=== PATIENT | male | born 1950 | race Caucasian/White ===

== ENCOUNTER 2016-09-01 06:50 | Day surgery (SDC) | payer MEDICARE ==
[2016-08-28 08:44] VITALS: BMI 39.9
[~2016-09-01 06:50] MED LIST: LACTATED RINGERS 1,000 ML IV SCH; LIDOCAINE 1% 20 ML VIAL (10MG/ML) FOR IV START INTRADERMA PRN
[2016-09-01 07:10] VITALS: TEMP 97
[2016-09-01] MEDS ORDERED: PROPOFOL 10 MG/ML 20 ML VIAL IV ONE (07:29)
[2016-09-01] MEDS ORDERED: LIDOCAINE 1% INJ 10MG/ML (20 ML MDV) ONE (07:29)
--- NOTE | 2016-09-01 08:01 | P.DS ---
Providers Attending physician: Tierney Camejo Primary care physician: Emelina Rodríguez MD Plan - Discharge Summary Discharge Medication List Furosemide [Lasix] 40 mg PO DAILY 01/28/15 [History] Aspirin 81 mg PO DAILY #30 chew 05/16/15 [Rx] Allopurinol [Zyloprim] 100 mg PO DAILY 03/06/16 [History] Atorvastatin [Lipitor] 10 mg PO HS 03/06/16 [History] Ergocalciferol [Vitamin D2 (DRISDOL)] 50,000 unit PO AYALA 03/06/16 [History] Lisinopril [Zestril] 10 mg PO DAILY 08/28/16 [History] Activity/Diet/Wound Care/Special Instructions: Diverticular diet Discharge Disposition: HOME SELF-CARE
--- NOTE | 2016-09-01 08:01 | P.OP ---
Date of Procedure: 09/01/16 Preoperative Diagnosis: Colonoscopy, flank pain Postoperative Diagnosis: Diffuse sigmoid diverticuli, internal hemorrhoids Procedure(s) Performed: Colonoscopy Anesthesia: MAC Surgeon: Tierney Camejo Estimated Blood Loss (ml): 0 IV fluids (ml): 300 Pathology: none sent Condition: stable Disposition: PACU Indications for Procedure: Patient's last colonoscopy 2005 Operative Findings: Sigmoid diverticuli, internal hemorrhoids Description of Procedure: Patient was taken to the endoscopy suite and following sedation rectal exam was performed. Patient was noted to have good sphincter tone no masses. The prostate seems somewhat prominent. The colonoscope was passed through the anus into the rectum through the sigmoid colon up to splenic flexure transverse colon hepatic flexure right colon down to the area of the cecum. Circumferential observation of the mucosa did not reveal any lesions of concern in the cecum or right colon. No lesions of concern were identified in the transverse colon. As the scope was withdrawn some scattered diverticuli were noted in the sigmoid colon. No polypoid lesions of concern were identified. The scope was brought down into the rectum where it was retroflexed. Internal hemorrhoids were identified. Approximately 6 minutes were taken to withdraw the scope from the cecum to the rectum. Impression/plan: 1. Internal hemorrhoids 2. Scattered diverticuli in the sigmoid colon 3. Slightly prominent prostate Plan: 1. Conservative management of diverticuli and hemorrhoids 2. Follow-up prostate with primary care physician 3. Repeat scope 7-10 years
[2016-09-01 08:02] VITALS: RESP 18
[2016-09-01 08:38] VITALS: BP 129/78; PULSE 58
== END 2016-09-01 08:49 | disposition home or self-care (01) ==
LOC: ORWHC2ENDO 06:50
PROVIDERS: ATTEND Surgery
DX: K57.30 Diverticulosis of large intestine without perforation or abscess without bleeding (principal); K64.8 Other hemorrhoids; C61 Malignant neoplasm of prostate; I11.0 Hypertensive heart disease with heart failure; I50.9 Heart failure, unspecified; E78.5 Hyperlipidemia, unspecified; G45.9 Transient cerebral ischemic attack, unspecified; Z88.1 Allergy status to other antibiotic agents; Z79.82 Long term (current) use of aspirin; Z79.899 Other long term (current) drug therapy; Z90.49 Acquired absence of other specified parts of digestive tract
CPT/HCPCS: 45378; J2001; J2704

== ENCOUNTER → 2016-10-03 | Outpatient (CLI) | payer MEDICARE ==
[2016-10-03 07:54] LABS: Basophils # (A) 0.1 k/uL (0-0.2); Basophils % (A) 1 %; CH 29.7; CHCM 33.7; Eosinophils # (A) 0.2 k/uL (0-0.7); Eosinophils % (A) 4 %; HCT 52.2 % (39.0-53.0); HDW 2.83; Luc # (Auto) 0.13; Luc % (Auto) 2; Lymphocytes # (A) 1.4 k/uL (1.0-4.8); Lymphocytes % (A) 21 %; MCH 28.9 pg (25.0-35.0); MCHC 32.6 g/dL (31.0-37.0); MCV 88.7 fL (80.0-100.0); Mean Platelet Volume 6.5; Monocytes # (A) 0.4 k/uL (0-1.0); Monocytes % (A) 6 %; Neutrophils # (A) 4.2 k/uL (1.3-7.7); Neutrophils % (A) 66 %; RBC 5.88 m/uL (4.30-5.90); RDW 14.1 % (11.5-15.5); WBC 6.4 k/uL (3.8-10.6); WBC (Perox) 5.98
[2016-10-03 08:13] LABS: ALT 24 U/L (21-72); AST 16 U/L (17-59); Alkaline Phosphatase 85 U/L (38-126); Anion Gap 9 mmol/L; Blood Urea Nitrogen 11 mg/dL (9-20); Calcium 8.8 mg/dL (8.4-10.2); Carbon Dioxide 29 mmol/L (22-30); Chloride 103 mmol/L (98-107); Cholesterol 81 mg/dL (<200); Glucose 97 mg/dL (74-99); HDL Cholesterol 41 mg/dL (40-60); Non-African American GFR(MDRD) >60 (>60 ml/min/1.73 sqM); Potassium 3.9 mmol/L (3.5-5.1); Sodium 141 mmol/L (137-145); Total Protein 6.6 g/dL (6.3-8.2); Triglycerides 40 mg/dL (<150); Uric Acid 5.7 mg/dL (3.5-8.5)
== END | disposition home or self-care (01) ==
LOC: LABWHC1 07:12
PROVIDERS: ATTEND Family Medicine
DX: C61 Malignant neoplasm of prostate (principal); I10 Essential (primary) hypertension; M10.9 Gout, unspecified; E78.5 Hyperlipidemia, unspecified
CPT/HCPCS: 36415; 80053; 80061; 84153; 84550; 85025

== ENCOUNTER 2016-10-23 23:32 | Emergency (ER) | payer MEDICARE ==
[2016-10-23 23:37] VITALS: TEMP 97.1
[2016-10-23] MEDS ORDERED: ASPIRIN 81 MG CHEW PO STA (23:41)
[2016-10-23] MEDS ORDERED: NITROGLYCERIN OINT 1 INCH/GM PACKET TOPICAL STA (23:41)
[2016-10-23] MEDS ORDERED: NITROGLYCERIN SL TABS 0.4 MG TAB SUBLINGUAL STA (23:41)
[2016-10-24] MEDS ORDERED: LABETALOL 5 MG/ML VIAL MDV IVP STA (00:14)
[2016-10-24 00:56] LABS: Basophils # (A) 0.1 k/uL (0-0.2); Basophils % (A) 1 %; CHCM 35.5; Eosinophils # (A) 0.2 k/uL (0-0.7); Eosinophils % (A) 2 %; HCT 51.7 % (39.0-53.0); HDW 2.96; HGB 17.8 gm/dL (13.0-17.5); Luc # (Auto) 0.15; Luc % (Auto) 2; Lymphocytes # (A) 1.5 k/uL (1.0-4.8); Lymphocytes % (A) 15 %; MCH 29.3 pg (25.0-35.0); MCHC 34.5 g/dL (31.0-37.0); MCV 84.8 fL (80.0-100.0); Mean Platelet Volume 6.6; Monocytes # (A) 0.5 k/uL (0-1.0); Monocytes % (A) 5 %; Neutrophils # (A) 7.4 k/uL (1.3-7.7); Neutrophils % (A) 76 %; RBC 6.09 m/uL (4.30-5.90); RDW 13.6 % (11.5-15.5); WBC 9.8 k/uL (3.8-10.6); WBC (Perox) 9.03
[2016-10-24 00:59] LABS: INR 1.1 (<1.1); Partial Thromboplastin Time 24.2 sec (22.0-30.0); Prothrombin Time 11.1 sec (9.0-12.0)
[2016-10-24 01:01] LABS: ALT 28 U/L (21-72); AST 16 U/L (17-59); Alkaline Phosphatase 87 U/L (38-126); Anion Gap 11 mmol/L; Blood Urea Nitrogen 11 mg/dL (9-20); Carbon Dioxide 23 mmol/L (22-30); Chloride 105 mmol/L (98-107); Glucose 104 mg/dL (74-99); Non-African American GFR(MDRD) >60 (>60 ml/min/1.73 sqM); Potassium 3.9 mmol/L (3.5-5.1); Sodium 139 mmol/L (137-145); Total Bilirubin 0.8 mg/dL (0.2-1.3)
[2016-10-24 01:13] LABS: Creatine Kinase 112 U/L (55-170)
--- NOTE | 2016-10-24 01:20 | XR ---
INDICATION: Chest pain COMPARISON: CXR 03/06/16 FINDINGS: Single frontal view of the chest is provided. There is stable cardiomegaly. Pulmonary vascularity is normal. The lungs are clear, without consolidation, effusion, or pneumothorax. Regional skeleton is intact. IMPRESSION: 1. Stable cardiomegaly. 2. No radiographic evidence of acute cardiopulmonary disease.
[2016-10-24 01:26] LABS: Troponin I <0.012 ng/mL (0.000-0.034)
[2016-10-24 02:03] VITALS: RESP 16
--- NOTE | 2016-10-24 02:35 | ED ---
Chest Pain HPI - General Chief Complaint: Chest Pain Stated Complaint: HTN,Chest Pressure Time Seen by Provider: 10/23/16 23:41 Source: patient Mode of arrival: ambulatory Limitations: no limitations - History of Present Illness Initial Comments: This patient is a 66-year-old man who presents to be evaluated because his blood pressure is been elevated most of the day. Patient reports that he had checked his blood pressure because he was having a bit of a headache and in the past the headache is been associated with elevated blood pressure. His blood pressure was quite high at home, over 200/100. They were following the blood pressure for a few hours and he did take an additional dose of his antihypertensive. When the pressure not gone down he did come here to be evaluated. The patient is denying sheryl pain but does state his chest is been tight they all across. MD Complaint: chest pain -: hour(s) Onset: during rest Pain Location: left chest, right chest Pain Radiation: none Severity: mild Quality: tightness Consistency: constant Improves With: nothing Worsens With: nothing Treatments Prior to Arrival: other (Patient took an extra dose of his antihypertensive) - Related Data Home Medications Medication Instructions Recorded Confirmed Furosemide [Lasix] 40 mg PO DAILY 01/28/15 10/25/16 Allopurinol [Zyloprim] 100 mg PO DAILY 03/06/16 10/25/16 Atorvastatin [Lipitor] 10 mg PO HS 03/06/16 10/25/16 Ergocalciferol [Vitamin D2 50,000 unit PO AYALA 03/06/16 10/25/16 (DRISDOL)] Lisinopril [Zestril] 20 mg PO DAILY 10/23/16 10/25/16 Cyanocobalamin [Vitamin B-12 1,000 mcg SQ Q60D 10/25/16 10/25/16 Injection] Previous Rx's Medication Instructions Recorded Aspirin 81 mg PO DAILY #30 chew 05/16/15 Amoxic-Pot Clav 875-125Mg 1 tab PO Q12HR #20 tablet 10/25/16 [Augmentin 875-125] HYDROcodone/APAP 5-325MG [[place] 1 tab PO Q6HR PRN #12 tab 10/25/16 5-325] Allergies Allergy/AdvReac Type Severity Reaction Status Date / Time erythromycin base AdvReac Nausea & Verified 10/25/16 13:30 Vomiting ibuprofen AdvReac Hx of GI Verified 10/25/16 13:30 Bleed steroids AdvReac Hx of GI Uncoded 10/25/16 13:11 Bleed Review of Systems ROS Statement: Those systems with pertinent positive or pertinent negative responses have been documented in the HPI. ROS Other: All systems not noted in ROS Statement are negative. Constitutional: Denies: fever, chills, weakness Eyes: Denies: vision change Respiratory: Denies: cough, dyspnea, wheezes Cardiovascular: Reports: as per HPI, chest pain. Denies: palpitations, dyspnea on exertion, orthopnea, edema, syncope Gastrointestinal: Denies: abdominal pain, vomiting Genitourinary: Denies: dysuria Musculoskeletal: Denies: back pain Skin: Denies: rash Neurological: Reports: headache. Denies: weakness, numbness, paresthesias EKG Findings - EKG Results: EKG: interpreted by HIRAM JONES, sinus rhythm (Rate 69 bpm), normal axis, normal QRS, normal ST/T, no acute changes - AR, Pacemaker, Normal: Normal tracing: normal tracing Past Medical History Past Medical History: Cancer, Heart Failure, CVA/TIA, GI Bleed, Hypertension, Pneumonia, Prostate Disorder Additional Past Medical History / Comment(s): hx prostate ca 2009/radiation tx , TIA 2014, SLIGHTLY ENLARGED HEART", GOUT, Small bowel blockage in February 2016 , hx anemia History of Any Multi-Drug Resistant Organisms: None Reported Past Surgical History: Bowel Resection, Cholecystectomy, Heart Catheterization, Hernia Repair Additional Past Surgical History / Comment(s): omphalocele repair as infant, 2 BOWEL RESECTIONS for bleeding, Past Anesthesia/Blood Transfusion Reactions: No Reported Reaction Additional Past Anesthesia/Blood Transfusion Reaction / Comment(s): . Past Psychological History: Depression Additional Psychological History / Comment(s): Pt had a suicide attempt in 2004. He states he has no suicidal thoughts. Smoking Status: Never smoker Past Alcohol Use History: Rare Additional Past Alcohol Use History / Comment(s): . Past Drug Use History: None Reported - Past Family History Father Family Medical History: Cancer Additional Family Medical History / Comment(s): .. Mother Family Medical History: Cancer Additional Family Medical History / Comment(s): . General Exam Limitations: no limitations General appearance: alert, in no apparent distress, obese Head exam: Present: atraumatic, normocephalic Eye exam: Present: normal appearance. Absent: scleral icterus, conjunctival injection Neck exam: Present: normal inspection, full ROM. Absent: tenderness, meningismus Respiratory exam: Present: normal lung sounds bilaterally. Absent: respiratory distress, wheezes, rales, rhonchi, stridor Cardiovascular Exam: Present: regular rate, normal rhythm, normal heart sounds. Absent: systolic murmur, diastolic murmur, rubs, gallop GI/Abdominal exam: Present: soft. Absent: distended, tenderness, guarding, rebound, rigid Extremities exam: Present: normal inspection, normal capillary refill. Absent: pedal edema, calf tenderness Back exam: Present: normal inspection. Absent: CVA tenderness (R), CVA tenderness (L) Neurological exam: Present: alert, oriented X3. Absent: motor sensory deficit Skin exam: Present: warm, dry, intact, normal color. Absent: rash Course Vital Signs 10/23/16 10/24/16 10/24/16 23:34 00:27 00:37 Temperature 97.1 F L Pulse Rate 62 75 76 Respiratory 18 16 16 Rate Blood Pressure 200/109 154/110 144/96 O2 Sat by Pulse 97 97 97 Oximetry 10/24/16 10/24/16 02:04 03:00 Temperature Pulse Rate 72 69 Respiratory 16 16 Rate Blood Pressure 132/93 123/80 O2 Sat by Pulse 98 97 Oximetry Chest Pain MDM - MDM Patient is 66-year-old man with elevated blood pressure that did respond to the antihypertensive. He was also having headache which she states is the same as chronic headaches that he is getting for years. It is not worst headache of life. No coming neurologic symptoms. Disposition Clinical Impression: Hypertension Disposition: HOME SELF-CARE Condition: Good Instructions: Hypertension (ED) Referrals: Emelina Rodríguez MD [Primary Care Provider] - 1-2 days
[2016-10-24 03:02] VITALS: BP 123/80; PULSE 69
== END 2016-10-24 03:00 | disposition home or self-care (01) ==
LOC: EC 23:32
DX: I11.0 Hypertensive heart disease with heart failure (principal); I50.9 Heart failure, unspecified; R07.9 Chest pain, unspecified; Z86.73 Personal history of transient ischemic attack (TIA), and cerebral infarction without residual deficits; Z88.1 Allergy status to other antibiotic agents; Z88.6 Allergy status to analgesic agent; Z88.8 Allergy status to other drugs, medicaments and biological substances; Z79.899 Other long term (current) drug therapy
CPT/HCPCS: 36415; 71010; 80053; 82550; 82553; 83735; 83880; 84484; 85025; 85610; 85730; 93005; 99285

== ENCOUNTER 2016-10-25 12:38 | Emergency (ER) | payer MEDICARE ==
[2016-10-25 13:11] VITALS: BP 136/89; PULSE 84; RESP 16; TEMP 98.7
[2016-10-25] MEDS ORDERED: AMOXIC-POT CLAV 875-125MG 1 EACH TAB PO STA (13:31)
--- NOTE | 2016-10-25 13:41 | ED ---
ENT HPI - General Chief complaint: Dental/Oral Stated complaint: Face swelling Source: patient Mode of arrival: ambulatory Limitations: no limitations - History of Present Illness Initial comments: Patient is a 66-year-old male presenting to the emergency department with complaints of left-sided mandibular swelling that started at 2 AM last night. Patient states that he has a history of fracture to tooth #19 and has been having some pain over the last couple of days which he treated with Orajel and Tylenol with minimal relief. Patient denies history of same. No history of fevers, chills, nausea, vomiting, shortness of breath, trismus, difficulty swallowing, chest pain, abdominal pain. Patient denies ear pain. Patient denies difficulty hearing. Patient denies antibiotic use last 30 days. - Related Data Home Medications Medication Instructions Recorded Confirmed Furosemide [Lasix] 40 mg PO DAILY 01/28/15 10/25/16 Allopurinol [Zyloprim] 100 mg PO DAILY 03/06/16 10/25/16 Atorvastatin [Lipitor] 10 mg PO HS 03/06/16 10/25/16 Ergocalciferol [Vitamin D2 50,000 unit PO AYALA 03/06/16 10/25/16 (DRISDOL)] Lisinopril [Zestril] 20 mg PO DAILY 10/23/16 10/25/16 Cyanocobalamin [Vitamin B-12 1,000 mcg SQ Q60D 10/25/16 10/25/16 Injection] Previous Rx's Medication Instructions Recorded Aspirin 81 mg PO DAILY #30 chew 05/16/15 Amoxic-Pot Clav 875-125Mg 1 tab PO Q12HR #20 tablet 10/25/16 [Augmentin 875-125] HYDROcodone/APAP 5-325MG [[place] 1 tab PO Q6HR PRN #12 tab 10/25/16 5-325] Allergies Allergy/AdvReac Type Severity Reaction Status Date / Time erythromycin base AdvReac Nausea & Verified 10/25/16 13:30 Vomiting ibuprofen AdvReac Hx of GI Verified 10/25/16 13:30 Bleed steroids AdvReac Hx of GI Uncoded 10/25/16 13:11 Bleed Review of Systems ROS Statement: Those systems with pertinent positive or pertinent negative responses have been documented in the HPI. ROS Other: All systems not noted in ROS Statement are negative. Past Medical History Past Medical History: Cancer, Heart Failure, CVA/TIA, GI Bleed, Hypertension, Pneumonia, Prostate Disorder Additional Past Medical History / Comment(s): hx prostate ca 2009/radiation tx , TIA 2014, SLIGHTLY ENLARGED HEART", GOUT, Small bowel blockage in February 2016 , hx anemia History of Any Multi-Drug Resistant Organisms: None Reported Past Surgical History: Bowel Resection, Cholecystectomy, Heart Catheterization, Hernia Repair Additional Past Surgical History / Comment(s): omphalocele repair as , 2 BOWEL RESECTIONS for bleeding, Past Anesthesia/Blood Transfusion Reactions: No Reported Reaction Additional Past Anesthesia/Blood Transfusion Reaction / Comment(s): . Past Psychological History: Depression Additional Psychological History / Comment(s): Pt had a suicide attempt in 2004. He states he has no suicidal thoughts. Smoking Status: Never smoker Past Alcohol Use History: Rare Additional Past Alcohol Use History / Comment(s): . Past Drug Use History: None Reported - Past Family History Father Family Medical History: Cancer Additional Family Medical History / Comment(s): .. Mother Family Medical History: Cancer Additional Family Medical History / Comment(s): . General Exam Limitations: no limitations General appearance: alert, in no apparent distress Head exam: Present: atraumatic, normocephalic, normal inspection Eye exam: Present: normal appearance, PERRL. Absent: scleral icterus, conjunctival injection, nystagmus, periorbital swelling, periorbital tenderness ENT exam: Present: mucous membranes moist, TM's normal bilaterally, normal external ear exam Expanded Ear exam: Present: normal external inspection Mouth exam: Present: tongue normal. Absent: drooling, trismus Teeth exam: Present: fractured tooth # (19), dental tenderness # (19) Throat exam: normal inspection. negative: tonsillar erythema, tonsillomegaly, tonsillar exudate, R peritonsillar mass, L peritonsillar mass Neck exam: Present: normal inspection, full ROM. Absent: tenderness, lymphadenopathy Respiratory exam: Present: normal lung sounds bilaterally. Absent: respiratory distress, wheezes, rales, rhonchi, stridor Cardiovascular Exam: Present: regular rate, normal rhythm, normal heart sounds. Absent: systolic murmur, diastolic murmur, rubs, gallop, clicks GI/Abdominal exam: Present: soft, normal bowel sounds. Absent: distended, tenderness, guarding, rebound, rigid Extremities exam: Present: normal inspection Neurological exam: Present: alert, oriented X3, normal gait, other (No focal deficits noted.) Psychiatric exam: Present: normal affect, normal mood Skin exam: Present: warm, dry, intact, normal color, other (Swelling, erythema, and tenderness noted to left lower jaw area.) Course Vital Signs 10/25/16 13:07 Temperature 98.7 F Pulse Rate 84 Respiratory 16 Rate Blood Pressure 136/89 O2 Sat by Pulse 95 Oximetry Medical Decision Making - Medical Decision Making Patient is a 66-year-old white male presenting with history of fractured tooth # 19 presenting with dental abscess and facial cellulitis. Patient started on Augmentin 875 mg twice a day 10 days with first dose given in the emergency department. Patient instructed to follow-up with dentist and primary care physician as directed. Patient given prescription for [place] 5 for moderate to severe pain. Patient instructed to apply warm compresses to the site. Patient instructed to return to the emergency department with new worsening symptoms. Patient agrees to plan of care. Discharge instructions and return parameters reviewed. Disposition Clinical Impression: Dental abscess, Toothache, Fracture of tooth, Facial cellulitis Disposition: HOME SELF-CARE Condition: Good Instructions: Dental Abscess (ED), Toothache (ED) Additional Instructions: Continue Augmentin 875 every 12 hours for 10 days. Continue Tylenol or [place] for pain or discomfort. Apply warm compresses for comfort. Please follow-up with dentist on Wednesday. Follow-up with primary care physician as direcPlease return to the emergency department if symptoms do not improve or get worse. Prescriptions: Amoxic-Pot Clav 875-125Mg [Augmentin 875-125] 1 tab PO Q12HR #20 tablet HYDROcodone/APAP 5-325MG [[place] 5-325] 1 tab PO Q6HR PRN #12 tab PRN Reason: Pain Referrals: Emelina Rodríguez MD [Primary Care Provider] - 1-2 days Time of Disposition: 13:41
== END 2016-10-25 14:09 | disposition home or self-care (01) ==
LOC: EC 12:38
DX: S02.5XXA Fracture of tooth (traumatic), initial encounter for closed fracture (principal); L03.211 Cellulitis of face; K04.7 Periapical abscess without sinus; I11.0 Hypertensive heart disease with heart failure; I50.9 Heart failure, unspecified; Z85.46 Personal history of malignant neoplasm of prostate; Z86.73 Personal history of transient ischemic attack (TIA), and cerebral infarction without residual deficits; Z79.899 Other long term (current) drug therapy; Z88.1 Allergy status to other antibiotic agents; Z88.6 Allergy status to analgesic agent; Z88.8 Allergy status to other drugs, medicaments and biological substances; X58.XXXA Exposure to other specified factors, initial encounter
CPT/HCPCS: 99283

== ENCOUNTER → 2017-11-30 | Outpatient (CLI) | payer MEDICARE ==
[2017-11-30 07:25] LABS: Basophils % (A) 0 %; Eosinophils # (A) 0.2 k/uL (0-0.7); Eosinophils % (A) 3 %; HCT 51.5 % (39.0-53.0); HGB 17.1 gm/dL (13.0-17.5); Lymphocytes # (A) 1.5 k/uL (1.0-4.8); Lymphocytes % (A) 24 %; MCH 29.1 pg (25.0-35.0); MCHC 33.1 g/dL (31.0-37.0); MCV 87.9 fL (80.0-100.0); Mean Platelet Volume 6.7; Monocytes # (A) 0.3 k/uL (0-1.0); Monocytes % (A) 6 %; Neutrophils % (A) 65 %; Platelet Count 187 k/uL (150-450); RBC 5.86 m/uL (4.30-5.90); RDW 14.2 % (11.5-15.5); WBC 6.1 k/uL (3.8-10.6)
[2017-11-30 07:28] LABS: Albumin 3.6 g/dL (3.5-5.0); Calcium 8.6 mg/dL (8.4-10.2); Potassium 3.8 mmol/L (3.5-5.1); Total Bilirubin 1.6 mg/dL (0.2-1.3); Total Protein 6.3 g/dL (6.3-8.2); Uric Acid 5.9 mg/dL (3.5-8.5)
[2017-11-30 11:30] LABS: Vitamin D 25 Hydroxy 69.8 ng/mL (30.0-100.0)
== END | disposition home or self-care (01) ==
LOC: LABWHC1 06:33
PROVIDERS: ATTEND Family Medicine
DX: E55.9 Vitamin D deficiency, unspecified (principal); I10 Essential (primary) hypertension; M10.9 Gout, unspecified; E53.8 Deficiency of other specified B group vitamins
CPT/HCPCS: 36415; 80053; 80061; 82306; 82607; 84550; 85025

== ENCOUNTER 2019-03-17 08:29 | Emergency (ER) | payer MEDICARE ==
[2019-03-17 08:34] VITALS: BP 148/95; PULSE 67; RESP 18; TEMP 97.5
[2019-03-17] MEDS ORDERED: ACET/COD 300 MG/30 MG STARTER PACK 6 TAB BTL PO STA (08:44)
[2019-03-17] MEDS ORDERED: CIPROFLOXACIN-DEXAMETH 0.3-0.1% DROPS 7.5 ML BTL LEFT EAR STA (08:44)
--- NOTE | 2019-03-17 08:48 | ED ---
ENT HPI - General Chief complaint: ENT Stated complaint: Ear Bleeding Time Seen by Provider: 03/17/19 08:34 Source: patient, RN notes reviewed Mode of arrival: ambulatory Limitations: no limitations - History of Present Illness Initial comments: 68-year-old male presents to the emergency Department with chief complaint of left ear pain, bleeding. Patient states her last week and 2:30 weeks he has been dealing with this ear infection which has been on oral antibiotics amoxicillin. Patient states he finished a course that was placed on some eardrops and which she does not know the name. Patient states that he's also started on antihistamines. His primary care physician as discussed referral to Dr. Keane [facility] because his ongoing ear infection. Patient states over nighttime he has increasing pain states that he woke up some blood in his ear canal. Patient states that this didn't change the pain and pressure feeling. Patient denies any pain surrounding the area denies any current headache, neck pain, neck stiffness. - Related Data Home Medications Medication Instructions Recorded Confirmed Furosemide [Lasix] 40 mg PO DAILY 01/28/15 05/31/17 Allopurinol [Zyloprim] 100 mg PO DAILY 03/06/16 05/31/17 Ergocalciferol [Vitamin D2 50,000 unit PO SA 03/06/16 05/31/17 (DRISDOL)] Lisinopril [Zestril] 20 mg PO DAILY 10/23/16 05/31/17 Atorvastatin [Lipitor] 10 mg PO DAILY 05/31/17 05/31/17 Escitalopram [Lexapro] 20 mg PO DAILY 05/31/17 05/31/17 Previous Rx's Medication Instructions Recorded Aspirin 81 mg PO DAILY #30 chew 05/16/15 Amoxicillin/Potassium Clav 1 tab PO Q12HR #20 tab 03/17/19 [Augmentin 875-125 Tablet] Allergies Allergy/AdvReac Type Severity Reaction Status Date / Time erythromycin base AdvReac Nausea & Verified 03/17/19 08:34 Vomiting ibuprofen AdvReac Hx of GI Verified 03/17/19 08:34 Bleed steroids AdvReac Hx of GI Uncoded 03/17/19 08:34 Bleed Review of Systems ROS Statement: Those systems with pertinent positive or pertinent negative responses have been documented in the HPI. ROS Other: All systems not noted in ROS Statement are negative. Past Medical History Past Medical History: Cancer, Heart Failure, CVA/TIA, GI Bleed, Hypertension, Pneumonia, Prostate Disorder Additional Past Medical History / Comment(s): hx prostate ca 2009/radiation tx ,TIA 2014, SLIGHTLY ENLARGED HEART", GOUT, Small bowel blockage in February 2016, hx anemia History of Any Multi-Drug Resistant Organisms: None Reported Past Surgical History: Bowel Resection, Cholecystectomy, Heart Catheterization, Hernia Repair Additional Past Surgical History / Comment(s): omphalocele repair as , 2 BOWEL RESECTIONS for bleeding, Past Anesthesia/Blood Transfusion Reactions: No Reported Reaction Additional Past Anesthesia/Blood Transfusion Reaction / Comment(s): . Past Psychological History: Depression Smoking Status: Never smoker Past Alcohol Use History: None Reported Past Drug Use History: None Reported - Past Family History Father Family Medical History: Cancer Additional Family Medical History / Comment(s): .. Mother Family Medical History: Cancer Additional Family Medical History / Comment(s): . General Exam Limitations: no limitations General appearance: alert, in no apparent distress Head exam: Present: atraumatic, normocephalic, normal inspection ENT exam: Present: normal oropharynx, mucous membranes moist, normal external ear exam, other (No mastoid tenderness no tenderness with movement of the ear). Absent: normal exam, TM's normal bilaterally (Erythema, mild blood noted,appears to be small perforation) Neck exam: Present: normal inspection. Absent: tenderness, meningismus, lymphadenopathy Respiratory exam: Present: normal lung sounds bilaterally. Absent: respiratory distress, wheezes, rales, rhonchi, stridor Cardiovascular Exam: Present: regular rate, normal rhythm, normal heart sounds. Absent: systolic murmur, diastolic murmur, rubs, gallop, clicks Course Vital Signs 03/17/19 08:29 Temperature 97.5 F L Pulse Rate 67 Respiratory 18 Rate Blood Pressure 148/95 O2 Sat by Pulse 96 Oximetry Medical Decision Making - Medical Decision Making 68-year-old male presented for left ear pain. Patient had a persistent otitis media. Most likely has a small perforation secondary to bleeding today. Patient we given eardrops, oral antibiotics she is advised to follow-up with ENT return for any worsening symptoms. Disposition Clinical Impression: Otitis media Disposition: HOME SELF-CARE Condition: Stable Instructions (If sedation given, give patient instructions): Earache (ED) Additional Instructions: Use eardrops 4 drops twice daily for 7 days. Please return to the Emergency Dep artment if symptoms worsen or any other concerns. Prescriptions: Amoxicillin/Potassium Clav [Augmentin 875-125 Tablet] 1 tab PO Q12HR #20 tab Is patient prescribed a controlled substance at d/c from ED?: No Referrals: Emelina Rodríguez MD [Primary Care Provider] - 1-2 days Jordan Harrison MD [STAFF PHYSICIAN] - 1-2 days Time of Disposition: 08:47
== END 2019-03-17 09:32 | disposition home or self-care (01) ==
LOC: EC 08:29
DX: H66.92 Otitis media, unspecified, left ear (principal); H92.22 Otorrhagia, left ear; I11.0 Hypertensive heart disease with heart failure; I50.9 Heart failure, unspecified; M10.9 Gout, unspecified; F32.9 Major depressive disorder, single episode, unspecified; Z88.1 Allergy status to other antibiotic agents; Z88.6 Allergy status to analgesic agent; Z88.8 Allergy status to other drugs, medicaments and biological substances; Z79.899 Other long term (current) drug therapy; Z86.73 Personal history of transient ischemic attack (TIA), and cerebral infarction without residual deficits; Z85.46 Personal history of malignant neoplasm of prostate; Z92.3 Personal history of irradiation
CPT/HCPCS: 99282

== ENCOUNTER 2019-04-05 10:43 | Day surgery (SDC) | payer MEDICARE ==
[2019-04-03 15:15] VITALS: BMI 40.7
[2019-04-05 11:17] VITALS: TEMP 97.2
[2019-04-05] MEDS ORDERED: PROPOFOL 10 MG/ML 20 ML VIAL IV ONE (11:26)
[2019-04-05] MEDS ORDERED: LIDOCAINE 1% INJ 10MG/ML (20 ML MDV) ONE (11:26)
--- NOTE | 2019-04-05 11:48 | P.PCN ---
Date of Procedure: 04/05/19 Procedure(s) Performed: Brief history: Patient is a pleasant 68-year-old white male scheduled for an elective upper endoscopy as well as colonoscopy as a part of evaluation of I deficiency anemia. He denies any GI symptoms. Procedure performed: Esophagogastroduodenoscopy with biopsy Colonoscopy with snare polypectomy Preoperative diagnosis: Iron deficiency anemia [place] [facility] Procedure: After informed consent was obtained from the patient was brought into the endoscopy unit and IV sedation was administered by anesthesia under continuous monitoring. Initially upper endoscopy was done. The Olympus GF 160 video endoscope was inserted inserted into the mouth and esophagus intubated without any difficulty and was gradually advanced into the stomach and duodenum and carefully examined. The bulb and second part of the duodenum appeared normal. The scope was then withdrawn into the stomach adequately insufflated with air and upon careful examination the antrum had severe diffuse gastritis and biopsies were done from this area. The body, cardia and fundus appeared normal. The scope was then withdrawn into the esophagus. The GE junction was located at 40 cm to the incisors. It appeared regular with no erythema erosions or ulcerations. Rest of the esophagus appeared normal. Patient tolerated the procedure well. At this time the patient continued to remain sedation. Initial digital rectal examination was normal. Olympus CF 160 video colonoscope was then inserted into the rectum and gradually advanced to the cecum without any difficulty. Careful examination was performed as the scope was gradually being withdrawn. The prep was excellent. The cecum, ascending colon, transverse colon, appeared normal. The descending colon there was a 5 mm sessile polyp that was removed by snare polypectomy. Rest of the descending colon, sigmoid colon and rectum appeared normal. Retroflexion was performed in the rectum and small internal were noted. Patient tolerated the procedure well. Impression: 1. Upper endoscopy revealed diffuse gastritis but more prominent in the prepyloric area status post biopsy 2. Colonoscopy revealed 5 mm ascending colon polyp status post polypectomy and small internal hemorrhoids Recommendations: Findings of this examination were discussed with the patient as well as his family. He was advised to follow with the biopsy results. If the biopsy shows an adenoma he can have a repeat colonoscopy in 5 years
[2019-04-05 12:12] VITALS: BP 122/85; PULSE 73; RESP 18
== END 2019-04-05 12:50 | disposition home or self-care (01) ==
LOC: ORWHC2ENDO 10:43
PROVIDERS: ATTEND Internal Medicine Gastroenterology
DX: K29.50 Unspecified chronic gastritis without bleeding (principal); D12.4 Benign neoplasm of descending colon; K64.8 Other hemorrhoids; D50.9 Iron deficiency anemia, unspecified; I25.10 Atherosclerotic heart disease of native coronary artery without angina pectoris; I11.0 Hypertensive heart disease with heart failure; I50.9 Heart failure, unspecified; E78.5 Hyperlipidemia, unspecified; Z79.82 Long term (current) use of aspirin; Z79.899 Other long term (current) drug therapy; Z88.6 Allergy status to analgesic agent; Z88.1 Allergy status to other antibiotic agents; Z88.8 Allergy status to other drugs, medicaments and biological substances
CPT/HCPCS: 88305; 45385; J2001; J2704

== ENCOUNTER 2019-04-07 09:53 | Day surgery (SDC) | payer MEDICARE ==
[2019-04-06 12:32] VITALS: BMI 41.5
--- NOTE | 2019-04-07 05:14 | HP ---
HISTORY AND PHYSICAL CHIEF COMPLAINT: Left aural polyp/left otorrhea. HISTORY OF PRESENT ILLNESS: This patient is a very pleasant 68-year-old male who was referred to my office by [facility]. The patient was originally seen in the emergency room with a complaint of left ear pain and bleeding. He had apparently seen a physician and was placed on a course of ear drops and amoxicillin. The patient denies having his ear irrigated and he also denies any history of chronic ear infections. At the time that the patient was seen in my office, clinical examination of the ear initially revealed significant swelling of the canal and significant purulent material. The patient was placed on a course of ofloxacin ophthalmic drops, 10 drops in the left ear t.i.d. He was also placed on a 10-day course of Levaquin 750 mg. The patient was seen back in the office approximately a week later and at that time noted that the ear was still quite painful and it still had a bloody drainage. Examination of the ear at this time revealed that most of the swelling had resolved and now one could see that there appeared to be an aural polyp filling the left external auditory canal. It was difficult to determine whether the polyp was arising from the canal skin or whether it was arising from the middle ear space. Therefore, no attempt was made to remove this polyp in the office. It was recommended the patient be scheduled for exploration of left ear with biopsy and removal of left aural polyp under IV sedation with MAC or general anesthetic. PAST MEDICAL HISTORY: Past medical history reveals patient has allergies to all NSAIDS including IBUPROFEN, ADVIL, MOTRIN, etc., STEROIDS and ERYTHROMYCIN. Current medications Include: 1. Lisinopril. 2. Lasix. 3. Zyloprim. 4. Baby aspirin. 5. Lipitor. REVIEW OF SYSTEMS: Review of systems reveals cardiovascular system is positive for hypertension. The respiratory system is negative. Metabolic/endocrine system is positive for hypercholesterolemia. The musculoskeletal system is positive for gout. The remainder of the review of systems is essentially unremarkable. PHYSICAL EXAMINATION: The patient is a very pleasant 68-year-old male who was alert and cooperative. HEENT EXAMINATION: Patient is normocephalic. Examination of the right knee reveals the right ear is completely unremarkable. The right middle ear space is free of any fluid or infection. Examination of left ear reveals the left external auditory canal is filled distally with a polypoid lesion. There is also some bloody discharge noted in the left ear. The left tympanic membrane is not visible at this time because of the aural polyp. Pupils are equal, round, react to light and accommodation. Extraocular movements within normal limits. Intranasal examination reveals moderate to severe septal deviation with compensatory hypertrophy of the inferior turbinates and a moderate amount of mucus on the mucous membranes draining down the posterior pharynx. Examination of the oropharynx, cranial nerves 2 through 12 and the remainder of the head and neck exam are all within normal limits. CHEST/CARDIOVASCULAR: Both lung willett are clear to percussion and auscultation. The patient is in regular sinus rhythm. S1 and S2 are present without evidence of any murmurs, S3s or S4s. Peripheral pulses are bilaterally symmetrical and within normal limits. ABDOMEN: There is no evidence any masses, megaly, or tenderness. The abdomen is soft. Skin is unremarkable. Musculoskeletal and neurological are within normal limits. RECTAL EXAM: The rectal exam is deferred at this time because the patient has this done on a regular basis at his family physician's office. The remainder of physical exam is unremarkable. Previous surgeries include a cholecystectomy, bowel resection x2 and a colonoscopy. IMPRESSION: Left aural polyp. PLAN: The patient is scheduled to undergo exploration of left ear and removal of left aural polyp under either IV sedation with MAC or general anesthesia, depending upon the anesthesia department's preference. ATTENTION RNS IN THE PRE-SURGICAL AREA: I have not ordered any pre-surgical prophylactic antibiotics for this patient. If the pharmacy department sends any pre- surgical prophylactic antibiotics to the pre-surgical area for this patient, please cancel that order and return the medication to the pharmacy department. Also please make sure that the patient's account is credited appropriately. I have ordered for this patient to receive 1000 mg of Ofirmev IV to be given once an intravenous line has been established in the pre-surgical area. I have discussed the risks, benefits and alternative therapies for the above-mentioned procedure and for both sedation/analgesia as well as necessary blood product administration, if indicated, as they pertain to this patient. The patient has indicated his or her understanding and acceptance of the risks and procedures discussed. MMODL / IJN: [id number] /
[~2019-04-07 09:53] MED LIST changes: +DEXAMETHASONE SOD PHOSPHATE 10 MG/ML 1 ML VIAL IV ONE; +HYDROmorphone 0.5 MG/0.5 ML SYRINGE IVP PRN; +MIDAZOLAM 2 MG/2 ML VIAL IV PRN; +ONDANSETRON 4 MG/2 ML VIAL IVP ONE; +Pre Op ABX Message 1 EACH MISC MISCELLANE ONE; +SCOPOLAMINE 1.5MG/72HR PATCH TRANSDERM ONE
[2019-04-07] MEDS ORDERED: ACETAMINOPHEN IV (For NPO) 1,000 MG in EMPTY BAG 1 BAG IVPB ONE (11:05)
[2019-04-07] MEDS ORDERED: KETAMINE 10 MG/ML 20 ML VIAL ONE (11:18)
[2019-04-07] MEDS ORDERED: MIDAZOLAM 2 MG/2 ML VIAL ONE (11:18)
[2019-04-07] MEDS ORDERED: fentaNYL (PF) 50 MCG/ML 2 ML AMP ONE (11:18)
[2019-04-07] MEDS ORDERED: PROPOFOL 10 MG/ML 20 ML VIAL IV ONE (11:18)
[2019-04-07] MEDS ORDERED: EPINEPHrine 1 MG/ML 1 ML AMP SQ ONE ×2 (11:44)
[2019-04-07] MEDS ORDERED: EPINEPHrine 1 MG/ML 1 ML AMP IRRIGATION ONE (11:44)
[2019-04-07] MEDS ORDERED: CIPROFLOXACIN-DEXAMETH 0.3-0.1% DROPS 7.5 ML BTL LEFT EAR ONE (12:12)
[2019-04-07 12:30] VITALS: TEMP 98
[2019-04-07 12:33] VITALS: RESP 16
[2019-04-07 13:25] VITALS: PULSE 63
[2019-04-07 13:35] VITALS: BP 137/89
--- NOTE | 2019-04-08 07:30 | OP ---
OPERATIVE REPORT DATE OF SURGERY: 04/07/2013. PREOPERATIVE DIAGNOSIS: Left aural polyp of the external auditory canal. POSTOPERATIVE DIAGNOSIS: Left aural polyp of the external auditory canal, final pathology is pending. ANESTHESIA: IV sedation with M.A.C. OPERATIVE PROCEDURE: Exploration of left external auditory canal and biopsy and excision of aural polyp of the left external auditory canal. OPERATING SURGEON: Dr. Harrison. COMPLICATIONS: None. ESTIMATED BLOOD LOSS: Less than 2 mL. OPERATIVE PROCEDURE: The patient was placed on operating table in supine position. After uneventful IV sedation, satisfactory sedation was obtained. Next, the patient's left ear was draped in the usual and customary fashion. Next, using the Zeiss operating microscope and a #3 aural speculum, the left external auditory canal was cleansed of all purulent debris and wax. Initially the aural polyp came into view. It was manipulated so as to get an idea as to how attached it was using an anulus elevator. It was difficult to determine whether the polyp was arising from the skin of the external auditory canal or from a perforation in the left tympanic membrane and therefore the left middle ear space. Therefore, care was taken not to pull on the polyp until that could be determined if possible. Initially, the base of the polyp was located and this was partially amputated using a pair of Bellucci otologic scissors. Next, using both up-biting straight and right biting otologic forceps, portions of the polyp were removed in a piecemeal fashion. Again, care was taken not to pull on the polyp at all. In addition to this, a portion of the polyp was cauterized using the suction tip and by touching the Bovie cautery to the suction tip with care not to touch the sides of the external auditory canal. What appeared to be a portion of the left tympanic membrane came into view. Approximately 85-90% of the aural polyp was removed in a piecemeal fashion and the remaining portion was cauterized using the Bovie. Next, the entire external auditory canal was filled with Ciprodex. At this point the procedure was terminated. Estimated blood loss less than less than 2 mL. The patient tolerated the procedure well. Final pathology is pending. The patient was returned to the recovery room in satisfactory condition. MMODL / IJN: [id number] /
== END 2019-04-07 14:19 | disposition home or self-care (01) ==
LOC: OR 09:53
PROVIDERS: ATTEND Otolaryngology
DX: H61.892 Other specified disorders of left external ear (principal); I10 Essential (primary) hypertension; E78.00 Pure hypercholesterolemia, unspecified; M10.9 Gout, unspecified; E78.5 Hyperlipidemia, unspecified; J34.3 Hypertrophy of nasal turbinates; E66.01 Morbid (severe) obesity due to excess calories; Z68.41 Body mass index [BMI] 40.0-44.9, adult; Z88.8 Allergy status to other drugs, medicaments and biological substances; Z88.1 Allergy status to other antibiotic agents; Z79.899 Other long term (current) drug therapy; Z79.82 Long term (current) use of aspirin; Z90.49 Acquired absence of other specified parts of digestive tract; Z86.73 Personal history of transient ischemic attack (TIA), and cerebral infarction without residual deficits; Z98.890 Other specified postprocedural states
CPT/HCPCS: 69540; 88304; J2250; J0171; J1100; J2405; J3010; J0131; J2704

== ENCOUNTER → 2019-06-10 | Outpatient (CLI) | payer MEDICARE ==
[2019-06-10 08:50] LABS: Basophils % (A) 1 %; Eosinophils # (A) 0.3 k/uL (0-0.7); Eosinophils % (A) 4 %; HCT 51.6 % (39.0-53.0); HGB 17.5 gm/dL (13.0-17.5); Lymphocytes # (A) 1.6 k/uL (1.0-4.8); Lymphocytes % (A) 21 %; MCH 30.3 pg (25.0-35.0); MCHC 33.9 g/dL (31.0-37.0); MCV 89.5 fL (80.0-100.0); Mean Platelet Volume 6.9; Monocytes # (A) 0.4 k/uL (0-1.0); Monocytes % (A) 6 %; Neutrophils % (A) 67 %; Platelet Count 196 k/uL (150-450); RBC 5.76 m/uL (4.30-5.90); RDW 13.7 % (11.5-15.5); WBC 7.4 k/uL (3.8-10.6)
[2019-06-10 17:29] LABS: African American GFR (CKD) 71.1 (60.0-200.0); Anion Gap 8.4 mmol/L (4.00-12.00); BUN/Creat Ratio 9.17 Ratio (12.00-20.00); Calcium 8.7 mg/dL (8.7-10.3); Carbon Dioxide 29.6 mmol/L (21.6-31.8); Chol/HDL Ratio 2.66; LDL Cholesterol,Calculated 50.8 mg/dL (0.0-131.0); Non-African American GFR(CKD) 61.3 (60.0-200.0); Potassium 4.1 mmol/L (3.5-5.5); Total Bilirubin 0.9 mg/dL (0.2-1.2); VLDL Calculation 12.2 mg/dL (5.00-40.00)
== END | disposition home or self-care (01) ==
LOC: LABWHC1 08:14
PROVIDERS: ATTEND Family Medicine
DX: I10 Essential (primary) hypertension (principal)
CPT/HCPCS: 36415; 80053; 80061; 85025

== ENCOUNTER 2019-08-21 10:33 | Inpatient (IN) | payer MEDICARE ==
--- NOTE | 2019-08-21 11:03 | ED ---
General Adult HPI - General Chief complaint: Neuro Symptoms/Deficit Stated complaint: chest pain, lt sided facial numbness Time Seen by Provider: 08/21/19 10:45 Source: patient, RN notes reviewed, old records reviewed Mode of arrival: wheelchair Limitations: no limitations - History of Present Illness Initial comments: 69-year-old male presenting for evaluation of left sided chest pain, some left arm pain and numbness, and numbness into his left face. Symptoms began this morning approximately at 8:30 AM. He's had similar episodes to this in the past with history of TIA history of congestive heart failure, he has no known history of CAD. He follows with cardiology on a regular basis.. He reports multiple episodes with similar presentation in the past. He is not currently anticoagulated. He denies headache. Denies focal weakness. This is left- sided chest ache. No vomiting. No abdominal pain. - Related Data Home Medications Medication Instructions Recorded Confirmed Furosemide [Lasix] 40 mg PO DAILY 01/28/15 04/07/19 Allopurinol [Zyloprim] 100 mg PO BID 03/06/16 04/07/19 Lisinopril [Zestril] 20 mg PO QAM 10/23/16 04/07/19 Atorvastatin [Lipitor] 10 mg PO DAILY 05/31/17 04/07/19 Escitalopram [Lexapro] 20 mg PO QAM 05/31/17 04/07/19 amLODIPine [Norvasc] 5 mg PO QAM 03/17/19 04/07/19 buPROPion XL [Wellbutrin Xl] 150 mg PO BID 03/17/19 04/07/19 Cholecalciferol [Vitamin D3 (25 5,000 unit PO DAILY 04/03/19 04/07/19 Mcg = 1000 Iu)] Previous Rx's Medication Instructions Recorded Aspirin 81 mg PO DAILY #30 chew 05/16/15 Hydrocodone/Acetaminophen [[place] 1 tab PO Q4HR PRN 3 Days #18 tab 04/06/19 5-325] Allergies Allergy/AdvReac Type Severity Reaction Status Date / Time erythromycin base AdvReac Nausea & Verified 08/21/19 10:35 Vomiting ibuprofen AdvReac Hx of GI Verified 08/21/19 10:35 Bleed steroids AdvReac Hx of GI Uncoded 08/21/19 10:35 Bleed Review of Systems ROS Statement: Those systems with pertinent positive or pertinent negative responses have been documented in the HPI. ROS Other: All systems not noted in ROS Statement are negative. Past Medical History Past Medical History: Cancer, Heart Failure, CVA/TIA, GI Bleed, Hypertension, Pneumonia, Prostate Disorder Additional Past Medical History / Comment(s): hx prostate ca 2009/radiation tx ,TIA 2014, SLIGHTLY ENLARGED HEART", GOUT, Small bowel blockage in February 2016, hx anemia, current lt ear infection antibiotics completed History of Any Multi-Drug Resistant Organisms: None Reported Past Surgical History: Bowel Resection, Cholecystectomy, Heart Catheterization, Hernia Repair Additional Past Surgical History / Comment(s): omphalocele repair as infant, 2 BOWEL RESECTIONS for bleeding, Past Anesthesia/Blood Transfusion Reactions: No Reported Reaction Additional Past Anesthesia/Blood Transfusion Reaction / Comment(s): . Past Psychological History: Depression Smoking Status: Never smoker Past Alcohol Use History: Occasional Past Drug Use History: None Reported - Past Family History Father Family Medical History: Cancer Additional Family Medical History / Comment(s): .. Mother Family Medical History: Cancer Additional Family Medical History / Comment(s): . General Exam Limitations: no limitations General appearance: alert, in no apparent distress Head exam: Present: atraumatic, normocephalic Eye exam: Present: normal appearance, PERRL, EOMI ENT exam: Present: normal exam Neck exam: Present: normal inspection. Absent: tenderness, meningismus Respiratory exam: Present: normal lung sounds bilaterally. Absent: respiratory distress, wheezes Cardiovascular Exam: Present: regular rate, normal rhythm GI/Abdominal exam: Present: soft, distended Extremities exam: Present: normal inspection, normal capillary refill. Absent: pedal edema Back exam: Present: normal inspection Neurological exam: Present: alert, oriented X3, motor sensory deficit (NIH of 1, left facial numbness, no droop, no extremity weakness) Psychiatric exam: Present: normal affect, normal mood Skin exam: Present: warm, dry, intact. Absent: cyanosis, diaphoretic Course Vital Signs 08/21/19 08/21/19 10:35 12:11 Temperature 97.7 F Pulse Rate 68 63 Respiratory 18 18 Rate Blood Pressure 149/96 132/89 O2 Sat by Pulse 97 97 Oximetry EKG Findings - EKG Comments: EKG Findings:: EKG: Normal sinus rhythm, sinus arrhythmia, rate of 70, ME interval 160, QRS duration 82, QTC 457, no ST segment elevation Medical Decision Making - Medical Decision Making 69-year-old male with left-sided chest pain, left arm pain and numbness and left facial numbness. He has no focal weakness on exam. He has no known history of coronary artery disease. EKG is sinus rhythm with no ST segment elevation. He does receive workup in the emergency department including chest x-ray which is negative for focal pneumonia, no acute findings, CT of the brain shows old lacunar infarcts no acute cranial hemorrhage or mass effect. He has normal CBC, normal electrolytes, negative initial troponin. He will be kept in observation for serial cardiac enzymes given the time course of his symptoms and cardiology evaluation. Case is discussed with Dr. Pryor who will admit. - Lab Data Result diagrams: 08/21/19 10:56 08/21/19 10:56 Lab Results 08/21/19 08/21/19 08/21/19 Range/Units 10:56 10:56 10:56 WBC 6.3 (3.8-10.6) k/uL RBC 5.58 (4.30-5.90) m/uL Hgb 16.2 (13.0-17.5) gm/dL Hct 49.1 (39.0-53.0) % MCV 87.9 (80.0-100.0) fL MCH 29.1 (25.0-35.0) pg MCHC 33.1 (31.0-37.0) g/dL RDW 13.7 (11.5-15.5) % Plt Count 176 (150-450) k/uL Neutrophils % 70 % Lymphocytes % 20 % Monocytes % 5 % Eosinophils % 3 % Basophils % 0 % Neutrophils # 4.4 (1.3-7.7) k/uL Lymphocytes # 1.2 (1.0-4.8) k/uL Monocytes # 0.3 (0-1.0) k/uL Eosinophils # 0.2 (0-0.7) k/uL Basophils # 0.0 (0-0.2) k/uL PT 10.4 (9.0-12.0) sec INR 1.0 (<1.2) APTT 23.2 (22.0-30.0) sec Sodium 137 (137-145) mmol/L Potassium 4.0 (3.5-5.1) mmol/L Chloride 104 (98-107) mmol/L Carbon Dioxide 27 (22-30) mmol/L Anion Gap 6 mmol/L BUN 15 (9-20) mg/dL Creatinine 1.08 (0.66-1.25) mg/dL Est GFR (CKD-EPI)AfAm 81 (>60 ml/min/1.73 sqM) Est GFR (CKD-EPI)NonAf 70 (>60 ml/min/1.73 sqM) Glucose 103 H (74-99) mg/dL Calcium 8.7 (8.4-10.2) mg/dL Magnesium 2.0 (1.6-2.3) mg/dL Total Bilirubin 1.7 H (0.2-1.3) mg/dL AST 23 (17-59) U/L ALT 15 (4-49) U/L Alkaline Phosphatase 82 (38-126) U/L Troponin I (0.000-0.034) ng/mL Total Protein 6.8 (6.3-8.2) g/dL Albumin 3.9 (3.5-5.0) g/dL 08/21/19 Range/Units 10:56 WBC (3.8-10.6) k/uL RBC (4.30-5.90) m/uL Hgb (13.0-17.5) gm/dL Hct (39.0-53.0) % MCV (80.0-100.0) fL MCH (25.0-35.0) pg MCHC (31.0-37.0) g/dL RDW (11.5-15.5) % Plt Count (150-450) k/uL Neutrophils % % Lymphocytes % % Monocytes % % Eosinophils % % Basophils % % Neutrophils # (1.3-7.7) k/uL Lymphocytes # (1.0-4.8) k/uL Monocytes # (0-1.0) k/uL Eosinophils # (0-0.7) k/uL Basophils # (0-0.2) k/uL PT (9.0-12.0) sec INR (<1.2) APTT (22.0-30.0) sec Sodium (137-145) mmol/L Potassium (3.5-5.1) mmol/L Chloride (98-107) mmol/L Carbon Dioxide (22-30) mmol/L Anion Gap mmol/L BUN (9-20) mg/dL Creatinine (0.66-1.25) mg/dL Est GFR (CKD-EPI)AfAm (>60 ml/min/1.73 sqM) Est GFR (CKD-EPI)NonAf (>60 ml/min/1.73 sqM) Glucose (74-99) mg/dL Calcium (8.4-10.2) mg/dL Magnesium (1.6-2.3) mg/dL Total Bilirubin (0.2-1.3) mg/dL AST (17-59) U/L ALT (4-49) U/L Alkaline Phosphatase (38-126) U/L Troponin I <0.012 (0.000-0.034) ng/mL Total Protein (6.3-8.2) g/dL Albumin (3.5-5.0) g/dL Disposition Clinical Impression: Chest pain Disposition: ADMITTED IP TO THIS [facility] Condition: Stable Is patient prescribed a controlled substance at d/c from ED?: No Referrals: Richie Villalobos [Primary Care Provider] - 1-2 days Decision to Admit Reason: Admit from EC Decision Date: 08/21/19 Decision Time: 12:19
--- NOTE | 2019-08-21 11:15 | XR ---
EXAMINATION TYPE: XR chest 2V DATE OF EXAM: 08/21/2019 COMPARISON: 05/31/2017 HISTORY: Left-sided chest pain TECHNIQUE: Frontal and lateral views of the chest are obtained. FINDINGS: There is no focal air space opacity, pleural effusion, or pneumothorax seen. The cardiac silhouette size is upper limits of normal. Moderate tortuosity of the descending thoracic aorta in c omparison the prior. The osseous structures are intact. Mild multilevel degenerative change of the sp ine. IMPRESSION: No acute cardiopulmonary process.
[2019-08-21 11:20] LABS: Partial Thromboplastin Time 23.2 sec (22.0-30.0); Prothrombin Time 10.4 sec (9.0-12.0)
[2019-08-21 11:23] LABS: Albumin 3.9 g/dL (3.5-5.0); Calcium 8.7 mg/dL (8.4-10.2); Total Bilirubin 1.7 mg/dL (0.2-1.3); Total Protein 6.8 g/dL (6.3-8.2)
[2019-08-21 11:30] LABS: Basophils % (A) 0 %; Eosinophils # (A) 0.2 k/uL (0-0.7); Eosinophils % (A) 3 %; HCT 49.1 % (39.0-53.0); HGB 16.2 gm/dL (13.0-17.5); Lymphocytes # (A) 1.2 k/uL (1.0-4.8); Lymphocytes % (A) 20 %; MCH 29.1 pg (25.0-35.0); MCHC 33.1 g/dL (31.0-37.0); MCV 87.9 fL (80.0-100.0); Mean Platelet Volume 7.2; Monocytes # (A) 0.3 k/uL (0-1.0); Monocytes % (A) 5 %; Neutrophils # (A) 4.4 k/uL (1.3-7.7); Neutrophils % (A) 70 %; Platelet Count 176 k/uL (150-450); RBC 5.58 m/uL (4.30-5.90); RDW 13.7 % (11.5-15.5); WBC 6.3 k/uL (3.8-10.6)
--- NOTE | 2019-08-21 11:43 | CT ---
EXAMINATION TYPE: CT brain wo con DATE OF EXAM: 08/21/2019 COMPARISON: 05/31/2017 HISTORY: Left sided body and facial numbness with history of TIA CT DLP: 1217.4 mGycm Automated exposure control for dose reduction was used. TECHNIQUE: CT scan of the head is performed without contrast. FINDINGS: There is no acute intracranial hemorrhage or midline shift identified. There is diffuse v entricular and sulcal prominence consistent with diffuse age-related cerebral atrophy. Multiple old p unctate lacunar injuries are again noted as seen on the prior. There is low-attenuation in the perive ntricular white matter consistent with chronic small vessel ischemic change. The globes are intact. Mild mucosal thickening of the maxillary sinuses. There is leftward nasal septal deviation. IMPRESSION: No acute intracranial hemorrhage or midline shift. Multiple old lacunar injuries as seen on the prior of 2016 and mild burden nonspecific white matter change1, likely on the basis of chroni c microangiopathy.
[2019-08-21] MEDS ORDERED: ASPIRIN 325 MG TAB PO STA (12:04)
[2019-08-21] MEDS ORDERED: NALOXONE 0.4 MG/ML 1 ML VIAL IV PRN (12:16)
[2019-08-21] MEDS ORDERED: ACETAMINOPHEN TAB 325 MG TAB PO PRN (12:16)
[2019-08-21] MEDS: SODIUM CHLORIDE 0.9% 1,000 ML IV SCH (12:38)
[2019-08-21] MEDS ORDERED: ONDANSETRON 4 MG/2 ML VIAL IVP PRN (16:39)
[2019-08-21] MEDS ORDERED: MELATONIN 5 MG TABLET PO PRN (16:39)
--- NOTE | 2019-08-21 16:39 | P.HPIM ---
History of Present Illness H&P Date: 08/21/19 Chief Complaint: Left face and arm numbness Patient is a 69-year-old male past medical history of prior TIA, congestive heart failure per patient, GI bleeds, small bowel obstructions, gout, hard of hearing with hearing aid in place, and prior prostate cancer who pre sented to the emergency department with complaints of left hand and arm numbness and left-sided chest discomfort. In the ER he underwent an extensive evaluation. His initial vital signs were within normal limits. Laboratory analysis is unremarkable, initial troponin negative. EKG is reviewed by myself revealed normal sinus rhythm at a rate of 70, no significant ST-T wave changes, normal axis, NJ 160, QRS 82, and QTC 424. He underwent a head CT which showed prior microvascular ischemic changes, chest x-ray was negative. He was given a dose of aspirin. His symptoms resolved. He is admitted as observation for possible chest pain versus TIA. Patient seen and examined at bedside. He reports that he went to work today at around 8:30 in the morning he noticed that the left side of his face was numb and tingling this present graft to left arm numbness and tingling and then some left leg aching. He then decided to drive home and developed some left shoulder and chest discomfort. He then developed shortness of breath. This was not associated with diaphoresis, nausea, vomiting, palpitations, or presyncope. All of his symptoms resolved in the emergency department. He reports that he has had multiple TIAs in the past with left-sided numbness and tingling, but they're typically not as severe. He has had these intermittently over the last 40 years. He reports that he was seen by Dr. Rey last week and was scheduled to undergo a stress test and echocardiogram. At that point in time he denied any changes in his medications. He is requesting for his stress test and echo to be completed here. Of note he had some elevated blood pressures over the weekend with systolics into the 200s before taking his medication, during that episode he was feeling lightheaded. Blood pressure improved when taking his medications. He also noted some bloody noses over the weekend when visiting his doctor. He last saw Dr. Stafford his PCP in March. 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 He reports a negative stress test in the past. He denies history of high cholesterol. States he is on a statin due to recurrent TIAs. No family hx of CAD, DC, CVA. Left face numbness recurred during our conversation. Review of Systems Pertinent positives and negatives as discussed in HPI, a complete review of systems was performed and all other systems are negative. Past Medical History Past Medical History: Cancer, Heart Failure, CVA/TIA, GI Bleed, Hypertension, Pneumonia, Prostate Disorder Additional Past Medical History / Comment(s): hx prostate ca 2009/radiation tx ,TIA 2014, SLIGHTLY ENLARGED HEART", GOUT, Small bowel obstruction in February 2016, hx anemia, [place] with use of a hearing aid, skin cancer s/p removal History of Any Multi-Drug Resistant Organisms: None Reported Past Surgical History: Bowel Resection, Cholecystectomy, Heart Catheterization, Hernia Repair Additional Past Surgical History / Comment(s): omphalocele repair as infant, 2 BOWEL RESECTIONS for bleeding, polyp removed from left ear Past Anesthesia/Blood Transfusion Reactions: No Reported Reaction Additional Past Anesthesia/Blood Transfusion Reaction / Comment(s): . Past Psychological History: Depression Additional Psychological History / Comment(s): Pt had a suicide attempt in 2004. He states he has no suicidal thoughts.well maintained on medications Smoking Status: Never smoker Past Alcohol Use History: Heavy Additional Past Alcohol Use History / Comment(s): He reports 12 drinks weekly. Past Drug Use History: None Reported - Past Family History Father Family Medical History: Cancer Additional Family Medical History / Comment(s): oral CA.. Mother Family Medical History: Cancer Additional Family Medical History / Comment(s): breat CA. Medications and Allergies Home Medications Medication Instructions Recorded Confirmed Type Furosemide [Lasix] 40 mg PO DAILY 01/28/15 08/21/19 History Aspirin 81 mg PO DAILY #30 chew 05/16/15 08/21/19 Rx Allopurinol [Zyloprim] 100 mg PO BID 03/06/16 08/21/19 History Lisinopril [Zestril] 20 mg PO QAM 10/23/16 08/21/19 History Atorvastatin [Lipitor] 10 mg PO DAILY 05/31/17 08/21/19 History Escitalopram [Lexapro] 20 mg PO QAM 05/31/17 08/21/19 History amLODIPine [Norvasc] 5 mg PO QAM 03/17/19 08/21/19 History Cholecalciferol [Vitamin D3 (25 5,000 unit PO DAILY 04/03/19 08/21/19 History Mcg = 1000 Iu)] Allergies Allergy/AdvReac Type Severity Reaction Status Date / Time erythromycin base AdvReac Nausea & Verified 08/21/19 12:25 Vomiting ibuprofen AdvReac Hx of GI Verified 08/21/19 12:25 Bleed steroids AdvReac Hx of GI Uncoded 08/21/19 10:35 Bleed Physical Exam Osteopathic Statement: *. No significant issues noted on an osteopathic structural exam other than those noted in the History and Physical/Consult. Vitals: Vital Signs Temp Pulse Pulse Resp BP BP Pulse Ox 08/21/19 13:15 97.6 F 66 18 136/89 95 08/21/19 12:11 63 18 132/89 97 08/21/19 10:35 97.7 F 68 18 149/96 97 Intake and Output 08/21/19 08/21/19 08/21/19 06:59 14:59 22:59 Other: Weight 111.13 kg General: non toxic, no distress, appears at stated age, Obese Derm: no unusual rashes/lesions no unusual ecchymoses, warm, dry Head: atraumatic, normocephalic, symmetric Eyes: EOMI, no lid lag, anicteric sclera, pupils equal round reactive to light ENT: Nose and ears atraumatic, no thrush, no pharyngeal erythema Neck: No thyromegaly, no cervical lymphadenopathy, trachea midline, supple, + carotid bruitis right Mouth: no lip lesion, mucus membranes moist Cardiovascular: S1S2 reg, no murmur, positive posterior tibial pulse bilateral, no edema, capillary refill less than 2 seconds Lungs: CTA bilateral, no rhonchi, no rales , no accessory muscle use Abdominal: soft, nontender to palpation, no guarding, no appreciable organomeg earlene, normal bowel sounds Ext: no gross muscle atrophy, muscle strength 5 out of 5 in all 4 extremities grossly, no contractures, Neuro: CN II-XII intact, light touch intact all 4 extremities, finger to nose within normal limits, [place] normal Psych: Alert, oriented, appropriate affect Results CBC & Chem 7: 08/21/19 10:56 08/21/19 10:56 Labs: Abnormal Lab Results - Last 24 Hours (Table) 08/21/19 Range/Units 10:56 Glucose 103 H (74-99) mg/dL Total Bilirubin 1.7 H (0.2-1.3) mg/dL Chest x-ray: report reviewed Thrombosis Risk Factor Assmnt - DVT/VTE Prophylaxis DVT/VTE Prophylaxis: Low risk, early ambulation encouraged - Choose All That Apply Any of the Below Risk Factors Present?: Yes Each Factor Represents 1 point: Obesity (BMI >25) Other Risk Factors: Yes Each Risk Factor Represents 2 Points: Age 61-74 years Thrombosis Risk Factor Assessment Total Risk Factor Score: 3 Thrombosis Risk Factor Assessment Level: Moderate Risk Assessment and Plan Assessment: Left face, hand numbness, Left leg heaviness with chest pain and SOB - Possible TIA vs ACS - ASA, statin - cardio consult - trend troponins, tele - echo, carotid doppler (Possible bruitis R) - consider MRI if sx don't resolved - lipid profile - Heart score 4 Morbid obesity -Structured outpatient weight loss Chronic Congestive heart failure per patient, likely diastolic with EF 52% - continue with lisinopril - not on BB and will not start at this point in time. Gout - allopurinol Transfer to [address] [place] [address] for possible TIA The patient is placed in observation with an anticipated less than 2 midnight stay for evaluation of chest pain and numbness. Surrogate decision-maker: CODE STATUS: Full DVT prophylaxis: SCDs Discussed with: Patient, nursing, ED physician Anticipated discharge date: In a.m. Anticipated discharge place: Home A total of 55 minutes was spent on the care of this complex patient more than 50% of the time was spent in counseling and care coordination.
[2019-08-21] MEDS: ESCITALOPRAM 20 MG TAB PO SCH (17:52)
[2019-08-21] MEDS: FUROSEMIDE 40 MG TAB PO SCH (17:53)
[2019-08-21] MEDS: LISINOPRIL 20 MG TAB PO SCH (17:53)
--- NOTE | 2019-08-21 20:24 | US ---
EXAMINATION TYPE: US carotid duplex BILAT DATE OF EXAM: 08/21/2019 COMPARISON: CT, US CLINICAL HISTORY: Stenosis. Stenosis. HTN. Hx of TIA. EXAM MEASUREMENTS: RIGHT: Peak Systolic Velocity (PSV) cm/sec ----- Right CCA: 45.9 ----- Right ICA: 41.3 ----- Right ECA: 70.9 ICA/CCA ratio: 0.9 RIGHT: End Diastole cm/sec ----- Right CCA: 13.6 ----- Right ICA: 11.1 ----- Right ECA: 10.7 LEFT: Peak Systolic Velocity (PSV) cm/sec ----- Left CCA: 58.1 ----- Left ICA: 67.7 ----- Left ECA: 68.6 ICA/CCA ratio: 1.2 LEFT: End Diastole cm/sec ----- Left CCA: 15.4 ----- Left ICA: 25.0 ----- Left ECA: 10.1 VERTEBRALS (direction of flow): Right Vertebral: Antegrade Left Vertebral: Antegrade Rhythm: Arrhythmia Intimal thickening seen bilaterally. Hyperechoic plaque with posterior shadowing is seen bilaterally. No elevated velocities obtained. Difficulty visualizing distal ICA and ECA. IMPRESSION: Mild bilateral plaque formation. Images and measurements suggest less than 20% stenosis in both inter nal carotid arteries. There is antegrade flow in the vertebral arteries. Criteria for Assigning % of Stenosis / Diameter reduction (Estimation based on the indirect measurements of the internal carotid artery velocities (ICA PSV). 1. Normal (no stenosis)=ICA PSV < 125 cm/s: ratio < 2.0: ICA EDV<40 cm/s. 2. Less than 50% stenosis=ICA PSV < 125 cm/s: ratio < 2.0: ICA EDV<40 cm/s. 3. 50 to 69% stenosis=ICA PSV of 125 to 230 cm/s: ration 2.0 ? 4.0: ICA EDV 40-100 cm/s. 4. Greater than 70% stenosis to near occlusion= ICA PSV > 230 cm/s: ratio > 4.0: ICA EDV > 100 cm/s. 5. Near occlusion= ICA PSV velocities may be low or undetectable: variable ratio and ICA EDV. 6. Total occlusion=unable to detect flow.
[2019-08-21] MEDS: ALLOPURINOL 100 MG TAB PO SCH (20:41)
[2019-08-21] MEDS ORDERED: ATORVASTATIN 80 MG TAB PO SCH (21:00)
[2019-08-22 06:24] LABS: Cholesterol 88 mg/dL (<200); HDL Cholesterol 37 mg/dL (40-60); LDL Cholesterol,Calculated 38 mg/dL (0-99); Triglycerides 67 mg/dL (<150)
--- NOTE | 2019-08-22 08:21 | P.CRDCN ---
History of Present Illness Consult date: 08/22/19 Requesting physician: Constance Pryor Consult reason: chest pain Chief complaint: Left-sided numbness, chest pain History of present illness: This is a pleasant 69-year-old gentleman who follows regularly with Dr. VC Rey in the office. He has a history of hypertension, hyperlipidemia, GI bleed, small bowel obstruction in the past, history of prostate cancer, frequent TIA symptoms, and peripheral vascular disease he recently saw Dr. Rey in the office one week ago and is scheduled to undergo stress test and echo as an outpatient in the upcoming week. He presents to the hospital on this admission with symptoms of left hand and arm numbness as well as some discomfort in the left side of his chest. Patient states that he felt numbness in his face, and his left hand and arm were numb and tingling as well as his left leg. He states that he was driving home and noticed some discomfort in his left shoulder and arm as well as some chest discomfort. He did have some mild associated shortness of breath with this. Over the weekend the patient states that his blood pressure was running in the 200 systolic range and he was experiencing some light headedness with that. Chest x-ray does not reveal any acute cardiopulmonary process. CAT scan of the brain was performed which did not reveal any acute intracranial hemorrhage or midline shift. Multiple old listener injuries are seen. EKG shows normal sinus rhythm with no acute changes. Carotid Doppler study shows mild bilateral plaque formation. Blood pressure 134/70 with a heart rate in the 70s, 94% on room air. White blood cell count 6.3, hemoglobin 16.2, platelet count 176. Sodium 137, potassium 4.0, BUN 15, creatinine 1.0. Troponins negative 3. At the time of my examination this morning, the patient denies any chest discomfort, he does have a heavy feeling on the top of his head with left facial numbness. This is something he states that he gets off-and-on and has been getting for several years. Past Medical History Past Medical History: Cancer, Heart Failure, CVA/TIA, GI Bleed, Hypertension, Pneumonia, Prostate Disorder Additional Past Medical History / Comment(s): hx prostate ca 2009/radiation tx ,TIA 2014, SLIGHTLY ENLARGED HEART", GOUT, Small bowel obstruction in February 2016, hx anemia, [place] with use of a hearing aid, skin cancer s/p removal History of Any Multi-Drug Resistant Organisms: None Reported Past Surgical History: Bowel Resection, Cholecystectomy, Heart Catheterization, Hernia Repair Additional Past Surgical History / Comment(s): omphalocele repair as infant, 2 BOWEL RESECTIONS for bleeding, polyp removed from left ear Past Anesthesia/Blood Transfusion Reactions: No Reported Reaction Additional Past Anesthesia/Blood Transfusion Reaction / Comment(s): . Past Psychological History: Depression Additional Psychological History / Comment(s): Pt had a suicide attempt in 2004. He states he has no suicidal thoughts.well maintained on medications Smoking Status: Never smoker Past Alcohol Use History: Heavy Additional Past Alcohol Use History / Comment(s): He reports 12 drinks weekly. Past Drug Use History: None Reported - Past Family History Father Family Medical History: Cancer Additional Family Medical History / Comment(s): oral CA.. Mother Family Medical History: Cancer Additional Family Medical History / Comment(s): breat CA. Medications and Allergies Home Medications Medication Instructions Recorded Confirmed Type Furosemide [Lasix] 40 mg PO DAILY 01/28/15 08/21/19 History Aspirin 81 mg PO DAILY #30 chew 05/16/15 08/21/19 Rx Allopurinol [Zyloprim] 100 mg PO BID 03/06/16 08/21/19 History Lisinopril [Zestril] 20 mg PO QAM 10/23/16 08/21/19 History Atorvastatin [Lipitor] 10 mg PO DAILY 05/31/17 08/21/19 History Escitalopram [Lexapro] 20 mg PO QAM 05/31/17 08/21/19 History amLODIPine [Norvasc] 5 mg PO QAM 03/17/19 08/21/19 History Cholecalciferol [Vitamin D3 (25 5,000 unit PO DAILY 04/03/19 08/21/19 History Mcg = 1000 Iu)] Allergies Allergy/AdvReac Type Severity Reaction Status Date / Time erythromycin base AdvReac Nausea & Verified 08/21/19 12:25 Vomiting ibuprofen AdvReac Hx of GI Verified 08/21/19 12:25 Bleed steroids AdvReac Hx of GI Uncoded 08/21/19 10:35 Bleed Physical Exam Vitals: Vital Signs Temp Pulse Pulse Pulse Resp BP BP 08/22/19 04:00 98.3 F 61 60 16 134/78 08/22/19 00:00 98.5 F 74 60 16 144/75 08/21/19 20:00 98.2 F 62 59 L 18 151/93 08/21/19 16:00 97.6 F 74 59 L 20 131/77 08/21/19 13:15 97.6 F 66 18 136/89 08/21/19 12:11 63 18 132/89 08/21/19 10:35 97.7 F 68 18 149/96 Pulse Ox 08/22/19 04:00 94 L 08/22/19 00:00 93 L 08/21/19 20:00 96 08/21/19 16:00 95 08/21/19 13:15 95 08/21/19 12:11 97 08/21/19 10:35 97 Intake and Output 08/21/19 08/22/19 08/22/19 22:59 06:59 14:59 Intake Total 356 270 Balance 356 270 Intake: IV 20 Invasive Line 1 20 Intake, IV Titration 10 Amount Sodium Chloride 0.9% 1, 10 000 ml @ 20 mls/hr IV . Q24H [facility] Rx#:[id number] Oral 356 240 Other: # Voids 1 1 Weight 111.2 kg PHYSICAL EXAMINATION: GENERAL: 69-year-old gentleman in no acute distress at the time of my examination HEENT: Head is atraumatic, normocephalic. Pupils equal, round. Sclera anicteric. Conjunctiva are clear. Mucous membranes of the mouth are moist. Neck is supple. There is no elevated jugular venous pressure. No carotid bruit is heard. HEART EXAMINATION: Heart S1, S2 normal. No murmur or gallop heard. CHEST EXAMINATION: Lungs are clear to auscultation and precussion. No chest wall tenderness is noted on palpation or with deep breathing. ABDOMEN: Soft, nontender. Bowel sounds are heard. No organomegaly noted. EXTREMITIES: 2+ peripheral pulses with no evidence of peripheral edema and no calf tenderness noted. NEUROLOGIC patient is awake, alert and oriented 3. Mild left facial numbness. . Results 08/21/19 10:56 08/21/19 10:56 Cardiac Enzymes 08/21/19 08/21/19 08/21/19 Range/Units 10:56 10:56 17:13 AST 23 (17-59) U/L Troponin I <0.012 <0.012 (0.000-0.034) ng/mL 08/21/19 Range/Units 22:43 AST (17-59) U/L Troponin I <0.012 (0.000-0.034) ng/mL Coagulation 08/21/19 Range/Units 10:56 PT 10.4 (9.0-12.0) sec APTT 23.2 (22.0-30.0) sec Lipids 08/22/19 Range/Units 05:37 Triglycerides 67 (<150) mg/dL Cholesterol 88 (<200) mg/dL HDL Cholesterol 37 L (40-60) mg/dL CBC 08/21/19 Range/Units 10:56 WBC 6.3 (3.8-10.6) k/uL RBC 5.58 (4.30-5.90) m/uL Hgb 16.2 (13.0-17.5) gm/dL Hct 49.1 (39.0-53.0) % Plt Count 176 (150-450) k/uL Comprehensive Metabolic Panel 08/21/19 Range/Units 10:56 Sodium 137 (137-145) mmol/L Potassium 4.0 (3.5-5.1) mmol/L Chloride 104 (98-107) mmol/L Carbon Dioxide 27 (22-30) mmol/L BUN 15 (9-20) mg/dL Creatinine 1.08 (0.66-1.25) mg/dL Glucose 103 H (74-99) mg/dL Calcium 8.7 (8.4-10.2) mg/dL AST 23 (17-59) U/L ALT 15 (4-49) U/L Alkaline Phosphatase 82 (38-126) U/L Total Protein 6.8 (6.3-8.2) g/dL Albumin 3.9 (3.5-5.0) g/dL Current Medications Generic Name Dose Route Start Last Admin Trade Name Freq PRN Reason Stop Dose Admin Acetaminophen 650 mg 08/21/19 12:16 Tylenol Tab PO Q6HR PRN Mild Pain or Fever > 100.5 Allopurinol 100 mg 08/21/19 21:00 08/21/19 20:41 Zyloprim PO Not Given BID [facility] Aspirin 325 mg 08/22/19 15:52 Aspirin PO DAILY [facility] Atorvastatin Calcium 80 mg 08/21/19 21:00 08/21/19 20:41 Lipitor PO Not Given HS [facility] Escitalopram Oxalate 20 mg 08/21/19 16:00 08/21/19 17:52 Lexapro PO Not Given QAM [facility] Furosemide 40 mg 08/21/19 16:00 08/21/19 17:53 Lasix PO Not Given DAILY [facility] Sodium Chloride 1,000 mls @ 20 mls/hr 08/21/19 12:30 08/21/19 12:38 Saline 0.9% IV Not Given .Q24H [facility] Lisinopril 20 mg 08/21/19 16:00 08/21/19 17:53 Zestril PO Not Given QAM [facility] Melatonin 5 mg 08/21/19 16:39 Melatonin PO HS PRN Insomnia Naloxone HCl 0.2 mg 08/21/19 12:16 Narcan IV Q2M PRN Opioid Reversal Ondansetron HCl 4 mg 08/21/19 16:39 Zofran IVP Q6H PRN Nausea Intake and Output 08/21/19 08/22/19 08/22/19 22:59 06:59 14:59 Intake Total 356 270 Balance 356 270 Intake: IV 20 Invasive Line 1 20 Intake, IV Titration 10 Amount Sodium Chloride 0.9% 1, 10 000 ml @ 20 mls/hr IV . Q24H [facility] Rx#:[id number] Oral 356 240 Other: # Voids 1 1 Weight 111.2 kg 08/21/19 10:56 08/21/19 10:56 EKG Interpretations (text) EKG shows a normal sinus rhythm with no acute changes. Assessment and Plan Plan: Assessment and plan #1 left-sided numbness and weakness, possible TIA #2 left-sided chest discomfort with associated shortness of breath. Somewhat atypical for acute coronary syndrome. Troponins are negative 3. EKG shows normal sinus rhythm with no acute changes. #3 hypertension #4 hyperlipidemia #5 frequent prior TIAs #6 peripheral vascular disease Plan Patient had an echo cardiac gram with Doppler study done which we will review. If the patient is cleared from a neurology perspective, we will schedule him for a stress test today. Further recommendations to follow. DNP note has been reviewed, I agree with a documented findings and plan of care. Patient was seen and examined.
--- NOTE | 2019-08-22 09:00 | ECHOF ---
Referral Reason:Thrombus MEASUREMENTS -------- HEIGHT: 160.0 cm WEIGHT: 111.1 kg BP: 136/89 RVIDd: 3.3 cm (< 3.3) IVSd: 1.4 cm (0.6 - 1.1) LVIDd: 4.8 cm (3.9 - 5.3) LVPWd: 1.3 cm (0.6 - 1.1) IVSs: 1.9 cm LVIDs: 3.6 cm LVPWs: 1.8 cm LA Diam: 3.7 cm (2.7 - 3.8) LAESV Index (A-L): 41.46 ml/m Ao Diam: 4.0 cm (2.0 - 3.7) AV Cusp: 1.8 cm (1.5 - 2.6) MV EXCURSION: 12.865 mm (> 18.000) MV EF SLOPE: 32 mm/s (70 - 150) EPSS: 0.9 cm MV E Jaison: 0.43 m/s MV DecT: 260 ms MV A Jaison: 1.04 m/s MV E/A Ratio: 0.42 AR PHT: 992 ms FINDINGS -------- Sinus rhythm. This was a technically adequate study. The left ventricular size is normal. There is moderate concentric left ventricular hypertrophy. O verall left ventricular systolic function is normal with, an EF between 55 - 60 %. The right ventricle is mildly enlarged. LA is severely dilated >40 ml/m2 The right atrium is normal in size. Interatrial and interventricular septum intact. Aortic valve is trileaflet and is mildly thickened. There is [id number] aortic regurgitation. Mild mitral annular calcification present. Mild tricuspid regurgitation present. Right ventricular systolic pressure is normal at < 35 mmHg. Trace/mild (physiologic) pulmonic regurgitation. The aortic root is dilated measuring 4.0cm. Normal inferior vena cava with normal inspiratory collapse consistent with estimated right atrial pre ssure of 5 mmHg. There is no pericardial effusion. CONCLUSIONS -------- 1. Sinus rhythm. 2. This was a technically adequate study. 3. The left ventricular size is normal. 4. There is moderate concentric left ventricular hypertrophy. 5. Overall left ventricular systolic function is normal with, an EF between 55 - 60 %. 6. The right ventricle is mildly enlarged. 7. LA is severely dilated >40 ml/m2 8. The right atrium is normal in size. 9. Interatrial and interventricular septum intact. 10. Aortic valve is trileaflet and is mildly thickened. 11. There is [id number] aortic regurgitation. 12. Mild mitral annular calcification present. 13. Mild tricuspid regurgitation present. 14. Right ventricular systolic pressure is normal at < 35 mmHg. 15. Trace/mild (physiologic) pulmonic regurgitation. 16. The aortic root is dilated measuring 4.0cm. 17. Normal inferior vena cava with normal inspiratory collapse consistent with estimated right atrial pressure of 5 mmHg. 18. There is no pericardial effusion. CNC SERVICE ENGINEER: JOSELITO Gonzalez
[2019-08-22 09:45] VITALS: TEMP 97.9
[2019-08-22] MEDS ORDERED: DOBUTamine DRIP for NUC MED 500 MG in DEXTROSE/WATER 1 250ML.BAG IV ONE (12:08)
[2019-08-22 12:23] VITALS: RESP 20
--- NOTE | 2019-08-22 12:47 | P.PN ---
Subjective Progress Note Date: 08/22/19 Principal diagnosis: Left-sided numbness Patient was seen and examined. No acute events overnight. Patient reports continued numbness on the top of his head. He also reports left-sided facial numbness and intermittent on and off numbness of his left upper and lower extremity. Patient denies any chest pain, shortness of breath or palpitations. No nausea or vomiting. No fever or chills Objective - Vital Signs Vital signs: Vital Signs Temp 97.9 F 08/22/19 08:00 Pulse 66 08/22/19 12:00 Resp 20 08/22/19 12:00 BP 154/97 08/22/19 12:00 Pulse Ox 95 08/22/19 12:00 Intake & Output 08/21/19 08/22/19 08/22/19 18:59 06:59 18:59 Intake Total 626 20 Balance 626 20 Weight 111.13 kg 111.2 kg Intake: IV 20 20 Invasive Line 1 20 20 Intake, IV Titration 10 Amount Sodium Chloride 0.9% 1, 10 000 ml @ 20 mls/hr IV . Q24H [facility] Rx#:[id number] Oral 596 0 Other: # Voids 1 1 1 - Exam General: [non toxic], [no distress], [appears at stated age] Derm: [warm], [dry], [stitches in the posterior aspect of the scalp with no erythema] Head: [atraumatic], [normocephalic], [symmetric] Eyes: [EOMI], [no lid lag], [anicteric sclera] Mouth: [no lip lesion], [mucus membranes moist] Cardiovascular: [S1S2 reg], [no murmur], [positive DP pulse bilateral], Lungs: [CTA bilateral], [no rhonchi, no rales] , [no accessory muscle use] Abdominal: [soft], [ nontender to palpation], [no guarding], [no appreciable organomegaly] Ext: [no gross muscle atrophy], [no edema], [no contractures] Neuro: [no focal neuro deficits] Psych: [Alert], [oriented], [appropriate affect] - Labs CBC & Chem 7: 08/21/19 10:56 08/21/19 10:56 Labs: Abnormal Lab Results - Last 24 Hours (Table) 08/22/19 Range/Units 05:37 HDL Cholesterol 37 L (40-60) mg/dL Assessment and Plan Assessment: Left-sided facial numbness, left upper extremity numbness with concerns for CVA Chest pain and shortness of breath Chronic diastolic CHF with EF 52% Morbid obesity with BMI 43.[address] shows no intracranial hemorrhage or midline shift, multiple old lacunar injury. Echocardiogram shows EF 55-60% with moderate concentric LVH. Carotid Doppler shows less than 20% stenosis bilateral internal carotids. Patient has been continued on aspirin and Lipitor. Plan to obtain MRI brain to complete stroke workup. PTOT and speech therapy on board. Troponins have been trended and ACS has been ruled out. Lipid panel shows low HDL of 37 otherwise within normal limits. Continue aspirin and Lipitor as above. Plans for stress test by cardiology. Patient is euvolemic. He needs adequate blood pressure control. Structured weight loss program would help with his morbid obesity. [Plans to obtain MRI brain. Stress test today. He is pending clinical improvement. Likely DC in 1-2 days.]
--- NOTE | 2019-08-22 14:20 | MR ---
MR brain without contrast HISTORY: Cerebral vascular accident Multiplanar multisequence imaging through the brain and correlated to prior brain MRI 06/01/2017 There is no restricted diffusion to suggest subacute ischemia. Cortical atrophy is again seen. There is no hemorrhage or hydrocephalus. White matter signal changes are similar to prior exam. Corpus call osum, pituitary, cervical medullary junction, cerebellopontine angles are normal. There are normal va scular flow voids. Extensive inflammatory changes present within the temporal bone and mastoid air cells on the left whi ch is developed in the interval from prior MRI. Mucoperiosteal thickening present within the maxillary sinuses, the orbits show symmetric appearance. IMPRESSION: Correlate for possible cholesteatoma, mastoiditis, suggest ENT consult. No subacute ische james. Sinus disease.
[2019-08-22] MEDS: ALLOPURINOL 100 MG TAB PO SCH (15:00)
[2019-08-22] MEDS: ESCITALOPRAM 20 MG TAB PO SCH (15:00)
[2019-08-22] MEDS: LISINOPRIL 20 MG TAB PO SCH (15:00)
[2019-08-22] MEDS: FUROSEMIDE 40 MG TAB PO SCH (15:00)
[2019-08-22] MEDS: SODIUM CHLORIDE 0.9% 1,000 ML IV SCH (15:00)
[2019-08-22] MEDS ORDERED: ASPIRIN 325 MG TAB PO SCH (15:52)
--- NOTE | 2019-08-22 16:23 | ECHOS ---
STRESS ECHOCARDIOGRAM LUMASON: @@ Vial INDICATIONS: Chest discomfort. MEDICATIONS: BASELINE HEART RATE: 56 BASELINE BLOOD PRESSURE: 122/75 MAXIMUM HEART RATE: 135 MAXIMUM BLOOD PRESSURE: 85% MPHR: 128 100% MPHR: 151 METS: MAXIMUM STAGE REACHED: TOTAL EXERCISE TIME: CLINICAL INFORMATION: This is a dobutamine stress echo. Baseline heart rate 56 beats per minute. Baseline blood pressure 122/75 mmHg. Baseline 12-lead ECG shows normal sinus rhythm, normal cardiac intervals. The patient received dobutamine infusion per protocol up to 30 mcg. Normal heart rate and blood pressure response. Occasional PVCs were noted during dobutamine infusion. No non- sustained ventricular tachycardia. One very brief run of slow atrial tachycardia noted. Baseline 2D echo images were suboptimal. Therefore Definity contrast was used delineate the borders. With dobutamine infusion, there was a stepwise increment in overall LV contractility without development of any wall motion abnormalities. At recovery, regional global LV systolic function remained normal. IMPRESSION: No ECG or echocardiographic evidence for ischemia during dobutamine stress echo. Occasional PVCs noted. MMODL / IJN: [id number] /
[2019-08-22 17:11] VITALS: BP 125/84; PULSE 68
--- NOTE | 2019-08-22 18:40 | P.DS ---
Providers Date of admission: 08/22/19 14:44 Expected date of discharge: 08/22/19 Attending physician: Constance Pryor, Consults: 08/21/19 12:16 Consult Physician Routine Consulting Provider: Sia Hadley Consult Reason/Comments: CP Do you want consulting provider notified?: Yes 08/22/19 15:17 Consult Physician Stat Consulting Provider: Jordan Harrison Consult Reason/Comments: Abnormal MRI brain, mastoiditis? Do you want consulting provider notified?: Yes Primary care physician: [facility] Course: Patient is a 69-year-old male past medical history of prior TIA, congestive heart failure per patient, GI bleeds, small bowel obstructions, gout, hard of hearing with hearing aid in place, and prior prostate cancer who presented to the emergency department with complaints of left hand and arm numbness and left-sided chest discomfort. In the ER he underwent an extensive evaluation. His initial vital signs were within normal limits. Laboratory analysis is unremarkable, initial troponin negative. EKG is reviewed by myself revealed normal sinus rhythm at a rate of 70, no significant ST-T wave changes, normal axis, MN 160, QRS 82, and QTC 424. He underwent a head CT which showed prior microvascular ischemic changes, chest x-ray was negative. He was given a dose of aspirin. His symptoms resolved. He is admitted as observation for possible chest pain versus TIA. Patient seen and examined at bedside. He reports that he went to work today at around 8:30 in the morning he noticed that the left side of his face was numb and tingling this present graft to left arm numbness and tingling and then some left leg aching. He then decided to drive home and developed some left shoulder and chest discomfort. He then developed shortness of breath. This was not associated with diaphoresis, nausea, vomiting, palpitations, or presyncope. All of his symptoms resolved in the emergency department. He reports that he has had multiple TIAs in the past with left-sided numbness and tingling, but they're typically not as severe. He has had these intermittently over the last 40 years. He reports that he was seen by Dr. Rey last week and was scheduled to undergo a stress test and echocardiogram. At that point in time he denied any changes in his medications. He is requesting for his stress test and echo to be completed here. There is concerns for CVA given symptoms of facial numbness, left upper extremity numbness and left leg heaviness. He was restarted on aspirin and Lipitor. CT brain showed no acute findings except old lacunar injuries. Stroke workup was initiated. Carotid Doppler showed noncritical bilateral internal carotid stenosis. MRI brain showed inflammatory changes within the temporal bone of the left side, recommending ENT consult. ENT was consulted and recommended outpatient follow-up. Patient also had chest pain for which cardiology was consulted. Troponins were trended and ACS was ruled out. Cardiology recommended stress test which was negative. Patient was seen and examined after stress test. He denies any chest pain, shortness breath or palpitations. No nausea or vomiting. No fever or chills. Left-sided facial numbness has resolved. Patient is in no acute distress. Left-sided facial numbness, left upper extremity numbness with concerns for CVA Abnormal MRI brain Chest pain and shortness of breath Chronic diastolic CHF with EF 52% Morbid obesity with BMI 43.[address] shows no intracranial hemorrhage or midline shift, multiple old lacunar injury. Echocardiogram shows EF 55-60% with moderate concentric LVH. Carotid Doppler shows less than 20% stenosis bilateral internal carotids. Patient has been continued on aspirin and Lipitor. MRI brain shows inflammatory changes in the left temporal bone. PTOT and speech therapy on board. ENT consulted, recommends outpatient follow-up. Troponins have been trended and ACS has been ruled out. Lipid panel shows low H DL of 37 otherwise within normal limits. Continue aspirin and Lipitor as above. Stress test negative. Patient is euvolemic. He needs adequate blood pressure control. Structured weight loss program would help with his morbid obesity. [Plans for discharge home. Advised follow-up with neurology and ENT within 1 week. Follow-up with PCP within 3 days.] Pertinent Studies: Chest x-ray, brain CT, echocardiogram, carotid Doppler, brain MRI, stress test Patient Condition at Discharge: Stable Plan - Discharge Summary Discharge Rx Participant: No New Discharge Prescriptions: Continue Furosemide [Lasix] 40 mg PO DAILY Aspirin 81 mg PO DAILY #30 chew Allopurinol [Zyloprim] 100 mg PO BID Lisinopril [Zestril] 20 mg PO QAM Atorvastatin [Lipitor] 10 mg PO DAILY Escitalopram [Lexapro] 20 mg PO QAM amLODIPine [Norvasc] 5 mg PO QAM Cholecalciferol [Vitamin D3 (25 Mcg = 1000 Iu)] 5,000 unit PO DAILY Discharge Medication List Furosemide [Lasix] 40 mg PO DAILY 01/28/15 [History] Aspirin 81 mg PO DAILY #30 chew 05/16/15 [Rx] Allopurinol [Zyloprim] 100 mg PO BID 03/06/16 [History] Lisinopril [Zestril] 20 mg PO QAM 10/23/16 [History] Atorvastatin [Lipitor] 10 mg PO DAILY 05/31/17 [History] Escitalopram [Lexapro] 20 mg PO QAM 05/31/17 [History] amLODIPine [Norvasc] 5 mg PO QAM 03/17/19 [History] Cholecalciferol [Vitamin D3 (25 Mcg = 1000 Iu)] 5,000 unit PO DAILY 04/03/19 [History] Follow up Appointment(s)/Referral(s): Jordan Harrison MD [STAFF PHYSICIAN] - 1 Week Richie Villalobos [Primary Care Provider] - 1-2 days Rajwinder Judd MD [Medical Doctor] - 1 Week Activity/Diet/Wound Care/Special Instructions: Diet: Cardiac Follow-up PCP within 3 days of discharge. Follow-up ENT within 1 week of discharge. Follow-up neurology within 1 week of discharge. Take all medications as advised. Come back ED or call 911 for chest pain, shortness breath, palpitations, dizziness, worsening of your presenting symptoms. Discharge Disposition: HOME SELF-CARE
--- NOTE | 2019-08-24 11:25 | CDI ---
Documentation Clarification Form Date: 08/24/19 From: Christie Culp CCS Phone: If you have a question about this query, please contact Love Curtis, Medical Collections Representative at [phone] between 8am and 5pm. Admit Date: 08/22/19 Discharge Date: 08/22/19 Patient Name: Ahsan Rosado Visit Number: [id number] ATTENTION: The Clinical Documentation Specialists (CDI) and [facility] Coding Staff appreciate your assistance in clarifying documentation. Please respond to the clarification below the line at the bottom and electronically sign. The CDI & [facility] Coding staff will review the response and follow-up if needed. Please note: Queries are made part of the Legal Health Record. If you have any questions, please contact the author of this message via ITS. Dear Dr. Wilson, TIA is documented as a diagnosis in the ED, H&P, PN, DS. Patient history/risk factors: HHD, Hx TIA, Morbid Obesity, PVD, Bilateral carotid stenosis Clinical indicators: Left sided numbness / pain CT head: Multiple old lacunar injuries as seen on the prior of 2016 and mild burden nonspecific white matter change1, likely on the basis of chronic microangiopathy. Carotid US: Doppler shows less than 20% stenosis bilateral internal carotids Echo: No ECG or echocardiographic evidence for ischemia during dobutamine stress echo Treatment: Aspirin 325 mg PO Consult: Jose In your professional opinion, please specify underlying etiology of the transient ischemic attack: Carotid Sinus Syncope Carotid Stenosis Acute CVA Sequelae of Cerebrovascular Disease (specify Type of Cerebrovascular Disease) Other (please specify): Etiology unknown or Unable to determine etiology unknown MTDD
== END 2019-08-22 19:00 | disposition home or self-care (01) | DRG 69 ==
LOC: EC 10:33 → 1SOBS 12:16 → 3SCARD 16:34 → OBSVTOIN 08-22 14:44
PROVIDERS: ADMIT Internal Medicine; ATTEND Internal Medicine
DX: G45.9 Transient cerebral ischemic attack, unspecified (principal); I50.32 Chronic diastolic (congestive) heart failure; Z68.41 Body mass index [BMI] 40.0-44.9, adult; I11.0 Hypertensive heart disease with heart failure; R07.89 Other chest pain; M79.602 Pain in left arm; R20.0 Anesthesia of skin; M10.9 Gout, unspecified; F32.9 Major depressive disorder, single episode, unspecified; H91.90 Unspecified hearing loss, unspecified ear; E66.01 Morbid (severe) obesity due to excess calories; R06.02 Shortness of breath; I65.23 Occlusion and stenosis of bilateral carotid arteries; I73.9 Peripheral vascular disease, unspecified; E78.5 Hyperlipidemia, unspecified; Z79.82 Long term (current) use of aspirin; Z79.899 Other long term (current) drug therapy; Z86.73 Personal history of transient ischemic attack (TIA), and cerebral infarction without residual deficits; Z85.46 Personal history of malignant neoplasm of prostate; Z87.01 Personal history of pneumonia (recurrent); Z92.3 Personal history of irradiation; Z87.2 Personal history of diseases of the skin and subcutaneous tissue; Z87.19 Personal history of other diseases of the digestive system; Z86.69 Personal history of other diseases of the nervous system and sense organs; Z90.49 Acquired absence of other specified parts of digestive tract; Z98.890 Other specified postprocedural states; Z97.4 Presence of external hearing-aid; Z85.828 Personal history of other malignant neoplasm of skin; Z88.6 Allergy status to analgesic agent; Z88.1 Allergy status to other antibiotic agents; Z88.8 Allergy status to other drugs, medicaments and biological substances; Z80.8 Family history of malignant neoplasm of other organs or systems; Z80.3 Family history of malignant neoplasm of breast
CPT/HCPCS: 36415; 70450; 70551; 71046; 80053; 80061; 83735; 84484; 85025; 85610; 85730; 93005; 93306; 93351; 93880; 99285

== ENCOUNTER → 2019-08-28 | Outpatient (CLI) | payer MEDICARE ==
--- NOTE | 2019-08-29 08:33 | CT ---
EXAMINATION TYPE: CT iac w con DATE OF EXAM: 08/28/2019 COMPARISON: MRI brain dated 08/22/[address] brain dated 08/21/2019 HISTORY: Cholesteatoma, mastoiditis, mixed hearing loss, left-sided facial numbness CT DLP: 347 mGycm Automated exposure control for dose reduction was used. CONTRAST: CT scan of the IACs is performed with IV Contrast, patient injected with 100 mL of Isovue 300. FINDINGS: There is some trabecular thickening of the left mastoid air cells with mild amount of left mastoid air cell fluid. Finding is better appreciated on the MRI of 08/22/2019. Right mastoid air cell s are well aerated. Very trace amount of fluid is seen in the left middle ear cavity. The external auditory canals are pa tent bilaterally There is no evidence of suspicious surrounding soft tissue density to suggest choles teatoma. The scutum is preserved bilaterally. The cochlea and the semicircular canals are symmetric and unremarkable. Vestibular aqueduct and internal carotid canal appear unremarkable. Temporomandi bular joints are maintained bilaterally. Mild mucosal thickening is seen in the bilateral maxillary sinuses. Ostiomeatal complexes are patent. There are bilateral small nonobstructive subcentimeter Johann cells. Multiple periapical lucencies s urrounding the maxillary teeth indicative of dental disease. Visualized portions of the brain are sub optimally viewed given technique. Mild leftward nasal septal deviation is seen. Orbits are symmetric. IMPRESSION: 1. Partial opacification of the left mastoid air cells and trabecular thickening suggesting acute on chronic mastoiditis. The extensive inflammatory changes better appreciated on the prior MRI of 020. 2. Scant amount of fluid in the left middle ear cavity without CT evidence of cholesteatoma. 3. Mild maxillary paranasal sinus disease with patency of the ostia male complexes. Bilateral nonobst ructive subcentimeter Johann cells are seen. 4. Multifocal maxillary dental disease.
== END | disposition home or self-care (01) ==
LOC: RADCTMAIN 16:39
PROVIDERS: ATTEND Otolaryngology
DX: J32.0 Chronic maxillary sinusitis (principal); K05.6 Periodontal disease, unspecified
CPT/HCPCS: 70481; Q9967

== ENCOUNTER 2020-04-16 19:07 | Observation (INO) | payer MEDICARE ==
[2020-04-16] MEDS ORDERED: ASPIRIN 81 MG PO STA (19:44)
[2020-04-16 19:57] LABS: Basophils % (A) 1 %; Eosinophils # (A) 0.2 k/uL (0-0.7); Eosinophils % (A) 3 %; HCT 50.8 % (39.0-53.0); HGB 16.6 gm/dL (13.0-17.5); Lymphocytes # (A) 1.6 k/uL (1.0-4.8); Lymphocytes % (A) 22 %; MCH 29.9 pg (25.0-35.0); MCHC 32.8 g/dL (31.0-37.0); MCV 91.2 fL (80.0-100.0); Mean Platelet Volume 6.7; Monocytes # (A) 0.3 k/uL (0-1.0); Monocytes % (A) 5 %; Neutrophils # (A) 4.8 k/uL (1.3-7.7); Neutrophils % (A) 68 %; Platelet Count 177 k/uL (150-450); RBC 5.57 m/uL (4.30-5.90); RDW 14.6 % (11.5-15.5); WBC 7.1 k/uL (3.8-10.6)
[2020-04-16 20:14] LABS: Calcium 8.7 mg/dL (8.4-10.2); Magnesium 1.8 mg/dL (1.6-2.3); Potassium 3.6 mmol/L (3.5-5.1); Total Bilirubin 0.8 mg/dL (0.2-1.3); Total Protein 6.8 g/dL (6.3-8.2)
--- NOTE | 2020-04-16 20:23 | ED ---
Chest Pain HPI - General Chief Complaint: Chest Pain Stated Complaint: chest pressure/SOB/fever Time Seen by Provider: 04/16/20 19:16 Source: patient Mode of arrival: wheelchair Limitations: no limitations - History of Present Illness Initial Comments: Patient is a 69-year-old male, with history of hypertension, heart failure, TIAs, presenting to the emergency Department with complaints of chest tightness that has been intermittent throughout today. Patient states he felt his normal self yesterday. Patient states she is also having some head pressure. He describes the chest tightness mostly in his left side. He states it has been coming and going, lasting for a few minutes at a time. He states he feels some mild shortness of breath as well. He denies any fever, chills, cough or chest congestion. He states he takes a daily aspirin. He is not on a blood thinner. He denies any abdominal pain, nausea, vomiting, diarrhea, pain in his lower extremities. He denies any numbness and tingling. He has no further complaints at this time. Upon arrival to the ER, his vital signs are stable. - Related Data Home Medications Medication Instructions Recorded Confirmed Furosemide [Lasix] 40 mg PO DAILY 01/28/15 04/16/20 allopurinoL [Zyloprim] 100 mg PO DAILY 03/06/16 04/16/20 lisinopriL [Zestril] 20 mg PO DAILY 10/23/16 04/16/20 Escitalopram [Lexapro] 20 mg PO DAILY 05/31/17 04/16/20 Acetaminophen [Tylenol] 1,000 mg PO ONCE PRN 04/16/20 04/16/20 Atorvastatin [Lipitor] 40 mg PO HS 04/16/20 04/16/20 Previous Rx's Medication Instructions Recorded Aspirin 81 mg PO DAILY #30 chew 05/16/15 Allergies Allergy/AdvReac Type Severity Reaction Status Date / Time erythromycin base AdvReac Nausea & Verified 04/16/20 21:48 Vomiting ibuprofen AdvReac Hx of GI Verified 04/16/20 21:48 Bleed steroids AdvReac Hx of GI Uncoded 04/16/20 21:48 Bleed Review of Systems ROS Statement: Those systems with pertinent positive or pertinent negative responses have been documented in the HPI. ROS Other: All systems not noted in ROS Statement are negative. EKG Findings - EKG Comments: EKG Findings:: 19:22 Sinus rhythm with marked sinus arrhythmia, left axis deviation, no signs of acute ischemia. Similar to previous EKG on 08/21/2019. Ventricular rate 77, SD normal 152, QTC 430. Repeat EKG 20:08 sinus rhythm with marked sinus arrhythmia, no signs of acute ischemia. Ventricular rate 68, SD interval 154, QTC 430. Past Medical History Past Medical History: Cancer, Heart Failure, CVA/TIA, GI Bleed, Hypertension, Pneumonia, Prostate Disorder Additional Past Medical History / Comment(s): hx prostate ca 2009/radiation tx ,TIA 2014, SLIGHTLY ENLARGED HEART", GOUT, Small bowel obstruction in February 2016, hx anemia, HYDABURG with use of a hearing aid, skin cancer s/p removal History of Any Multi-Drug Resistant Organisms: None Reported Past Surgical History: Bowel Resection, Cholecystectomy, Heart Catheterization, Hernia Repair Additional Past Surgical History / Comment(s): omphalocele repair as infant, 2 BOWEL RESECTIONS for bleeding, polyp removed from left ear Past Anesthesia/Blood Transfusion Reactions: No Reported Reaction Additional Past Anesthesia/Blood Transfusion Reaction / Comment(s): . Past Psychological History: Depression Smoking Status: Never smoker Past Alcohol Use History: Heavy Past Drug Use History: None Reported - Past Family History Father Family Medical History: Cancer Additional Family Medical History / Comment(s): oral CA.. Mother Family Medical History: Cancer Additional Family Medical History / Comment(s): breat CA. General Exam - General Exam Comments Initial Comments: GENERAL: Patient is well-developed and well-nourished. Patient is nontoxic and in no acute distress. HEAD: Atraumatic, normocephalic. EYES: Pupils equal round and reactive to light, extraocular movements intact, sclera anicteric, conjunctiva are normal. Eyelids were unremarkable. ENT: TMs normal, nares patent, oropharynx clear without exudates. Moist mucous membranes. NECK: Normal range of motion, supple without lymphadenopathy or JVD. LUNGS: Unlabored respirations. Breath sounds clear to auscultation bilaterally and equal. No wheezes rales or rhonchi. HEART: Regular rate and rhythm without murmurs, rubs or gallops. ABDOMEN: Soft, nontender, normoactive bowel sounds. No guarding, no rebound. No masses appreciated. : Deferred MUSCULOSKELETAL: Normal extremities with adequate strength and normal range of motion, no pitting or edema. No clubbing or cyanosis. NEUROLOGICAL: Patient is alert and oriented x 3. Motor and sensory are also intact. Cranial nerves II through XII grossly intact. Symmetrical smile. Normal speech, normal gait. PSYCH: Normal mood, normal affect. SKIN: Warm, Dry, normal turgor, no rashes or lesions noted. Limitations: no limitations Course Vital Signs 04/16/20 04/16/20 04/16/20 19:08 20:45 21:21 Temperature 97.9 F Pulse Rate 69 62 Respiratory 18 17 Rate Blood Pressure 158/99 137/97 163/98 O2 Sat by Pulse 97 99 97 Oximetry Chest Pain [facility] Patient is a 69-year-old male here for chest tightness is intermittent throughout today. He is also complaining of head pressure. He has history of TIAs, heart failure and disease. The signs have been stable. Exam is unremarkable. No neuro deficits. EKG shows no acute process. Chest x-ray shows no acute abnormality, CT of the head also shows no acute intracranial abnormality. Patient's labs are normal, troponin and BNP are normal. Urine shows no evidence of infection. I did give patient some fluids, full strength aspirin. Given patient's history and did recommend admission for cardiac consult and serial troponins. Patient is in agreement with this plan of care. He was accepted by Dr. Muro. Case discussed with Dr. Alcantara. Disposition Clinical Impression: Chest pain Disposition: ADMITTED IP TO THIS [facility] Condition: Stable Decision Date: 04/16/20 Decision Time: 21:18
[2020-04-16 20:26] LABS: Appearance,Urine Clear (Clear); Bilirubin,Urine Negative (Negative); Blood,Urine Negative (Negative); Color,Urine Yellow; Glucose,Urine (UA) Negative (Negative); Ketones,Urine Negative (Negative); Leukocyte Esterase,Urine Negative (Negative); Nitrite,Urine Negative (Negative); PH, Urine 5.5 (5.0-8.0); Protein,Urine Negative (Negative); Specific Gravity,Urine 1.017 (1.001-1.035); Urobilinogen,Urine <2.0 mg/dL (<2.0)
[2020-04-16 20:27] LABS: Prothrombin Time 10.6 sec (9.0-12.0)
--- NOTE | 2020-04-16 20:40 | XR ---
EXAMINATION TYPE: XR chest 2V DATE OF EXAM: 04/16/2020 COMPARISON: NONE HISTORY: Chest pain and fever. TECHNIQUE: Frontal and lateral views of the chest are obtained. FINDINGS: There is no focal air space opacity, pleural effusion, or pneumothorax seen. The cardiac silhouette size is within normal limits. The osseous structures are intact. IMPRESSION: No acute cardiopulmonary process.
[2020-04-16] MEDS ORDERED: NITROGLYCERIN SL TABS 0.4 MG TAB SUBLINGUAL PRN (21:15)
--- NOTE | 2020-04-16 21:50 | CT ---
EXAMINATION TYPE: CT brain wo con DATE OF EXAM: 04/16/2020 COMPARISON: 08/21/2019. HISTORY: Head pressure CT DLP: 1151.4 mGycm Automated exposure control for dose reduction was used. FINDINGS: There is no intracranial hemorrhage, mass effect, midline shift or hydrocephalus. Quezada-white matter i s preserved. No calvarial fracture. The paranasal sinuses and mastoid air cells are adequately aerate d. IMPRESSION: NO ACUTE INTRACRANIAL ABNORMALITY.
[2020-04-16] MEDS ORDERED: ACETAMINOPHEN TAB 500 MG TAB PO PRN (23:39)
[2020-04-16] MEDS ORDERED: ATORVASTATIN 40 MG TAB PO SCH (23:45)
[2020-04-16] MEDS ORDERED: LORazepam 2 MG/ML INJ IV PRN ×3 (23:46)
[2020-04-16] MEDS: SODIUM CHLORIDE 0.9% 1,000 ML IV SCH (23:54)
[2020-04-16] MEDS: THIAMINE 100 MG TAB PO SCH (23:54)
--- NOTE | 2020-04-17 00:06 | P.HPIM ---
History of Present Illness H&P Date: 04/16/20 Chief Complaint: chest pressure 69 year old with history of TIA, CHF, and hypertension patient comes in due to sudden onset chest pressure, central , 4/10 in severity , non radiating, no specific precipitating factor, started while doing nothing, associated with trouble breathing , denies any dizziness, lightheadedness, nausea, vomiting, sweating, or palpitations. patient denies any history of CAD, but admit to history of CHF. he currently denies any chest pain, EKG showed no acute changes, trops negative, vital sings stable patient also reports head pressure, and numbness over his forehead, that he has experienced in the past and was told that it is related to TIA, usually resolves within few hours. denies any other focal neuro deficits. denies any numbness or tingling in his hand or feet, carlene any focal weakness. however, he does report that earlier at home, when he tried to stand up when felt his chest pressure, he felt a little wobbly he denies any sick contact, fever, chills, cough, nausea or vomiting, denies any changes in his medications, denies exertional dyspnea. patient was brought to the hospital by his daughter. he claims that he had episodes of face tingling in the past, usually comes in episodes lasting days, then disappears for many years before it comes back again . he currently feels back to his baseline Review of Systems Pertinent positives as noted in HPI. All other systems were reviewed and are negative Past Medical History Past Medical History: Cancer, Heart Failure, CVA/TIA, GI Bleed, Hypertension, Pneumonia, Prostate Disorder Additional Past Medical History / Comment(s): hx prostate ca 2009/radiation tx ,TIA 2014, SLIGHTLY ENLARGED HEART", GOUT, Small bowel obstruction in February 2016, hx anemia, [place] with use of a hearing aid, skin cancer s/p removal History of Any Multi-Drug Resistant Organisms: None Reported Past Surgical History: Bowel Resection, Cholecystectomy, Heart Catheterization, Hernia Repair Additional Past Surgical History / Comment(s): omphalocele repair as infant, 2 BOWEL RESECTIONS for bleeding, polyp removed from left ear Past Anesthesia/Blood Transfusion Reactions: No Reported Reaction Additional Past Anesthesia/Blood Transfusion Reaction / Comment(s): . Past Psychological History: Depression Additional Psychological History / Comment(s): Pt had a suicide attempt in 2004. He states he has no suicidal thoughts.well maintained on medications Smoking Status: Never smoker Past Alcohol Use History: Heavy Additional Past Alcohol Use History / Comment(s): He reports 12 drinks weekly. Past Drug Use History: None Reported - Past Family History Father Family Medical History: Cancer Additional Family Medical History / Comment(s): oral CA.. Mother Family Medical History: Cancer Additional Family Medical History / Comment(s): breat CA. Medications and Allergies Home Medications Medication Instructions Recorded Confirmed Type Furosemide [Lasix] 40 mg PO DAILY 01/28/15 04/16/20 History Aspirin 81 mg PO DAILY #30 chew 05/16/15 04/16/20 Rx allopurinoL [Zyloprim] 100 mg PO DAILY 03/06/16 04/16/20 History lisinopriL [Zestril] 20 mg PO DAILY 10/23/16 04/16/20 History Escitalopram [Lexapro] 20 mg PO DAILY 05/31/17 04/16/20 History Acetaminophen [Tylenol] 1,000 mg PO ONCE PRN 04/16/20 04/16/20 History Atorvastatin [Lipitor] 40 mg PO HS 04/16/20 04/16/20 History Allergies Allergy/AdvReac Type Severity Reaction Status Date / Time erythromycin base AdvReac Nausea & Verified 04/16/20 21:48 Vomiting ibuprofen AdvReac Hx of GI Verified 04/16/20 21:48 Bleed steroids AdvReac Hx of GI Uncoded 04/16/20 21:48 Bleed Physical Exam Vitals: Vital Signs Temp Pulse Pulse Resp BP BP Pulse Ox 04/16/20 22:00 98.3 F 60 17 163/82 97 04/16/20 21:21 62 17 163/98 97 04/16/20 20:45 137/97 99 04/16/20 19:08 97.9 F 69 18 158/99 97 Intake and Output 04/16/20 04/16/20 04/17/20 14:59 22:59 06:59 Other: Voiding Method Toilet Weight 115.666 kg Constitutional: No acute distress, conversant, pleasant Eyes: Anicteric sclerae, moist conjunctiva, Pupils equal round reactive to light ENMT: NC/AT Oropharynx clear, no erythema, or exudates Neck: Supple, FROM, no masses, or JVD No carotid bruits No thyromegaly Lungs: Clear to auscultation Clear to percussion Normal respiratory effort, no accessory muscle use Cardiovascular: Heart regular in rate and rhythm, No murmurs, gallops, or rubs No peripheral edema Abdominal: Soft Nontender, no guarding, rebound or rigidity Abdomen moving with respiration Normoactive bowel sounds No hepatomegaly, No splenomegaly No palpable mass No abdominal wall hernia noted Skin: Normal temperature, tone, texture, turgor No induration No subcutaneous nodules No rash, lesions No ulcers Extremities: No digital cyanosis No clubbing Pedal pulses intact and symmetrical Radial pulses intact and symmetrical No calf tenderness Psychiatric: Alert and oriented to person, place and time Appropriate affect fair judgement Neuro Muscles Strength 5/5 in all 4 extremities Sensation to light touch grossly present throughout Cranial nerves II-XII grossly intact No focal sensory deficits Finger-nose intact Deep tendon reflexes over the knees bilaterally brisk +2 and equal Lymphatics: no palpable cervical or supraclavicular , or inguinal lymph nodes Results CBC & Chem 7: 04/16/20 19:48 04/16/20 19:48 Labs: Abnormal Lab Results - Last 24 Hours (Table) 04/16/20 Range/Units 19:48 Sodium 136 L (137-145) mmol/L Creatinine 1.27 H (0.66-1.25) mg/dL Glucose 130 H (74-99) mg/dL Thrombosis Risk Factor Assmnt - Choose All That Apply Each Factor Represents 1 point: Abnormal pulmonary function (COPD), Obesity (BMI >25) Each Risk Factor Represents 2 Points: Age 61-74 years Other congenital or acquired thrombophilia - If yes, enter type in comment: No Thrombosis Risk Factor Assessment Total Risk Factor Score: 4 Thrombosis Risk Factor Assessment Level: Moderate Risk Assessment and Plan Assessment: Atypical chest pain rule out ACS Cardiac monitoring Trend troponins Aspirin and statin Cardiology consult monitor vital signs Acute kidney injury Most likely secondary to dehydration Hold lisinopril and Lasix IV fluid hydration with normal saline Follow-up renal function Facial numbness resolved Possible TIA with history of multiple TIAs Increase 10-80 mg Check carotid ultrasound Neurochecks PT eval due to gait balance issues at home, that since has resolved CODE STATUS: Full code DVT prophylaxis: mechanical Discussed with: Patient, ER, RN Anticipated length of stay less than [address]: Home A total of 65 minutes was spent on the care of this complex patient more than 50% of the time was spent in counseling and care coordination.
[2020-04-17 02:22] LABS: Cholesterol 103 mg/dL (<200); HDL Cholesterol 47 mg/dL (40-60); LDL Cholesterol,Calculated 38 mg/dL (0-99); Triglycerides 92 mg/dL (<150)
[2020-04-17] MEDS: THIAMINE 100 MG TAB PO SCH (06:14)
[2020-04-17] MEDS: SODIUM CHLORIDE 0.9% 1,000 ML IV SCH (06:15)
[2020-04-17 07:48] LABS: Basophils # (A) 0.1 k/uL (0-0.2); Basophils % (A) 1 %; Eosinophils # (A) 0.2 k/uL (0-0.7); Eosinophils % (A) 3 %; HCT 50.4 % (39.0-53.0); HGB 16.3 gm/dL (13.0-17.5); Lymphocytes # (A) 1.4 k/uL (1.0-4.8); Lymphocytes % (A) 24 %; MCH 30.1 pg (25.0-35.0); MCHC 32.4 g/dL (31.0-37.0); MCV 92.9 fL (80.0-100.0); Mean Platelet Volume 6.5; Monocytes # (A) 0.3 k/uL (0-1.0); Monocytes % (A) 5 %; Neutrophils # (A) 3.7 k/uL (1.3-7.7); Neutrophils % (A) 65 %; Platelet Count 146 k/uL (150-450); RBC 5.42 m/uL (4.30-5.90); RDW 14.2 % (11.5-15.5); WBC 5.6 k/uL (3.8-10.6)
[2020-04-17 08:04] LABS: Albumin 3.3 g/dL (3.5-5.0); Calcium 8.3 mg/dL (8.4-10.2); Potassium 4.1 mmol/L (3.5-5.1); Total Bilirubin 1.2 mg/dL (0.2-1.3)
[2020-04-17] MEDS ORDERED: ASPIRIN 325 MG TAB PO SCH (09:00)
[2020-04-17] MEDS ORDERED: allopurinoL 100 MG TAB PO SCH (09:00)
[2020-04-17] MEDS ORDERED: lisinopriL 20 MG TAB PO SCH (09:00)
[2020-04-17] MEDS ORDERED: ESCITALOPRAM 20 MG TAB PO SCH (09:00)
--- NOTE | 2020-04-17 09:53 | US ---
EXAMINATION TYPE: US carotid duplex BILAT DATE OF EXAM: 04/17/2020 COMPARISON: US CLINICAL HISTORY: TIA. Chest pain and facial numbness per patient Purchase Order Checker reports technically difficult examination due to patient body habitus. EXAM MEASUREMENTS: RIGHT: Peak Systolic Velocity (PSV) cm/sec ----- Right CCA: 43.2 ----- Right ICA: 49.8 ----- Right ECA: 56.7 ICA/CCA ratio: 1.15 RIGHT: End Diastole cm/sec ----- Right CCA: 17.0 ----- Right ICA: 15.8 ----- Right ECA: 15.8 LEFT: Peak Systolic Velocity (PSV) cm/sec ----- Left CCA: 44.4 ----- Left ICA: 48.2 bulb ----- Left ECA: 81.0 ICA/CCA ratio: 1.09 LEFT: End Diastole cm/sec ----- Left CCA: 17.5 ----- Left ICA: 9.4 ----- Left ECA: 12.8 VERTEBRALS (direction of flow): Right Vertebral: Very faint, antegrade Left Vertebral: Antegrade Rhythm: Normal Moderate irregular and calcified wall plaque is noted bilateral carotid bifurcation. IMPRESSION: 1. No hemodynamically significant stenosis of the bilateral carotid arteries. Any stenosis that may be present is less than 50%. 2. Suboptimal visualization of the vertebral arteries. CTA examination of the neck may be of benefit for further evaluation. Criteria for Assigning % of Stenosis / Diameter reduction (Estimation based on the indirect measurements of the internal carotid artery velocities (ICA PSV). 1. Normal (no stenosis)=ICA PSV < 125 cm/s: ratio < 2.0: ICA EDV<40 cm/s. 2. Less than 50% stenosis=ICA PSV < 125 cm/s: ratio < 2.0: ICA EDV<40 cm/s. 3. 50 to 69% stenosis=ICA PSV of 125 to 230 cm/s: ration 2.0 ? 4.0: ICA EDV 40-100 cm/s. 4. Greater than 70% stenosis to near occlusion= ICA PSV > 230 cm/s: ratio > 4.0: ICA EDV > 100 cm/s. 5. Near occlusion= ICA PSV velocities may be low or undetectable: variable ratio and ICA EDV. 6. Total occlusion=unable to detect flow.
--- NOTE | 2020-04-17 10:03 | P.CRDCN ---
History of Present Illness Consult date: 04/17/20 History of present illness: CHIEF COMPLAINT: Chest pain HISTORY OF PRESENT ILLNESS: This is a 69-year old male with a past medical history significant for hypertension, CHF, TIA, and alcohol abuse. Patient follows in the office with Dr. Quach. We have been asked to see the patient in consultation for chest pain. Patient examined this morning at the bedside. Patient states yesterday at approximately 1900 he was sitting in the chair watching TV. He states he started having some pressure in his chest and some shortness of breath. He states he stood up and felt unsteady on his feet so he decided to come to the hospital. He states he had a tingling sensation and has had on the way to the hospital and it went into his lip. He states his face felt warm. This morning, he denies chest pain or discomfort. He denies shortness of breath. He reports tingling in his face this morning and feeling hot. He states he has a history of TIAs and states this is similar to his episodes in the past. Patient states he used to follow with a neurologist outpatient but no longer sees him. He is on daily aspirin therapy. He denies a history of atrial fibrillation. Patient also reports increased alcohol consumption over the past 3-4 months. He reports drinking at least 6 beers daily. No nicotine use. Patient had a dobutamine stress test performed in July 2019 which was negative for reversible ischemia. Patient also had an echocardiogram completed at that time revealing ejection fraction of 55%. DIAGNOSTICS: EKG reveals sinus rhythm. Chest xray negative for acute cardiopulmonary process Laboratory data: W BC 5.6. Hemoglobin 16.3. Platelet count 146. Sodium 138. Potassium 4.1. BUN 14. Creatinine 1.26. Troponin negative 3 Current home cardiac medications include lisinopril 20 mg daily, Lasix 40 mg daily, Lipitor 40 mg daily, and aspirin 81 mg daily REVIEW OF SYSTEMS: At the time of my exam: CONSTITUTIONAL: Denies fever or chills. HEENT: Denies blurred vision, vision changes, or eye pain. Denies hemoptysis. reports tingling to face. CARDIOVASCULAR: Denies chest pain, orthopnea, PND or palpitations RESPIRATORY: No shortness of breath. GASTROINTESTINAL: Denies abdominal pain. Denies nausea or vomiting. HEMATOLOGIC: Denies bleeding disorders. GENITOURINARY: Denies any blood in urine. SKIN: Denies pruitis. Denies rash. PHYSICAL EXAM: VITAL SIGNS: Reviewed. GENERAL: Well-developed in no acute distress. HEENT: Head is normocephalic. Pupils are equal, round. Sclerae anicteric. Mucous membranes of the mouth are moist. Neck supple. No JVD or thyromegaly LUNGS: Respirations even and unlabored. Lungs essentially clear to auscultation bilaterally. HEART: Regular rate and rhythm. S1 and S2 heard. ABDOMEN: Soft. Nondistended. Nontender. EXTREMITIES: Normal range of motion. No clubbing or cyanosis. Peripheral pulses intact. No lower extremity edema NEUROLOGIC: Awake and alert. Oriented x 3. ASSESSMENT: Chest pain Facial numbness History of TIA Chronic diastolic congestive heart failure, EF 55% Hypertension Hyperlipidemia Alcohol abuse Obesity: BMI 41.2 PLAN: An acute coronary event has been ruled out. Patient also had a normal stress test in July 2019. Recommend alcohol abstinence Obtain 2-D echo to assess cardiac structure and function Obtain neurology consult due to facial tingling and history of TIAs If no significant abnormality on echo, patient may be discharged home from a cardiac standpoint and follow up with Dr. Quach Nurse practitioner note has been reviewed by physician. Signing provider agrees with the documented findings, assessment, and plan of care. Past Medical History Past Medical History: Cancer, Heart Failure, CVA/TIA, GI Bleed, Hypertension, Pneumonia, Prostate Disorder Additional Past Medical History / Comment(s): hx prostate ca 2009/radiation tx ,TIA 2014, SLIGHTLY ENLARGED HEART", GOUT, Small bowel obstruction in February 2016, hx anemia, [place] with use of a hearing aid, skin cancer s/p removal History of Any Multi-Drug Resistant Organisms: None Reported Past Surgical History: Bowel Resection, Cholecystectomy, Heart Catheterization, Hernia Repair Additional Past Surgical History / Comment(s): omphalocele repair as , 2 BOWEL RESECTIONS for bleeding, polyp removed from left ear Past Anesthesia/Blood Transfusion Reactions: No Reported Reaction Additional Past Anesthesia/Blood Transfusion Reaction / Comment(s): . Past Psychological History: Depression Smoking Status: Never smoker Past Alcohol Use History: Heavy Past Drug Use History: None Reported - Past Family History Father Family Medical History: Cancer Additional Family Medical History / Comment(s): oral CA.. Mother Family Medical History: Cancer Additional Family Medical History / Comment(s): ramy NORRIS. Medications and Allergies Home Medications Medication Instructions Recorded Confirmed Type Furosemide [Lasix] 40 mg PO DAILY 01/28/15 04/16/20 History Aspirin 81 mg PO DAILY #30 chew 05/16/15 04/16/20 Rx allopurinoL [Zyloprim] 100 mg PO DAILY 03/06/16 04/16/20 History lisinopriL [Zestril] 20 mg PO DAILY 10/23/16 04/16/20 History Escitalopram [Lexapro] 20 mg PO DAILY 05/31/17 04/16/20 History Acetaminophen [Tylenol] 1,000 mg PO ONCE PRN 04/16/20 04/16/20 History Atorvastatin [Lipitor] 40 mg PO HS 04/16/20 04/16/20 History Allergies Allergy/AdvReac Type Severity Reaction Status Date / Time erythromycin base AdvReac Nausea & Verified 04/16/20 21:48 Vomiting ibuprofen AdvReac Hx of GI Verified 04/16/20 21:48 Bleed steroids AdvReac Hx of GI Uncoded 04/16/20 21:48 Bleed Physical Exam Vitals: Vital Signs Temp Pulse Pulse Resp BP BP Pulse Ox 04/17/20 04:00 97.6 F 66 18 122/78 98 04/16/20 22:00 98.3 F 60 17 163/82 97 04/16/20 21:21 62 17 163/98 97 04/16/20 20:45 137/97 99 04/16/20 19:08 97.9 F 69 18 158/99 97 Intake and Output 04/16/20 04/17/20 04/17/20 22:59 06:59 14:59 Other: Voiding Method Toilet Toilet # Voids 1 1 Weight 115.666 kg Results 04/17/20 07:08 04/17/20 07:08 Cardiac Enzymes 04/16/20 04/16/20 04/16/20 Range/Units 19:48 19:48 21:55 AST 28 (17-59) U/L Troponin I <0.012 <0.012 (0.000-0.034) ng/mL 04/17/20 04/17/20 Range/Units 01:54 07:08 AST 29 (17-59) U/L Troponin I <0.012 (0.000-0.034) ng/mL Coagulation 04/16/20 Range/Units 19:48 PT 10.6 (9.0-12.0) sec APTT 24.0 (22.0-30.0) sec Lipids 04/17/20 Range/Units 01:54 Triglycerides 92 (<150) mg/dL Cholesterol 103 (<200) mg/dL HDL Cholesterol 47 (40-60) mg/dL CBC 04/16/20 04/17/20 Range/Units 19:48 07:08 WBC 7.1 5.6 (3.8-10.6) k/uL RBC 5.57 5.42 (4.30-5.90) m/uL Hgb 16.6 16.3 (13.0-17.5) gm/dL Hct 50.8 50.4 (39.0-53.0) % Plt Count 177 146 L (150-450) k/uL Comprehensive Metabolic Panel 04/16/20 04/17/20 Range/Units 19:48 07:08 Sodium 136 L 138 (137-145) mmol/L Potassium 3.6 4.1 (3.5-5.1) mmol/L Chloride 103 102 (98-107) mmol/L Carbon Dioxide 25 31 H (22-30) mmol/L BUN 13 14 (9-20) mg/dL Creatinine 1.27 H 1.26 H (0.66-1.25) mg/dL Glucose 130 H 94 (74-99) mg/dL Calcium 8.7 8.3 L (8.4-10.2) mg/dL AST 28 29 (17-59) U/L ALT 19 21 (4-49) U/L Alkaline Phosphatase 79 70 (38-126) U/L Total Protein 6.8 6.0 L (6.3-8.2) g/dL Albumin 4.0 3.3 L (3.5-5.0) g/dL Current Medications Generic Name Dose Route Start Last Admin Trade Name Freq PRN Reason Stop Dose Admin Acetaminophen 1,000 mg 04/16/20 23:39 Acetaminophen Tab 500 Mg Tab PO ONCE PRN Pain Allopurinol 100 mg 04/17/20 09:00 Allopurinol 100 Mg Tab PO DAILY [facility] Aspirin 325 mg 04/17/20 09:00 Aspirin 325 Mg Tab PO DAILY [facility] Atorvastatin Calcium 80 mg 04/16/20 23:45 04/16/20 23:54 Atorvastatin 40 Mg Tab PO 80 mg HS KELVIN Administration Escitalopram Oxalate 20 mg 04/17/20 09:00 Escitalopram 20 Mg Tab PO DAILY [facility] Sodium Chloride 1,000 mls @ 130 mls/hr 04/16/20 23:45 04/17/20 06:15 Saline 0.9% IV 130 mls/hr .[id number] KELVIN Administration Lisinopril 20 mg 04/17/20 09:00 Lisinopril 20 Mg Tab PO DAILY KELVIN Lorazepam 1 mg 04/16/20 23:46 Lorazepam 2 Mg/Ml Inj IV Q2HR PRN CIWA 8 or 9 Lorazepam 1 mg 04/16/20 23:46 Lorazepam 2 Mg/Ml Inj IV Q1HR PRN CIWA 10 to 15 Lorazepam 2 mg 04/16/20 23:46 Lorazepam 2 Mg/Ml Inj IV 04/18/20 23:46 Q10M PRN CIWA 16 or higher Nitroglycerin 0.4 mg 04/16/20 21:15 Nitroglycerin Sl Tabs 0.4 Mg Tab SUBLINGUAL Q5M PRN Chest Pain Thiamine HCl 100 mg 04/16/20 23:46 04/17/20 06:14 Thiamine 100 Mg Tab PO 100 mg BID-W/MEALS KELVIN Administration Intake and Output 04/16/20 04/17/20 04/17/20 22:59 06:59 14:59 Other: Voiding Method Toilet Toilet # Voids 1 1 Weight 115.666 kg 04/17/20 07:08 04/17/20 07:08
[2020-04-17 11:08] VITALS: BP 136/84; PULSE 97; RESP 16; TEMP 97.4
--- NOTE | 2020-04-17 11:10 | P.CNNES ---
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 Patient states that around 6:45 PM he was in his house, watching TV when he started having these symptoms. He got up to go to the bathroom, felt wobbly. His daughter drove him to the ER. Patient did not have any focal symptoms on presentation. Patient states that while he was in the ER, he noticed his top of the head became numb and tingly. These paresthesias extended downward over the face to involve to the the upper facial region bilaterally (to upper lip level) bilaterally. Patient states that after he slept, the symptoms went away when he woke up at around 4 AM. However in the last 1-2 hours, is getting some tingling sensation in the top of the head but not as intense. He feels like a rubber band sensation around. This prompted neurology consultation. Vital signs on arrival blood pressure 150/99, pulse rate 69 temperature 97.9. Chest x-ray showed no acute process. EKG with sinus rhythm with marked sinus arrhythmia. Left axis deviation. CT head showed no acute intracranial process. Patient's CBC, PT/PTT, UA is negative. Chem-20 with sodium 136 potassium 3.6, normal hepatic panel. Total cholesterol 103, LDL 38, HDL 47 and triglycerides 92. TSH is normal 2.34. Patient's last hemoglobin A1c 5.3 on 08/11/2014. B12 488 on 06/09/2019. Methylmalonic acid 0.27, RBC folate 378 normal. Patient had an EEG previously on 06/01/2017 was normal. Patient currently on aspirin 81 mg, lisinopril 20 mg, Lipitor 40 mg, Lasix 40 mg and Lexapro 20 mg. Patient denies diabetes. He does have hypertension. He is a nonsmoker. Patient states that in the last few months, he has been drinking heavily, 6 cans of beer per day, about 3 nights a week. However in the last 3 weeks this has gone up to drinking same amount 5-6 nights a week. Prior to these few months, he is to drink one beer on the weekend. Patient has history of omphalocele at . He had 2 small bowel resections in the past. He is ALLERGIC to ibuprofen or other nonsteroidals. 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 They used to oc cur quite frequently, a few times a week and then none for a few months. Patient states that in the symptoms were gone for almost 5 years. However in the last 10-15 years, the symptoms have come back. He follows up with Dr. Martino. He was seen for similar symptoms on 05/14/2015. He had presented to the last time to the hospital on 05/31/2017 with left arm and leg heaviness as well as tingling sensation in the left side of the face and crown of the head. He had similar symptoms over numerous years. He had mentioned that his previous MRIs have showed that he did have right brain lesions to explain his left-sided symptoms. He was taking baby aspirin at that time. He was considered for possible migraines but he has been very sensitive to medications. His previous CT scans of the head showed old lacunar injury on the right internal Sole, right lentiform nucleus and left external capsule. Patient's MRI of the brain from 08/22/2019 showed correlate for possible cholesteatoma, mastoiditis, suggest ENT consult. Patient's 2-D echo from 08/21/2019 showed normal left-ventricular size, moderate concentric LVH, EF is 55-60%. Left atrium is severely dilated. Review of Systems As above in detail. All other review of systems unremarkable. Complains of mild headache, paresthesias. Denies any problems with vision, hoarseness or throat or dysphagia. He has swelling of the left upper arm from IV infiltration. Denies any focal numbness involving extremities, weakness. Past Medical History Past Medical History: Cancer, Heart Failure, CVA/TIA, GI Bleed, Hypertension, Pneumonia, Prostate Disorder Additional Past Medical History / Comment(s): hx prostate ca 2009/radiation tx ,TIA 2014, SLIGHTLY ENLARGED HEART", GOUT, Small bowel obstruction in February 2016, hx anemia, [place] with use of a hearing aid, skin cancer s/p removal History of Any Multi-Drug Resistant Organisms: None Reported Past Surgical History: Bowel Resection, Cholecystectomy, Heart Catheterization, Hernia Repair Additional Past Surgical History / Comment(s): omphalocele repair as infant, 2 BOWEL RESECTIONS for bleeding, polyp removed from left ear Past Anesthesia/Blood Transfusion Reactions: No Reported Reaction Additional Past Anesthesia/Blood Transfusion Reaction / Comment(s): . Past Psychological History: Depression Smoking Status: Never smoker Past Alcohol Use History: Heavy Past Drug Use History: None Reported - Past Family History Father Family Medical History: Cancer Additional Family Medical History / Comment(s): oral CA.. Mother Family Medical History: Cancer Additional Family Medical History / Comment(s): breat CA. Medications and Allergies Home Medications Medication Instructions Recorded Confirmed Type Furosemide [Lasix] 40 mg PO DAILY 01/28/15 04/16/20 History Aspirin 81 mg PO DAILY #30 chew 05/16/15 04/16/20 Rx allopurinoL [Zyloprim] 100 mg PO DAILY 03/06/16 04/16/20 History lisinopriL [Zestril] 20 mg PO DAILY 10/23/16 04/16/20 History Escitalopram [Lexapro] 20 mg PO DAILY 05/31/17 04/16/20 History Acetaminophen [Tylenol] 1,000 mg PO ONCE PRN 04/16/20 04/16/20 History Atorvastatin [Lipitor] 40 mg PO HS 04/16/20 04/16/20 History Allergies Allergy/AdvReac Type Severity Reaction Status Date / Time erythromycin base AdvReac Nausea & Verified 04/16/20 21:48 Vomiting ibuprofen AdvReac Hx of GI Verified 04/16/20 21:48 Bleed steroids AdvReac Hx of GI Uncoded 04/16/20 21:48 Bleed Physical Examination - Vital Signs Vital Signs: Vital Signs Temp Pulse Pulse Resp BP BP Pulse Ox 04/17/20 04:00 97.6 F 66 18 122/78 98 04/16/20 22:00 98.3 F 60 17 163/82 97 04/16/20 21:21 62 17 163/98 97 04/16/20 20:45 137/97 99 04/16/20 19:08 97.9 F 69 18 158/99 97 Intake and Output 04/16/20 04/17/20 04/17/20 22:59 06:59 14:59 Other: Voiding Method Toilet Toilet # Voids 1 1 Weight 115.666 kg On examination patient is an elderly male, in no acute distress. He is alert awake oriented to time place and person. Speech and language functions are normal. Attention, concentration and fund of knowledge is adequate. On cranial nerve examination pupils are round and reacting to light, visual willett are full on confrontation, extraocular muscles are intact with no nystagmus. Face is symmetric, tongue protrudes the midline. Palatal elevation and sensation normal. Hearing and shoulder shrug normal. Facial sensations normal. On muscle strength testing there is no pronator drift and the strength is normal in arms and legs distally and proximally. Reflexes are 1 in the right upper limb, 1+ in the left upper limb, 2 at both lower extremities and plantars are downgoing bilaterally. Sensory to touch is equal with no neglect on double simultaneous stimulation. No ataxia for [id number] testing. Tone and bulk of muscles normal. He has swelling of the left upper extremity from recent IV infiltration. No ataxia. Tone and bulk of muscles normal. Gait deferred. No carotid bruit, S1 and S2 audible, abdomen soft nontender, chest is clear. No peripheral edema. Results - Laboratory Findings CBC and BMP: 04/17/20 07:08 04/17/20 07:08 Abnormal Lab Findings: Abnormal Labs 04/16/20 04/17/20 04/17/20 19:48 07:08 07:08 Plt Count 146 L Sodium 136 L Carbon Dioxide 31 H Creatinine 1.27 H 1.26 H Glucose 130 H Calcium 8.3 L Total Protein 6.0 L Albumin 3.3 L Assessment and Plan Assessment: * Paresthesias involving the scalp and upper facial region bilaterally (up to upper lip region), unclear etiology. Doubt TIAs, as symptoms are bilateral in location. * Recent history of alcoholism. * History of recurrent possible TIAs in the past since . * Hypertension * Obesity, BMI 41.2 Plan: * Continue aspirin daily and high-dose Lipitor. The doses then increase to 325 mg. We will start Pepcid for gastric ulcer prophylaxis. * Carotid Doppler showed no hemodynamically significant stenosis of bilateral ICA. Suboptimal visualization of the vertebral arteries. CTA exam of the neck may be of benefit for further evaluation. Patient's symptoms are not typical of TIA, therefore no further workup indicated. * Recommended abstinence from alcohol, as he has been drinking heavily in the last few months. Patient was informed that heavy alcoholism is also considered a stroke risk factor, especially given his previous history of TIAs. * Cardiology also on board. Neurologically no other workup indicated.
[2020-04-17] MEDS ORDERED: FAMOTIDINE 20 MG TAB PO SCH (11:15)
--- NOTE | 2020-04-17 13:46 | ECHOF ---
Referral Reason:Chest pain MEASUREMENTS -------- HEIGHT: 167.6 cm WEIGHT: 115.7 kg BP: 122/78 RVIDd: 2.7 cm (< 3.3) IVSd: 1.4 cm (0.6 - 1.1) LVIDd: 5.4 cm (3.9 - 5.3) LVPWd: 1.2 cm (0.6 - 1.1) IVSs: 2.7 cm LVIDs: 1.8 cm LVPWs: 1.6 cm Ao Diam: 3.7 cm (2.0 - 3.7) AV Cusp: 1.8 cm (1.5 - 2.6) LA Diam: 3.5 cm (2.7 - 3.8) MV EXCURSION: 14.056 mm (> 18.000) MV EF SLOPE: 41 mm/s (70 - 150) EPSS: 1.6 cm MV E Jaison: 0.90 m/s MV DecT: 166 ms MV A Jaison: 0.98 m/s MV E/A Ratio: 0.92 AV maxP.73 mmHg AV meanP.89 mmHg AR PHT: 672 ms RAP: 5.00 mmHg RVSP: 8.59 mmHg FINDINGS -------- This was a technically difficult study with suboptimal views. The left ventricular size is normal. There is mild concentric left ventricular hypertrophy. Overa ll left ventricular systolic function is normal with, an EF between 55 - 60 %. The diastolic fillin g pattern is normal for the age of the patient 12.12. The right ventricle is normal in size. LA is moderately dilated 34-39 ml/m2 The right atrial size is normal. 5.0mg of Lumason was utilized for enhancement of images Aortic valve is trileaflet and is mildly thickened. There is mild aortic valve sclerosis. There i s mild aortic regurgitation. Peak/mean gradient across the Aortic Valve is 14.73mmHg / 9.89mmHg. The mitral valve is normal. There is trace mitral regurgitation. CONCLUSIONS -------- 1. The left ventricular size is normal. 2. There is mild concentric left ventricular hypertrophy. 3. Overall left ventricular systolic function is normal with, an EF between 55 - 60 %. 4. The diastolic filling pattern is normal for the age of the patient 12.12 5. LA is moderately dilated 34-39 ml/m2 6. Aortic valve is trileaflet and is mildly thickened. 7. There is mild aortic valve sclerosis. 8. There is mild aortic regurgitation. 9. Peak/mean gradient across the Aortic Valve is 14.73mmHg / 9.89mmHg. 10. There is trace mitral regurgitation. ELECTRIC MULE DRIVER: Ana Hewitt RDCS
--- NOTE | 2020-04-17 14:30 | P.DS ---
Providers Date of admission: 04/16/20 21:11 Expected date of discharge: 04/17/20 Attending physician: Dennise Muro MD Consults: 04/16/20 21:15 Consult Physician Urgent Consulting Provider: [facility] Consult Reason/Comments: chest pain Do you want consulting provider notified?: Yes 04/17/20 09:26 Consult Physician Routine Consulting Provider: Rogelio Colindres Consult Reason/Comments: Possible TIAs Do you want consulting provider notified?: Yes Primary care physician: Richie [facility] Course: This is 69-year-old male with past medical history significant for essential hypertension, history of TIA, and alcohol abuse who presented to the hospital with chest pain. Patient was evaluated in the ER and placed on observation for further management. Twelve-lead EKG showed no acute ischemic changes. Serial troponin were negative 3 sets. Patient was seen and evaluated by cardiology. He had a dobutamine stress test performed in July 2019 that was negative. No further testing recommended at this time. Patient was cleared by cardiology for discharge home. Patient was also complaining of a transient episode of tingling sensation in his face/sleep on presentation. Computed tomography scan of the brain in the ER was unremarkable. His symptoms resolved quickly. He was seen and evaluated by neurology. Carotid Doppler showed no hemodynamically significant stenosis. Echocardiogram showed preserved EF with no significant valvular abnormality or intracardiac source. Risk factor modification recommended. Continue Lipitor 40 mg daily at bedtime. LDL of 38. Patient was counseled extensively regarding alcohol abuse during this admission. He verbalizes understanding the necessity to stop drinking. He will be discharged home in a stable condition. Patient Condition at Discharge: Stable Plan - Discharge Summary Discharge Rx Participant: No New Discharge Prescriptions: Continue Furosemide [Lasix] 40 mg PO DAILY Aspirin 81 mg PO DAILY #30 chew allopurinoL [Zyloprim] 100 mg PO DAILY lisinopriL [Zestril] 20 mg PO DAILY Escitalopram [Lexapro] 20 mg PO DAILY Atorvastatin [Lipitor] 40 mg PO HS Acetaminophen [Tylenol] 1,000 mg PO ONCE PRN PRN Reason: Pain Discharge Medication List Furosemide [Lasix] 40 mg PO DAILY 01/28/15 [History] Aspirin 81 mg PO DAILY #30 chew 05/16/15 [Rx] allopurinoL [Zyloprim] 100 mg PO DAILY 09/09/16 [History] lisinopriL [Zestril] 20 mg PO DAILY 10/23/16 [History] Escitalopram [Lexapro] 20 mg PO DAILY 05/31/17 [History] Acetaminophen [Tylenol] 1,000 mg PO ONCE PRN 04/16/20 [History] Atorvastatin [Lipitor] 40 mg PO HS 04/16/20 [History] Follow up Appointment(s)/Referral(s): Hunter Quach MD [STAFF PHYSICIAN] - 1 Week Richie Villalobos [Primary Care Provider] - 1-2 days Discharge Disposition: HOME SELF-CARE
== END 2020-04-17 15:53 | disposition home or self-care (01) ==
LOC: EC 19:07 → 3NCARDOBS 21:11
PROVIDERS: ADMIT Internal Medicine; ATTEND Internal Medicine
DX: R07.89 Other chest pain (principal); R20.0 Anesthesia of skin; Z86.73 Personal history of transient ischemic attack (TIA), and cerebral infarction without residual deficits; I11.0 Hypertensive heart disease with heart failure; I50.32 Chronic diastolic (congestive) heart failure; E78.5 Hyperlipidemia, unspecified; F10.10 Alcohol abuse, uncomplicated; E66.9 Obesity, unspecified; Z68.41 Body mass index [BMI] 40.0-44.9, adult; Z87.19 Personal history of other diseases of the digestive system; Z87.01 Personal history of pneumonia (recurrent); N42.9 Disorder of prostate, unspecified; Z85.46 Personal history of malignant neoplasm of prostate; Z92.3 Personal history of irradiation; M10.9 Gout, unspecified; H91.90 Unspecified hearing loss, unspecified ear; Z85.828 Personal history of other malignant neoplasm of skin; Z90.49 Acquired absence of other specified parts of digestive tract; Z98.890 Other specified postprocedural states; F32.9 Major depressive disorder, single episode, unspecified; Z80.8 Family history of malignant neoplasm of other organs or systems; Z79.82 Long term (current) use of aspirin; Z79.899 Other long term (current) drug therapy; Z88.6 Allergy status to analgesic agent; Z88.1 Allergy status to other antibiotic agents; Z88.8 Allergy status to other drugs, medicaments and biological substances
CPT/HCPCS: 93005 ×2; 99285; 36415; 83880; 80061; 80053 ×2; 84443; 83690; 83735; 84484 ×2; 85025 ×2; 85610; 85730; 81003; 71046; 93880; 70450; G0378 ×2; C8929; Q9950; 93306

== ENCOUNTER 2020-04-23 20:55 | Observation (INO) | payer MEDICARE ==
[2020-04-23 21:11] VITALS: RESP 18
[2020-04-23] MEDS ORDERED: SODIUM CHLORIDE 0.9% 500 ML 500 ML IV STA (21:16)
[2020-04-23 21:25] LABS: Basophils # (A) 0.1 k/uL (0-0.2); Basophils % (A) 1 %; Eosinophils # (A) 0.3 k/uL (0-0.7); Eosinophils % (A) 4 %; HGB 16.9 gm/dL (13.0-17.5); Lymphocytes # (A) 1.9 k/uL (1.0-4.8); Lymphocytes % (A) 24 %; MCH 29.9 pg (25.0-35.0); MCHC 33.1 g/dL (31.0-37.0); MCV 90.5 fL (80.0-100.0); Mean Platelet Volume 6.5; Monocytes # (A) 0.5 k/uL (0-1.0); Monocytes % (A) 6 %; Neutrophils % (A) 63 %; Platelet Count 142 k/uL (150-450); RBC 5.63 m/uL (4.30-5.90); RDW 14.2 % (11.5-15.5); WBC 7.9 k/uL (3.8-10.6)
--- NOTE | 2020-04-23 21:31 | ED ---
General Adult HPI - General Chief complaint: Neuro Symptoms/Deficit Stated complaint: L Side Numbness, Neuro Symptoms Time Seen by Provider: 04/23/20 20:59 Source: patient Mode of arrival: wheelchair Limitations: no limitations - History of Present Illness Initial comments: Dictation was produced using [employer] dictation software. please excuse any g rammatical, word or spelling errors. This patient was cared for during a federal and state declared state of emergency secondary to Covid 19 Chief Complaint: 69-year-old male presents with paresthesias to the left side of the body History of Present Illness: 69-year-old female she presents with paresthesias to the left side of the body. Patient reports he has extensive history of tr ansient ischemic attack. He states his symptoms began approximately 6:30 PM today is approximately 3 hours ago. He describes it as pins and needle sensations to his left upper face left lower face left upper extremity left lower extremity. She states he's had multiple TIA episodes in the past. He states he does take PA and medications. He is brought here by his through triage. He has no other complaints at this time. Denies pain complaints. Does report difficulties with his left lower extremity. He states he's dragging it. The ROS documented in this emergency department record has been reviewed and confirmed by me. Those systems with pertinent positive or negative responses h ave been documented in the HPI. All other systems are other negative and/or noncontributory. PHYSICAL EXAM: General Impression: Alert and oriented x3, not in acute distress HEENT: Normocephalic atraumatic, extra-ocular movements intact, pupils equal and reactive to light bilaterally, mucous membranes moist. Cardiovascular: Heart regular rate and rhythm Chest: Able to complete full sentences, no retractions, no tachypnea Abdomen: abdomen soft, non-tender, non-distended, no organomegaly Musculoskeletal: Pulses present and equal in all extremities, no peripheral edema Motor: no focal deficits noted Neurological: CN II-XII grossly intact, no focal motor or sensory deficits noted, NIH of 0, not aphasic, not dysarthric, no ataxia Skin: Intact with no visualized rashes Psych: Normal affect and mood ED course: 69-year-old male presents with chief complaint of left-sided paresthesias.. He states he does have some paresthesias however his NIH is 0. He does not have any sensory issues why touch his left side and right-sided simultaneously. Code stroke was not patient because patient is not a TPA candidate because the risks would outweigh the benefits. He has no extremity drift, neither does he have sensory deficits to light touch on physical examination. Vital signs upon arrival are within acceptable limits. Patient is NIH of 0 to culture is not patient due to very benign physical examination. He has no objective physical findings to suggest acute stroke. Furthermore he has left upper and left lower facial symptoms which do not localize to the central nervous system. Laboratory evaluation obtained. CBC remarkable. Coag panel is negative. Metabolic panel is negative. Computed tomography scan of the brain is unremarkable for any acute processes. Chest x-ray is nonacute. EKG interpretation: Ventricular rate 69, sinus rhythm,. 160, QRS 80, QTC 452. No NM prolongation, no QTC prolongation, no ST or T-wave changes noted. EKG compared to 04/16/2020 showing no changes. Overall, this EKG is unremarkable - Related Data Home Medications Medication Instructions Recorded Confirmed Furosemide [Lasix] 40 mg PO DAILY 01/28/15 04/23/20 allopurinoL [Zyloprim] 100 mg PO DAILY 03/06/16 04/23/20 lisinopriL [Zestril] 20 mg PO DAILY 10/23/16 04/23/20 Escitalopram [Lexapro] 20 mg PO DAILY 05/31/17 04/23/20 Atorvastatin [Lipitor] 40 mg PO HS 04/16/20 04/23/20 Previous Rx's Medication Instructions Recorded Aspirin 81 mg PO DAILY #30 chew 05/16/15 Allergies Allergy/AdvReac Type Severity Reaction Status Date / Time erythromycin base AdvReac Nausea & Verified 04/16/20 21:48 Vomiting ibuprofen AdvReac Hx of GI Verified 04/16/20 21:48 Bleed steroids AdvReac Hx of GI Uncoded 04/16/20 21:48 Bleed Review of Systems ROS Statement: Those systems with pertinent positive or pertinent negative responses have been documented in the HPI. ROS Other: All systems not noted in ROS Statement are negative. Past Medical History Past Medical History: Cancer, Heart Failure, CVA/TIA, GI Bleed, Hypertension, Pneumonia, Prostate Disorder Additional Past Medical History / Comment(s): hx prostate ca 2009/radiation tx ,TIA 2014, SLIGHTLY ENLARGED HEART", GOUT, Small bowel obstruction in February 2016, hx anemia, [place] with use of a hearing aid, skin cancer s/p removal History of Any Multi-Drug Resistant Organisms: None Reported Past Surgical History: Bowel Resection, Cholecystectomy, Heart Catheterization, Hernia Repair Additional Past Surgical History / Comment(s): omphalocele repair as infant, 2 BOWEL RESECTIONS for bleeding, polyp removed from left ear Past Anesthesia/Blood Transfusion Reactions: No Reported Reaction Additional Past Anesthesia/Blood Transfusion Reaction / Comment(s): . Past Psychological History: Depression Smoking Status: Never smoker Past Alcohol Use History: Heavy Past Drug Use History: None Reported - Past Family History Father Family Medical History: Cancer Additional Family Medical History / Comment(s): oral CA.. Mother Family Medical History: Cancer Additional Family Medical History / Comment(s): breat CA. General Exam Limitations: no limitations Course Vital Signs 04/23/20 04/23/20 04/23/20 20:59 21:15 21:30 Temperature 98.3 F 98 F 98 F Pulse Rate 64 68 64 Respiratory 18 18 18 Rate Blood Pressure 152/117 167/102 155/96 O2 Sat by Pulse 94 L 98 97 Oximetry 04/23/20 04/23/20 21:45 22:00 Temperature 98 F 98 F Pulse Rate 64 65 Respiratory 18 18 Rate Blood Pressure 158/98 154/101 O2 Sat by Pulse 97 98 Oximetry Medical Decision Making - Lab Data Result diagrams: 04/23/20 21:08 04/23/20 21:21 Lab Results 04/23/20 04/23/20 04/23/20 Range/Units 21:08 21:08 21:21 WBC 7.9 (3.8-10.6) k/uL RBC 5.63 (4.30-5.90) m/uL Hgb 16.9 (13.0-17.5) gm/dL Hct 51.0 (39.0-53.0) % MCV 90.5 (80.0-100.0) fL MCH 29.9 (25.0-35.0) pg MCHC 33.1 (31.0-37.0) g/dL RDW 14.2 (11.5-15.5) % Plt Count 142 L (150-450) k/uL Neutrophils % 63 % Lymphocytes % 24 % Monocytes % 6 % Eosinophils % 4 % Basophils % 1 % Neutrophils # 5.0 (1.3-7.7) k/uL Lymphocytes # 1.9 (1.0-4.8) k/uL Monocytes # 0.5 (0-1.0) k/uL Eosinophils # 0.3 (0-0.7) k/uL Basophils # 0.1 (0-0.2) k/uL PT 10.4 (9.0-12.0) sec INR 1.0 (<1.2) APTT 23.9 (22.0-30.0) sec Sodium 135 L (137-145) mmol/L Potassium 4.2 (3.5-5.1) mmol/L Chloride 102 (98-107) mmol/L Carbon Dioxide 25 (22-30) mmol/L Anion Gap 8 mmol/L BUN 19 (9-20) mg/dL Creatinine 1.31 H (0.66-1.25) mg/dL Est GFR (CKD-EPI)AfAm 64 (>60 ml/min/1.73 sqM) Est GFR (CKD-EPI)NonAf 55 (>60 ml/min/1.73 sqM) Glucose 141 H (74-99) mg/dL Calcium 8.7 (8.4-10.2) mg/dL Total Bilirubin 1.1 (0.2-1.3) mg/dL AST 32 (17-59) U/L ALT 17 (4-49) U/L Alkaline Phosphatase 95 (38-126) U/L Troponin I (0.000-0.034) ng/mL Total Protein 7.0 (6.3-8.2) g/dL Albumin 3.8 (3.5-5.0) g/dL 04/23/20 Range/Units 21:21 WBC (3.8-10.6) k/uL RBC (4.30-5.90) m/uL Hgb (13.0-17.5) gm/dL Hct (39.0-53.0) % MCV (80.0-100.0) fL MCH (25.0-35.0) pg MCHC (31.0-37.0) g/dL RDW (11.5-15.5) % Plt Count (150-450) k/uL Neutrophils % % Lymphocytes % % Monocytes % % Eosinophils % % Basophils % % Neutrophils # (1.3-7.7) k/uL Lymphocytes # (1.0-4.8) k/uL Monocytes # (0-1.0) k/uL Eosinophils # (0-0.7) k/uL Basophils # (0-0.2) k/uL PT (9.0-12.0) sec INR (<1.2) APTT (22.0-30.0) sec Sodium (137-145) mmol/L Potassium (3.5-5.1) mmol/L Chloride (98-107) mmol/L Carbon Dioxide (22-30) mmol/L Anion Gap mmol/L BUN (9-20) mg/dL Creatinine (0.66-1.25) mg/dL Est GFR (CKD-EPI)AfAm (>60 ml/min/1.73 sqM) Est GFR (CKD-EPI)NonAf (>60 ml/min/1.73 sqM) Glucose (74-99) mg/dL Calcium (8.4-10.2) mg/dL Total Bilirubin (0.2-1.3) mg/dL AST (17-59) U/L ALT (4-49) U/L Alkaline Phosphatase (38-126) U/L Troponin I <0.012 (0.000-0.034) ng/mL Total Protein (6.3-8.2) g/dL Albumin (3.5-5.0) g/dL Disposition Clinical Impression: Neurological deficit present Disposition: ADMITTED IP TO THIS [facility] Condition: Fair Referrals: Richie Villalobos [Primary Care Provider] - 1-2 days Decision Time: 22:19
[2020-04-23 21:33] LABS: Partial Thromboplastin Time 23.9 sec (22.0-30.0); Prothrombin Time 10.4 sec (9.0-12.0)
[2020-04-23 21:35] LABS: Albumin 3.8 g/dL (3.5-5.0); Calcium 8.7 mg/dL (8.4-10.2); Potassium 4.2 mmol/L (3.5-5.1); Total Bilirubin 1.1 mg/dL (0.2-1.3)
--- NOTE | 2020-04-23 22:02 | XR ---
EXAMINATION TYPE: XR chest 2V DATE OF EXAM: 04/23/2020 COMPARISON: 04/16/2020 HISTORY: Altered mental status TECHNIQUE: 2 views FINDINGS: There is no heart failure nor confluent pneumonic infiltrate. Costophrenic angles are clear . Heart size is normal. IMPRESSION: No active cardiopulmonary disease. Normal heart. No change.
--- NOTE | 2020-04-23 22:04 | CT ---
EXAMINATION TYPE: CT brain wo con DATE OF EXAM: 04/23/2020 COMPARISON: 04/16/2020 HISTORY: Neuro deficits, Lt side numbness. Pt states he has hx of TIA. CT DLP: 1188.4 mGycm Automated exposure control for dose reduction was used. There is cerebral cortical atrophy. There is no mass effect nor midline shift. There is no sign of in tracranial hemorrhage. Calvarium is intact. Skull base is intact. There is no evidence of cerebral ed shravan. IMPRESSION: Cerebral atrophy. No acute intracranial abnormality. No change.
[2020-04-23] MEDS ORDERED: NALOXONE 0.4 MG/ML 1 ML VIAL IV PRN (22:12)
[2020-04-24] MEDS: ATORVASTATIN 40 MG TAB PO SCH ×2 (00:36→20:58)
--- NOTE | 2020-04-24 02:19 | P.HPIM ---
History of Present Illness H&P Date: 04/24/20 The patient is a 69-year-old male with a PMH of TIAs, chronic kidney disease, hypertension, and CHF (diastolic) who presents to the emergency room with complaints of left-sided paresthesias. The patient reports that his symptoms started initially with a left-sided facial numbness and tingling on the morning of 04/23 which then became diffuse throughout the left side involving his arm, leg, and trunk. He notes transient left lower extremity weakness with foot drop which resolved within an hour. The patient notes that he has had similar symptoms numerous times in the past with a history of recurrent TIAs since and was evaluated by neurology roughly a week ago for bilateral paresthesias. The patient denied weakness elsewhere, facial asymmetry, slurred speech, headaches, visual disturbances, or dizziness. The patient's NIH score in the emergency room was 0 and thereby a code stroke was not called. CT brain was unremarkable. EKG revealed sinus rhythm with sinus arrhythmia at 69 bpm. Laboratory evaluation revealed sodium 135, creatinine 1.31, glucose 141, troponin less than 0.012. Patient denied any additional complaints including abdominal pain, nausea, vomiting, chest pain, shortness of breath, fever, chills, or cough. Review of Systems Pertinent positives and negatives as discussed in HPI, a complete review of systems was performed and all other systems are negative. Past Medical History Past Medical History: Cancer, Heart Failure, CVA/TIA, GI Bleed, Hypertension, Pneumonia, Prostate Disorder Additional Past Medical History / Comment(s): hx prostate ca 2009/radiation tx ,TIA 2014, SLIGHTLY ENLARGED HEART", GOUT, Small bowel obstruction in February 2016, hx anemia, [place] with use of a hearing aid, skin cancer s/p removal History of Any Multi-Drug Resistant Organisms: None Reported Past Surgical History: Bowel Resection, Cholecystectomy, Heart Catheterization, Hernia Repair Additional Past Surgical History / Comment(s): omphalocele repair as , 2 BOWEL RESECTIONS for bleeding, polyp removed from left ear Past Anesthesia/Blood Transfusion Reactions: No Reported Reaction Additional Past Anesthesia/Blood Transfusion Reaction / Comment(s): . Past Psychological History: Depression Additional Psychological History / Comment(s): Pt had a suicide attempt in 2004. He states he has no suicidal thoughts.well maintained on medications Smoking Status: Never smoker Past Alcohol Use History: Heavy Additional Past Alcohol Use History / Comment(s): He reports 12 drinks weekly. pt states as of last week he has cut back on alcohol intake. Past Drug Use History: None Reported - Past Family History Father Family Medical History: Cancer Additional Family Medical History / Comment(s): oral CA.. Mother Family Medical History: Cancer Additional Family Medical History / Comment(s): breat CA. Medications and Allergies Home Medications Medication Instructions Recorded Confirmed Type Furosemide [Lasix] 40 mg PO DAILY 01/28/15 04/23/20 History Aspirin 81 mg PO DAILY #30 chew 05/16/15 04/23/20 Rx allopurinoL [Zyloprim] 100 mg PO DAILY 03/06/16 04/23/20 History lisinopriL [Zestril] 20 mg PO DAILY 10/23/16 04/23/20 History Escitalopram [Lexapro] 20 mg PO DAILY 05/31/17 04/23/20 History Atorvastatin [Lipitor] 40 mg PO HS 04/16/20 04/23/20 History Allergies Allergy/AdvReac Type Severity Reaction Status Date / Time erythromycin base AdvReac Nausea & Verified 04/16/20 21:48 Vomiting ibuprofen AdvReac Hx of GI Verified 04/16/20 21:48 Bleed steroids AdvReac Hx of GI Uncoded 04/16/20 21:48 Bleed Physical Exam Vitals: Vital Signs Temp Pulse Pulse Resp BP BP Pulse Ox 04/23/20 23:08 97.9 F 65 18 165/97 95 04/23/20 22:15 64 18 152/97 98 04/23/20 22:00 98 F 65 18 154/101 98 04/23/20 21:45 98 F 64 18 158/98 97 04/23/20 21:30 98 F 64 18 155/96 97 04/23/20 21:15 98 F 68 18 167/102 98 04/23/20 20:59 98.3 F 64 18 152/117 94 L Intake and Output 04/23/20 04/23/20 04/24/20 14:59 22:59 06:59 Other: # Voids 1 Weight 113.398 kg 117.2 kg General: non toxic, no distress, appears at stated age, morbidly obese Derm: no unusual rashes/lesions no unusual ecchymoses, warm, dry Head: atraumatic, normocephalic, symmetric Eyes: EOMI, no lid lag, anicteric sclera, pupils equal round reactive to light ENT: Nose and ears atraumatic, no thrush, no pharyngeal erythema Neck: No thyromegaly, no cervical lymphadenopathy, trachea midline, supple Mouth: no lip lesion, mucus membranes moist Cardiovascular: S1S2 reg, no murmur, positive posterior tibial pulse bilateral, no edema, capillary refill less than 2 seconds Lungs: CTA bilateral, no rhonchi, no rales , no accessory muscle use Abdominal: soft, nontender to palpation, no guarding, no appreciable organomegaly, normal bowel sounds Ext: no gross muscle atrophy, muscle strength 5 out of 5 in all 4 extremities grossly, no contractures, Neuro: CN II-XI grossly intact, light touch intact all 4 extremities (sensation equal bilaterally despite complaints of paresthesias), finger to nose within normal limits, no pronator drift Psych: Alert, oriented, appropriate affect Results CBC & Chem 7: 04/23/20 21:08 04/23/20 21:21 Labs: Abnormal Lab Results - Last 24 Hours (Table) 04/23/20 04/23/20 Range/Units 21:08 21:21 Plt Count 142 L (150-450) k/uL Sodium 135 L (137-145) mmol/L Creatinine 1.31 H (0.66-1.25) mg/dL Glucose 141 H (74-99) mg/dL Thrombosis Risk Factor Assmnt - Choose All That Apply Each Risk Factor Represents 2 Points: Age 61-74 years Thrombosis Risk Factor Assessment Total Risk Factor Score: 2 Thrombosis Risk Factor Assessment Level: Low Risk Assessment and Plan Plan: TIA -Neurology consult -Neuro checks -Previous carotid duplex and echocardiograms reviewed and unremarkable -Cardiac monitoring Chronic kidney disease -At baseline Chronic conditions: Hypertension, and diastolic CHF -Continue home meds DVT prophylaxis -IPCDs The patient is admitted with an anticipated less than 2 midnight stay for evaluation of TIA CODE STATUS: Full Code Discussed with: Patient Anticipated discharge date: in am Anticipated discharge place: Home A total of 40 minutes was spent on the care of this complex patient more than 50% of the time was spent in counseling and care coordination.
[2020-04-24] MEDS ORDERED: ASPIRIN 81 MG PO STA (02:21)
[2020-04-24] MEDS: FUROSEMIDE 40 MG TAB PO SCH (08:15)
[2020-04-24] MEDS: ESCITALOPRAM 20 MG TAB PO SCH (08:15)
[2020-04-24] MEDS: allopurinoL 100 MG TAB PO SCH (08:15)
[2020-04-24] MEDS: lisinopriL 20 MG TAB PO SCH (08:15)
[2020-04-24] MEDS ORDERED: ASPIRIN 81 MG PO SCH (09:00)
--- NOTE | 2020-04-24 13:04 | P.CNNES ---
History of Present Illness Consult date: 04/24/20 Requesting physician: Kaushik Farmer Reason for Consult: left sided paresthesia History of Present Illness: This is a 69-year-old right-handed gentleman with a medical history of recurrent possible transient ischemic attack, hypertension, heart failure, prostate cancer status post radiation presented emergency department on 04/23/2020 for paresthesia left side of the body. Patient stated that on that 04/23/2020 his s ymptoms began approximately 6:30 PM and it lasted until 3am on 04/24/2020. He describes as a pins and needle sensation the left entire face as well as left upper and lower extremity. He denies any headache associated with this, nausea, vomiting, visual disturbance, weakness, difficulty getting his words out or understanding things. He continues to be compliant taking his Lipitor 40 mg as well as taking aspirin [address] Eli who saw him on the 04/17/2020 he recommended for the aspirin to be increased to 325 but he stated that he was discharged on 81 mg and had no idea about the 325mg. He said that the he's been having these paresthesia sensation since 1989. He said it usually starts on the left side of the face and it can last couple hours if it doesn't resolve within a couple hours then it progresses to the entire left upper and lower extremity which can last longer but less than a day. Also he has a sensation of involving the entire scalp the upper side of the face and all the way up to his upper lip. He has the sensation the a couple times a year. He does have a honeymoon the phases which can be 4-5 years. He denies of any triggers. 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 Prior to that time frame according to him he was drinking 1-2 small glasses of wine a week. He denies of tobacco use. He didn't the see Dr. Judd and in the past regarding this and he doesn't recall what medications he was on but he denies that being on gabapentin or Neurontin. He said that he saw a manager helpdesk and he is also baffled by these symptoms. Workup in the hospital consisted of: Initial vital signs was blood pressure of 152/117, heart rate of 64, respiratory of 18, temperature of 98.3 Fahrenheit oral and pulse ox of 94 L at room air. CT of the head was reported as no acute intracranial abnormality. No change. I Personally reviewed the CT of the head and there is no acute ischemia or hemorrhage. EKG is reported as sinus rhythm with marked sinus arrhythmia. Inferior infarct, age undetermined. Ventricle rate of 69. Abnormal EKG. Serum glucose is [address] Wade, neuro-hospitalist [place] the patient on 04/17/2020 for a possible transient ischemic attack and at that time he also had paresthesia over the scalp and not upper facial region bilaterally up to the upper lip region Looks like the episode lasted for 1-2 hours. That time patient had the lipid panel which showed total cholesterol 103, LDL 38, HDL 47 and triglyceride of 92. TSH was 2.34. Hemoglobin A1c is 5.3. Lab work-up 02/2019: Vitamin B 12 488, Methylmalonic acid is 0.27 and Red blood cell folate is 378. Patient had the an EEG in which was reported as normal. Patient had a carotid Doppler which showed no hemodynamically significant stenosis of bilateral ICA. Suboptimal visualization of the vertebral arteries appeared CT exam of the neck may be benefit for further evaluation. Because was.the patient symptoms were highly unlikely transient ischemic attack since the involving bilateral location. CTA was not further done the aspirin was increased from 81-325 as a result. Review of Systems Review of system: The 12 point system was reviewed and apparent positive and negative per HPI. Past Medical History Past Medical History: Cancer, Heart Failure, CVA/TIA, GI Bleed, Hypertension, Pneumonia, Prostate Disorder Additional Past Medical History / Comment(s): hx prostate ca 2009/radiation tx ,TIA 2014, SLIGHTLY ENLARGED HEART", GOUT, Small bowel obstruction in February 2016, hx anemia, [place] with use of a hearing aid, skin cancer s/p removal History of Any Multi-Drug Resistant Organisms: None Reported Past Surgical History: Bowel Resection, Cholecystectomy, Heart Catheterization, Hernia Repair Additional Past Surgical History / Comment(s): omphalocele repair as infant, 2 BOWEL RESECTIONS for bleeding, polyp removed from left ear Past Anesthesia/Blood Transfusion Reactions: No Reported Reaction Additional Past Anesthesia/Blood Transfusion Reaction / Comment(s): . Past Psychological History: Depression Additional Psychological History / Comment(s): Pt had a suicide attempt in 2004. He states he has no suicidal thoughts.well maintained on medications Smoking Status: Never smoker Past Alcohol Use History: Heavy Additional Past Alcohol Use History / Comment(s): He reports 12 drinks weekly. pt states as of last week he has cut back on alcohol intake. Past Drug Use History: None Reported - Past Family History Father Family Medical History: Cancer Additional Family Medical History / Comment(s): oral CA.. Mother Family Medical History: Cancer Additional Family Medical History / Comment(s): breat CA. Medications and Allergies Home Medications Medication Instructions Recorded Confirmed Type Furosemide [Lasix] 40 mg PO DAILY 01/28/15 04/23/20 History Aspirin 81 mg PO DAILY #30 chew 05/16/15 04/23/20 Rx allopurinoL [Zyloprim] 100 mg PO DAILY 03/06/16 04/23/20 History lisinopriL [Zestril] 20 mg PO DAILY 10/23/16 04/23/20 History Escitalopram [Lexapro] 20 mg PO DAILY 05/31/17 04/23/20 History Atorvastatin [Lipitor] 40 mg PO HS 04/16/20 04/23/20 History Allergies Allergy/AdvReac Type Severity Reaction Status Date / Time erythromycin base AdvReac Nausea & Verified 04/16/20 21:48 Vomiting ibuprofen AdvReac Hx of GI Verified 04/16/20 21:48 Bleed steroids AdvReac Hx of GI Uncoded 04/16/20 21:48 Bleed Physical Examination - Vital Signs Vital Signs: Vital Signs Temp Pulse Pulse Resp BP BP Pulse Ox 04/24/20 09:00 97.8 F 61 18 158/105 95 04/24/20 02:42 97.7 F 61 18 146/76 97 04/23/20 23:08 97.9 F 65 18 165/97 95 04/23/20 22:15 64 18 152/97 98 04/23/20 22:00 98 F 65 18 154/101 98 04/23/20 21:45 98 F 64 18 158/98 97 04/23/20 21:30 98 F 64 18 155/96 97 04/23/20 21:15 98 F 68 18 167/102 98 04/23/20 20:59 98.3 F 64 18 152/117 94 L Intake and Output 04/23/20 04/24/20 04/24/20 22:59 06:59 14:59 Other: Voiding Method Toilet Toilet # Voids 1 Weight 113.398 kg 117.2 kg GENERAL: The patient is lying in bed and is not in acute distress. CHEST: The heart rate is regular rate rhythm. No murmurs to auscultation. No carotid bruit bilaterally. LUNG: Clear to auscultation bilaterally no wheezing noted throughout. Not labored breathing. ABDOMEN/GI: Bowel sounds present in all 4 quadrants. No tenderness to palpation throughout. NEUROLOGICAL: Higher mental function: The patient is awake, alert, oriented to self, place and time. Patient is following commands. No aphasia and no neglect. Cranial nerves: The pupils are round, equal and reactive to light and accommodation. Visual willett are full to confrontation throughout. Extraocular movement is intact no nystagmus is noted. Facial sensation is normal to touch throughout. The facial strength is normal throughout. Hearing is normal bi laterally to hand rub. Tongue is midline and moved [id number] without any difficulty. No dysarthria is noted. Shoulder shrug is normal bilaterally. Motor: Gait is normal with normal arm swing. The strength is 5 over 5 throughout. Normal tone and bulk. Cerebellum: Normal finger to nose heel to chin bilaterally. Sensation: Sensation is normal to touch throughout. Reflexes (right/left): 2+ Plantars are downgoing bilaterally. Results - Laboratory Findings CBC and BMP: 04/23/20 21:08 04/23/20 21:21 Abnormal Lab Findings: Abnormal Labs 04/23/20 04/23/20 21:08 21:21 Plt Count 142 L Sodium 135 L Creatinine 1.31 H Glucose 141 H Assessment and Plan Assessment: This is a 69-year-old gentleman with history of possible frequent TIA, hypertension, congestive heart failure that presented to the emergency department on 04/24/2024 paresthesia over the entire left side of the face as well as the upper and lower extremity that lasted between 9-10 hours. He denies any associated symptoms with these. He's been having these since and get some a couple times a year. Sometimes only involving the left side of the face or it could be involving the entire scalp up to the lip. Recurrent transient episode of paresthesia over the left face as well as upper and lower extremity (had since 1989 and get them couple times year and sometimes there is honeymood phase). Unsure etiology Alcohol use Hypertension Congestive heart failure Plan: 04/17/20 lipid panel: total cholesterol 103, LDL 38, HDL 47 and triglyceride of 92. TSH was 2.34. Hemoglobin A1c is 5.3. There is no reason to repeat these lab work. Carotid Doppler (04/17/20) which showed no hemodynamically significant stenosis of bilateral ICA. Suboptimal visualization of the vertebral arteries appeared CT exam of the neck may be benefit for further evaluation. I'll also order MRI of the brain to rule out stroke There is no need to repeat the 2-D echo since his most recent was on 04/17/2020: Which shows ejection fraction of 55-60%. The left atrium moderately dilated. We'll repeat the vitamin B12, methylmalonic acid, vitamin b6 and red blood cell folate. I'll order a routine EEG to rule out any epileptiform discharges or seizure that can be the trigger of these frequent episodes. I will not start the patient on any antiepileptic drug unless he does have the telephone discharges or seizure seen on the EEG. After getting the MRI of the brain and the there is any stroke then I'll get a CTA of the head and neck and all modifying his antiplatelets for now I'll wait until the MRI comes back.. Defer the hypertension management to the primary team. Patient was counseled on alcohol cessation. Thank You for the consultation. Rogelio Colindres M.D. Neuro-hospitalist Time with Patient: Greater than 30
--- NOTE | 2020-04-24 14:09 | P.PN ---
Progress Note - Text Progress Note Date: 04/24/20 Patient was seen and examined this morning. No acute events overnight. Patient reports resolution of his numbness. He denies any slurred speech, dizziness, confusion or difficulty ambulating. Patient is no acute distress. His lungs are clear to auscultation. Heart is regular rate and rhythm. No murmurs rubs or gallops. No lower extremity edema. No focal neurologic deficit. TIA -Neurology consult - MRI brain and EEG -Neuro checks -Previous carotid duplex and echocardiograms reviewed and unremarkable -Cardiac monitoring Chronic kidney disease -At baseline Chronic conditions: Hypertension, and diastolic CHF -Continue home meds DVT prophylaxis -IPCDs
[2020-04-24] MEDS: FAMOTIDINE 20 MG TAB PO SCH (14:13)
--- NOTE | 2020-04-24 18:23 | EEG ---
ELECTROENCEPHALOGRAM REPORT DATE OF SERVICE: 04/24/2020 CLINICAL HISTORY: This is a 69-year-old gentleman with repeated episode of paresthesia over the left side of the body or the face. This video EEG was obtained to evaluate for seizure and epileptiform activity. RELEVANT MEDICATION: The patient is not on any centrally active medication. EEG TYPE: A routine 21-channel EEG was performed with video using the 10/20 electrode placement system. DESCRIPTION: Wakefulness and drowsiness are obtained. During wakefulness, there is a posterior- dominant rhythm of low to moderate voltage, reactive, well-modulated 10 to 11 hertz activity. During drowsiness there is slowing and attenuation of the background. No stage II sleep was seen. INTERICTAL AND ICTA; None. ACTIVATION PROCEDURE: Photic stimulation did not evoke a posterior driving response. Hyperventilation was not performed because of the patient's clinical history. CLINICAL INTERPRETATION: This is a normal routine EEG. There are no focal slowing, epileptiform activity or seizure during this study. Clinical correlation is recommended. MMMARIANELA / MAYURIN: [id number] / CHINEDU
--- NOTE | 2020-04-24 20:00 | MR ---
EXAMINATION TYPE: MR brain wo con DATE OF EXAM: 04/24/2020 COMPARISON: 08/22/2019 HISTORY: Stroke: paresthesia left side Multiplanar multiecho imaging of the brain was performed without contrast. There is cerebral cortical atrophy. There is no mass effect nor midline shift. There is no sign of intracranial hemorrhage. Bra instem is intact. Cerebellum is intact. There is no evidence of cortical infarct. Corpus callosum is intact. Sella turcica appears normal. There is no evidence of orbital mass. IMPRESSION: Cerebral atrophy. No acute intracranial abnormality. No adverse change compared to old exam.
[2020-04-25 03:12] VITALS: TEMP 97.6
[2020-04-25] MEDS: lisinopriL 20 MG TAB PO SCH (08:13)
[2020-04-25] MEDS: allopurinoL 100 MG TAB PO SCH (08:13)
[2020-04-25] MEDS: ESCITALOPRAM 20 MG TAB PO SCH (08:13)
[2020-04-25] MEDS: FAMOTIDINE 20 MG TAB PO SCH (08:13)
[2020-04-25] MEDS: FUROSEMIDE 40 MG TAB PO SCH (08:13)
[2020-04-25 08:19] VITALS: BP 149/102; PULSE 67
[2020-04-25] MEDS ORDERED: ASPIRIN 325 MG TAB PO SCH (09:00)
[2020-04-25] MEDS ORDERED: amLODIPine 5 MG TAB PO SCH (10:45)
--- NOTE | 2020-04-25 12:25 | P.PN ---
Subjective Progress Note Date: 04/25/20 A shunt was seen at bedside and he did have paresthesia episode over the entire left side lasted a couple hours then resolved. And that was in early afternoon. Since then he has not had any further episodes. Patient had that come pleaded that the MRI the brain which did not show any acute stroke. Objective - Vital Signs Vital signs: Vital Signs Temp 97.6 F 04/25/20 08:18 Pulse 67 04/25/20 09:00 Resp 18 04/25/20 09:00 BP 149/102 04/25/20 08:18 Pulse Ox 94 L 04/25/20 08:18 Intake & Output 04/24/20 04/25/20 04/25/20 18:59 06:59 18:59 Intake Total 740 240 Balance 740 240 Intake: Oral 740 240 Other: Voiding Method Toilet Toilet Toilet # Voids 2 1 - Exam GENERAL: The patient is lying in bed and is not in acute distress. CHEST: The heart rate is regular rate rhythm. No murmurs to auscultation. No carotid bruit bilaterally. LUNG: Clear to auscultation bilaterally no wheezing noted throughout. Not labored breathing. ABDOMEN/GI: Bowel sounds present in all 4 quadrants. No tenderness to palpation throughout. NEUROLOGICAL: Higher mental function: The patient is awake, alert, oriented to self, place and time. Patient is following commands. No aphasia and no neglect. Cranial nerves: The pupils are round, equal and reactive to light and accommodation. Visual willett are full to confrontation throughout. Extraocular movement is intact no nystagmus is noted. Facial sensation is normal to touch throughout. The facial strength is normal throughout. Hearing is normal bilaterally to hand rub. Tongue is midline and moved [id number] without any difficulty. No dysarthria is noted. Shoulder shrug is normal bilaterally. Motor: Gait is normal with normal arm swing. The strength is 5 over 5 throughout. Normal tone and bulk. Cerebellum: Normal finger to nose heel to chin bilaterally. Sensation: Sensation is normal to touch throughout. Reflexes (right/left): 2+ Plantars are downgoing bilaterally. - Labs CBC & Chem 7: 04/23/20 21:08 04/23/20 21:21 Assessment and Plan Assessment: This is a 69-year-old gentleman with history of possible frequent TIA, hypertension, congestive heart failure that presented to the emergency department on 04/24/2024 paresthesia over the entire left side of the face as well as the upper and lower extremity that lasted between 9-10 hours. He denies any associated symptoms with these. He's been having these since and get some a couple times a year. Sometimes only involving the left side of the face or it could be involving the entire scalp up to the lip. Recurrent transient episode of paresthesia over the left face as well as upper and lower extremity (had since 1989 and get them couple times year and sometimes there is honeymood phase). Unsure exact etiology. One of possibilities is Vitamin B12 is very low normal--which can cause paresthesia Alcohol use Hypertension Congestive heart failure Plan: 04/17/20 lipid panel: total cholesterol 103, LDL 38, HDL 47 and triglyceride of 92. TSH was 2.34. Hemoglobin A1c is 5.3. There is no reason to repeat these lab work. Carotid Doppler (04/17/20) which showed no hemodynamically significant stenosis of bilateral ICA. Suboptimal visualization of the vertebral arteries appeared CT exam of the neck may be benefit for further evaluation. MRI of the brain: Was reported as cerebral atrophy. No acute intracranial abnormality. No adverse changes compared to the old exam. I personally reviewed that the MRI and I agree there is no acute ischemia or subacute ischemia seen. There is no mass that is seen that would explain the patient's symptoms. I don't think this is a stroke or repeated TIA which I unlikely. I will discontinue his aspirin and place him on Plavix 75 daily and the continue Lipitor 40 mg daily. I will think there is any benefits of the distal antiplatelets since its unlikely it's TIA. Routine EEG was done since the patient has these the numerous episodes since 1989 as well as that he had an episode yesterday during hospital stay to rule out any seizure-like activity that might be triggering this: And that was normal. There are no focal slowing, epileptiform discharges or seizure during the study. There is no need to repeat the 2-D echo since his most recent was on 04/17/2020: Which shows ejection fraction of 55-60%. The left atrium moderately dilated. I will not place the patient on antiepileptic or epidural prone discharges since no non-were captured and I highly doubt this is seizures in etiology. Vitamin B12: 239 (low normal). Because the vitamin B12 is on the low normal could be due to alcohol use. Vitamin B12 deficiency can cause paresthesia. I will Start the patient on the vitamin B12 1000 g daily Methylmalonic acid, vitamin b6 and red blood cell folate: pending. Defer the hypertension management to the primary team. From a neurology standpoint once the lab workup comes back for his vitamins he can be discharged home. He needs to follow-up with his neurologist, he follows up with Dr. Judd. Patient was counseled on alcohol cessation. Rogelio Colindres M.D. Neuro-hospitalist Time with Patient: Less than 30
[2020-04-25] MEDS ORDERED: CYANOCOBALAMIN 500 MCG TAB PO SCH (12:30)
[2020-04-25] MEDS ORDERED: CLOPIDOGREL 75 MG TAB PO SCH (12:30)
--- NOTE | 2020-04-25 15:26 | P.DS ---
Providers Date of admission: 04/23/20 22:12 Expected date of discharge: 04/25/20 Attending physician: Krish Canela MD Consults: 04/23/20 22:13 Consult Physician Routine Consulting Provider: Rogelio Colindres Consult Reason/Comments: left sided paresthesias Do you want consulting provider notified?: Yes Primary care physician: [facility] Course: The patient is a 69-year-old male with a PMH of TIAs, chronic kidney disease, hypertension, and CHF (diastolic) who presents to the emergency room with complaints of left-sided paresthesias. The patient reports that his symptoms started initially with a left-sided facial numbness and tingling on the morning of 04/23 which then became diffuse throughout the left side involving his arm, leg, and trunk. He notes transient left lower extremity weakness with foot drop which resolved within an hour. The patient notes that he has had similar symptoms numerous times in the past with a history of recurrent TIAs since and was evaluated by neurology roughly a week ago for bilateral paresthesias. The patient denied weakness elsewhere, facial asymmetry, slurred speech, headaches, visual disturbances, or dizziness. The patient's NIH score in the emergency room was 0 and thereby a code stroke was not called. CT brain was unremarkable. EKG revealed sinus rhythm with sinus arrhythmia at 69 bpm. Laboratory evaluation revealed sodium 135, creatinine 1.31, glucose 141, troponin less than 0.012. Patient denied any additional complaints including abdominal pain, nausea, vomiting, chest pain, shortness of breath, fever, chills, or cough. Troponins were trended and acute coronary syndrome was ruled out. Neurology was consulted and recommended EEG and MRI brain. The tunnel showed total cholesterol 103, LDL 30 in each show 47. A1c was within normal limits. Carotid Doppler was done on April 17 which showed no hemodynamically significant stenosis of bilateral ICA. Echocardiogram was also done at that time which showed EF 55-60%. Vitamin B12, methylmalonic acid and vitamin B6 along with folate was ordered and pending at the time of discharge. EEG was negative. MRI brain was negative for acute CVA. Case was discussed with neurology and recommended switching aspirin to Plavix. Patient was seen and examined. No acute events overnight. Patient reports complete resolution of his numbness and paresthesias. He denies any chest pain, shortness breath or palpitations. No nausea or vomiting. No fever or chills. No dizziness, slurred speech, unstable gait or confusion. General: [non toxic], [no distress], [appears at stated age] Derm: [warm], [dry] Head: [atraumatic], [normocephalic], [symmetric] Eyes: [EOMI], [no lid lag], [anicteric sclera] Mouth: [no lip lesion], [mucus membranes moist] Cardiovascular: [S1S2 reg], [no murmur], [positive DP pulse bilateral], Lungs: [CTA bilateral], [no rhonchi, no rales] , [no accessory muscle use] Abdominal: [soft], [ nontender to palpation], [no guarding], [no appreciable organomegaly] Ext: [no gross muscle atrophy], [no edema], [no contractures] Neuro: [no focal neuro deficits] Psych: [Alert], [oriented], [appropriate affect] Paresthesia -Neurology consult - MRI brain negative for acute CVA and EEG within normal limits -Neuro checks -Previous carotid duplex and echocardiograms reviewed and unremarkable -Discussed with neurology Dr. Colindres, switch aspirin to Plavix and continue Lipitor, follow-up with neurology in the outpatient setting for continued workup of unexplained paresthesia -Cardiac monitoring Chronic kidney disease -At baseline Chronic conditions: Hypertension, and diastolic CHF -Continue home meds, add amlodipine for better blood pressure control DVT prophylaxis [CVA ruled out. ACS ruled out. Patient to follow-up with neurology in the outpatient setting for further workup of paresthesias. Switch aspirin to Plavix on discharge. Patient verbalized understanding of the plan.] Pertinent Studies: Chest x-ray, brain CT, EEG, brain MRI Patient Condition at Discharge: Stable Plan - Discharge Summary New Discharge Prescriptions: New amLODIPine [Norvasc] 5 mg PO DAILY #30 tab Clopidogrel [Plavix] 75 mg PO DAILY #30 tablet Continue Furosemide [Lasix] 40 mg PO DAILY allopurinoL [Zyloprim] 100 mg PO DAILY lisinopriL [Zestril] 20 mg PO DAILY Escitalopram [Lexapro] 20 mg PO DAILY Atorvastatin [Lipitor] 40 mg PO HS Discontinued Aspirin 81 mg PO DAILY #30 chew Discharge Medication List Furosemide [Lasix] 40 mg PO DAILY 01/28/15 [History] allopurinoL [Zyloprim] 100 mg PO DAILY 03/06/16 [History] lisinopriL [Zestril] 20 mg PO DAILY 10/23/16 [History] Escitalopram [Lexapro] 20 mg PO DAILY 05/31/17 [History] Atorvastatin [Lipitor] 40 mg PO HS 04/16/20 [History] Clopidogrel [Plavix] 75 mg PO DAILY #30 tablet 04/25/20 [Rx] amLODIPine [Norvasc] 5 mg PO DAILY #30 tab 04/25/20 [Rx] Follow up Appointment(s)/Referral(s): Rajwinder Judd MD [Medical Doctor] - 1 Week (Office will call patient to schedule appointment. Paperwork has been faxed in.) Richie Villalobos [Primary Care Provider] - 1-2 days Activity/Diet/Wound Care/Special Instructions: Diet: Low-salt Follow-up with PCP within 3 days of discharge. Follow-up with your neurologist Dr. Judd within 1 week of discharge. He will need further workup for your paresthesias. Come back to the ED or call 911 for worsening slurred speech, unstable gait, dizziness, new onset numbness/weakness of the extremities. Discharge Disposition: HOME SELF-CARE
== END 2020-04-25 14:55 | disposition home or self-care (01) ==
LOC: EC 20:55 → 3NCARDOBS 22:12
PROVIDERS: ADMIT Internal Medicine; ATTEND Internal Medicine
DX: G45.9 Transient cerebral ischemic attack, unspecified (principal); R20.0 Anesthesia of skin; R53.1 Weakness; F32.9 Major depressive disorder, single episode, unspecified; I13.0 Hypertensive heart and chronic kidney disease with heart failure and stage 1 through stage 4 chronic kidney disease, or unspecified chronic kidney disease; I50.32 Chronic diastolic (congestive) heart failure; N18.9 Chronic kidney disease, unspecified; Z79.82 Long term (current) use of aspirin; Z79.899 Other long term (current) drug therapy; Z85.46 Personal history of malignant neoplasm of prostate; Z85.828 Personal history of other malignant neoplasm of skin; Z92.3 Personal history of irradiation
CPT/HCPCS: 96360; 99285; 36415; 95816; 93005; 84207; 83921; 80053; 82607; 84484 ×2; 85025; 85610; 85730; 71046; 70450; 70551; G0378 ×3; 82747

== ENCOUNTER → 2020-05-10 | Outpatient (CLI) | payer MEDICARE ==
--- NOTE | 2020-05-10 16:03 | CT ---
EXAMINATION TYPE: CT angio head neck DATE OF EXAM: 05/10/2020 HISTORY: Abnormal MRA results COMPARISON: Patient's previous exam is unavailable for correlation CT DLP: 356 mGycm. Automated Exposure Control for Dose Reduction was Utilized. TECHNIQUE: CTA scan of the neck is performed with IV Contrast, patient injected with 65 mL of Isovue 370, axial images are obtained, coronal and sagittal reformatted images are reviewed. Three-D recons tructed images are created on an independent workstation and reviewed. FINDINGS: Carotid/Vascular Structures: Ascending aorta measures 4 cm. The innominate, left and right common car otid, left and right subclavian arteries are patent. Atheromatous ossifications are present at the ca rotid bulb levels. Internal and extra carotid arteries are patent. No evident stenosis by NASCET cri teria. Internal carotid arteries are tortuous and redundant. There is a hypoplastic segment of the distal vertebral artery on the right, left vertebral artery is dominant.. Right vertebral artery is diminutive There are cerebral vascular calcifications present. A nterior posterior circulation are patent. origin of the posterior cerebral artery on the left i s present. No evident aneurysm, dissection, or embolus. Other: Three-dimensional reconstructions are limited technically. IMPRESSION: No significant abnormality is seen.
== END | disposition home or self-care (01) ==
LOC: RADCTMAIN 14:02
PROVIDERS: ATTEND Psychiatry & Neurology Neurology
DX: R93.0 Abnormal findings on diagnostic imaging of skull and head, not elsewhere classified (principal); Z88.1 Allergy status to other antibiotic agents
CPT/HCPCS: 82565; 84520; 70496; 70498; 36415; Q9967

== ENCOUNTER 2021-01-05 14:39 | Inpatient (IN) | payer MEDICARE ==
--- NOTE | 2021-01-05 15:06 | ED ---
General Adult HPI - General Chief complaint: Chest Pain Stated complaint: Chest Pain Time Seen by Provider: 01/05/21 14:53 Source: patient Mode of arrival: wheelchair Limitations: no limitations - History of Present Illness Initial comments: Dictation was produced using [employer] dictation software. please excuse any grammatical, word or spelling errors. Chief Complaint: 70-year-old male presents to the emergency department for chest pain History of Present Illness: Is a 70-year-old male he has past medical history of heart failure, hypertension. He has established care with one of our [employer] locally. He states that over the last week having chest pain and shortness of breath. Patient states that his chest pain is substernal episodic. No exacerbating or mitigating factors. Nonradiating. Patient states that the pain is moderate. No associated diaphoresis or nausea. Patient denies any recent coughing. Patient's pain is nonpleuritic. Patient also has been feeling some shortness of breath. He complains of swelling in his lower extremities. Patient has not taken an evaluation medications. The ROS documented in this emergency department record has been reviewed and confirmed by me. Those systems with pertinent positive or negative responses have been documented in the HPI. All other systems are other negative and/or noncontributory. PHYSICAL EXAM: General Impression: Alert and oriented x3, not in acute distress HEENT: Normocephalic atraumatic, extra-ocular movements intact, pupils equal and reactive to light bilaterally, mucous membranes moist. Cardiovascular: Heart regular rate and rhythm Chest: Able to complete full sentences, no retractions, no tachypnea Abdomen: abdomen soft, non-tender, non-distended, no organomegaly Musculoskeletal: Pulses present and equal in all extremities, no peripheral edema Motor: no focal deficits noted Neurological: CN II-XII grossly intact, no focal motor or sensory deficits noted Skin: Intact with no visualized rashes Psych: Normal affect and mood ED course: 70-year-old well-appearing male presents to the emergency department for chest pain shortness of breath. His past medical history of cardiac disease. All signs upon arrival are within acceptable limits. Chart review was performed. Patient has echocardiogram from March of last year showing normal systolic function. He has a stress echocardiogram from July of last year showing normal findings. EKG does not show any evidence of ischemia or infarction. It appears to be baseline when compared to most recent available EKG and her electronic medical record. Laboratory evaluation obtained. CBC, coag panel, both eyes unremarkable. First troponin is negative. Brain natruretic peptide is negative. Patient be admitted for cardiac monitoring, for neurology consultation and serial troponins. Patient will be admitted to [facility]. EKG interpretation: Ventricular rate 68, normal sinus rhythm, TX interval 162, care is 84, QTC 450. No TX prolongation, no QTC prolongation, no ST or T-wave changes noted. EKG compared to 04/23/2020 showing no changes. Overall, this EKG is unremarkable - Related Data Home Medications Medication Instructions Recorded Confirmed Furosemide [Lasix] 40 mg PO DAILY 01/28/15 04/23/20 allopurinoL [Zyloprim] 100 mg PO DAILY 03/06/16 04/23/20 lisinopriL [Zestril] 20 mg PO DAILY 10/23/16 04/23/20 Escitalopram [Lexapro] 20 mg PO DAILY 05/31/17 04/23/20 Atorvastatin [Lipitor] 40 mg PO HS 04/16/20 04/23/20 Previous Rx's Medication Instructions Recorded Clopidogrel [Plavix] 75 mg PO DAILY #30 tablet 04/25/20 amLODIPine [Norvasc] 5 mg PO DAILY #30 tab 04/25/20 Allergies Allergy/AdvReac Type Severity Reaction Status Date / Time erythromycin base AdvReac Nausea & Verified 01/05/21 14:44 Vomiting ibuprofen AdvReac Hx of GI Verified 01/05/21 14:44 Bleed steroids AdvReac Hx of GI Uncoded 01/05/21 14:44 Bleed Review of Systems ROS Statement: Those systems with pertinent positive or pertinent negative responses have been documented in the HPI. ROS Other: All systems not noted in ROS Statement are negative. Past Medical History Past Medical History: Cancer, Heart Failure, CVA/TIA, GI Bleed, Hypertension, Pneumonia, Prostate Disorder Additional Past Medical History / Comment(s): hx prostate ca 2009/radiation tx ,TIA 2014, SLIGHTLY ENLARGED HEART", GOUT, Small bowel obstruction in February 2016, hx anemia, [place]-SP[place] with use of a hearing aid, skin cancer s/p removal History of Any Multi-Drug Resistant Organisms: None Reported Past Surgical History: Bowel Resection, Cholecystectomy, Heart Catheterization, Hernia Repair Additional Past Surgical History / Comment(s): omphalocele repair as , 2 BOWEL RESECTIONS for bleeding, polyp removed from left ear Past Anesthesia/Blood Transfusion Reactions: No Reported Reaction Additional Past Anesthesia/Blood Transfusion Reaction / Comment(s): . Past Psychological History: Depression Smoking Status: Never smoker Past Alcohol Use History: Heavy Past Drug Use History: None Reported - Past Family History Father Family Medical History: Cancer Additional Family Medical History / Comment(s): oral CA.. Mother Family Medical History: Cancer Additional Family Medical History / Comment(s): breat CA. General Exam Limitations: no limitations Course Vital Signs 01/05/21 01/05/21 14:42 14:43 Temperature 98.2 F Pulse Rate 70 Respiratory 16 18 Rate Blood Pressure 130/84 O2 Sat by Pulse 98 Oximetry Medical Decision Making - Lab Data Result diagrams: 01/05/21 15:06 01/05/21 15:06 Lab Results 01/05/21 01/05/21 01/05/21 Range/Units 15:06 15:06 15:06 WBC 6.4 (3.8-10.6) k/uL RBC 5.33 (4.30-5.90) m/uL Hgb 16.2 (13.0-17.5) gm/dL Hct 45.3 (39.0-53.0) % MCV 85.1 (80.0-100.0) fL MCH 30.3 (25.0-35.0) pg MCHC 35.6 (31.0-37.0) g/dL RDW 13.8 (11.5-15.5) % Plt Count 151 (150-450) k/uL MPV 6.8 Neutrophils % 72 % Lymphocytes % 17 % Monocytes % 7 % Eosinophils % 3 % Basophils % 1 % Neutrophils # 4.6 (1.3-7.7) k/uL Lymphocytes # 1.1 (1.0-4.8) k/uL Monocytes # 0.4 (0-1.0) k/uL Eosinophils # 0.2 (0-0.7) k/uL Basophils # 0.1 (0-0.2) k/uL PT 10.5 (9.0-12.0) sec INR 1.0 (<1.2) APTT 19.4 L (22.0-30.0) sec Sodium 139 (137-145) mmol/L Potassium 3.6 (3.5-5.1) mmol/L Chloride 103 (98-107) mmol/L Carbon Dioxide 26 (22-30) mmol/L Anion Gap 10 mmol/L BUN 11 (9-20) mg/dL Creatinine 1.02 (0.66-1.25) mg/dL Est GFR (CKD-EPI)AfAm 86 (>60 ml/min/1.73 sqM) Est GFR (CKD-EPI)NonAf 74 (>60 ml/min/1.73 sqM) Glucose 119 H (74-99) mg/dL Calcium 9.0 (8.4-10.2) mg/dL Total Bilirubin 0.9 (0.2-1.3) mg/dL AST 19 (17-59) U/L ALT 14 (4-49) U/L Alkaline Phosphatase 101 (38-126) U/L Troponin I (0.000-0.034) ng/mL NT-Pro-B Natriuret Pep pg/mL Total Protein 6.4 (6.3-8.2) g/dL Albumin 3.7 (3.5-5.0) g/dL 01/05/21 01/05/21 Range/Units 15:06 15:06 WBC (3.8-10.6) k/uL RBC (4.30-5.90) m/uL Hgb (13.0-17.5) gm/dL Hct (39.0-53.0) % MCV (80.0-100.0) fL MCH (25.0-35.0) pg MCHC (31.0-37.0) g/dL RDW (11.5-15.5) % Plt Count (150-450) k/uL MPV Neutrophils % % Lymphocytes % % Monocytes % % Eosinophils % % Basophils % % Neutrophils # (1.3-7.7) k/uL Lymphocytes # (1.0-4.8) k/uL Monocytes # (0-1.0) k/uL Eosinophils # (0-0.7) k/uL Basophils # (0-0.2) k/uL PT (9.0-12.0) sec INR (<1.2) APTT (22.0-30.0) sec Sodium (137-145) mmol/L Potassium (3.5-5.1) mmol/L Chloride (98-107) mmol/L Carbon Dioxide (22-30) mmol/L Anion Gap mmol/L BUN (9-20) mg/dL Creatinine (0.66-1.25) mg/dL Est GFR (CKD-EPI)AfAm (>60 ml/min/1.73 sqM) Est GFR (CKD-EPI)NonAf (>60 ml/min/1.73 sqM) Glucose (74-99) mg/dL Calcium (8.4-10.2) mg/dL Total Bilirubin (0.2-1.3) mg/dL AST (17-59) U/L ALT (4-49) U/L Alkaline Phosphatase (38-126) U/L Troponin I <0.012 (0.000-0.034) ng/mL NT-Pro-B Natriuret Pep 247 pg/mL Total Protein (6.3-8.2) g/dL Albumin (3.5-5.0) g/dL Disposition Clinical Impression: Chest pain Disposition: ADMITTED IP TO THIS HOSP Condition: Fair Referrals: Richie Villalobos [Primary Care Provider] - 1-2 days
[2021-01-05 15:16] LABS: Basophils # (A) 0.1 k/uL (0-0.2); Basophils % (A) 1 %; Eosinophils # (A) 0.2 k/uL (0-0.7); Eosinophils % (A) 3 %; HCT 45.3 % (39.0-53.0); HGB 16.2 gm/dL (13.0-17.5); Lymphocytes # (A) 1.1 k/uL (1.0-4.8); Lymphocytes % (A) 17 %; MCH 30.3 pg (25.0-35.0); MCHC 35.6 g/dL (31.0-37.0); MCV 85.1 fL (80.0-100.0); Mean Platelet Volume 6.8; Monocytes # (A) 0.4 k/uL (0-1.0); Monocytes % (A) 7 %; Neutrophils # (A) 4.6 k/uL (1.3-7.7); Neutrophils % (A) 72 %; Platelet Count 151 k/uL (150-450); RBC 5.33 m/uL (4.30-5.90); RDW 13.8 % (11.5-15.5); WBC 6.4 k/uL (3.8-10.6)
[2021-01-05 15:25] LABS: Albumin 3.7 g/dL (3.5-5.0); Potassium 3.6 mmol/L (3.5-5.1); Total Bilirubin 0.9 mg/dL (0.2-1.3); Total Protein 6.4 g/dL (6.3-8.2)
[2021-01-05 15:32] LABS: Prothrombin Time 10.5 sec (9.0-12.0)
[2021-01-05 15:34] LABS: Partial Thromboplastin Time 19.4 sec (22.0-30.0)
[2021-01-05] MEDS ORDERED: NITROGLYCERIN SL TABS 0.4 MG TAB SUBLINGUAL PRN (16:00)
[2021-01-05] MEDS ORDERED: ASPIRIN 81 MG PO STA (16:00)
--- NOTE | 2021-01-05 16:06 | XR ---
EXAMINATION TYPE: XR chest 1V portable DATE OF EXAM: 01/05/2021 COMPARISON: 04/23/2020. HISTORY: Chest pain. TECHNIQUE: Single frontal view of the chest is obtained. FINDINGS: There is no focal air space opacity, pleural effusion, or pneumothorax seen. The cardiac silhouette size is enlarged. The osseous structures are intact. IMPRESSION: No acute process.
[2021-01-05] MEDS ORDERED: ACETAMINOPHEN TAB 325 MG TAB PO PRN (17:56)
[2021-01-05] MEDS ORDERED: NALOXONE 0.4 MG/ML 1 ML VIAL IV PRN (17:56)
--- NOTE | 2021-01-05 18:00 | P.HPIM ---
History of Present Illness H&P Date: 01/05/21 Chief Complaint: Dyspnea on exertion, chest pain 70-year-old man with medical history of heart failure, TIA, hypertension, hyperlipidemia, CK D stage III presented with symptoms of dyspnea on exertion, chest pressure. Patient says that for the last 1-2 weeks he's been experiencing increasing dyspnea on exertion. It is now to the point where he cannot walk further than to the mailbox without significant shortness of breath. He says that this feels similar to the time that he had then diagnosed with heart failure in 2004. He also noted that today while taking out the garbage he started to feel chest pressure in the center of his chest which improved with rest. Given the constellation of symptoms, patient who had otherwise been planning on seeing his primary care physician later this week decided instead to be evaluated in emergency room. Patient denies fevers, chills, nausea, vomiting, palpitations, cough, syncope, presyncope, abdominal pain, dysuria, dyschezia, numbness/weakness of extremities. Patient was afebrile and hemodynamically stable in the emergency room. CBC, chemistries, LFTs were unremarkable. BNP was 247, troponin was negative. Review of Systems All Systems reviewed and pertinent positives and negatives noted in HPI, all other symptoms are negative Past Medical History Past Medical History: Cancer, Heart Failure, CVA/TIA, GI Bleed, Hypertension, Pneumonia, Prostate Disorder Additional Past Medical History / Comment(s): hx prostate ca 2009/radiation tx ,TIA 2014, SLIGHTLY ENLARGED HEART", GOUT, Small bowel obstruction in February 2016, hx anemia, NENANA with use of a hearing aid, skin cancer s/p removal History of Any Multi-Drug Resistant Organisms: None Reported Past Surgical History: Bowel Resection, Cholecystectomy, Heart Catheterization, Hernia Repair Additional Past Surgical History / Comment(s): omphalocele repair as infant, 2 BOWEL RESECTIONS for bleeding, polyp removed from left ear Past Anesthesia/Blood Transfusion Reactions: No Reported Reaction Additional Past Anesthesia/Blood Transfusion Reaction / Comment(s): . Past Psychological History: Depression Smoking Status: Never smoker Past Alcohol Use History: Heavy Past Drug Use History: None Reported - Past Family History Father Family Medical History: Cancer Additional Family Medical History / Comment(s): oral CA.. Mother Family Medical History: Cancer Additional Family Medical History / Comment(s): breat CA. Medications and Allergies Home Medications Medication Instructions Recorded Confirmed Type Furosemide [Lasix] 40 mg PO DAILY 01/28/15 01/05/21 History allopurinoL [Zyloprim] 100 mg PO DAILY 03/06/16 01/05/21 History lisinopriL [Zestril] 20 mg PO DAILY 10/23/16 01/05/21 History Escitalopram [Lexapro] 20 mg PO HS 05/31/17 01/05/21 History Atorvastatin [Lipitor] 40 mg PO DAILY 04/16/20 01/05/21 History Clopidogrel [Plavix] 75 mg PO DAILY #30 tablet 04/25/20 01/05/21 Rx Cholecalciferol (Vitamin D3) 125 mcg PO DAILY 01/05/21 01/05/21 History [Vitamin D3 (5000 Iu)] amLODIPine [Norvasc] 7.5 mg PO DAILY 01/05/21 01/05/21 History Allergies Allergy/AdvReac Type Severity Reaction Status Date / Time erythromycin base AdvReac Nausea & Verified 01/05/21 17:11 Vomiting ibuprofen AdvReac Hx of GI Verified 01/05/21 17:11 Bleed steroids AdvReac Hx of GI Uncoded 01/05/21 17:11 Bleed Physical Exam Osteopathic Statement: *. No significant issues noted on an osteopathic structural exam other than those noted in the History and Physical/Consult. Vitals: Vital Signs Temp Pulse Resp BP Pulse Ox 01/05/21 17:00 69 16 113/80 95 01/05/21 14:43 18 01/05/21 14:42 98.2 F 70 16 130/84 98 Intake and Output 01/05/21 01/05/21 01/05/21 06:59 14:59 22:59 Other: Weight 111.13 kg Gen: awake, alert HEENT: normocephalic, atraumatic, good hearing acuity, moist mucous membranes Resp: good air exchange, breathing comfortably with no accessory muscle use, clear to auscultation bilaterally without wheezes or crackles CVS: good distal perfusion x 4, regular rate and rhythm without murmurs GI: soft, NTTP, ND, appropriate bowel sounds : no SPT, no CVAT, boswell catheter not present MSK: Trace to 1+ pitting edema, no clubbing Neuro: non-focal, moving all extremities Psych: cooperative, euthymic mood Results CBC & Chem 7: 01/05/21 15:06 01/05/21 15:06 Labs: Abnormal Lab Results - Last 24 Hours (Table) 01/05/21 01/05/21 Range/Units 15:06 15:06 APTT 19.4 L (22.0-30.0) sec Glucose 119 H (74-99) mg/dL Assessment and Plan Assessment: Dyspnea on exertion Chest pressure -Admit to observation, telemetry -Cardiology consult -Echo -Trend troponins -Continue home Lasix -Oxygen when necessary -Continue home Plavix -Restarted aspirin here in the hospital History of TIA CKD stage III Hypertension Hyperlipidemia Gout Mood disorder -Home medications reviewed and reconciled -Continue home amlodipine, lisinopril, lasix -Continue home plavix, atorvastatin -Continue home allopurinol DVT prophylaxis with heparin 3 times a day Patient is a full code Patient's is the power of personal injury attorney
[2021-01-05] MEDS: ESCITALOPRAM 20 MG TAB PO SCH (21:46)
[2021-01-06] MEDS: HEPARIN SODIUM,PORCINE/PF 5,000 UNIT/0.5 ML SYRINGE SQ SCH ×4 (01:27→22:52)
[2021-01-06 05:34] LABS: Basophils # (A) 0.1 k/uL (0-0.2); Basophils % (A) 1 %; Eosinophils # (A) 0.2 k/uL (0-0.7); Eosinophils % (A) 2 %; HGB 16.4 gm/dL (13.0-17.5); Lymphocytes # (A) 1.5 k/uL (1.0-4.8); Lymphocytes % (A) 22 %; MCH 28.4 pg (25.0-35.0); MCHC 32.7 g/dL (31.0-37.0); MCV 86.9 fL (80.0-100.0); Mean Platelet Volume 6.6; Monocytes # (A) 0.3 k/uL (0-1.0); Monocytes % (A) 5 %; Neutrophils # (A) 4.7 k/uL (1.3-7.7); Neutrophils % (A) 68 %; Platelet Count 162 k/uL (150-450); RBC 5.76 m/uL (4.30-5.90); RDW 14.3 % (11.5-15.5); WBC 6.8 k/uL (3.8-10.6)
[2021-01-06 05:49] LABS: African American GFR (CKD) 84 (>60 ml/min/1.73 sqM); Anion Gap 8 mmol/L; Blood Urea Nitrogen 13 mg/dL (9-20); Calcium 8.8 mg/dL (8.4-10.2); Carbon Dioxide 29 mmol/L (22-30); Chloride 100 mmol/L (98-107); Glucose 93 mg/dL (74-99); Magnesium 1.9 mg/dL (1.6-2.3); Non-African American GFR(CKD) 73 (>60 ml/min/1.73 sqM); Potassium 3.7 mmol/L (3.5-5.1); Sodium 137 mmol/L (137-145)
[2021-01-06] MEDS: allopurinoL 100 MG TAB PO SCH (07:49)
[2021-01-06] MEDS: amLODIPine 5 MG TAB PO SCH (07:49)
[2021-01-06] MEDS: ATORVASTATIN 40 MG TAB PO SCH (07:50)
[2021-01-06] MEDS: lisinopriL 20 MG TAB PO SCH (07:50)
[2021-01-06] MEDS: ASPIRIN 81 MG PO SCH (07:50)
[2021-01-06] MEDS: CLOPIDOGREL 75 MG TAB PO SCH (07:50)
[2021-01-06] MEDS: CHOLECALCIFEROL 25 MCG (1000 IU) TABLET PO SCH (07:50)
[2021-01-06] MEDS ORDERED: FUROSEMIDE 40 MG TAB PO SCH (09:00)
[2021-01-06] MEDS ORDERED: ASPIRIN 325 MG TAB PO SCH (09:00)
[2021-01-06] MEDS: FUROSEMIDE 10 MG/ML 4 ML VIAL IV SCH ×2 (11:16→21:00)
[2021-01-06 11:38] LABS: Cholesterol 93 mg/dL (0-200); LDL Cholesterol,Calculated 46.8 mg/dL (0.0-131.0)
--- NOTE | 2021-01-06 11:39 | P.CRDCN ---
History of Present Illness Consult date: 01/06/21 History of present illness: HISTORY OF PRESENT ILLNESS: This is a 70-year-old male with a past medical history significant for hypertension, congestive heart failure, TIA, and alcohol abuse. Patient follows in the office with Dr. Quach. We have been asked to see the patient in consultation for chest pain. Patient examined at the bedside. Patient states over the past 1-2 weeks he has been having increased shortness of breath. He denies having shortness of breath at rest. He states this is only with exertion. Patient has a history of congestive heart failure. Patient states he has been compliant with his medications. He denies any increased salt intake. Patient states yesterday he was taking the garbage out the road and on his way back to the house he began having chest pressure. He denies any radiation of the pain. He denies nausea or diaphoresis. Patient states the pain lasted for approximately an hour and then he decided to come to the emergency room. He states the pain resolved approximately 2-3 hours after he was in the ER. Patient denies any pain with chest wall palpation. He does report increased pain with deep inspiration. Patient does appear to be SOB when attempting to sit up in bed. Patient denies nicotine use, marijuana use, or drug use. Patient does have a history of alcohol abuse. Patient states he has been sober for approximately 3 months. EKG reveals sinus mechanism with no signs of acute ischemia Chest xray negative for acute process Laboratory data: WBC 6.8. Hemoglobin 16.4. Platelet count 162. Sodium 137. Potassium 3.7. BUN 13. Creatinine 1.04. Magnesium 1.9. Troponin negative 3. Current home cardiac medications include lisinopril 20 mg daily, Norvasc 7.5 mg daily, Lasix 40 mg daily, Plavix 75 mg daily, and Lipitor 40 mg daily Most recent echocardiogram obtained in March 2020 reveals ejection fraction 55-60%, mild aortic regurgitation and trace tricuspid regurgitation Patient underwent dobutamine stress echo in July 2019 which was negative for ischemia REVIEW OF SYSTEMS: At the time of my exam: CONSTITUTIONAL: Denies fever or chills. HEENT: Denies blurred vision, vision changes, or eye pain. Denies hemoptysis CARDIOVASCULAR: Denies chest pain. Denies orthopnea. Denies PND. Denies palpitations RESPIRATORY: Denies shortness of breath. GASTROINTESTINAL: Denies abdominal pain. Denies nausea or vomiting. HEMATOLOGIC: Denies bleeding disorders. GENITOURINARY: Denies any blood in urine. SKIN: Denies pruitis. Denies rash. PHYSICAL EXAM: VITAL SIGNS: Reviewed. GENERAL: Well-developed in no acute distress. HEENT: Head is normocephalic. Pupils are equal, round. Sclerae anicteric. Mucous membranes of the mouth are moist. Neck supple. No JVD or thyromegaly LUNGS: Respirations even and unlabored. Lungs essentially clear to auscultation bilaterally. HEART: Regular rate and rhythm. S1 and S2 heard. ABDOMEN: Soft. Nondistended. Nontender. EXTREMITIES: Normal range of motion. No clubbing or cyanosis. Peripheral pulses intact. No lower extremity edema NEUROLOGIC: Awake and alert. Oriented x 3. ASSESSMENT: Chest pain, troponins negative 3, acute coronary syndrome ruled out Chronic diastolic congestive heart failure with possible mild exacerbation despite normal BNP Hypertension Hyperlipidemia Alcohol abuse Obesity BMI 40.8 PLAN: An acute coronary event has been ruled out Resume home cardiac medications Obtain 2-D echo to assess cardiac structure and function Begin Lasix 40mg IV q 12 hours Monitor kidney function Accurate I&O Check ESR Patient to undergo Patricia scan stress test tomorrow NPO at midnight Further recommendations pending patient course Nurse practitioner note has been reviewed by physician. Signing provider agrees with the documented findings, assessment, and plan of care. Past Medical History Past Medical History: Cancer, Heart Failure, CVA/TIA, GI Bleed, Hypertension, Pneumonia, Prostate Disorder Additional Past Medical History / Comment(s): hx prostate ca 2009/radiation tx ,TIA 2014, SLIGHTLY ENLARGED HEART", GOUT, Small bowel obstruction in February 2016, hx anemia, [place] with use of a hearing aid, skin cancer s/p removal History of Any Multi-Drug Resistant Organisms: None Reported Past Surgical History: Bowel Resection, Cholecystectomy, Heart Catheterization, Hernia Repair Additional Past Surgical History / Comment(s): omphalocele repair as infant, 2 BOWEL RESECTIONS for bleeding, polyp removed from left ear Past Anesthesia/Blood Transfusion Reactions: No Reported Reaction Additional Past Anesthesia/Blood Transfusion Reaction / Comment(s): . Past Psychological History: Depression Additional Psychological History / Comment(s): Pt had a suicide attempt in 2004. He states he has no suicidal thoughts.well maintained on medications Smoking Status: Never smoker Past Alcohol Use History: Occasional Additional Past Alcohol Use History / Comment(s): less than 14 drinks weekly pt states as of last week he has cut back on alcohol intake. Past Drug Use History: None Reported - Past Family History Father Family Medical History: Cancer Additional Family Medical History / Comment(s): oral CA.. Mother Family Medical History: Cancer Additional Family Medical History / Comment(s): breat CA. Medications and Allergies Home Medications Medication Instructions Recorded Confirmed Type Furosemide [Lasix] 40 mg PO DAILY 01/28/15 01/05/21 History allopurinoL [Zyloprim] 100 mg PO DAILY 03/06/16 01/05/21 History lisinopriL [Zestril] 20 mg PO DAILY 10/23/16 01/05/21 History Escitalopram [Lexapro] 20 mg PO HS 05/31/17 01/05/21 History Atorvastatin [Lipitor] 40 mg PO DAILY 04/16/20 01/05/21 History Clopidogrel [Plavix] 75 mg PO DAILY #30 tablet 04/25/20 01/05/21 Rx Cholecalciferol (Vitamin D3) 125 mcg PO DAILY 01/05/21 01/05/21 History [Vitamin D3 (5000 Iu)] amLODIPine [Norvasc] 7.5 mg PO DAILY 01/05/21 01/05/21 History Allergies Allergy/AdvReac Type Severity Reaction Status Date / Time erythromycin base AdvReac Nausea & Verified 01/05/21 17:11 Vomiting ibuprofen AdvReac Hx of GI Verified 01/05/21 17:11 Bleed steroids AdvReac Hx of GI Uncoded 01/05/21 17:11 Bleed Physical Exam Vitals: Vital Signs Temp Pulse Pulse Resp BP BP Pulse Ox 01/06/21 07:55 66 18 01/06/21 07:00 98.1 F 66 18 129/70 97 01/06/21 04:42 18 01/06/21 04:00 97.9 F 61 18 98/69 97 01/06/21 01:25 97.2 F L 55 L 55 L 16 125/81 96 01/05/21 22:28 98.8 F 64 20 124/71 96 01/05/21 19:39 99.3 F 66 18 119/97 97 01/05/21 18:27 98.5 F 60 18 123/83 96 01/05/21 17:00 69 16 113/80 95 01/05/21 14:43 18 01/05/21 14:42 98.2 F 70 16 130/84 98 Intake and Output 01/05/21 01/06/21 01/06/21 22:59 06:59 14:59 Intake Total 240 Balance 240 Intake: Oral 240 Other: Voiding Method Toilet # Voids 1 Weight 111.13 kg Results 01/06/21 04:46 01/06/21 04:46 Cardiac Enzymes 01/05/21 01/05/21 01/05/21 Range/Units 15:06 15:06 17:41 AST 19 (17-59) U/L Troponin I <0.012 <0.012 (0.000-0.034) ng/mL 01/05/21 Range/Units 20:45 AST (17-59) U/L Troponin I <0.012 (0.000-0.034) ng/mL Coagulation 01/05/21 Range/Units 15:06 PT 10.5 (9.0-12.0) sec APTT 19.4 L (22.0-30.0) sec CBC 01/05/21 01/06/21 Range/Units 15:06 04:46 WBC 6.4 6.8 (3.8-10.6) k/uL RBC 5.33 5.76 (4.30-5.90) m/uL Hgb 16.2 16.4 (13.0-17.5) gm/dL Hct 45.3 50.0 (39.0-53.0) % Plt Count 151 162 (150-450) k/uL Comprehensive Metabolic Panel 01/05/21 01/06/21 Range/Units 15:06 04:46 Sodium 139 137 (137-145) mmol/L Potassium 3.6 3.7 (3.5-5.1) mmol/L Chloride 103 100 (98-107) mmol/L Carbon Dioxide 26 29 (22-30) mmol/L BUN 11 13 (9-20) mg/dL Creatinine 1.02 1.04 (0.66-1.25) mg/dL Glucose 119 H 93 (74-99) mg/dL Calcium 9.0 8.8 (8.4-10.2) mg/dL AST 19 (17-59) U/L ALT 14 (4-49) U/L Alkaline Phosphatase 101 (38-126) U/L Total Protein 6.4 (6.3-8.2) g/dL Albumin 3.7 (3.5-5.0) g/dL Current Medications Generic Name Dose Route Start Last Admin Trade Name Freq PRN Reason Stop Dose Admin Acetaminophen 650 mg 01/05/21 17:56 Acetaminophen Tab 325 Mg Tab PO Q6HR PRN Mild Pain or Fever > 100.5 Allopurinol 100 mg 01/06/21 09:00 01/06/21 07:49 Allopurinol 100 Mg Tab PO 100 mg DAILY KELVIN Administration Amlodipine Besylate 7.5 mg 01/06/21 09:00 01/06/21 07:49 Amlodipine 5 Mg Tab PO 7.5 mg DAILY KELVIN Administration Aspirin 81 mg 01/06/21 09:00 01/06/21 07:50 Aspirin 81 Mg PO Not Given DAILY KELVIN Atorvastatin Calcium 40 mg 01/06/21 09:00 01/06/21 07:50 Atorvastatin 40 Mg Tab PO 40 mg DAILY KELVIN Administration Cholecalciferol 125 mcg 01/06/21 09:00 01/06/21 07:50 Cholecalciferol 25 Mcg (1000 Iu) Tablet PO 125 mcg DAILY KELVIN Administration Clopidogrel Bisulfate 75 mg 01/06/21 09:00 01/06/21 07:50 Clopidogrel 75 Mg Tab PO 75 mg DAILY KELVIN Administration Escitalopram Oxalate 20 mg 01/05/21 21:00 01/05/21 21:46 Escitalopram 20 Mg Tab PO 20 mg HS KELVIN Administration Furosemide 40 mg 01/06/21 09:00 01/06/21 07:50 Furosemide 40 Mg Tab PO 40 mg DAILY KELVIN Administration Heparin Sodium (Porcine) 5,000 unit 01/06/21 00:00 01/06/21 07:49 Heparin Sodium,Porcine/Pf 5,000 Unit/0.5 Ml Syringe SQ 5,000 unit Q8HR KELVIN Administration Lisinopril 20 mg 01/06/21 09:00 01/06/21 07:50 Lisinopril 20 Mg Tab PO 20 mg DAILY KELVIN Administration Naloxone HCl 0.2 mg 01/05/21 17:56 Naloxone 0.4 Mg/Ml 1 Ml Vial IV Q2M PRN Opioid Reversal Nitroglycerin 0.4 mg 01/05/21 16:00 Nitroglycerin Sl Tabs 0.4 Mg Tab SUBLINGUAL Q5M PRN Chest Pain Intake and Output 01/05/21 01/06/21 01/06/21 22:59 06:59 14:59 Intake Total 240 Balance 240 Intake: Oral 240 Other: Voiding Method Toilet # Voids 1 Weight 111.13 kg 01/06/21 04:46 01/06/21 04:46
--- NOTE | 2021-01-06 12:16 | P.PN ---
Subjective Progress Note Date: 01/06/21 No new complaints. Ongoing dyspnea with minimal exertion. Objective - Vital Signs Vital signs: Vital Signs Temp 97.9 F 01/06/21 11:07 Pulse 65 01/06/21 11:07 Resp 18 01/06/21 11:07 BP 111/70 01/06/21 11:07 Pulse Ox 97 01/06/21 11:07 Intake & Output 01/05/21 01/06/21 01/06/21 18:59 06:59 18:59 Intake Total 240 240 Balance 240 240 Weight 111.13 kg 111.1 kg Intake: Oral 240 240 Other: Voiding Method Toilet # Voids 1 - Exam Gen: awake, alert HEENT: normocephalic, atraumatic, good hearing acuity, moist mucous membranes Resp: good air exchange, breathing comfortably with no accessory muscle use, clear to auscultation bilaterally without wheezes or crackles CVS: good distal perfusion x 4, regular rate and rhythm without murmurs GI: soft, NTTP, ND, appropriate bowel sounds : no SPT, no CVAT, boswell catheter not present MSK: Trace to 1+ pitting edema, no clubbing Neuro: non-focal, moving all extremities Psych: cooperative, euthymic mood - Labs CBC & Chem 7: 01/06/21 04:46 01/06/21 04:46 Labs: Abnormal Lab Results - Last 24 Hours (Table) 01/05/21 01/05/21 01/06/21 Range/Units 15:06 15:06 04:46 APTT 19.4 L (22.0-30.0) sec Glucose 119 H (74-99) mg/dL HDL Cholesterol 31.0 L (40.0-60.0) mg/dL Assessment and Plan Assessment: Dyspnea on exertion Chest pressure -Admit to observation, telemetry -Cardiology consult -Echo, pending -Trend troponins = negative -Lasix increased to 40mg IV BID -Oxygen when necessary -Continue home Plavix -Restarted aspirin here in the hospital -Lexiscan stress test scheduled 01/06 History of TIA CKD stage III Hypertension Hyperlipidemia Gout Mood disorder -Home medications reviewed and reconciled -Continue home amlodipine, lisinopril, lasix -Continue home plavix, atorvastatin -Continue home allopurinol DVT prophylaxis with heparin 3 times a day Patient is a full code Patient's is the power of patent prosecution attorney
--- NOTE | 2021-01-06 18:33 | ECHOF ---
Referral Reason:BRIGGS MEASUREMENTS -------- HEIGHT: 165.1 cm WEIGHT: 111.1 kg BP: 98/69 IVSd: 1.4 cm (0.6 - 1.1) LVIDd: 4.9 cm (3.9 - 5.3) LVPWd: 1.3 cm (0.6 - 1.1) EDV(Teich): 110 ml IVSs: 1.7 cm LVIDs: 3.7 cm LVPWs: 1.5 cm %IVS Thck: 20 % ESV(Teich): 58 ml EF(Teich): 48 % %FS: 24 % SV(Teich): 52 ml RVIDd: 3.4 cm (< 3.3) LALs A4C: 5.0 cm LAAs A4C: 19.3 cm LAESV A-L A4C: 63 ml LAESV MOD A4C: 60 ml LALs A2C: 5.5 cm LAAs A2C: 21.8 cm LAESV A-L A2C: 74 ml LAESV MOD A2C: 71 ml LAESV(A-L): 71 ml LAESV Index (A-L): 33.03 ml/m Ao Diam: 3.7 cm (2.0 - 3.7) AV Cusp: 1.6 cm (1.5 - 2.6) EPSS: 0.8 cm MV E Jaison: 0.55 m/s MV DecT: 263 ms MV Dec Stoddard: 2.1 m/s MV A Jaison: 1.03 m/s MV E/A Ratio: 0.53 MV PHT: 76 ms MV EF SLOPE: 59.26 mm/s (70 - 150) MV EXCURSION: 21.02 mm (> 18.000) FINDINGS -------- Sinus rhythm. This was a techncally difficult study with suboptimal views, , Lumason utilized for enhancement of im ages. The left ventricular size is normal. There is moderate concentric left ventricular hypertrophy. O verall left ventricular systolic function is low-normal with, an EF between 50 - 55 %. The right ventricle is normal in size. LA is midly dilated 29-33ml/m2. The right atrial size is normal. 5.0mg OF Lumason UTLIZED: 2 OR MORE WALL SEGMENTS NOT VISUALIZED. There is [id number] aortic regurgitation. Mild mitral annular calcification present. Mild mitral regurgitation is present. Mild tricuspid regurgitation present. Right ventricular systolic pressure is normal at < 35 mmHg. There is no pulmonic regurgitation present. Ascending root is dilated and measures 4.3cm. Echo free space represents a pericardial fat pad. CONCLUSIONS -------- 1. This was a techncally difficult study with suboptimal views, , Lumason utilized for enhancement of images. 2. The left ventricular size is normal. 3. There is moderate concentric left ventricular hypertrophy. 4. Overall left ventricular systolic function is low-normal with, an EF between 50 - 55 %. 5. The right ventricle is normal in size. 6. LA is midly dilated 29-33ml/m2. 7. The right atrial size is normal. 8. 5.0mg OF Lumason UTLIZED: 2 OR MORE WALL SEGMENTS NOT VISUALIZED. 9. There is [id number] aortic regurgitation. 10. Mild mitral annular calcification present. 11. Mild mitral regurgitation is present. 12. Mild tricuspid regurgitation present. 13. Ascending root is dilated and measures 4.3cm. 14. Echo free space represents a pericardial fat pad. [employer] ADMINISTRATOR: Rolanda Owens RDCS
[2021-01-06] MEDS: ESCITALOPRAM 20 MG TAB PO SCH (21:00)
[2021-01-07] MEDS ORDERED: AMINOPHYLLINE 500 MG/20 ML VIAL IV PRN (06:00)
[2021-01-07] MEDS ORDERED: REGADENOSON 0.4 MG/5 ML SYRINGE IV PRN (06:00)
[2021-01-07] MEDS ORDERED: CAFFEINE CITRATE 60 MG/3 ML VIAL IV PRN (06:00)
[2021-01-07 08:13] LABS: Calcium 8.8 mg/dL (8.4-10.2); Potassium 3.5 mmol/L (3.5-5.1)
--- NOTE | 2021-01-07 10:16 | P.STRESS ---
- Stress Test Note Stress Test Results/Findings: Exam Performed: NM stress lexiscan cardiolite Exam Date: 01/07/21 Reason for Exam: CP Height: 5 ft 5 in Weight: 110.5 kg Protocol: LEXISCAN CARDIOLITE Stage: NA Duration of Exercise: NA Resting Heart Rate: 58 Resting Blood Pressure: 125/90 Maximum Achieved Heart Rate: 79 Maximum Achieved Blood Pressure: 125/90 85% PMHR: 128 100% PMHR: 150 METS: NA Technologist Comment: Stress Test Results/Findings: Patient received Lexiscan infusion No significant change in her to the blood pressure Patient complained of tightness PVCs and PACs were noted No ischemia on twelve-lead EKG Nuclear report be reported separately
--- NOTE | 2021-01-07 10:43 | NM ---
EXAMINATION TYPE: NM stress lexiscan cardiolite DATE OF EXAM: 01/07/2021 COMPARISON: Previous dated 06/01/2017 HISTORY: Chest pain TECHNIQUE: After the intravenous administration of 10.3 mCi Tc 99m Sestamibi - Cardiolite resting SP ECT images acquired 85 minutes post injection. The patient received 0.4mg Lexiscan, 25.9 mCi Tc 99m Sestamibi - Stress images obtained [address] injection FINDINGS: Review of stress and rest SPECT images demonstrates decreased uptake along the apex on stress and res t images similar to prior, along the anteroseptal left ventricle there is some decreased uptake on st ress as compared to rest images. Gated analysis shows normal wall motion with an estimated left vent ricular ejection fraction of 43 %. IMPRESSION: Abnormal low left ventricular ejection fraction. Difficult to exclude prior infarct. Findings suggest anterior septal left ventricular myocardial pharmacologically induced ischemia
[2021-01-07] MEDS: amLODIPine 5 MG TAB PO SCH (11:43)
[2021-01-07] MEDS: HEPARIN SODIUM,PORCINE/PF 5,000 UNIT/0.5 ML SYRINGE SQ SCH ×3 (11:43→23:19)
[2021-01-07] MEDS: CHOLECALCIFEROL 25 MCG (1000 IU) TABLET PO SCH (11:43)
[2021-01-07] MEDS: CLOPIDOGREL 75 MG TAB PO SCH (11:43)
[2021-01-07] MEDS: ASPIRIN 81 MG PO SCH (11:43)
[2021-01-07] MEDS: lisinopriL 20 MG TAB PO SCH (11:44)
[2021-01-07] MEDS: allopurinoL 100 MG TAB PO SCH (11:44)
[2021-01-07] MEDS: FUROSEMIDE 10 MG/ML 4 ML VIAL IV SCH ×2 (11:44→19:33)
[2021-01-07] MEDS: ATORVASTATIN 40 MG TAB PO SCH (11:44)
--- NOTE | 2021-01-07 13:06 | P.PN ---
Subjective Progress Note Date: 01/07/21 This is a very pleasant 70-year-old gentleman with hypertension and dyslipidemia who presented to the hospital with chest discomfort and shortness of breath. Overall the workup came in to be unremarkable. The EKG and cardiac enzymes came in to be unremarkable. Because he continues to have intermittent episodes of chest discomfort/pressure concerning for angina I advised the patient to undergo a stress test. He underwent myocardial perfusion imaging stress test and that showed possible anteroseptal ischemia. The patient was seen this morning. I had a long discussion with him regarding the next step and I advised the patient to undergo a heart catheterization later on today but unfortunately he ate his lunch and he would like to wait until tomorrow. Currently he is chest pain-free. The procedure in details including the benefits as well as the risks as well as alternative were discussed with the patient the plan is to pursue with her tomorrow. Objective - Vital Signs Vital signs: Vital Signs Temp 96.1 F L 01/07/21 11:51 Pulse 67 01/07/21 11:51 Resp 16 01/07/21 11:51 BP 128/88 01/07/21 11:51 Pulse Ox 97 01/07/21 11:51 Intake & Output 01/06/21 01/07/21 01/07/21 18:59 06:59 18:59 Intake Total 720 240 0 Output Total 1225 1850 175 Balance -505 1610 -175 Weight 111.1 kg 110.5 kg 110.5 kg Intake: Oral 720 240 0 Output: Urine 1225 1850 175 Other: Voiding Method Urinal Urinal Urinal # Voids 1 3 # Bowel Movements 1 1 - Constitutional General appearance: Present: no acute distress - Respiratory Respiratory: bilateral: diminished - Cardiovascular Rhythm: regular Heart sounds: normal: S1, S2 Abnormal Heart Sounds: Present: systolic murmur - Labs CBC & Chem 7: 01/06/21 04:46 01/07/21 07:26 Labs: Abnormal Lab Results - Last 24 Hours (Table) 01/07/21 Range/Units 07:26 Chloride 97 L (98-107) mmol/L Carbon Dioxide 35 H (22-30) mmol/L Assessment and Plan Assessment: Assessment #1 chest discomfort #2 abnormal myocardial perfusion imaging stress test Plan #1 continue the current medical regimen #2 proceed with coronary angiogram
--- NOTE | 2021-01-07 13:28 | P.PN ---
Subjective Progress Note Date: 01/07/21 Hospital course: Patient is a 70-year-old male with a past medical history of coronary artery disease, congestive heart failure, hypertension, hyperlipidemia, and previous TIA whom presented to the hospital on 01/05/21 with a chief complaint of chest pain/pressure accompanied by shortness of breath in which patient reports worsened with exertion. Patient was admitted under our services with consultation to cardiology. EKG completed showing normal sinus rhythm at 68 bpm with no noted signs of acute ischemia. Troponins were trended 3 and negative at < 0.012. Echocardiogram was completed revealing an ejection fraction of 50- 55%. Lexiscan stress test reported to reveal an abnormal low ventricular ejection fraction difficult to exclude prior infarct suggestive of possible anterior septal left ventricular myocardial pharmacologically induced ischemia. Physical exam: General: non toxic, no distress, appears at stated age Derm: warm, dry Head: atraumatic, normocephalic, symmetric Eyes: EOMI, no lid lag, anicteric sclera Mouth: no lip lesion, mucus membranes moist Cardiovascular: S1S2 reg, no murmur, gallop, or rub. Positive posterior tibial pulses bilaterally. Cap refill less than 2 seconds. Lungs: Respirations even, regular, and unlabored. Lungs CTA bilaterally with no wheezes, rhonchi, or rales noted. No accessory muscle use. Abdominal: Soft, nontender to palpation, no guarding, no appreciable org anomegaly Ext: no gross muscle atrophy, no edema, no contractures Neuro: GCS 15. CN II-XI grossly intact, no focal neuro deficits Psych: Alert, oriented, appropriate affect Plan of care: Chest pain/pressure -EKG completed showing normal sinus rhythm at 68 bpm with no noted signs of acute ischemia. -Troponins were trended 3 and negative at < 0.012. -Echocardiogram was completed revealing an ejection fraction of 50-55%. -Lexiscan stress test reported to reveal an abnormal low ventricular ejection fraction difficult to exclude prior infarct suggestive of possible anterior septal left ventricular myocardial pharmacologically induced ischemia. -Cardiology following, recommending cardiac catheterization to be completed tomorrow morning. -Nothing by mouth at midnight for cardiac cath -Telemetry monitoring -Continue aspirin, atorvastatin, Plavix, and amlodipine. -When necessary sublingual nitro for chest pain Hypertension -Monitor vital signs and continue daily medication management with amlodipine and lisinopril. Hyperlipidemia -Continue daily medication regimen with atorvastatin 40 mg nightly. -Heart healthy diet. CODE STATUS: Full code DVT prophylaxis: Heparin Discussed with: Patient and RN Anticipated discharge date: Clinical course to determine Anticipated discharge place: Home A total of 45 minutes was spent on the care of this complex patient more than 50% of the time was spent in counseling and care coordination. Objective - Vital Signs Vital signs: Vital Signs Temp 98 F 01/07/21 03:56 Pulse 75 01/07/21 03:56 Resp 16 01/07/21 08:00 BP 99/62 01/07/21 03:56 Pulse Ox 95 01/07/21 03:56 Intake & Output 01/06/21 01/07/21 01/07/21 18:59 06:59 18:59 Intake Total 720 240 0 Output Total 1225 1850 175 Balance -505 -4346 -175 Weight 111.1 kg 110.5 kg 110.5 kg Intake: Oral 720 240 0 Output: Urine 1225 1850 175 Other: Voiding Method Urinal Urinal Urinal # Voids 1 3 # Bowel Movements 1 1 - Labs CBC & Chem 7: 01/06/21 04:46 01/07/21 07:26 Labs: Abnormal Lab Results - Last 24 Hours (Table) 01/06/21 01/07/21 Range/Units 04:46 07:26 Chloride 97 L (98-107) mmol/L Carbon Dioxide 35 H (22-30) mmol/L HDL Cholesterol 31.0 L (40.0-60.0) mg/dL
[2021-01-07] MEDS ORDERED: ALPRAZolam 0.25 MG TAB PO PRN (14:02)
[2021-01-07] MEDS ORDERED: ALPRAZolam 0.5 MG TAB PO PRN (14:02)
[2021-01-07] MEDS ORDERED: NITROGLYCERIN SL TABS 0.4 MG TAB SUBLINGUAL PRN (14:02)
[2021-01-07] MEDS: ESCITALOPRAM 20 MG TAB PO SCH (19:33)
[2021-01-07] MEDS ORDERED: SODIUM CHLORIDE 0.9% 1,000 ML in EMPTY BAG 1 BAG IV ONE (23:00)
[2021-01-08] MEDS: ASPIRIN 81 MG PO SCH (05:49)
[2021-01-08] MEDS: ATORVASTATIN 40 MG TAB PO SCH (05:49)
[2021-01-08] MEDS: lisinopriL 20 MG TAB PO SCH (05:51)
[2021-01-08] MEDS: allopurinoL 100 MG TAB PO SCH (05:51)
[2021-01-08] MEDS: CLOPIDOGREL 75 MG TAB PO SCH (05:51)
[2021-01-08] MEDS: HEPARIN SODIUM,PORCINE/PF 5,000 UNIT/0.5 ML SYRINGE SQ SCH ×2 (05:51→16:52)
[2021-01-08] MEDS: amLODIPine 5 MG TAB PO SCH (05:51)
[2021-01-08] MEDS: CHOLECALCIFEROL 25 MCG (1000 IU) TABLET PO SCH (05:51)
[2021-01-08] MEDS ORDERED: HEPARIN SODIUM,PORCINE 10,000 UNIT in SODIUM CHLORIDE 0.9% 1,000 ML IRRIGATION PRN (07:00)
[2021-01-08] MEDS ORDERED: ASPIRIN 325 MG TAB PO ONE (07:00)
[2021-01-08] MEDS ORDERED: ATORVASTATIN 80 MG TAB PO ONE (07:00)
[2021-01-08] MEDS ORDERED: HEPARIN SODIUM,PORCINE 2,500 UNIT in SODIUM CHLORIDE 0.9% 250 ML IRRIGATION PRN (07:00)
[2021-01-08] MEDS: FUROSEMIDE 10 MG/ML 4 ML VIAL IV SCH (08:27)
[2021-01-08] MEDS ORDERED: IV FLUID CONTINUATION 900 ML IV ONE (10:11)
[2021-01-08] MEDS: MIDAZOLAM 2 MG/2 ML VIAL IVP ONE ×2 (10:12→10:16)
[2021-01-08] MEDS ORDERED: fentaNYL (PF) 50 MCG/ML 2 ML AMP IVP ONE (10:12)
[2021-01-08] MEDS ORDERED: LIDOCAINE 1% INJ 10MG/ML (20 ML MDV) SQ ONE (10:19)
[2021-01-08] MEDS: VERAPAMIL SYRINGE (5 MG/10 ML) INTRAARTER ONE ×2 (10:20→10:30)
[2021-01-08] MEDS ORDERED: HEPARIN SODIUM 1,000 UN/ML (10ML VL) IV ONE ×2 (10:28→20:43)
[2021-01-08] MEDS ORDERED: IOPAMIDOL-370 100ML BTL INJ ONE (10:30)
[2021-01-08] MEDS ORDERED: RX INFO: IV CONTRAST WAS GIVEN 1 EACH MISC MISCELLANE PRN (10:34)
[2021-01-08] MEDS ORDERED: SODIUM CHLORIDE 0.9% 1,000 ML IV SCH (10:45)
--- NOTE | 2021-01-08 12:02 | CC ---
CARDIAC CATHETERIZATION REPORT DATE OF SERVICE: 01/08/2021 PERFORMING PHYSICIAN: Michael Garcia MD. PROCEDURE PERFORMED: 1. Selective right and left coronary angiogram. 2. Left heart catheterization. INDICATION: This is a 70-year-old gentleman with hypertension and dyslipidemia who sees Dr. Quach in the office regularly, who was admitted with chest discomfort and ruled out for acute coronary event. He underwent myocardial perfusion imaging stress test and that revealed an anterior ischemia and because of that, a heart catheterization was advised. APPROACH: Right radial artery. COMPLICATION: None. LEVEL OF SEDATION: Moderate with sedation length of 15 minutes. PROCEDURE DESCRIPTION: After obtaining informed consent, the patient was brought to the cardiac lab director. The right radial artery was cannulated using micropuncture technique and a micropuncture wire passed easily. Then I placed a 6-Azerbaijani sheath at the right radial artery. I gave the patient 2 mg of verapamil IA and 10,000 units of heparin IV. Selective right and left coronary angiogram performed using JR4 and JL3.5 catheters. Left heart catheterization was performed using 5-Azerbaijani pigtail catheter. The procedure was completed without any complication. SELECTIVE CORONARY ANGIOGRAM: 1. The RCA is a large caliber vessel. It is a dominant vessel. The RCA has mild disease proximally. Distally, it bifurcates into PDA and PLV branches, both appeared to be angiographically normal. 2. The left main is angiographically normal. It bifurcates into LCX and LAD. 3. The LCX is a large caliber vessel. It is a nondominant vessel. The LCX gives rise into a large OM branch proximally and that seems to be angiographically normal. 4. The LAD: The proximal LAD appeared to be angiographically normal. It gives rise into a large diagonal branch which seems to be angiographically normal. The mid LAD is normal and the LAD distally is normal. The LAD gives rise into a second diagonal branch which seems to be angiographically normal. HEMODYNAMICS: The LVEDP was only 3 mmHg without significant gradient across the aortic valve. CONCLUSION: 1. Mild nonobstructive coronary artery disease. 2. Low LVEDP. POSTPROCEDURE MANAGEMENT: Medical treatment and follow up. MMODL / IJN: [id number] /
--- NOTE | 2021-01-08 15:38 | P.PN ---
Subjective Progress Note Date: 01/08/21 Hospital course: Patient is a 70-year-old male with a past medical history of coronary artery disease, congestive heart failure, hypertension, hyperlipidemia, and previous TIA whom presented to the hospital on 01/05/21 with a chief complaint of chest pain/pressure accompanied by shortness of breath in which patient reports worsened with exertion. Patient was admitted under our services with consultation to cardiology. EKG completed showing normal sinus rhythm at 68 bpm with no noted signs of acute ischemia. Troponins were trended 3 and negative at < 0.012. Echocardiogram was completed revealing an ejection fraction of 50- 55%. Lexiscan stress test reported to reveal an abnormal low ventricular ejection fraction difficult to exclude prior infarct suggestive of possible anterior septal left ventricular myocardial pharmacologically induced ischemia. Cardiac cath completed with findings reported as patient having mild nonobstructive coronary artery disease with a low LVEDP with recommendations of medical management and follow-up. Patient being taken off of IV Lasix and started on oral Lasix at this time. Per cardiology patient clear for discharge tomorrow a.m. Physical exam: Patient was seen and fully evaluated at bedside this morning. He was taken down for cardiac cath with findings reported as patient having mild nonobstructive coronary artery disease with a low LVEDP with recommendations of medical management and follow-up. Patient being taken off of IV Lasix and started on oral Lasix at this time. Per cardiology patient clear for discharge tomorrow a.m. Patient currently denies having any chest pain or discomfort, palpitations, shortness of breath, or experiencing any other complaints or needs at this time. General: non toxic, no distress, appears at stated age Derm: warm, dry Head: atraumatic, normocephalic, symmetric Eyes: EOMI, no lid lag, anicteric sclera Mouth: no lip lesion, mucus membranes moist Cardiovascular: S1S2 reg, no murmur, gallop, or rub. Positive posterior tibial pulses bilaterally. Cap refill less than 2 seconds. Lungs: Respirations even, regular, and unlabored. Lungs CTA bilaterally with no wheezes, rhonchi, or rales noted. No accessory muscle use. Abdominal: Soft, nontender to palpation, no guarding, no appreciable organomegaly Ext: no gross muscle atrophy, no edema, no contractures Neuro: GCS 15. CN II-XI grossly intact, no focal neuro deficits Psych: Alert, oriented, appropriate affect Plan of care: Chest pain/pressure, acute coronary event ruled out -EKG completed showing normal sinus rhythm at 68 bpm with no noted signs of acut e ischemia. -Troponins were trended 3 and negative at < 0.012. -Echocardiogram was completed revealing an ejection fraction of 50-55%. -Lexiscan stress test reported to reveal an abnormal low ventricular ejection fraction difficult to exclude prior infarct suggestive of possible anterior septal left ventricular myocardial pharmacologically induced ischemia. -Cardiac cath completed with findings reported as patient having mild nonobstructive coronary artery disease with a low LVEDP with recommendations of medical management and follow-up. Patient being taken off of IV Lasix and started on oral Lasix at this time. Per cardiology patient clear for discharge tomorrow a.m. -Cardiology following. -Telemetry monitoring. -Continue aspirin, atorvastatin, Plavix, and amlodipine. Hypertension -Monitor vital signs and continue daily medication management with amlodipine and lisinopril. Hyperlipidemia -Continue daily medication regimen with atorvastatin 40 mg nightly. -Heart healthy diet. CODE STATUS: Full code DVT prophylaxis: Heparin Discussed with: Patient and RN Anticipated discharge date: Tomorrow morning Anticipated discharge place: Home A total of 45 minutes was spent on the care of this complex patient more than 50% of the time was spent in counseling and care coordination. Objective - Vital Signs Vital signs: Vital Signs Temp 96.8 F L 01/08/21 08:00 Pulse 61 01/08/21 08:00 Resp 16 01/08/21 08:00 BP 116/74 01/08/21 08:00 Pulse Ox 95 01/08/21 08:00 Intake & Output 01/07/21 01/08/21 01/08/21 18:59 06:59 18:59 Intake Total 360 240 50 Output Total 875 900 Balance -515 -660 50 Weight 110.5 kg 109.2 kg Intake: IV 50 Oral 360 240 0 Output: Urine 875 900 Other: Voiding Method Urinal Urinal Urinal # Voids 1 1 - Labs CBC & Chem 7: 01/06/21 04:46 01/07/21 07:26
[2021-01-08] MEDS: FUROSEMIDE 40 MG TAB PO SCH (16:52)
[2021-01-08] MEDS: ESCITALOPRAM 20 MG TAB PO SCH (19:33)
[2021-01-08] MEDS ORDERED: HEPARIN SODIUM 1,000 UN/ML (10ML VL) IV PRN (20:43)
[2021-01-08] MEDS ORDERED: HEPARIN SOD,PORK IN 0.45% NACL 25,000 UNIT in 0.45% NACL 1 250ML.BAG IV SCH (20:45)
[2021-01-08 21:59] LABS: Partial Thromboplastin Time 25.7 sec (22.0-30.0); Prothrombin Time 10.6 sec (9.0-12.0)
[2021-01-08 23:44] VITALS: RESP 16
[2021-01-09 02:54] LABS: HCT 46.5 % (39.0-53.0); HGB 16.5 gm/dL (13.0-17.5); MCH 30.4 pg (25.0-35.0); MCHC 35.5 g/dL (31.0-37.0); MCV 85.7 fL (80.0-100.0); Mean Platelet Volume 6.5; Platelet Count 152 k/uL (150-450); RBC 5.42 m/uL (4.30-5.90); RDW 13.9 % (11.5-15.5); WBC 7.1 k/uL (3.8-10.6)
[2021-01-09 03:08] LABS: INR 1.1 (<1.2); Partial Thromboplastin Time 68.4 sec (22.0-30.0); Prothrombin Time 11.2 sec (9.0-12.0)
[2021-01-09 03:23] LABS: Calcium 8.5 mg/dL (8.4-10.2); Potassium 3.4 mmol/L (3.5-5.1)
[2021-01-09] MEDS: POTASSIUM CHLORIDE 10 MEQ in WATER FOR INJECTION 1 100ML.BAG IVPB SCH ×3 (03:42→05:56)
[2021-01-09] MEDS ORDERED: POTASSIUM CHLORIDE ER 20 MEQ TAB.ER PO STA (07:39)
[2021-01-09] MEDS: CHOLECALCIFEROL 25 MCG (1000 IU) TABLET PO SCH (08:11)
[2021-01-09] MEDS: ATORVASTATIN 40 MG TAB PO SCH (08:11)
[2021-01-09] MEDS: FUROSEMIDE 40 MG TAB PO SCH ×2 (08:11→16:38)
[2021-01-09] MEDS: lisinopriL 20 MG TAB PO SCH (08:11)
[2021-01-09] MEDS: allopurinoL 100 MG TAB PO SCH (08:11)
[2021-01-09] MEDS: CLOPIDOGREL 75 MG TAB PO SCH (08:11)
[2021-01-09] MEDS: amLODIPine 5 MG TAB PO SCH (08:12)
[2021-01-09] MEDS: ASPIRIN 81 MG PO SCH (08:12)
[2021-01-09] MEDS ORDERED: FUROSEMIDE 40 MG TAB PO SCH (09:00)
--- NOTE | 2021-01-09 10:39 | P.PN ---
Subjective Progress Note Date: 01/09/21 HISTORY OF PRESENT ILLNESS: This is a 70-year-old male with a past medical history significant for hypertension, congestive heart failure, TIA, and alcohol abuse. Patient follows in the office with Dr. Quach. We have been asked to see the patient in consultation for chest pain. Patient examined at the bedside. Patient states over the past 1-2 weeks he has been having increased shortness of breath. He denies having shortness of breath at rest. He states this is only with ex ertion. Patient has a history of congestive heart failure. Patient states he has been compliant with his medications. He denies any increased salt intake. Patient states yesterday he was taking the garbage out the road and on his way back to the house he began having chest pressure. He denies any radiation of the pain. He denies nausea or diaphoresis. Patient states the pain lasted for approximately an hour and then he decided to come to the emergency room. He states the pain resolved approximately 2-3 hours after he was in the ER. Patient denies any pain with chest wall palpation. He does report increased pain with deep inspiration. Patient does appear to be SOB when attempting to sit up in bed. Patient denies nicotine use, marijuana use, or drug use. Patient does have a history of alcohol abuse. Patient states he has been sober for approximately 3 months. EKG reveals sinus mechanism with no signs of acute ischemia Chest xray negative for acute process Laboratory data: WBC 6.8. Hemoglobin 16.4. Platelet count 162. Sodium 137. Potassium 3.7. BUN 13. Creatinine 1.04. Magnesium 1.9. Troponin negative 3. Current home cardiac medications include lisinopril 20 mg daily, Norvasc 7.5 mg daily, Lasix 40 mg daily, Plavix 75 mg daily, and Lipitor 40 mg daily Most recent echocardiogram obtained in March 2020 reveals ejection fraction 55-60%, mild aortic regurgitation and trace tricuspid regurgitation Patient underwent dobutamine stress echo in July 2019 which was negative for ischemia 01/09/2021 Patient underwent stress test on 01/07/2021 which was abnormal. Patient underwent cardiac cath yesterday with Dr. Garcia revealing mild nonobstructive coronary artery disease and low LVEDP of 3. Patients lasix has been transitioned to oral. Patient went into afib yesterday. He was started on IV heparin. Rates are controlled. Echo completed reveals EF 50-55%. PHYSICAL EXAM: VITAL SIGNS: Reviewed. GENERAL: Well-developed in no acute distress. HEENT: Head is normocephalic. Pupils are equal, round. Sclerae anicteric. Mucous membranes of the mouth are moist. Neck supple. No JVD or thyromegaly LUNGS: Respirations even and unlabored. Lungs essentially clear to auscultation bilaterally. HEART: Irregular rate and rhythm. S1 and S2 heard. ABDOMEN: Soft. Nondistended. Nontender. EXTREMITIES: Normal range of motion. No clubbing or cyanosis. Peripheral pulses intact. No lower extremity edema. Right radial cath site with pulse present. NEUROLOGIC: Awake and alert. Oriented x 3. ASSESSMENT: Chest pain, troponins negative 3, acute coronary syndrome ruled out Chronic diastolic congestive heart failure with possible mild exacerbation despite normal BNP New onset atrial fibrillation with controlled ventricular rates Hypertension Hyperlipidemia Alcohol abuse Obesity BMI 40.8 PLAN: Continue current cardiac medications Continue IV heparin. Check coverage for Eliquis. Check TSH Add metoprolol succinate for 12.5 mg daily Further recommendations pending patient course Nurse practitioner note has been reviewed by physician. Signing provider agrees with the documented findings, assessment, and plan of care. Objective - Vital Signs Vital signs: Vital Signs Temp 96.3 F L 01/09/21 08:00 Pulse 94 01/09/21 08:00 Resp 16 01/09/21 08:00 BP 123/76 01/09/21 08:00 Pulse Ox 95 01/09/21 08:00 Intake & Output 01/08/21 01/09/21 01/09/21 18:59 06:59 18:59 Intake Total 510 301.161 240 Output Total 1400 250 Balance -890 51.161 240 Weight 110.4 kg Intake: IV 50 Intake, IV Titration 61.161 Amount Heparin Sod,Pork in 0.45% 61.161 NaCl 25,000 unit In 0.45 % NaCl 1 250ml.bag @ 9. 157 UNITS/KG/HR 9.999 mls /hr IV .Q24H [facility] Rx#: [id number] Oral 460 240 240 Output: Urine 1400 250 Other: Voiding Method Urinal Urinal # Voids 1 - Labs CBC & Chem 7: 01/09/21 02:35 01/09/21 08:56 Labs: Abnormal Lab Results - Last 24 Hours (Table) 01/09/21 01/09/21 01/09/21 Range/Units 02:35 02:35 08:56 APTT 68.4 H 41.9 H (22.0-30.0) sec Sodium 136 L (137-145) mmol/L Potassium 3.4 L (3.5-5.1) mmol/L
[2021-01-09] MEDS: METOPROLOL SUCCINATE (ER) 25 MG TAB.ER.24H PO SCH (12:28)
[2021-01-09] MEDS: APIXABAN 5 MG TAB PO SCH ×2 (12:29→20:23)
--- NOTE | 2021-01-09 14:02 | P.PN ---
Subjective Progress Note Date: 01/09/21 Hospital course: Patient is a 70-year-old male with a past medical history of coronary artery disease, congestive heart failure, hypertension, hyperlipidemia, and previous TIA whom presented to the hospital on 01/05/21 with a chief complaint of chest pain/pressure accompanied by shortness of breath in which patient reports worsened with exertion. Patient was admitted under our services with consultation to cardiology. EKG completed showing normal sinus rhythm at 68 bpm with no noted signs of acute ischemia. Troponins were trended 3 and negative at < 0.012. Echocardiogram was completed revealing an ejection fraction of 50- 55%. Lexiscan stress test reported to reveal an abnormal low ventricular ejection fraction difficult to exclude prior infarct suggestive of possible anterior septal left ventricular myocardial pharmacologically induced ischemia. Cardiac cath completed with findings reported as patient having mild nonobstructive coronary artery disease with a low LVEDP with recommendations of medical management and follow-up. Patient was taken off of IV Lasix and started on oral Lasix at this time. Overnight, patient went into atrial fibrillation and was started on anticoagulation with heparin infusion and to be transitioned to oral anticoagulant. Physical exam: Patient was seen and fully evaluated at bedside this morning. Overnight, patient went into atrial fibrillation and was started on anticoagulation with heparin infusion and to be transitioned to oral anticoagulant. Patient current ly denies having any chest pain or discomfort, palpitations, shortness of breath, or experiencing any other complaints or needs at this time. General: non toxic, no distress, appears at stated age Derm: warm, dry Head: atraumatic, normocephalic, symmetric Eyes: EOMI, no lid lag, anicteric sclera Mouth: no lip lesion, mucus membranes moist Cardiovascular: S1S2 reg, no murmur, gallop, or rub. Positive posterior tibial pulses bilaterally. Cap refill less than 2 seconds. Lungs: Respirations even, regular, and unlabored. Lungs CTA bilaterally with no wheezes, rhonchi, or rales noted. No accessory muscle use. Abdominal: Soft, nontender to palpation, no guarding, no appreciable organomegaly Ext: no gross muscle atrophy, no edema, no contractures Neuro: GCS 15. CN II-XI grossly intact, no focal neuro deficits Psych: Alert, oriented, appropriate affect Plan of care: Chest pain/pressure, acute coronary event ruled out -EKG completed showing normal sinus rhythm at 68 bpm with no noted signs of acute ischemia. -Troponins were trended 3 and negative at < 0.012. -Echocardiogram was completed revealing an ejection fraction of 50-55%. -Lexiscan stress test reported to reveal an abnormal low ventricular ejection fraction difficult to exclude prior infarct suggestive of possible anterior septal left ventricular myocardial pharmacologically induced ischemia. -Cardiac cath completed with findings reported as patient having mild nonobstructive coronary artery disease with a low LVEDP with recommendations of medical management and follow-up. Patient being taken off of IV Lasix and started on oral Lasix at this time. Per cardiology patient clear for discharge tomorrow a.m. -Cardiology following. -Telemetry monitoring. -Continue aspirin, atorvastatin, Plavix, and amlodipine. New-onset Atrial fibrillation -Anticoagulation with heparin to be transitioned over to oral Eliquis Hypertension -Monitor vital signs and continue daily medication management with amlodipine and lisinopril. Hyperlipidemia -Continue daily medication regimen with atorvastatin 40 mg nightly. -Heart healthy diet. CODE STATUS: Full code DVT prophylaxis: Heparin Discussed with: Patient, pt's Sujata Dunne and RN Anticipated discharge date: Tomorrow morning Anticipated discharge place: Home A total of 45 minutes was spent on the care of this complex patient more than 50% of the time was spent in counseling and care coordination. Objective - Vital Signs Vital signs: Vital Signs Temp 96.3 F L 01/09/21 08:00 Pulse 94 01/09/21 08:00 Resp 16 01/09/21 08:00 BP 123/76 01/09/21 08:00 Pulse Ox 95 01/09/21 08:00 Intake & Output 01/08/21 01/09/21 01/09/21 18:59 06:59 18:59 Intake Total 510 301.161 240 Output Total 1400 250 Balance -890 51.161 240 Weight 110.4 kg Intake: IV 50 Intake, IV Titration 61.161 Amount Heparin Sod,Pork in 0.45% 61.161 NaCl 25,000 unit In 0.45 % NaCl 1 250ml.bag @ 9. 157 UNITS/KG/HR 9.999 mls /hr IV .Q24H [facility] Rx#: [id number] Oral 460 240 240 Output: Urine 1400 250 Other: Voiding Method Urinal Urinal Urinal # Voids 1 - Labs CBC & Chem 7: 01/09/21 02:35 01/09/21 08:56 Labs: Abnormal Lab Results - Last 24 Hours (Table) 01/09/21 01/09/21 01/09/21 Range/Units 02:35 02:35 08:56 APTT 68.4 H 41.9 H (22.0-30.0) sec Sodium 136 L (137-145) mmol/L Potassium 3.4 L (3.5-5.1) mmol/L
[2021-01-09] MEDS: ESCITALOPRAM 20 MG TAB PO SCH (20:23)
[2021-01-10] MEDS: ATORVASTATIN 40 MG TAB PO SCH (09:31)
[2021-01-10] MEDS: APIXABAN 5 MG TAB PO SCH (09:31)
[2021-01-10] MEDS: allopurinoL 100 MG TAB PO SCH (09:31)
[2021-01-10] MEDS: CLOPIDOGREL 75 MG TAB PO SCH (09:31)
[2021-01-10] MEDS: CHOLECALCIFEROL 25 MCG (1000 IU) TABLET PO SCH (09:31)
[2021-01-10] MEDS: lisinopriL 20 MG TAB PO SCH (09:31)
[2021-01-10] MEDS: FUROSEMIDE 40 MG TAB PO SCH (09:31)
[2021-01-10] MEDS: amLODIPine 5 MG TAB PO SCH (09:31)
[2021-01-10] MEDS: METOPROLOL SUCCINATE (ER) 25 MG TAB.ER.24H PO SCH (09:31)
[2021-01-10 10:52] VITALS: TEMP 98.1
[2021-01-10 13:10] VITALS: BP 117/71; PULSE 60
--- NOTE | 2021-01-10 14:35 | P.PN ---
Subjective Progress Note Date: 01/10/21 HISTORY OF PRESENT ILLNESS: This is a 70-year-old male with a past medical history significant for hypertension, congestive heart failure, TIA, and alcohol abuse. Patient follows in the office with Dr. Quach. We have been asked to see the patient in consultation for chest pain. Patient examined at the bedside. Patient states over the past 1-2 weeks he has been having increased shortness of breath. He denies having shortness of breath at rest. He states this is only with ex ertion. Patient has a history of congestive heart failure. Patient states he has been compliant with his medications. He denies any increased salt intake. Patient states yesterday he was taking the garbage out the road and on his way back to the house he began having chest pressure. He denies any radiation of the pain. He denies nausea or diaphoresis. Patient states the pain lasted for approximately an hour and then he decided to come to the emergency room. He states the pain resolved approximately 2-3 hours after he was in the ER. Patient denies any pain with chest wall palpation. He does report increased pain with deep inspiration. Patient does appear to be SOB when attempting to sit up in bed. Patient denies nicotine use, marijuana use, or drug use. Patient does have a history of alcohol abuse. Patient states he has been sober for approximately 3 months. EKG reveals sinus mechanism with no signs of acute ischemia Chest xray negative for acute process Laboratory data: WBC 6.8. Hemoglobin 16.4. Platelet count 162. Sodium 137. Potassium 3.7. BUN 13. Creatinine 1.04. Magnesium 1.9. Troponin negative 3. Current home cardiac medications include lisinopril 20 mg daily, Norvasc 7.5 mg daily, Lasix 40 mg daily, Plavix 75 mg daily, and Lipitor 40 mg daily Most recent echocardiogram obtained in March 2020 reveals ejection fraction 55-60%, mild aortic regurgitation and trace tricuspid regurgitation Patient underwent dobutamine stress echo in July 2019 which was negative for ischemia 01/09/2021 Patient underwent stress test on 01/07/2021 which was abnormal. Patient underwent cardiac cath yesterday with Dr. Garcia revealing mild nonobstructive coronary artery disease and low LVEDP of 3. Patients lasix has been transitioned to oral. Patient went into afib yesterday. He was started on IV heparin. Rates are controlled. Echo completed reveals EF 50-55%. 01/10/2021 Patient examined this morning at the bedside. Patient denies chest pain or pressure. He denies shortness of breath. Telemetry reveals sinus mechanism. Patient has been started on Eliquis. Vital signs are stable PHYSICAL EXAM: VITAL SIGNS: Reviewed. GENERAL: Well-developed in no acute distress. HEENT: Head is normocephalic. Pupils are equal, round. Sclerae anicteric. Mucous membranes of the mouth are moist. Neck supple. No JVD or thyromegaly LUNGS: Respirations even and unlabored. Lungs essentially clear to auscultation bilaterally. HEART: regular rate and rhythm. S1 and S2 heard. ABDOMEN: Soft. Nondistended. Nontender. EXTREMITIES: Normal range of motion. No clubbing or cyanosis. Peripheral pulses intact. No lower extremity edema. Right radial cath site with pulse present. NEUROLOGIC: Awake and alert. Oriented x 3. ASSESSMENT: Chest pain, troponins negative 3, acute coronary syndrome ruled out Chronic diastolic congestive heart failure with possible mild exacerbation despite normal BNP New onset atrial fibrillation with controlled ventricular rates Hypertension Hyperlipidemia Alcohol abuse Obesity BMI 40.8 PLAN: Continue current cardiac medications Continue anti-coagulation with Eliquis Patient is stable for discharge home today We'll sign off. Please reconsult if needed. Nurse practitioner note has been reviewed by physician. Signing provider agrees with the documented findings, assessment, and plan of care. Objective - Vital Signs Vital signs: Vital Signs Temp 98.1 F 01/10/21 08:00 Pulse 60 01/10/21 12:00 Resp 16 01/10/21 03:31 BP 117/71 01/10/21 12:00 Pulse Ox 96 01/10/21 12:00 Intake & Output 01/09/21 01/10/21 01/10/21 18:59 06:59 18:59 Intake Total 720 900 Output Total 300 Balance 420 900 Weight 110.9 kg Intake: Oral 720 900 Output: Urine 300 Other: Voiding Method Urinal # Voids 1 # Bowel Movements 1 - Labs CBC & Chem 7: 01/09/21 02:35 01/09/21 08:56
--- NOTE | 2021-01-10 14:52 | P.DS ---
<Sherwin Garcia - Last Filed: 01/10/21 14:31> Providers Expected date of discharge: 01/10/21 Hospital Course: Discharge Diagnosis: Chest pain/pressure, acute coronary event ruled out New-onset Atrial fibrillation Hypertension Hyperlipidemia History of CAD History of TIA Chronic Diastolic heart failure Hospital Course: Patient is a 70-year-old male with a past medical history of coronary artery disease, diastolic congestive heart failure, hypertension, hyperlipidemia, and previous TIA whom presented to the hospital on 01/05/21 with a chief complaint of chest pain/pressure accompanied by shortness of breath in which patient reports worsened with exertion. Patient was admitted under our services with consultation to cardiology. EKG completed showing normal sinus rhythm at 68 bpm with no noted signs of acute ischemia. Troponins were trended 3 and negative at < 0.012. Echocardiogram was completed revealing an ejection fraction of 50- 55%. Lexiscan stress test reported to reveal an abnormal low ventricular ejection fraction difficult to exclude prior infarct suggestive of possible anterior septal left ventricular myocardial pharmacologically induced ischemia. Cardiac cath completed with findings reported as patient having mild nonobstructive coronary artery disease with a low LVEDP with recommendations of medical management and follow-up. Patient was taken off of IV Lasix and started on oral Lasix at this time. Overnight on 01/08/21, patient went into atrial fibrillation and was started on anticoagulation with heparin infusion and has since been transitioned over to oral anticoagulation with Eliquis. patient cleared by cardiology for discharge home and is medically clear for discharge home at this time. Patient instructed to follow-up with PCP Dr. Villalobos in the next couple of days and was scheduled for follow-up appointment for cardiology with Dr. Quach on 01/15/21. Physical exam: Patient was seen and fully evaluated at bedside this morning. he reports feeling well and ready to go home. He denied having any headache, lightheadedness, dizziness, chest pain or discomfort, palpitations, shortness of breath, nausea, numbness/tingling/weakness in extremities or experiencing any other complaints or needs at this time. Discharge instructions given and all questions answered at this time. General: non toxic, no distress, appears at stated age Derm: warm, dry Head: atraumatic, normocephalic, symmetric Eyes: EOMI, no lid lag, anicteric sclera Mouth: no lip lesion, mucus membranes moist Cardiovascular: S1S2 reg, no murmur, gallop, or rub. Positive posterior tibial pulses bilaterally. Cap refill less than 2 seconds. Lungs: Respirations even, regular, and unlabored. Lungs CTA bilaterally with no wheezes, rhonchi, or rales noted. No accessory muscle use. Abdominal: Soft, nontender to palpation, no guarding, no appreciable organomegaly Ext: no gross muscle atrophy, no edema, no contractures Neuro: GCS 15. CN II-XI grossly intact, no focal neuro deficits Psych: Alert, oriented, appropriate affect A total of 45 minutes of time were spent preparing this complex discharge summary. Patient Condition at Discharge: Fair Plan - Discharge Summary Discharge Rx Participant: No New Discharge Prescriptions: New Apixaban [Eliquis] 5 mg PO BID #60 tab Furosemide [Lasix] 40 mg PO BID@0900,1600 30 Days #60 tab Metoprolol Succinate (ER) [Toprol XL] 12.5 mg PO DAILY 60 Days #30 tab.er.24h Continue allopurinoL [Zyloprim] 100 mg PO DAILY lisinopriL [Zestril] 20 mg PO DAILY Escitalopram [Lexapro] 20 mg PO HS Atorvastatin [Lipitor] 40 mg PO DAILY Clopidogrel [Plavix] 75 mg PO DAILY #30 tablet amLODIPine [Norvasc] 7.5 mg PO DAILY Cholecalciferol (Vitamin D3) [Vitamin D3 (5000 Iu)] 125 mcg PO DAILY Discontinued Furosemide [Lasix] 40 mg PO DAILY Discharge Medication List allopurinoL [Zyloprim] 100 mg PO DAILY 03/06/16 [History] lisinopriL [Zestril] 20 mg PO DAILY 10/23/16 [History] Escitalopram [Lexapro] 20 mg PO HS 05/31/17 [History] Atorvastatin [Lipitor] 40 mg PO DAILY 04/16/20 [History] Clopidogrel [Plavix] 75 mg PO DAILY #30 tablet 04/25/20 [Rx] Cholecalciferol (Vitamin D3) [Vitamin D3 (5000 Iu)] 125 mcg PO DAILY 01/05/21 [History] amLODIPine [Norvasc] 7.5 mg PO DAILY 01/05/21 [History] Apixaban [Eliquis] 5 mg PO BID #60 tab 01/09/21 [Rx] Furosemide [Lasix] 40 mg PO BID@0900,1600 30 Days #60 tab 01/10/21 [Rx] Metoprolol Succinate (ER) [Toprol XL] 12.5 mg PO DAILY 60 Days #30 tab.er.24h 01/10/21 [Rx] Follow up Appointment(s)/Referral(s): Hunter Quach MD [Family Provider] - 01/15/21 9:00 am (Appointment will be at [facility] [employer] office.) Richie Villalobos [Primary Care Provider] - 1-2 days (Please call and schedule appointment when office reopens. ) Ambulatory/Diagnostic Orders: Basic Metabolic Panel [LAB.AMB] Time Frame: 3 Days, Location: None Selected Magnesium [LAB.AMB] Location: None Selected Patient Instructions/Handouts: *Surgery [facility] - After Heart Catheterization - Assistant Program Manager Instructions, A-fib (Atrial Fibrillation) (DC) Activity/Diet/Wound Care/Special Instructions: Activity: As tolerated. Take breaks as needed. Diet: Heart healthy and carb consistent diet. Avoid salt, or foods with hidden salts. Extra salt makes your heart work harder and traps the fluid in your body for longer. Special Instructions: Weigh yourself every morning after you urinate. If you gain 3 pounds overnight or more than 5 pounds in one week, call your primary physician for guidance on your medications. Keep a log of your weights. Take all of your medications as directed, especially your water pills. NEVER skip a dose. And remember to keep all of your doctor's appointments and follow- up as needed. Elevate your legs when you are not up moving around to help with circulation and prevent swelling. Call your physician if you notice any extra swelling in your legs, ankles, feet or abdomen, if you have a new dry cough, if your shortness of breath worsens with activity or at rest, or if you feel more fatigued. You are also being discharged home on a blood thinner, Eliquis. This is very important to take daily as directed until otherwise advised by your resident services coordinator-Dr. Quach. Being that you are being placed on a blood thinner it is very important to watch for any signs of bleeding and notify your doctor immediately if you notice any bleeding. It is also important to remove any trip hazards such as rugs or loose extension cords from your home to prevent unnecessary falls and if you do experience a fall or head injury, it is extremely important to be evaluated by a medical provider immediately to ensure no internal bleeding. Discharge Disposition: HOME SELF-CARE <RoyaEricksonConstance A - Last Filed: 01/10/21 22:07> Providers Date of admission: 01/07/21 08:03 Attending physician: Abigail Hanna MD Consults: 01/05/21 16:00 Consult Physician Urgent Consulting Provider: Nikolas Umanzor Consult Reason/Comments: chest pain Do you want consulting provider notified?: Yes Primary care physician: Richie [facility] Course: Sherwin Garcia NP rendered care for this patient independently, reviewed the findings and plan as documented in the note above. I did not physically speak with or examine the patient on this date.
--- NOTE | 2021-01-20 09:19 | CDI ---
Documentation Clarification Form Date: 01/20/21 From: Ankita Lira Admit Date: 01/07/2021 08:03:00 AM Patient Name: Ahsan Rosado Visit Number: [id number] Discharge Date: 01/10/2021 02:35:00 PM ATTENTION: The Clinical Documentation Specialists (CDI) and [facility] Coding Staff appreciate your assistance in clarifying documentation. Please respond to the clarification below the line at the bottom and electronically sign. The CDI & [facility] Coding staff will review the response and follow-up if needed. Please note: Queries are made part of the Legal Health Record. If you have any questions, please contact the author of this message via ITS. Dr. Constance Pryor, Atrial Fibrillation is documented in progress notes dated 01/09, 01/10 and discharge summary. Additional clarification regarding the type of atrial fibrillation is requested. History/Risk Factors: mild CAD, acute on chronic diastolic CHF, hypertensive heart and CKD w CKD stage 3, obesity Clinical Indicators: He went into a fib on 01/07. EKG/telemetry: atrial fibrillation, Vent rate 63 bpm, QRS duration 82 ms, QT/Qtc 41/421 ms Treatment: IV heparin, Apixaban 5 mg po bid Consults: cardiology - new atrial fibrillation Please clarify the type of atrial fibrillation, if known: [ ] Chronic [ ] Permanent [ X ] Paroxysmal [ ] Persistent [ ] Other, please specify [ ] Unable to determine MTDD
== END 2021-01-10 14:35 | disposition home or self-care (01) | DRG 286 ==
LOC: EC 14:39 → 6NMEDSUR 16:00 → 3SCARD 01-06 03:55 → OBSVTOIN 01-07 08:03 → 3SCARD 01-08 00:19
PROVIDERS: ADMIT Internal Medicine; ATTEND Internal Medicine
PROC: B2111ZZ Fluoroscopy of Multiple Coronary Arteries using Low Osmolar Contrast (ICD-10-PCS; principal; 2021-01-08 07:30)
PROC: 4A023N7 Measurement of Cardiac Sampling and Pressure, Left Heart, Percutaneous Approach (ICD-10-PCS; principal; 2021-01-08 07:30)
DX: I25.10 Atherosclerotic heart disease of native coronary artery without angina pectoris (principal); I50.33 Acute on chronic diastolic (congestive) heart failure; I13.0 Hypertensive heart and chronic kidney disease with heart failure and stage 1 through stage 4 chronic kidney disease, or unspecified chronic kidney disease; Z68.41 Body mass index [BMI] 40.0-44.9, adult; I48.0 Paroxysmal atrial fibrillation; N18.30 Chronic kidney disease, stage 3 unspecified; E66.9 Obesity, unspecified; F32.9 Major depressive disorder, single episode, unspecified; E78.5 Hyperlipidemia, unspecified; M10.9 Gout, unspecified; H91.90 Unspecified hearing loss, unspecified ear; F10.10 Alcohol abuse, uncomplicated; Z79.02 Long term (current) use of antithrombotics/antiplatelets; Z79.899 Other long term (current) drug therapy; Z85.828 Personal history of other malignant neoplasm of skin; Z85.46 Personal history of malignant neoplasm of prostate; Z86.73 Personal history of transient ischemic attack (TIA), and cerebral infarction without residual deficits; Z87.01 Personal history of pneumonia (recurrent); Z92.3 Personal history of irradiation; Z90.49 Acquired absence of other specified parts of digestive tract; Z87.19 Personal history of other diseases of the digestive system; Z86.2 Personal history of diseases of the blood and blood-forming organs and certain disorders involving the immune mechanism; Z91.5 Personal history of self-harm; Z98.890 Other specified postprocedural states; Z88.6 Allergy status to analgesic agent; Z88.1 Allergy status to other antibiotic agents; Z88.8 Allergy status to other drugs, medicaments and biological substances; Z80.8 Family history of malignant neoplasm of other organs or systems; Z80.3 Family history of malignant neoplasm of breast
CPT/HCPCS: 36415; 71045; 78452; 80048; 80053; 80061; 83735; 83880; 84132; 84443; 84484; 85025; 85027; 85610; 85652; 85730; 93005; 93017; 93306; 93458; 99285

== ENCOUNTER → 2021-02-28 | Outpatient (CLI) | payer MEDICARE ==
[2021-02-28 13:27] LABS: HCT 48.9 % (39.0-53.0); HGB 16.5 gm/dL (13.0-17.5); MCH 30.2 pg (25.0-35.0); MCHC 33.6 g/dL (31.0-37.0); MCV 89.9 fL (80.0-100.0); Mean Platelet Volume 6.7; Platelet Count 186 k/uL (150-450); RBC 5.45 m/uL (4.30-5.90); RDW 14.5 % (11.5-15.5); WBC 6.3 k/uL (3.8-10.6)
[2021-02-28 13:33] LABS: Potassium 3.6 mmol/L (3.5-5.1)
== END | disposition home or self-care (01) ==
LOC: LABPAT 11:46
PROVIDERS: ATTEND Internal Medicine Clinical Cardiac Electrophysiology
DX: Z01.812 Encounter for preprocedural laboratory examination (principal); I48.0 Paroxysmal atrial fibrillation
CPT/HCPCS: 80051; 82565; 84520; 85027

== ENCOUNTER 2021-03-13 08:51 | Day surgery (SDC) | payer MEDICARE ==
[2021-03-10 15:31] VITALS: BMI 39.1
[~2021-03-13 08:51] MED LIST changes: -DEXAMETHASONE SOD PHOSPHATE 10 MG/ML 1 ML VIAL IV ONE; -HYDROmorphone 0.5 MG/0.5 ML SYRINGE IVP PRN; -LIDOCAINE 1% 20 ML VIAL (10MG/ML) FOR IV START INTRADERMA PRN; -MIDAZOLAM 2 MG/2 ML VIAL IV PRN; -ONDANSETRON 4 MG/2 ML VIAL IVP ONE; -Pre Op ABX Message 1 EACH MISC MISCELLANE ONE; -SCOPOLAMINE 1.5MG/72HR PATCH TRANSDERM ONE; +SODIUM CHLORIDE 0.9% 1,000 ML IV SCH
[2021-03-13] MEDS ORDERED: SODIUM CHLORIDE 0.9% 1,000 ML IV ONE (09:10)
[2021-03-13] MEDS ORDERED: LIDOCAINE 1% INJ 10MG/ML (20 ML MDV) ONE ×3 (10:27→14:08)
[2021-03-13] MEDS ORDERED: SUCCINYLCHOLINE CHLORIDE 100 MG/5 ML SYR IV ONE (10:43)
[2021-03-13] MEDS ORDERED: WATER FOR INJECTION, STERILE 10 ML VIAL IV ONE (10:43)
[2021-03-13] MEDS ORDERED: ePHEDrine SULFATE/0.9% NACL/PF 50 MG/5 ML SYRINGE IV ONE (10:43)
[2021-03-13] MEDS ORDERED: PROTAMINE SULFATE 10 MG/ML 5 ML VIAL IV ONE (10:43)
[2021-03-13] MEDS ORDERED: ISOPROTERENOL 250 MCG/1.25 ML SYR IV ONE (10:43)
[2021-03-13] MEDS ORDERED: PROPOFOL 10 MG/ML 20 ML VIAL IV ONE (10:43)
[2021-03-13] MEDS ORDERED: PHENYLEPHRINE-0.9% NACL SYG 1,000 MCG/10 ML SYRINGE ONE (10:43)
[2021-03-13] MEDS ORDERED: fentaNYL (PF) 50 MCG/ML 2 ML AMP ONE (10:43)
[2021-03-13] MEDS ORDERED: MIDAZOLAM 2 MG/2 ML VIAL ONE (10:43)
[2021-03-13] MEDS ORDERED: HEPARIN SODIUM,PORCINE 10,000 UNIT/ML 1 ML VIAL ONE (10:43)
[2021-03-13] MEDS ORDERED: HEPARIN SOD,PORK IN 0.45% NACL 25,000 UNIT in 0.45% NACL 1 250ML.BAG IV ONE (11:26)
[2021-03-13] MEDS ORDERED: LIDOCAINE 1% INJ 10MG/ML (20 ML MDV) SQ ONE (11:27)
[2021-03-13] MEDS ORDERED: IOPAMIDOL-250 100ML BTL IV ONE (13:01)
[2021-03-13] MEDS ORDERED: ACETAMINOPHEN TAB 325 MG TAB PO PRN (13:31)
[2021-03-13] MEDS ORDERED: ACETAMINOPHEN IV (For NPO) 1,000 MG in EMPTY BAG 1 BAG IVPB ONE (13:31)
--- NOTE | 2021-03-13 13:39 | P.HPCAR ---
History of Present Illness This is Dr. Quach dictating an H/P on this patient The patient was interviewed and examined IMPRESSION / ASSESSMENT: Paroxysmal atrial fibrillation, symptomatic Hypertension, essential Carotid atherosclerosis Dyslipidemia Ascending aortic aneurysm Normal coronary arteries Normal LV function PLAN: Pulmonary vein isolation Patient is stable from a cardiovascular standpoint to proceed HPI Patient continues to complain of palpitations and intermittent chest discomfort. He is normal coronary arteries Recently no shortness of breath orthopnea PND He had an abnormal cartilage stress test but coronary angiography revealed nonobstructive coronary artery disease, mild Is found to be in atrial fibrillation on telemetry, paroxysmal LVEDP is normal He has mild nonobstructive CAD ROS: No fever chills or rigors, no cough, phlegm or expectoration, no nausea, vomiting or diarrhea, no hematuria, dysuria, no musculoskeletal complaints, no strokes or seizures, no skin lesions. EXAMINATION: Afebrile 98.4F pulse rate normal in the 80s, breathing normal Blood pressure 122/79 mmHg Pulse ox 96% room air Breath sounds are clear no rhonchi no crackles [place]. Irregular heart sounds murmur gallop Abdomen is soft nontender Groins are normal No lower extremity edema BMI 39 REVIEW OF LABS, ECG & MEDICAL DATA Coronavirus PCR nondetectable Physical Exam Vitals: Vital Signs Temp Pulse Resp BP Pulse Ox 03/13/21 09:29 98.4 F 81 16 122/79 96 Intake and Output 03/12/21 03/13/21 03/13/21 22:59 06:59 14:59 Intake Total 952 Balance 952 Intake: IV 952 Other: Weight 106.5 kg Past Medical History Past Medical History: Atrial Fibrillation, Cancer, Heart Failure, CVA/TIA, GI Bleed, Hyperlipidemia, Hypertension, Prostate Disorder Additional Past Medical History / Comment(s): hx prostate ca 2009/radiation tx ,TIA 2014, SLIGHTLY ENLARGED HEART", GOUT, Small bowel obstruction in February 2016, hx anemia, [place] with use of a hearing aid, skin cancer s/p removal History of Any Multi-Drug Resistant Organisms: None Reported Past Surgical History: Bowel Resection, Cholecystectomy, Heart Catheterization, Hernia Repair Additional Past Surgical History / Comment(s): omphalocele repair as infant, 2 BOWEL RESECTIONS for bleeding, polyp removed from left ear, COLONOSCOPY Past Anesthesia/Blood Transfusion Reactions: No Reported Reaction Additional Past Anesthesia/Blood Transfusion Reaction / Comment(s): . Smoking Status: Never smoker - Past Family History Father Family Medical History: Cancer Additional Family Medical History / Comment(s): oral CA.. Mother Family Medical History: Cancer Additional Family Medical History / Comment(s): breast CA. Physical Examination Vital Signs Temp Pulse Resp BP Pulse Ox 03/13/21 09:29 98.4 F 81 16 122/79 96 Intake and Output 03/12/21 03/13/21 03/13/21 22:59 06:59 14:59 Intake Total 952 Balance 952 Intake: IV 952 Other: Weight 106.5 kg Results Current Medications Generic Name Dose Route Start Last Admin Trade Name Freq PRN Reason Stop Dose Admin Acetaminophen 650 mg 03/13/21 13:31 Acetaminophen Tab 325 Mg Tab PO Q6HR PRN Mild Pain Amlodipine Besylate 7.5 mg 03/14/21 09:00 Amlodipine 5 Mg Tab PO DAILY KELVIN Apixaban 5 mg 03/13/21 21:00 Apixaban 5 Mg Tab PO BID KELVIN Protocol Atorvastatin Calcium 40 mg 03/14/21 09:00 Atorvastatin 40 Mg Tab PO DAILY [facility] Clopidogrel Bisulfate 75 mg 03/14/21 09:00 Clopidogrel 75 Mg Tab PO DAILY KELVIN Escitalopram Oxalate 20 mg 03/13/21 21:00 Escitalopram 20 Mg Tab PO HS KELVIN Furosemide 40 mg 03/13/21 16:00 Furosemide 40 Mg Tab PO BID@0900,1600 KELVIN Acetaminophen 1,000 mg/ IV 100 mls @ 400 mls/hr 03/13/21 13:31 Solution IVPB 03/13/21 13:45 ONCE ONE Lisinopril 20 mg 03/14/21 09:00 Lisinopril 20 Mg Tab PO DAILY KELVIN Metoprolol Succinate 12.5 mg 03/14/21 09:00 Metoprolol Succinate (Er) 25 Mg Tab.Er.24h PO DAILY KELVIN Sodium Chloride 12 ml 03/13/21 21:00 Sodium Chloride 0.9% Flush 10 Ml Syringe IV Q12HR KELVIN Intake and Output 03/12/21 03/13/21 03/13/21 22:59 06:59 14:59 Intake Total 952 Balance 952 Intake: IV 952 Other: Weight 106.5 kg Patient Weight 03/14/21 06:59 Weight 106.5 kg
--- NOTE | 2021-03-13 13:40 | P.PRLE ---
RE: Ahsan Rosado Dear Dr. Elier Foreman underwent pulmonary vein isolation for management of atrial fibrillation His blood pressure is well controlled, his LDL is closest 50 mrem per deciliter He will continue ELIQUIS and all his cardiac medications unchanged at this time I last him to abstain from alcohol use He should also lose weight since his BMI is close to 40 Thank you for entrusting me with the care of the patient Warm regards Sincerely Hunter Quach
--- NOTE | 2021-03-13 13:52 | P.EPPROC ---
- EP Procedure Note Electrophysiology Procedure Note: PROCEDURE A. fib ablation DIAGNOSIS Atrial fibrillation, symptomatic, refractory to therapy, paroxysmal Hypertension BMI 39 Dyslipidemia Mild nonobstructive CAD Mild aortic ascending aneurysm RESULT No left atrial appendage mass seen on intracardiac echo Successful A. fib ablation/pulmonary vein isolation of all veins using cryo- ablation Complete entrance block in all 4 veins confirmed No evidence for phrenic nerve injury Esophageal deflection YES PROCEDURE DETAILS Patient was brought to the EP lab in a fasting state. Written informed consent was obtained prior to the procedure. Procedure performed under general anesthesia After initial muscle relaxant use, muscle relaxants were not given thereafter in order to assess phrenic nerve during procedure. Patient prepped and draped as per protocol Full cryo-set up with standard preparation of the cryoablation tools done. Femoral Venous access obtained on the right and left groins Venous and arterial Sheaths placed. Diagnostic catheters for the high right atrium, phrenic nerve stimulation and pacing, His bundle, RV and coronary sinus placed Intracardiac echo catheter placed. Long sheath placed in the right atrium Left and right transseptal catheterization performed under intracardiac echo guidance. Intravenous heparin with aCT above 300 Later, catheter positioning and balloon positioning in the left atrium, under intracardiac echo guidance Diagnostic EP study with Drug infusion Coronary sinus pacing and recording Baseline measurements HV interval 70, AH 63 Sinus cycle length 06/28/2003 milliseconds, OH interval 142 ms AV node Wenckebach block for 430 ms Burst stimulation from 400 ms down to 300 ms High-dose Isuprel used Atrial pacing performed from the high right atrium and the coronary sinus Transseptal catheterization performed RA pressure 12/6/9 LA pressure 24/6/13 Transseptal catheterization performed with standard sheath. The cryoablation sheath was then placed with an over the wire exchange without any acute complications. All 4 pulmonary veins were isolated in the following sequence: Left superior followed by left inferior followed by right superior followed by right inferior The cryo-ablation balloon was placed at the os of each vein 1.5 mL of IV dye was injected to confirm an occluded vein Goal during cryoablation was to achieve complete occlusion of the pulmonary vein, achieve -30 degrees C at 30 seconds and achieve -40 degrees C at 60 seconds and a time to effect of less than 60-90 seconds, . If not the balloon was repositioned to obtain this result After completion of Cryoblation with durations from 180-240 seconds, entrance block was confirmed with the Attain circular catheter in a roving fashion around the antrum of the pulmonary veins Phrenic nerve pacing was performed from the SVC, right innominate vein area and diaphragm voltage was monitored. Diaphragmatic contractions were also monitored manually for strength of contraction. Parameter goals for each cryo freeze Complete occlusion of the appropriate vein -30 degrees C by 30 seconds -40 degrees C by 60 seconds Minimum between minus 40-55 degrees C Thaw time greater than 10 seconds Balloon visualized by intracardiac echo The esophagus was intubated. Esophageal Temperature monitoring with a CIRCA catheter formed. Esophageal deflection for hypothermia of the esophagus below 30 degrees C Left superior pulmonary vein Complete isolation, entrance block Left inferior pulmonary vein Complete isolation, entrance block Right superior pulmonary vein, during phrenic nerve pacing Complete isolation, entrance block Right inferior pulmonary vein, during phrenic nerve pacing Complete isolation, entrance block At the end of the procedure the Achieve catheter was once again used to check for entrance block Phrenic nerve stimulation was performed to confirm diaphragmatic stimulation the end of the procedure Cine fluoroscopy was performed at the very end of the procedure to confirm movement of both diaphragms with inspiration and expiration At the end of the procedure the patient was extubated Heparin was reversed Venous sheaths were removed and hemostasis assured PROCEDURES PERFORMED Diagnostic EP study CS pacing and recording Left and right transseptal catheterization Catheter the mapping of the tachycardia (NOT 3D mapping) Intracardiac echocardiography Pulmonary vein isolation with transseptal and comprehensive EPS, [id number] Drug Infusion [id number]
[2021-03-13] MEDS: FUROSEMIDE 40 MG TAB PO SCH (15:41)
[2021-03-13] MEDS: APIXABAN 5 MG TAB PO SCH (20:31)
[2021-03-13] MEDS ORDERED: ESCITALOPRAM 20 MG TAB PO SCH (21:00)
[2021-03-14 08:15] VITALS: RESP 16; TEMP 98.3
[2021-03-14] MEDS: APIXABAN 5 MG TAB PO SCH (08:16)
[2021-03-14] MEDS: FUROSEMIDE 40 MG TAB PO SCH (08:17)
[2021-03-14] MEDS ORDERED: METOPROLOL SUCCINATE (ER) 25 MG TAB.ER.24H PO SCH (09:00)
[2021-03-14] MEDS ORDERED: ATORVASTATIN 40 MG TAB PO SCH (09:00)
[2021-03-14] MEDS ORDERED: amLODIPine 2.5 MG TAB PO SCH (09:00)
[2021-03-14] MEDS ORDERED: CLOPIDOGREL 75 MG TAB PO SCH (09:00)
[2021-03-14] MEDS ORDERED: lisinopriL 20 MG TAB PO SCH (09:00)
[2021-03-14 10:18] VITALS: PULSE 73
[2021-03-14 10:58] VITALS: BP 110/78
--- NOTE | 2021-03-14 11:13 | DS ---
DISCHARGE SUMMARY Ahsan Rosado is a 70-year-old male patient with paroxysmal atrial fibrillation and central obesity who underwent atrial fibrillation ablation yesterday. He has paroxysmal atrial fibrillation. He underwent cryoablation of the pulmonary veins successfully. Thereafter at EP study we could not induce any further atrial fibrillation. This morning he is doing well. He has mild discomfort in the throat and very minimal discomfort in the chest, only when he takes a very deep breath. Otherwise, he looks very comfortable, lying flat in bed. No orthopnea, no PND. Heart sounds: S1, S2 are normal. Breath sounds are clear. No rhonchi. No crackles. His groins have healed well. No hematoma. No lower extremity edema. His vitals are stable. EKG is normal. Rhythm is normal. IMPRESSION: 1. Paroxysmal atrial fibrillation, symptomatic. 2. Status post cryoablation of the pulmonary veins. 3. Central obesity. PLAN: Continue anticoagulation. Continue cardiac medications. Follow up with Dr. Quach in a week. MMODL / IJN: [id number] /
== END 2021-03-14 14:21 | disposition home or self-care (01) ==
LOC: CATHEP 08:51 → 6NMEDSUR 13:08 → CATHEP 03-14 14:21
PROVIDERS: ATTEND Internal Medicine Clinical Cardiac Electrophysiology
DX: I48.0 Paroxysmal atrial fibrillation (principal); I11.0 Hypertensive heart disease with heart failure; I50.9 Heart failure, unspecified; E78.5 Hyperlipidemia, unspecified; I25.10 Atherosclerotic heart disease of native coronary artery without angina pectoris; I71.2 Thoracic aortic aneurysm, without rupture; Z79.01 Long term (current) use of anticoagulants; Z79.899 Other long term (current) drug therapy; Z80.3 Family history of malignant neoplasm of breast; Z85.46 Personal history of malignant neoplasm of prostate; Z85.828 Personal history of other malignant neoplasm of skin; Z86.73 Personal history of transient ischemic attack (TIA), and cerebral infarction without residual deficits; Z90.49 Acquired absence of other specified parts of digestive tract
CPT/HCPCS: 93623; 93662; 93609; 93656; 87635; C1894 ×2; C1769 ×4; C1760; C1730 ×2; C1759; C1893; C1733; C1766; J2250; J2720; J1644 ×2; J2001; J3010; J2370; J0330; J2704; Q9966

== ENCOUNTER 2021-05-20 10:29 | Inpatient (IN) | payer MEDICARE ==
[2021-05-20 11:06] LABS: Glucose,Whole Blood 107 mg/dL (75-99)
--- NOTE | 2021-05-20 11:25 | CT ---
EXAMINATION TYPE: CT brain wo con for TPA DATE OF EXAM: 05/20/2021 COMPARISON: 04/23/20 HISTORY: left side facial numbness CT DLP: [address] of the brain was performed. The ventricles, basal cisterns and sulci overlying the cerebral convexities demonstrate mild enlargem ent. There is no evidence for intracranial hemorrhage or sulcal effacement. There is decreased attenuation about the periventricular white matter and deep white matter of both c erebral hemispheres, compatible with chronic small vessel ischemia. Differential diagnosis does inclu de demyelination. No mass effects are seen.No midline shift. Osseous calvarium is intact. If symptoms persist consider MRI. IMPRESSION: 1. Age related atrophic and chronic small vessel ischemic change without acute intracranial process s een at this time.
[2021-05-20 11:34] LABS: Albumin 3.9 g/dL (3.5-5.0); Potassium 3.9 mmol/L (3.5-5.1); Total Bilirubin 1.2 mg/dL (0.2-1.3); Total Protein 6.9 g/dL (6.3-8.2)
--- NOTE | 2021-05-20 11:35 | XR ---
EXAMINATION TYPE: XR chest 2V DATE OF EXAM: 05/20/2021 COMPARISON: Chest x-ray January 05, 2021 and older studies. HISTORY: Left sided facial numbness and pain. TECHNIQUE: Frontal and lateral views of the chest are obtained. FINDINGS: There is no suspicious focal air space opacity, pleural effusion, or pneumothorax seen. Mi ld cardiomegaly remains present. Suspect new mild central vascular congestion. The osseous structur es are intact. IMPRESSION: Mild cardiomegaly with suspected new mild central vascular congestion.
[2021-05-20 11:46] LABS: Basophils % (A) 1 %; Eosinophils # (A) 0.2 k/uL (0-0.7); Eosinophils % (A) 2 %; HCT 50.3 % (39.0-53.0); Lymphocytes # (A) 1.1 k/uL (1.0-4.8); Lymphocytes % (A) 16 %; MCH 29.5 pg (25.0-35.0); MCHC 33.8 g/dL (31.0-37.0); MCV 87.2 fL (80.0-100.0); Mean Platelet Volume 6.9; Monocytes # (A) 0.3 k/uL (0-1.0); Monocytes % (A) 5 %; Neutrophils # (A) 5.1 k/uL (1.3-7.7); Neutrophils % (A) 76 %; Platelet Count 185 k/uL (150-450); RBC 5.77 m/uL (4.30-5.90); RDW 14.1 % (11.5-15.5); WBC 6.8 k/uL (3.8-10.6)
--- NOTE | 2021-05-20 11:46 | CT ---
EXAMINATION TYPE: CT angio head neck DATE OF EXAM: 05/20/2021 HISTORY: left side facial numbness COMPARISON: Prior code stroke CTA one year ago. CT DLP: 605 mGycm. Automated Exposure Control for Dose Reduction was Utilized. TECHNIQUE: CTA scan of the head and neck are performed with IV Contrast, patient injected with 65 mL of Isovue 370, axial images are obtained, coronal and sagittal reformatted images are reviewed. 3D r econstructed images are created on an independent workstation and reviewed. FINDINGS: Carotid/Vascular Structures: Mild plaque aortic arch. Normal three-vessel origin without significant plaque or stenosis. Moderate calcified plaque right carotid bulb level redemonstrated. More moderate to severe calcified plaque left carotid bulb level redemonstrated. No significant stenosis bilaterall y. No significant change from prior. Stenosis approaching 50% on the left is felt present. Patent External carotid arteries bilaterally without significant stenosis. There is dominant left vertebral artery. Both arteries patent to basilar junction. Mild calcified magdalena que along the course of the distal left vertebral artery. Hypoplastic right posterior commuting arter y. Hypoplastic left P1 segment with filling of the P2 segment due to patent left-sided posterior comm unicating artery. Hypoplastic anterior communicating artery. No significant focal stenosis or aneurys m in the posterior anterior circulation. Other: Zles-ao-apnmkyyw disc space narrowing C3-C4 through the C5-C6 levels. Nasal septum redemonstr ated deviated to left of midline. IMPRESSION: No significant stenosis in common or internal carotid arteries bilaterally. No significa nt stenosis or aneurysm at the level of co[place] of [place]. No significant change from most recent CTA. NASCET criteria was used in interpretation of this exam?
[2021-05-20 11:49] LABS: Partial Thromboplastin Time 25.5 sec (22.0-30.0); Prothrombin Time 10.8 sec (9.0-12.0)
[2021-05-20] MEDS ORDERED: ASPIRIN 325 MG TAB PO STA (12:11)
--- NOTE | 2021-05-20 12:18 | ED ---
General Adult HPI - General Chief complaint: Weakness Stated complaint: Facial/Lt Side numbness Time Seen by Provider: 05/20/21 10:48 Source: patient, family, RN notes reviewed, old records reviewed Mode of arrival: wheelchair Limitations: no limitations - History of Present Illness Initial comments: 70-year-old male presenting for evaluation of left-sided facial numbness, left arm and leg numbness and weakness. Onset is at 0 9:15. History of strokes. The patient is on eliquis, with history of atrial fibrillation. He states he has previous symptoms similar to this in the past with no residual deficit. Patient is an activated coats stroke. Is taken immediately to computed tomography scan. He denies any fever. Denies abdominal pain nausea or vomiting. Denies current chest pain. - Related Data Home Medications Medication Instructions Recorded Confirmed allopurinoL [Zyloprim] 100 mg PO DAILY 03/06/16 03/13/21 lisinopriL [Zestril] 20 mg PO DAILY 10/23/16 03/13/21 Escitalopram [Lexapro] 20 mg PO HS 05/31/17 03/13/21 Atorvastatin [Lipitor] 40 mg PO DAILY 04/16/20 03/13/21 Cholecalciferol (Vitamin D3) 125 mcg PO DAILY 01/05/21 03/13/21 [Vitamin D3 (5000 Iu)] amLODIPine [Norvasc] 7.5 mg PO DAILY 01/05/21 03/13/21 Previous Rx's Medication Instructions Recorded Clopidogrel [Plavix] 75 mg PO DAILY #30 tablet 04/25/20 Apixaban [Eliquis] 5 mg PO BID #60 tab 01/09/21 Furosemide [Lasix] 40 mg PO BID@0900,1600 30 Days #60 01/10/21 tab Metoprolol Succinate (ER) [Toprol 12.5 mg PO DAILY 60 Days #30 01/10/21 XL] tab.er.24h Allergies Allergy/AdvReac Type Severity Reaction Status Date / Time erythromycin base AdvReac Nausea & Verified 05/20/21 12:12 Vomiting ibuprofen AdvReac Hx of GI Verified 05/20/21 12:12 Bleed steroids AdvReac Hx of GI Uncoded 05/20/21 10:46 Bleed Review of Systems ROS Statement: Those systems with pertinent positive or pertinent negative responses have been documented in the HPI. ROS Other: All systems not noted in ROS Statement are negative. Past Medical History Past Medical History: Atrial Fibrillation, Cancer, Heart Failure, CVA/TIA, GI Bleed, Hypertension, Pneumonia, Prostate Disorder Additional Past Medical History / Comment(s): hx prostate ca 2009/radiation tx ,TIA 2014, SLIGHTLY ENLARGED HEART", GOUT, Small bowel obstruction in February 2016, hx anemia, [place] with use of a hearing aid, skin cancer s/p removal History of Any Multi-Drug Resistant Organisms: None Reported Past Surgical History: Ablation Additional Past Surgical History / Comment(s): omphalocele repair as , 2 BOWEL RESECTIONS for bleeding, polyp removed from left ear Past Anesthesia/Blood Transfusion Reactions: No Reported Reaction Additional Past Anesthesia/Blood Transfusion Reaction / Comment(s): . Past Psychological History: Depression Smoking Status: Never smoker Past Alcohol Use History: Occasional Past Drug Use History: None Reported - Past Family History Father Family Medical History: Cancer Additional Family Medical History / Comment(s): oral CA.. Mother Family Medical History: Cancer Additional Family Medical History / Comment(s): breast CA. General Exam Limitations: no limitations General appearance: alert, in no apparent distress Head exam: Present: atraumatic, normocephalic Eye exam: Present: normal appearance, PERRL Neck exam: Present: normal inspection Respiratory exam: Present: normal lung sounds bilaterally. Absent: respiratory distress, wheezes Cardiovascular Exam: Present: regular rate, normal rhythm GI/Abdominal exam: Present: soft. Absent: distended, tenderness, guarding Extremities exam: Present: normal inspection, normal capillary refill. Absent: calf tenderness Neurological exam: Present: alert, oriented X3, CN II-XII intact, other (No facial droop, slight left arm drift. Numbness to the left side of the face and left arm. No lower extremity drift.) Psychiatric exam: Present: normal affect, normal mood Skin exam: Present: warm, dry, intact Course Vital Signs 05/20/21 05/20/21 10:39 11:36 Temperature 97.0 F L Pulse Rate 60 60 Respiratory 18 18 Rate Blood Pressure 99/73 103/73 O2 Sat by Pulse 96 96 Oximetry - Reevaluation(s) Reevaluation #1: 05/20/21 12:16 Patient not a TPA candidate given the minimal symptoms and anticoagulation. EKG Findings - EKG Comments: EKG Findings:: EKG: Sinus rhythm with PVC rate of 62, [place] interval 172, QRS duration 90, QTC [address] segment elevation. Medical Decision Making - Medical Decision Making 70-year-old male with left-sided numbness and weakness. Patient has a NIH on my assessment of 3 for left facial numbness, slight left upper extremity drift and left upper extremity numbness. He is not a TPA candidate given the low NIH and history of anticoagulation. He is in sinus rhythm. Head CT is performed which is negative for intracranial hemorrhage or mass effect. CT angiography negative for acute occlusion or stenosis. Patient has normal CBC, normal CMP, negative troponin. He will be admitted to Dr. Hanna, who is aware the patient with neurology on consultation. - Lab Data Result diagrams: 05/20/21 11:04 05/20/21 11:04 Lab Results 05/20/21 05/20/21 05/20/21 Range/Units 11:04 11:04 11:04 WBC 6.8 (3.8-10.6) k/uL RBC 5.77 (4.30-5.90) m/uL Hgb 17.0 (13.0-17.5) gm/dL Hct 50.3 (39.0-53.0) % MCV 87.2 (80.0-100.0) fL MCH 29.5 (25.0-35.0) pg MCHC 33.8 (31.0-37.0) g/dL RDW 14.1 (11.5-15.5) % Plt Count 185 (150-450) k/uL MPV 6.9 Neutrophils % 76 % Lymphocytes % 16 % Monocytes % 5 % Eosinophils % 2 % Basophils % 1 % Neutrophils # 5.1 (1.3-7.7) k/uL Lymphocytes # 1.1 (1.0-4.8) k/uL Monocytes # 0.3 (0-1.0) k/uL Eosinophils # 0.2 (0-0.7) k/uL Basophils # 0.0 (0-0.2) k/uL PT 10.8 (9.0-12.0) sec INR 1.0 (<1.2) APTT 25.5 (22.0-30.0) sec Sodium 137 (137-145) mmol/L Potassium 3.9 (3.5-5.1) mmol/L Chloride 101 (98-107) mmol/L Carbon Dioxide 29 (22-30) mmol/L Anion Gap 7 mmol/L BUN 10 (9-20) mg/dL Creatinine 1.09 (0.66-1.25) mg/dL Est GFR (CKD-EPI)AfAm 79 (>60 ml/min/1.73 sqM) Est GFR (CKD-EPI)NonAf 68 (>60 ml/min/1.73 sqM) Glucose 109 H (74-99) mg/dL POC Glucose (mg/dL) (75-99) mg/dL POC Glu [employer] ID Calcium 9.0 (8.4-10.2) mg/dL Total Bilirubin 1.2 (0.2-1.3) mg/dL AST 19 (17-59) U/L ALT 15 (4-49) U/L Alkaline Phosphatase 107 (38-126) U/L Troponin I (0.000-0.034) ng/mL Total Protein 6.9 (6.3-8.2) g/dL Albumin 3.9 (3.5-5.0) g/dL 05/20/21 05/20/21 Range/Units 11:04 11:04 WBC (3.8-10.6) k/uL RBC (4.30-5.90) m/uL Hgb (13.0-17.5) gm/dL Hct (39.0-53.0) % MCV (80.0-100.0) fL MCH (25.0-35.0) pg MCHC (31.0-37.0) g/dL RDW (11.5-15.5) % Plt Count (150-450) k/uL MPV Neutrophils % % Lymphocytes % % Monocytes % % Eosinophils % % Basophils % % Neutrophils # (1.3-7.7) k/uL Lymphocytes # (1.0-4.8) k/uL Monocytes # (0-1.0) k/uL Eosinophils # (0-0.7) k/uL Basophils # (0-0.2) k/uL PT (9.0-12.0) sec INR (<1.2) APTT (22.0-30.0) sec Sodium (137-145) mmol/L Potassium (3.5-5.1) mmol/L Chloride (98-107) mmol/L Carbon Dioxide (22-30) mmol/L Anion Gap mmol/L BUN (9-20) mg/dL Creatinine (0.66-1.25) mg/dL Est GFR (CKD-EPI)AfAm (>60 ml/min/1.73 sqM) Est GFR (CKD-EPI)NonAf (>60 ml/min/1.73 sqM) Glucose (74-99) mg/dL POC Glucose (mg/dL) 107 H (75-99) mg/dL POC Glu [employer] ID Taisha Rees Calcium (8.4-10.2) mg/dL Total Bilirubin (0.2-1.3) mg/dL AST (17-59) U/L ALT (4-49) U/L Alkaline Phosphatase (38-126) U/L Troponin I <0.012 (0.000-0.034) ng/mL Total Protein (6.3-8.2) g/dL Albumin (3.5-5.0) g/dL Disposition Clinical Impression: TIA (transient ischemic attack), CVA (cerebral vascular accident) Disposition: ADMITTED IP TO THIS [facility] Condition: Stable Is patient prescribed a controlled substance at d/c from ED?: No Referrals: Richie Villalobos [Primary Care Provider] - 1-2 days Decision to Admit Reason: Admit from EC Decision Date: 05/20/21 Decision Time: 12:18
[2021-05-20] MEDS: SODIUM CHLORIDE 0.9% 1,000 ML IV SCH (12:54)
--- NOTE | 2021-05-20 17:31 | P.HPIM ---
History of Present Illness H&P Date: 05/20/21 Chief Complaint: Left sided numbness/weakness 70-year-old man with a medical history of TIA, paroxysmal atrial fibrillation, depression, gout, hyperlipidemia presented with left-sided weakness, numbness. Patient says it started at 9:15 this morning when he noticed left-sided tingling and numbness which progressed to left-sided heaviness of his left upper extremity as well as progressing down to his left lower extremity. Throughout the day, he started to notice that the right side of his face also started to feel numb in a "stretchy" sensation. He did not notice any other issues such as slurring of speech, fevers, chills, nausea, vomiting, chest pain, palpitations, syncope, presyncope, abdominal pain, diarrhea, constipation, cough, dyspnea. He has had these episodes before, and each time they tended to resolve by the time he was evaluated in the emergency room, however, this time he noted that he continues to have symptoms persisting longer than they usually do. He sees a neurologist in clinic who had recommended he obtain an MRI in approximately 1 month to determine the source of multiple TIAs. Notably, patient was recently diagnosed with paroxysmal atrial fibrillation, and was told that this was likely the source of his TIAs. Patient has been on Eliquis consistently and has not missed a dose. Patient's imaging was reviewed in the emergency room and demonstrated chronic changes of micro vascular ischemia, no acute changes. These images included a CT of the head as well as CT angiography of the head and neck. EKG demonstrated normal sinus rhythm with PVCs. Chest x-ray did not demonstrate acute cardiopulmonary pathology. Review of Systems All Systems reviewed and pertinent positives and negatives noted in HPI, all other symptoms are negative Past Medical History Past Medical History: Atrial Fibrillation, Cancer, Heart Failure, CVA/TIA, GI Bleed, Hypertension, Pneumonia, Prostate Disorder Additional Past Medical History / Comment(s): hx prostate ca 2009/radiation tx ,TIA 2014, SLIGHTLY ENLARGED HEART", GOUT, Small bowel obstruction in February 2016, hx anemia, [place]WN[place] with use of a hearing aid, skin cancer s/p removal History of Any Multi-Drug Resistant Organisms: None Reported Past Surgical History: Ablation Additional Past Surgical History / Comment(s): omphalocele repair as , 2 BOWEL RESECTIONS for bleeding, polyp removed from left ear Past Anesthesia/Blood Transfusion Reactions: No Reported Reaction Additional Past Anesthesia/Blood Transfusion Reaction / Comment(s): . Past Psychological History: Depression Smoking Status: Never smoker Past Alcohol Use History: Occasional Past Drug Use History: None Reported - Past Family History Father Family Medical History: Cancer Additional Family Medical History / Comment(s): oral CA.. Mother Family Medical History: Cancer Additional Family Medical History / Comment(s): breast CA. Medications and Allergies Home Medications Medication Instructions Recorded Confirmed Type allopurinoL [Zyloprim] 100 mg PO DAILY 03/06/16 05/20/21 History lisinopriL [Zestril] 20 mg PO DAILY 10/23/16 05/20/21 History Escitalopram [Lexapro] 20 mg PO DAILY 05/31/17 05/20/21 History Atorvastatin [Lipitor] 40 mg PO HS 04/16/20 05/20/21 History Clopidogrel [Plavix] 75 mg PO DAILY #30 tablet 04/25/20 05/20/21 Rx Cholecalciferol (Vitamin D3) 125 mcg PO DAILY 01/05/21 05/20/21 History [Vitamin D3 (5000 Iu)] amLODIPine [Norvasc] 7.5 mg PO DAILY 01/05/21 05/20/21 History Apixaban [Eliquis] 5 mg PO BID #60 tab 01/09/21 05/20/21 Rx Furosemide [Lasix] 40 mg PO BID@0900,1600 30 Days #60 01/10/21 05/20/21 Rx tab Metoprolol Succinate (ER) [Toprol 12.5 mg PO DAILY 60 Days #30 01/10/21 05/20/21 Rx XL] tab.er.24h Cyanocobalamin [Vitamin B-12 1,000 mcg SQ Q60D 05/20/21 05/20/21 History Injection] Omeprazole 40 mg PO DAILY 05/20/21 05/20/21 History Allergies Allergy/AdvReac Type Severity Reaction Status Date / Time erythromycin base AdvReac Nausea & Verified 05/20/21 12:12 Vomiting ibuprofen AdvReac Hx of GI Verified 05/20/21 12:12 Bleed steroids AdvReac Hx of GI Uncoded 05/20/21 10:46 Bleed Physical Exam Osteopathic Statement: *. No significant issues noted on an osteopathic structural exam other than those noted in the History and Physical/Consult. Vitals: Vital Signs Temp Pulse Resp BP Pulse Ox 05/20/21 11:36 60 18 103/73 96 05/20/21 11:00 61 15 101/68 97 05/20/21 10:39 97.0 F L 60 18 99/73 96 Intake and Output 05/20/21 05/20/21 05/20/21 06:59 14:59 22:59 Other: Weight 104.326 kg Gen: awake, alert HEENT: normocephalic, atraumatic, good hearing acuity, moist mucous membranes Resp: good air exchange, breathing comfortably with no accessory muscle use, CTAB CVS: good distal perfusion x 4, RRR, no murmurs GI: soft, NTTP, ND : no SPT, no CVAT, boswell catheter not present MSK: no pitting edema, no clubbing Neuro: non-focal, moving all extremities Psych: cooperative, euthymic mood Results CBC & Chem 7: 05/20/21 11:04 05/20/21 11:04 Labs: Abnormal Lab Results - Last 24 Hours (Table) 05/20/21 05/20/21 Range/Units 11:04 11:04 Glucose 109 H (74-99) mg/dL POC Glucose (mg/dL) 107 H (75-99) mg/dL Assessment and Plan Assessment: Left-sided numbness and weakness History of TIA -Admit to observation, telemetry -MRI of the brain -Neurology consult -Neurochecks -Lipid panel, A1c -Hold home amlodipine, lisinopril Paroxysmal atrial fibrillation -Continue home metoprolol -Hold home Eliquis pending MRI Hypertension Hyperlipidemia Depression Gout -Home medications reviewed and reconciled, changes noted above Patient is a full code
[2021-05-20] MEDS: FUROSEMIDE 40 MG TAB PO SCH (21:54)
[2021-05-20] MEDS: ATORVASTATIN 40 MG TAB PO SCH (22:13)
[2021-05-21] MEDS ORDERED: ASPIRIN 325 MG TAB PO SCH (09:00)
[2021-05-21] MEDS ORDERED: CLOPIDOGREL 75 MG TAB PO SCH (09:00)
[2021-05-21] MEDS: ESCITALOPRAM 20 MG TAB PO SCH (09:22)
[2021-05-21] MEDS: METOPROLOL SUCCINATE (ER) 25 MG TAB.ER.24H PO SCH (09:22)
[2021-05-21] MEDS: allopurinoL 100 MG TAB PO SCH (09:23)
[2021-05-21] MEDS: FUROSEMIDE 40 MG TAB PO SCH ×2 (09:23→16:17)
[2021-05-21] MEDS: PANTOPRAZOLE 40 MG TABLET PO SCH (09:23)
[2021-05-21] MEDS: CHOLECALCIFEROL 125 MCG (5000 IU) TABLET PO SCH (09:24)
[2021-05-21] MEDS ORDERED: TICAGRELOR 90 MG TAB PO STA (09:27)
--- NOTE | 2021-05-21 09:27 | P.CNNES ---
History of Present Illness Consult date: 05/21/21 Requesting physician: Gasper Leigh Reason for Consult: stroke/tia History of Present Illness: This is a 70-year-old gentleman with medical history of recurrent transient episode paresthesia over the left face as well as upper and lower extremity since 1989', TIA, paroxysmal atrial fibrillation on Eliquis, hypertension, congestive heart failure, prostate cancer status post radiation who presented emergency department on 05/20/2021 for left-sided weakness numbness. Patient's symptoms started around 9:15 AM on 05/20/2021 and he noticed left-facial tingling and numbness with weakness over the left upper and lower extremity. He said his last normal state was 6:30am on 05/20/2021. He stated his noticed his left side of face was dropped according to his . He denies any headache, slurring of speech, difficulty getting his words out, swallowing or any symptoms over the right side. Per primary team's note he notified them that his words seemed "stretch". The patient was recently diagnosed with the paroxysmal atrial fibrillation in 12/2020 and had ablation and was started on Eliquis and has not missed a dose. He is also on Plavix 75mg daily and Lipitor 40mg daily. As outpatient he was notified that his TIA symptoms over left side were due to A-fib. He continues to follow-up with Dr. Judd for his neurological management as outpatient. He said his national sales associate has him schedule for MRI of carotids in 05/2021. Patient stated that he feels his symptoms started again in the AM today with paresthesia over left side of face and feels his left side is weak. Some of his other home medications consist of: lisinopril, amlodipine, metoprolol, vitamin B12 1000 mg daily. Patient presented the to our facility multiple times and I personally saw him last on 2019 for paresthesia of the left face as well as upper and lower extremity and it was not on known exact etiology and it was felt possibly vitamin B12 was very low normal which caused paresthesia. Patient had MRI of the brain and it was the reported as negative. Patient also had an EEG and was normal. Patient vitamin B12 was 239. Patient was started on vitamin B12 1000 g daily. Some of the workup in the hospital consisted of: Initial Vital signs: Blood pressure of 99/73, heart rate of 60, respiratory of 18, temperature of 97.0 Fahrenheit oral and pulse ox of 96% room air. CBC with differential is unremarkable. Sodium is 137, creatinine 1.09, serum glucose is 109, calcium is 9.0, AST of 19, ALT 15. Camacho virus PCR was not detected. CT of the head is reported as age-related atrophy and chronic small vessel i schemic change without acute intracranial process seen at this time. CT angiography of the head and neck was reported as no significant stenosis in the common or internal carotid artery bilaterally. No significant stenosis or aneurysm at the level [place]. No significant change from the most recent the CT angiography EKG is reported as sinus rhythm with marked sinus arrhythmia with occasional premature ventricular complex. Left axis deviation. Cannot rule out anterior infarct, age undetermined. Per the ED note the patient had NIH of a 3 for left facial numbness, slight left upper extremity drift and left the lower extremity numbness. It was not a TPA candidate since that that NIH was low and the patient was on anticoagulation as noted per the ED note. Review of Systems Review of system: The 12 point system was reviewed and apparent positive and negative per HPI. Past Medical History Past Medical History: Atrial Fibrillation, Cancer, Heart Failure, CVA/TIA, GI Bleed, Hypertension, Pneumonia, Prostate Disorder Additional Past Medical History / Comment(s): hx prostate ca 2009/radiation tx ,TIA 2014, SLIGHTLY ENLARGED HEART", GOUT, Small bowel obstruction in February 2016, hx anemia, [place] with use of a hearing aid, skin cancer s/p removal History of Any Multi-Drug Resistant Organisms: None Reported Past Surgical History: Ablation Additional Past Surgical History / Comment(s): omphalocele repair as infant, 2 BOWEL RESECTIONS for bleeding, polyp removed from left ear Past Anesthesia/Blood Transfusion Reactions: No Reported Reaction Additional Past Anesthesia/Blood Transfusion Reaction / Comment(s): . Past Psychological History: Depression Smoking Status: Never smoker Past Alcohol Use History: Occasional Past Drug Use History: None Reported - Past Family History Father Family Medical History: Cancer Additional Family Medical History / Comment(s): oral CA.. Mother Family Medical History: Cancer Additional Family Medical History / Comment(s): breast CA. Medications and Allergies Home Medications Medication Instructions Recorded Confirmed Type allopurinoL [Zyloprim] 100 mg PO DAILY 03/06/16 05/20/21 History lisinopriL [Zestril] 20 mg PO DAILY 10/23/16 05/20/21 History Escitalopram [Lexapro] 20 mg PO DAILY 05/31/17 05/20/21 History Atorvastatin [Lipitor] 40 mg PO HS 04/16/20 05/20/21 History Clopidogrel [Plavix] 75 mg PO DAILY #30 tablet 04/25/20 05/20/21 Rx Cholecalciferol (Vitamin D3) 125 mcg PO DAILY 01/05/21 05/20/21 History [Vitamin D3 (5000 Iu)] amLODIPine [Norvasc] 7.5 mg PO DAILY 01/05/21 05/20/21 History Apixaban [Eliquis] 5 mg PO BID #60 tab 01/09/21 05/20/21 Rx Furosemide [Lasix] 40 mg PO BID@0900,1600 30 Days #60 01/10/21 05/20/21 Rx tab Metoprolol Succinate (ER) [Toprol 12.5 mg PO DAILY 60 Days #30 01/10/21 05/20/21 Rx XL] tab.er.24h Cyanocobalamin [Vitamin B-12 1,000 mcg SQ Q60D 05/20/21 05/20/21 History Injection] Omeprazole 40 mg PO DAILY 05/20/21 05/20/21 History Allergies Allergy/AdvReac Type Severity Reaction Status Date / Time erythromycin base AdvReac Nausea & Verified 05/20/21 12:12 Vomiting ibuprofen AdvReac Hx of GI Verified 05/20/21 12:12 Bleed steroids AdvReac Hx of GI Uncoded 05/20/21 10:46 Bleed Physical Examination - Vital Signs Vital Signs: Vital Signs Temp Pulse Resp BP Pulse Ox 05/21/21 02:00 61 17 108/71 97 05/20/21 21:51 78 17 109/71 96 05/20/21 11:36 60 18 103/73 96 05/20/21 11:00 61 15 101/68 97 05/20/21 10:39 97.0 F L 60 18 99/73 96 GENERAL: The patient is lying in bed and is not in acute distress. CHEST: The heart rate is regular rate rhythm. No murmurs to auscultation. No carotid bruit bilaterally. LUNG: Clear to auscultation bilaterally no wheezing noted throughout. Not labored breathing. ABDOMEN/GI: Bowel sounds present in all 4 quadrants. No tenderness to palpation throughout. NEUROLOGICAL: Higher mental function: The patient is awake, alert, oriented to self, place and time. Patient is following commands. No aphasia and no neglect. Cranial nerves: The pupils are round, equal and reactive to light and accommodation. Visual willett are full to confrontation throughout. Extraocular movement is intact no nystagmus is noted. Facial sensation is normal to touch throughout. The facial strength is normal throughout. Hearing is normal bilaterally to hand rub. Tongue is midline and moved [id number] without any difficulty. No dysarthria is noted. Shoulder shrug is normal bilaterally. Motor: Gait is deferred. The strength is left forearm flexion is 4+ to 5-. Otherwise 5 over 5 throughout. Normal tone and bulk. Cerebellum: Normal finger to nose bilaterally. Sensation: Sensation is normal to touch throughout. Reflexes (right/left): 2+ throughout. Plantars are downgoing bilaterally. Results - Laboratory Findings CBC and BMP: 05/20/21 11:04 05/20/21 11:04 Abnormal Lab Findings: Abnormal Labs 05/20/21 05/20/21 11:04 11:04 Glucose 109 H POC Glucose (mg/dL) 107 H Assessment and Plan Assessment: Acute recurrent transient episode of left-face paresthesia and left sided weakness over the left upper and lower extremity. Seems Possible TIA (but seems odd that patient continues to have recurrent episodes even though had cardiac ablation and on eliquis for atrial fibrillation) History of recurrent transient episode. Stage over left face as well as the upper and lower extremity since : Unknown exact etiology: possible TIA's Paroxysmal atrial fibrillation s/p cardiac ablation and is on eliquis Hypertension Congestive heart failure History of Low normal vitamin B12 History of prostate cancer status post radiation Plan: In the ED the patient was given aspirin 325mg once then was started on aspirin 325mg daily. The patient also was restarted on his home does of Plavix 75mg daily. I will restart the patient the on his home dose of Eliquis 5 mg 1 tablet twice a day and I stopped the aspirin as well as the Plavix and started the patient on Brilinta 90 mg 1 tablet twice a day with a loading dose of 180 mg(since seem failed ASA and Plavix in past) . Patient is continued on his home dose of Lipitor 40 mg daily at bedtime. Ordered MRI Brain and C-spine w/ and w/o. Lipid panel is ordered and is pending. Ordered 2D echo. Continue neuro checks I ordered an ambulatory 2-1/2 hour EEG to see if there is any other source besides TIA. On cardiac monitoring PT, OT and BURNISHER are consulted. We'll defer the rest of the medical management to the primary team. For DVT prophylaxis: On eliquis. Upon discharge the patient needs to follow-up with his neurologist (Dr. Judd) within 1-2 weeks as an outpatient The plan is discussed with the patient. Thank for the consultation. Rogelio Colindres M.D. Neuro-hospitalist Time with Patient: Greater than 30
[2021-05-21 10:16] LABS: Chol/HDL Ratio 2.59 Ratio; LDL Cholesterol,Calculated 44.9 mg/dL (0.0-131.0)
[2021-05-21] MEDS: APIXABAN 5 MG TAB PO SCH ×2 (11:06→21:09)
--- NOTE | 2021-05-21 11:23 | ECHOF ---
Referral Reason:tia MEASUREMENTS -------- HEIGHT: 165.1 cm WEIGHT: 104.3 kg BP: RVIDd: 3.1 cm (< 3.3) IVSd: 1.2 cm (0.6 - 1.1) LVIDd: 4.3 cm (3.9 - 5.3) LVPWd: 1.3 cm (0.6 - 1.1) IVSs: 1.5 cm LVIDs: 1.5 cm LVPWs: 1.6 cm Ao Diam: 3.8 cm (2.0 - 3.7) AV Cusp: 1.5 cm (1.5 - 2.6) LA Diam: 3.8 cm (2.7 - 3.8) MV EXCURSION: 14.382 mm (> 18.000) MV EF SLOPE: 49 mm/s (70 - 150) EPSS: 1.3 cm MV E Jaison: 0.60 m/s MV DecT: 259 ms MV A Jaison: 0.74 m/s MV E/A Ratio: 0.81 AV maxP.06 mmHg AV meanP.55 mmHg AR PHT: 816 ms RAP: 5.00 mmHg RVSP: 17.37 mmHg FINDINGS -------- This was a technically difficult study with suboptimal views. The left ventricular size is normal. There is mild concentric left ventricular hypertrophy. Overa ll left ventricular systolic function is normal with, an EF between 55 - 60 %. The right ventricle is normal in size. The left atrial size is normal. The right atrial size is normal. Lumason used Aortic valve is trileaflet and is mildly thickened. There is mild aortic valve sclerosis. There i s mild aortic regurgitation. The mitral valve is normal. The mitral valve leaflets are mildly thickened. Mild mitral regurgita tion is present. The tricuspid valve appears structurally normal. Mild tricuspid regurgitation present. Right vent ricular systolic pressure is normal at < 35 mmHg. There is no pulmonic regurgitation present. The aortic root size is normal. IVC Not well visulized. There is no pericardial effusion. CONCLUSIONS -------- 1. The left ventricular size is normal. 2. There is mild concentric left ventricular hypertrophy. 3. Overall left ventricular systolic function is normal with, an EF between 55 - 60 %. 4. Aortic valve is trileaflet and is mildly thickened. 5. There is mild aortic valve sclerosis. 6. There is mild aortic regurgitation. 7. The mitral valve leaflets are mildly thickened. 8. Mild mitral regurgitation is present. 9. Mild tricuspid regurgitation present. 10. There is no pericardial effusion. STATE COMPTROLLER: Ana Hewitt RDCS
--- NOTE | 2021-05-21 15:25 | P.PN ---
Subjective Progress Note Date: 05/21/21 Patient had resolution of his symptoms from yesterday, however, this morning he had another episode of left-sided numbness. Seen by neurology, pending MRI of brain and C-spine. Objective - Vital Signs Vital signs: Vital Signs Temp 97.6 F 05/21/21 07:49 Pulse 64 05/21/21 12:00 Resp 16 05/21/21 12:00 BP 102/70 05/21/21 12:00 Pulse Ox 97 05/21/21 12:00 Intake & Output 05/20/21 05/21/21 05/21/21 18:59 06:59 18:59 Weight 104.326 kg 104.326 kg Other: Voiding Method Toilet - Exam Gen: awake, alert HEENT: normocephalic, atraumatic, good hearing acuity, moist mucous membranes Resp: good air exchange, breathing comfortably with no accessory muscle use, CTAB CVS: good distal perfusion x 4, RRR, no murmurs GI: soft, NTTP, ND : no SPT, no CVAT, boswell catheter not present MSK: no pitting edema, no clubbing Neuro: non-focal, moving all extremities Psych: cooperative, euthymic mood - Labs CBC & Chem 7: 05/20/21 11:04 05/20/21 11:04 Labs: Abnormal Lab Results - Last 24 Hours (Table) 05/20/21 Range/Units 11:04 HDL Cholesterol 38.60 L (40.00-60.00) mg/dL Assessment and Plan Assessment: Left-sided numbness and weakness History of TIA -Admit to observation, telemetry -MRI of the brain, C-spine -outpatient ambulatory EEG -Neurology consult -Neurochecks -Lipid panel, A1c -Hold home amlodipine, lisinopril Paroxysmal atrial fibrillation -Continue home metoprolol -Continue Eliquis Hypertension Hyperlipidemia Depression Gout -Home medications reviewed and reconciled, changes noted above Patient is a full code
--- NOTE | 2021-05-21 17:48 | MR ---
EXAMINATION TYPE: MR brain/cspine wo/w DATE OF EXAM: 05/21/2021 COMPARISON: 04/24/2020 MR scan of the brain HISTORY: Left sided weakness and facial numbness. CONTRAST: Standard multiplanar, multisequence MRI departmental protocol images were obtained without contrast a nd with 10 mL intravenous Gadavist gadolinium contrast. Images of the brain and cervical spine were obtained without and with IV contrast. There is mild cerebral atrophy. There is no mass effect nor midline shift. There is no evidence of in tracranial hemorrhage. Diffusion images show no evidence of an acute infarct. There are small linear areas of increased signal in the periventricular white matter on the T2 and FLAIR images. These measu re up to 4 mm in thickness. Brainstem is intact. Corpus callosum is intact. The contrast images show no pathologic enhancement of the brain. Sella turcica appears normal. There is no evidence of orbital mass. There is some mucosal mild thickening in the left maxillary sinus. The cervical vertebra have normal alignment. There is degenerative disc space narrowing in the mid an d lower cervical spine. There is spurring of the endplates. There is mild narrowing of the spinal canal at C5-6 that measures 7.3 mm which is the narrowest point. Cervical spinal cord has normal signal pattern. There is no nabeel dence of edema. There is a mild posterior disc herniation at C3-4 without significant impingement on the spinal cord. There is no compression fracture. I see no focal bone destruction. Contrast images s how no pathologic enhancement in the cervical spine. IMPRESSION: No acute intracranial abnormality. Mild white matter changes around the lateral ventricles are nonspe cific and are likely age related. Brain not significantly different than old exam. Mild spondylotic changes in the cervical spine. No significant spinal stenosis. No fracture.
[2021-05-21] MEDS: ATORVASTATIN 40 MG TAB PO SCH (21:09)
[2021-05-21] MEDS: SODIUM CHLORIDE 0.9% 1,000 ML IV SCH (21:09)
[2021-05-22 03:45] VITALS: RESP 18
[2021-05-22] MEDS: PANTOPRAZOLE 40 MG TABLET PO SCH (06:30)
[2021-05-22] MEDS: METOPROLOL SUCCINATE (ER) 25 MG TAB.ER.24H PO SCH (08:48)
[2021-05-22] MEDS: ESCITALOPRAM 20 MG TAB PO SCH (08:48)
[2021-05-22] MEDS: CHOLECALCIFEROL 125 MCG (5000 IU) TABLET PO SCH (08:48)
[2021-05-22] MEDS: allopurinoL 100 MG TAB PO SCH (08:48)
[2021-05-22] MEDS: FUROSEMIDE 40 MG TAB PO SCH (08:48)
[2021-05-22] MEDS: APIXABAN 5 MG TAB PO SCH (08:48)
[2021-05-22] MEDS ORDERED: TICAGRELOR 90 MG TAB PO SCH (09:00)
[2021-05-22] MEDS: SODIUM CHLORIDE 0.9% 1,000 ML IV SCH (11:22)
--- NOTE | 2021-05-22 11:55 | P.DS ---
Providers Date of admission: 05/20/21 12:11 Expected date of discharge: 05/22/21 Attending physician: Abigail Hanna MD Consults: 05/20/21 12:12 Consult Physician Routine Consulting Provider: Rogelio Colindres Consult Reason/Comments: tia/cva Do you want consulting provider notified?: Yes Primary care physician: [facility] Course: 70-year-old man with a medical history of TIA, paroxysmal atrial fibrillation, depression, gout, hyperlipidemia presented with left-sided weakness, numbness. Left-sided numbness and weakness History of TIA -Admitted to observation, telemetry. MRI of the brain and C-spine showed chronic changes, with no acute stroke. Neurology was consulted and recommended outpatient ambulatory EEG. Patient's plavix was discontinued and replaced with Brillinta. Pt's Eliquis was resumed. Pt remained in sinus rhythm during hospitalization. Home medications for BP resumed. Brain CT and CT angiography were negative for acute pathology. Paroxysmal atrial fibrillation Hypertension Hyperlipidemia Depression Gout -Home medications reviewed and reconciled, changes noted above on discharge. Assessment: Gen: awake, alert HEENT: normocephalic, atraumatic, good hearing acuity, moist mucous membranes Resp: good air exchange, breathing comfortably with no accessory muscle use, CTAB CVS: good distal perfusion x 4, RRR, no murmurs GI: soft, NTTP, ND : no SPT, no CVAT, boswell catheter not present MSK: no pitting edema, no clubbing Neuro: 5/5 motor strength, no sensory deficit, CN II-XII intact Psych: cooperative, euthymic mood Patient Condition at Discharge: Good Plan - Discharge Summary Discharge Rx Participant: Yes New Discharge Prescriptions: New Ticagrelor [Brilinta] 90 mg PO BID #60 tab Continue allopurinoL [Zyloprim] 100 mg PO DAILY lisinopriL [Zestril] 20 mg PO DAILY Escitalopram [Lexapro] 20 mg PO DAILY Atorvastatin [Lipitor] 40 mg PO HS amLODIPine [Norvasc] 7.5 mg PO DAILY Cholecalciferol (Vitamin D3) [Vitamin D3 (5000 Iu)] 125 mcg PO DAILY Omeprazole 40 mg PO DAILY Apixaban [Eliquis] 5 mg PO BID #60 tab Furosemide [Lasix] 40 mg PO BID@0900,1600 30 Days #60 tab Metoprolol Succinate (ER) [Toprol XL] 12.5 mg PO DAILY 60 Days #30 tab.er.24h Cyanocobalamin [Vitamin B-12 Injection] 1,000 mcg SQ Q60D Discontinued Clopidogrel [Plavix] 75 mg PO DAILY #30 tablet Discharge Medication List allopurinoL [Zyloprim] 100 mg PO DAILY 03/06/16 [History] lisinopriL [Zestril] 20 mg PO DAILY 10/23/16 [History] Escitalopram [Lexapro] 20 mg PO DAILY 05/31/17 [History] Atorvastatin [Lipitor] 40 mg PO HS 04/16/20 [History] Cholecalciferol (Vitamin D3) [Vitamin D3 (5000 Iu)] 125 mcg PO DAILY 01/05/21 [History] amLODIPine [Norvasc] 7.5 mg PO DAILY 01/05/21 [History] Apixaban [Eliquis] 5 mg PO BID #60 tab 01/09/21 [Rx] Furosemide [Lasix] 40 mg PO BID@0900,1600 30 Days #60 tab 01/10/21 [Rx] Metoprolol Succinate (ER) [Toprol XL] 12.5 mg PO DAILY 60 Days #30 tab.er.24h 01/10/21 [Rx] Cyanocobalamin [Vitamin B-12 Injection] 1,000 mcg SQ Q60D 05/20/21 [History] Omeprazole 40 mg PO DAILY 05/20/21 [History] Ticagrelor [Brilinta] 90 mg PO BID #60 tab 05/22/21 [Rx] Follow up Appointment(s)/Referral(s): Richie Villalobos [Primary Care Provider] - 1-2 days Patient Instructions/Handouts: Ischemic Stroke (DC)
[2021-05-22 11:57] VITALS: BP 132/87; PULSE 70; TEMP 98.6
--- NOTE | 2021-05-22 12:55 | P.PN ---
Subjective Progress Note Date: 05/22/21 I saw the patient today and he states he continues to have intermittent sensation over the top of head and left face. He denies of any current weakness. Objective - Vital Signs Vital signs: Vital Signs Temp 98.6 F 05/22/21 11:56 Pulse 70 05/22/21 11:56 Resp 18 05/22/21 11:56 BP 132/87 05/22/21 11:56 Pulse Ox 97 05/22/21 11:56 Intake & Output 05/21/21 05/22/21 05/22/21 18:59 06:59 18:59 Intake Total 240 240 Balance 240 240 Weight 104.326 kg Intake: Oral 240 240 Other: Voiding Method Toilet Toilet # Voids 1 - Exam GENERAL: The patient is lying in bed and is not in acute distress. NEUROLOGICAL: Higher mental function: The patient is awake, alert, oriented to self, place and time. Patient is following commands. No aphasia and no neglect. Cranial nerves: The pupils are round, equal and reactive to light and a ccommodation. Visual [place] are full to confrontation throughout. Extraocular movement is intact no nystagmus is noted. Facial sensation is normal to touch throughout. The facial strength is normal throughout. Hearing is normal bilaterally to hand rub. Tongue is midline and moved [id number] without any difficulty. No dysarthria is noted. Shoulder shrug is normal bilaterally. Motor: Gait is deferred. The strength is 5 over 5 throughout. Normal tone and bulk. Cerebellum: Normal finger to nose bilaterally. Sensation: Sensation is normal to touch throughout. Reflexes (right/left): 2+ throughout. Plantars are downgoing bilaterally. WORK-UP: Lipid panel is triglyceride of 82, cholesterol 100, LDL 44, HDL 38 Camacho virus PCR was not detected. CT of the head is reported as age-related atrophy and chronic small vessel ischemic change without acute intracranial process seen at this time. CT angiography of the head and neck was reported as no significant stenosis in t he common or internal carotid artery bilaterally. No significant stenosis or aneurysm at the level [place]. No significant change from the most recent the CT angiography MRI of the brain is reported as no acute intracranial abnormality. Mild white matter changes around the lateral ventricles are nonspecific and are likely age- related. Brain not significantly different than old exam. MRI cervical is reported as mild spondylitic changes in the cervical spine. No significant spinal stenosis. No fracture. The echo was reported as mild concentric left ventricular hypertrophy. Ejection fraction of 55-60%. Left atrial size is normal. - Labs CBC & Chem 7: 05/20/21 11:04 05/20/21 11:04 Assessment and Plan Assessment: * Acute recurrent transient episode of left-face paresthesia and left sided weak ness over the left upper and lower extremity. Unknown exact etiology. Seems Possible TIA (but seems odd that patient continues to have recurrent episodes even though had cardiac ablation and is on eliquis for atrial fibrillation) * History of recurrent transient episode. Stage over left face as well as the upper and lower extremity since : Unknown exact etiology: possible TIA's * Paroxysmal atrial fibrillation s/p cardiac ablation and is on eliquis * Hypertension * Congestive heart failure * History of Low normal vitamin B12 * History of prostate cancer status post radiation Plan: Continue Eliquis 5 mg 1 tablet twice and to continue Brilinta 90mg 1 tab bid (stopped ASA and Plavix since failed). Patient is continued on his home dose of Lipitor 40 mg daily at bedtime. Ordered MRI Brain and C-spine w/ and w/o. Continue neuro checks I ordered an ambulatory 2-1/2 hour EEG to see if there is any other source besides TIA. This will be coordinated by ammonia refrigeration technician. On cardiac monitoring PT, OT and PECAN HULLER are consulted. We'll defer the rest of the medical management to the primary team. For DVT prophylaxis: On eliquis. Upon discharge the patient needs to follow-up with his neurologist (Dr. Judd) within 1-2 weeks as an outpatient. Patient was notified to consider second opinion neurologist as outpatient for his recurrent symptoms. The plan is discussed with the patient and the primary team. There is no further work-up. Rogelio Colindres M.D. Neuro-hospitalist Time with Patient: Less than 30
--- NOTE | 2021-05-27 10:09 | CDI ---
Documentation Clarification Form Date: 05/27/21 From: Ankita Lira Admit Date: 05/20/2021 12:11:00 PM Patient Name: Ahsan Rosado Visit Number: [id number] Discharge Date: 05/22/2021 01:00:00 PM ATTENTION: The Clinical Documentation Specialists (CDI) and [facility] Coding Staff appreciate your assistance in clarifying documentation. Please respond to the clarification below the line at the bottom and electronically sign. The CDI & [facility] Coding staff will review the response and follow-up if needed. Please note: Queries are made part of the Legal Health Record. If you have any questions, please contact the author of this message via ITS. Dr. Abigail Hanna, Your patient has the documented diagnosis of unspecified CHF in the ED Note, H&P, neuro consult & your PN on 05/22. Additional information regarding the [type, acuity] of CHF is requested. History/Risk Factors: HTN, HLD, PAF, TIA Clinical Indicators: Cardiovascular Exam: Present: regular rate, normal rhythm. VS/Pulse OX: T 97.0, P 60, R 18, BP 99/73, O2 96 BNP: None 05/21 Echocardiogram Results: Overall left ventricular systolic function is normal with, an EF between 55 - 60 %. 05/20 Chest X Ray: Mild cardiomegaly with suspected new mild central vascular congestion. Treatment: Lasix 40 mg BID In your professional opinion, can you please clarify the [acuity and type] of CHF if known? [ x] Chronic Diastolic Heart Failure (preserved EF) [ ] Other, please specify [ ] Unable to determine MTDD
[2021-06-20] MEDS ORDERED: CYANOCOBALAMIN 1,000 MCG/ML 1 ML VIAL SQ SCH (09:00)
== END 2021-05-22 13:00 | disposition home or self-care (01) | DRG 69 ==
LOC: EC 10:29 → 3SCARD 12:11
PROVIDERS: ADMIT Internal Medicine; ATTEND Internal Medicine
DX: G45.9 Transient cerebral ischemic attack, unspecified (principal); I50.32 Chronic diastolic (congestive) heart failure; I11.0 Hypertensive heart disease with heart failure; E78.5 Hyperlipidemia, unspecified; I48.0 Paroxysmal atrial fibrillation; Z20.822 Contact with and (suspected) exposure to COVID-19; I49.3 Ventricular premature depolarization; F32.A Depression, unspecified; M10.9 Gout, unspecified; H91.90 Unspecified hearing loss, unspecified ear; Z79.01 Long term (current) use of anticoagulants; Z79.02 Long term (current) use of antithrombotics/antiplatelets; Z79.899 Other long term (current) drug therapy; Z86.73 Personal history of transient ischemic attack (TIA), and cerebral infarction without residual deficits; Z87.19 Personal history of other diseases of the digestive system; Z87.01 Personal history of pneumonia (recurrent); Z85.46 Personal history of malignant neoplasm of prostate; Z92.3 Personal history of irradiation; Z97.4 Presence of external hearing-aid; Z85.828 Personal history of other malignant neoplasm of skin; Z86.69 Personal history of other diseases of the nervous system and sense organs; Z86.2 Personal history of diseases of the blood and blood-forming organs and certain disorders involving the immune mechanism; Z98.890 Other specified postprocedural states; Z88.6 Allergy status to analgesic agent; Z88.1 Allergy status to other antibiotic agents; Z88.8 Allergy status to other drugs, medicaments and biological substances; Z80.8 Family history of malignant neoplasm of other organs or systems; Z80.3 Family history of malignant neoplasm of breast
CPT/HCPCS: 36415; 70450; 70496; 70498; 70553; 71046; 72156; 80053; 80061; 84484; 85025; 85610; 85730; 87635; 93005; 93306; 99285

== ENCOUNTER → 2021-06-05 | Outpatient (CLI) | payer MEDICARE | LOC: NEUROMAIN 07:42 | PROVIDERS: ATTEND Student in an Organized Health Care Education/Training Program | DX: R20.2 Paresthesia of skin (principal); R53.1 Weakness; Z88.1 Allergy status to other antibiotic agents; Z88.6 Allergy status to analgesic agent; Z88.8 Allergy status to other drugs, medicaments and biological substances | CPT/HCPCS: 95713 ==

== ENCOUNTER 2021-07-10 14:13 | Inpatient (IN) | payer MEDICARE ==
[2021-07-10] MEDS ORDERED: SODIUM CHLORIDE 0.9% 500 ML 500 ML IV STA (15:20)
--- NOTE | 2021-07-10 15:35 | ED ---
General Adult HPI - General Chief complaint: Neuro Symptoms/Deficit Stated complaint: TIA Symptoms Time Seen by Provider: 07/10/21 15:07 Source: patient, RN notes reviewed, old records reviewed Mode of arrival: ambulatory Limitations: no limitations - History of Present Illness Initial comments: 71-year-old male presenting for evaluation of headache numbness to the bilateral face and upper head, arm pain, leg pain, and numbness and tingling. His symp toms have been ongoing for many months and some of them have been ongoing since the . Patient was seen at this institution in April and had full stroke workup. He is followed with both neurology and/or neurosurgery as an outpatient. He is currently on Brilinta and Eliquis, as well as ant ihypertensive medications. Patient states that he's been having these symptoms daily for months but he states that today his head pain was more persistent. He also had 8 out of 10 pain in the left arm which has improved. No central chest pain. He also had pain in the right arm and paresthesia to the right leg and left leg. - Related Data Home Medications Medication Instructions Recorded Confirmed allopurinoL [Zyloprim] 100 mg PO DAILY 03/06/16 07/10/21 lisinopriL [Zestril] 20 mg PO DAILY 10/23/16 07/10/21 Escitalopram [Lexapro] 20 mg PO DAILY 05/31/17 07/10/21 Atorvastatin [Lipitor] 40 mg PO HS 04/16/20 07/10/21 Cholecalciferol (Vitamin D3) 125 mcg PO DAILY 01/05/21 07/10/21 [Vitamin D3 (5000 Iu)] amLODIPine [Norvasc] 2.5 mg PO DAILY 01/05/21 07/10/21 Omeprazole 40 mg PO DAILY 05/20/21 07/10/21 Furosemide [Lasix] 40 mg PO BID 07/10/21 07/10/21 Previous Rx's Medication Instructions Recorded Apixaban [Eliquis] 5 mg PO BID #60 tab 01/09/21 Metoprolol Succinate (ER) [Toprol 12.5 mg PO DAILY 60 Days #30 01/10/21 XL] tab.er.24h Ticagrelor [Brilinta] 90 mg PO BID #60 tab 05/22/21 Allergies Allergy/AdvReac Type Severity Reaction Status Date / Time erythromycin base AdvReac Nausea & Verified 07/10/21 15:56 Vomiting ibuprofen AdvReac Hx of GI Verified 07/10/21 15:56 Bleed steroids AdvReac Hx of GI Uncoded 05/20/21 10:46 Bleed Review of Systems ROS Statement: Those systems with pertinent positive or pertinent negative responses have been documented in the HPI. ROS Other: All systems not noted in ROS Statement are negative. Past Medical History Past Medical History: Atrial Fibrillation, Cancer, Heart Failure, CVA/TIA, GI Bleed, Hypertension, Pneumonia, Prostate Disorder Additional Past Medical History / Comment(s): hx prostate ca 2009/radiation tx ,TIA 2014, SLIGHTLY ENLARGED HEART", GOUT, Small bowel obstruction in February 2016, hx anemia, [place] with use of a hearing aid, skin cancer s/p removal History of Any Multi-Drug Resistant Organisms: None Reported Past Surgical History: Ablation Additional Past Surgical History / Comment(s): omphalocele repair as infant, 2 BOWEL RESECTIONS for bleeding, polyp removed from left ear, Cardiac ablation Feb 2021 Past Anesthesia/Blood Transfusion Reactions: No Reported Reaction Additional Past Anesthesia/Blood Transfusion Reaction / Comment(s): . Past Psychological History: Depression Smoking Status: Never smoker Past Alcohol Use History: Occasional Past Drug Use History: None Reported - Past Family History Father Family Medical History: Cancer Additional Family Medical History / Comment(s): oral CA.. Mother Family Medical History: Cancer Additional Family Medical History / Comment(s): breast CA. General Exam Limitations: no limitations General appearance: alert, in no apparent distress Head exam: Present: atraumatic, normocephalic Eye exam: Present: normal appearance, PERRL, EOMI ENT exam: Present: normal exam Neck exam: Present: normal inspection. Absent: tenderness, meningismus Respiratory exam: Present: normal lung sounds bilaterally. Absent: respiratory distress, wheezes Cardiovascular Exam: Present: regular rate, normal rhythm GI/Abdominal exam: Present: soft. Absent: distended, tenderness, guarding, rebound Extremities exam: Present: normal inspection, normal capillary refill. Absent: calf tenderness Neurological exam: Present: alert, oriented X3, CN II-XII intact, other (No focal neurologic findings. NIH of 0). Absent: motor sensory deficit Psychiatric exam: Present: normal affect, normal mood Skin exam: Present: warm, dry, intact. Absent: cyanosis, diaphoretic, erythema Course Vital Signs 07/10/21 14:29 Temperature 97.7 F Pulse Rate 72 Respiratory 19 Rate Blood Pressure 109/75 O2 Sat by Pulse 96 Oximetry - Reevaluation(s) Reevaluation #1: 07/10/21 17:23 I did discuss case with Dr. Alcira marroquin for neurology who would like to evaluate the patient in consultation. Reevaluation #2: 07/10/21 17:25 Patient not a TPA candidate given the history of anticoagulation as well as the ongoing nature of his symptoms and lack of focal neurological findings. EKG Findings - EKG Comments: EKG Findings:: EKG: Normal sinus rhythm, left axis, rate 71, CT interval 166, QRS duration 82, QTC [address] segment elevation. Medical Decision Making - Medical Decision Making 71 yo male presenting for evaluation of numbness to the top of his head, bilateral face worse on the left, and left arm and leg. Patient has had these symptoms in the past, according to both the patient and his he has some variety of symptoms daily. Patient is anticoagulated, head CT is performed which is negative for intracranial hemorrhage. Patient is hemodynamically s table. He has no focal weakness, he has normal facial symmetry, his speech is clear. He has a normal CBC normal CMP. His EKG is sinus rhythm. Patient will be admitted to internal medicine with neurology on consultation. Case discussed with sound physician. - Lab Data Result diagrams: 07/10/21 15:22 07/10/21 15:22 Lab Results 07/10/21 07/10/21 07/10/21 Range/Units 15:22 15:22 15:22 WBC 7.4 (3.8-10.6) k/uL RBC 5.51 (4.30-5.90) m/uL Hgb 16.3 (13.0-17.5) gm/dL Hct 49.4 (39.0-53.0) % MCV 89.6 (80.0-100.0) fL MCH 29.6 (25.0-35.0) pg MCHC 33.0 (31.0-37.0) g/dL RDW 14.7 (11.5-15.5) % Plt Count 201 (150-450) k/uL MPV 6.8 Neutrophils % 74 % Lymphocytes % 17 % Monocytes % 5 % Eosinophils % 2 % Basophils % 1 % Neutrophils # 5.5 (1.3-7.7) k/uL Lymphocytes # 1.2 (1.0-4.8) k/uL Monocytes # 0.4 (0-1.0) k/uL Eosinophils # 0.2 (0-0.7) k/uL Basophils # 0.0 (0-0.2) k/uL PT 10.8 (9.0-12.0) sec INR 1.0 (<1.2) APTT 26.0 (22.0-30.0) sec Sodium 138 (137-145) mmol/L Potassium 3.5 (3.5-5.1) mmol/L Chloride 100 (98-107) mmol/L Carbon Dioxide 28 (22-30) mmol/L Anion Gap 10 mmol/L BUN 13 (9-20) mg/dL Creatinine 1.03 (0.66-1.25) mg/dL Est GFR (CKD-EPI)AfAm 84 (>60 ml/min/1.73 sqM) Est GFR (CKD-EPI)NonAf 73 (>60 ml/min/1.73 sqM) Glucose 102 H (74-99) mg/dL Calcium 8.6 (8.4-10.2) mg/dL Total Bilirubin 1.1 (0.2-1.3) mg/dL AST 18 (17-59) U/L ALT 14 (4-49) U/L Alkaline Phosphatase 117 (38-126) U/L Troponin I (0.000-0.034) ng/mL Total Protein 6.7 (6.3-8.2) g/dL Albumin 3.8 (3.5-5.0) g/dL 07/10/21 Range/Units 15:22 WBC (3.8-10.6) k/uL RBC (4.30-5.90) m/uL Hgb (13.0-17.5) gm/dL Hct (39.0-53.0) % MCV (80.0-100.0) fL MCH (25.0-35.0) pg MCHC (31.0-37.0) g/dL RDW (11.5-15.5) % Plt Count (150-450) k/uL MPV Neutrophils % % Lymphocytes % % Monocytes % % Eosinophils % % Basophils % % Neutrophils # (1.3-7.7) k/uL Lymphocytes # (1.0-4.8) k/uL Monocytes # (0-1.0) k/uL Eosinophils # (0-0.7) k/uL Basophils # (0-0.2) k/uL PT (9.0-12.0) sec INR (<1.2) APTT (22.0-30.0) sec Sodium (137-145) mmol/L Potassium (3.5-5.1) mmol/L Chloride (98-107) mmol/L Carbon Dioxide (22-30) mmol/L Anion Gap mmol/L BUN (9-20) mg/dL Creatinine (0.66-1.25) mg/dL Est GFR (CKD-EPI)AfAm (>60 ml/min/1.73 sqM) Est GFR (CKD-EPI)NonAf (>60 ml/min/1.73 sqM) Glucose (74-99) mg/dL Calcium (8.4-10.2) mg/dL Total Bilirubin (0.2-1.3) mg/dL AST (17-59) U/L ALT (4-49) U/L Alkaline Phosphatase (38-126) U/L Troponin I <0.012 (0.000-0.034) ng/mL Total Protein (6.3-8.2) g/dL Albumin (3.5-5.0) g/dL Disposition Clinical Impression: Paresthesias, TIA (transient ischemic attack) Disposition: ADMITTED IP TO THIS [facility] Condition: Stable Is patient prescribed a controlled substance at d/c from ED?: No Referrals: Richie Villalobos [Primary Care Provider] - 1-2 days Decision to Admit Reason: Admit from EC Decision Date: 07/10/21 Decision Time: 17:25
[2021-07-10 15:37] LABS: Albumin 3.8 g/dL (3.5-5.0); Calcium 8.6 mg/dL (8.4-10.2); Potassium 3.5 mmol/L (3.5-5.1); Total Bilirubin 1.1 mg/dL (0.2-1.3); Total Protein 6.7 g/dL (6.3-8.2)
--- NOTE | 2021-07-10 15:44 | CT ---
EXAMINATION TYPE: CT brain wo con DATE OF EXAM: 07/10/2021 COMPARISON: 05/20/2021 HISTORY: 71-year-old male neurologic deficit, acute, stroke suspected. Left sided weakness. TECHNIQUE: Examination was done in axial plane without intravenous contrast. Coronal and sagittal r econstructions performed. CT DLP: 1099.4 mGycm Automated exposure control for dose reduction was used. FINDINGS: There is no evidence of acute intracranial hemorrhage, acute ischemic changes, mass, mass-effect, or extra-axial fluid collection. There is no effacement of cerebral sulci or basal subarachnoid cister ns. There is no hydrocephalus. There is no midline shift. Quezada-white matter distinction is preserv ed. Atherosclerotic calcifications within the bilateral carotid siphons. Dominant left vertebral artery a nd atherosclerotic calcifications within the V4 segment left vertebral artery. Leftward nasal septal deviation. Paranasal sinuses and mastoid air cells are well pneumatized. Orbits and globes are intact. IMPRESSION: No acute intracranial abnormality seen. If symptoms persist, consider MRI.
--- NOTE | 2021-07-10 15:49 | XR ---
EXAMINATION TYPE: XR chest 2V DATE OF EXAM: 07/10/2021 COMPARISON: 05/20/2021 HISTORY: 71-year-old male confusion, altered mental status, left-sided weakness TECHNIQUE: PA and lateral views FINDINGS: Low lung volumes and crowded vascular markings. Heart size accentuated, likely upper limits of normal in size. Some strandy atelectasis in the lower lungs. No consolidation or pleural effusion seen. Loco e nodularities of density projecting over the lower thoracic spine on the lateral view are unchanged from 05/20/2021, suspected spondylosis. Nonemergent CT chest to further evaluate the lung parenchyma. IMPRESSION: Hypoventilatory changes without definite acute process. There are some nodular areas that project over the lower thoracic spine on the lateral view favored t o represent thoracic spondylosis. Nonemergent CT chest recommended to further evaluate the lung paren chyma and exclude underlying nodules.
[2021-07-10] MEDS ORDERED: HYDROmorphone 0.5 MG/0.5 ML SYRINGE IVP STA (15:54)
[2021-07-10 15:57] LABS: Prothrombin Time 10.8 sec (9.0-12.0)
[2021-07-10 16:08] LABS: Basophils % (A) 1 %; Eosinophils # (A) 0.2 k/uL (0-0.7); Eosinophils % (A) 2 %; HCT 49.4 % (39.0-53.0); HGB 16.3 gm/dL (13.0-17.5); Lymphocytes # (A) 1.2 k/uL (1.0-4.8); Lymphocytes % (A) 17 %; MCH 29.6 pg (25.0-35.0); MCV 89.6 fL (80.0-100.0); Mean Platelet Volume 6.8; Monocytes # (A) 0.4 k/uL (0-1.0); Monocytes % (A) 5 %; Neutrophils # (A) 5.5 k/uL (1.3-7.7); Neutrophils % (A) 74 %; Platelet Count 201 k/uL (150-450); RBC 5.51 m/uL (4.30-5.90); RDW 14.7 % (11.5-15.5); WBC 7.4 k/uL (3.8-10.6)
[2021-07-10] MEDS ORDERED: ONDANSETRON 4 MG/2 ML VIAL IVP PRN (17:56)
[2021-07-10] MEDS ORDERED: MAG HYDROX/AL HYDROX/SIMETH 30 ML CUP PO PRN (17:56)
[2021-07-10] MEDS ORDERED: NALOXONE 0.4 MG/ML 1 ML VIAL IV PRN (17:56)
[2021-07-10] MEDS ORDERED: CALCIUM CARBONATE 500 MG CHEWABLE PO PRN (17:56)
[2021-07-10] MEDS ORDERED: ACETAMINOPHEN TAB 325 MG TAB PO PRN (17:56)
--- NOTE | 2021-07-10 18:01 | P.HPIM ---
History of Present Illness H&P Date: 07/10/21 This is a 71-year-old male with past medical history of question about recurrent TIAs with extensive workup which was negative again admitted to the hospital with numbness in the face on the left side with question about weakness in the left arm and left neck that resolved is not complaining of any chest pain or shortness of breath Review of systems and systems has been reviewed all negative and positive findings as per history of present illness Constitutional: No acute distress, conversant, pleasant Eyes: Anicteric sclerae, moist conjunctiva, no lid-lag PERRLA ENMT: NC/AT Oropharynx clear, no erythema, exudates Neck: Supple, FROM, no masses, or JVD No carotid bruits No thyromegaly Lungs: Clear to auscultation Clear to percussion Normal respiratory effort, no accessory muscle use Cardiovascular: Heart regular in rate and rhythm, No murmurs, gallops, or rubs No peripheral edema Abdominal: Soft Nontender, no guarding, rebound or rigidity Abdomen moving with respiration Normoactive bowel sounds No hepatomegaly, No splenomegaly No palpable mass No abdominal wall hernia noted Skin: Normal temperature, tone, texture, turgor No induration No subcutaneous nodules No rash, lesions No ulcers Extremities: No digital cyanosis No clubbing Pedal pulses intact and symmetrical Radial pulses intact and symmetrical Normal gait and station No calf tenderness Psychiatric:Alert and oriented to person, place and time Appropriate affect Intact judgement Neuro: Muscles Strength 5/5 in all 4 extremities Sensation to light touch grossly present throughout Cranial nerves II-XII grossly intact No focal sensory deficits Assessment and plan Question about TIA although extensive workup multiple times has been negative we'll check MRI of the brain will consult neurology Hypertension Observe overnight We will check troponins to rule out any acute coronary syndrome Past Medical History Past Medical History: Atrial Fibrillation, Cancer, Heart Failure, CVA/TIA, GI Bleed, Hypertension, Pneumonia, Prostate Disorder Additional Past Medical History / Comment(s): hx prostate ca 2009/radiation tx ,TIA 2014, SLIGHTLY ENLARGED HEART", GOUT, Small bowel obstruction in February 2016, hx anemia, [place] with use of a hearing aid, skin cancer s/p removal History of Any Multi-Drug Resistant Organisms: None Reported Past Surgical History: Ablation Additional Past Surgical History / Comment(s): omphalocele repair as , 2 BOWEL RESECTIONS for bleeding, polyp removed from left ear, Cardiac ablation Feb 2021 Past Anesthesia/Blood Transfusion Reactions: No Reported Reaction Additional Past Anesthesia/Blood Transfusion Reaction / Comment(s): . Past Psychological History: Depression Smoking Status: Never smoker Past Alcohol Use History: Occasional Past Drug Use History: None Reported - Past Family History Father Family Medical History: Cancer Additional Family Medical History / Comment(s): oral CA.. Mother Family Medical History: Cancer Additional Family Medical History / Comment(s): breast CA. Medications and Allergies Home Medications Medication Instructions Recorded Confirmed Type allopurinoL [Zyloprim] 100 mg PO DAILY 03/06/16 07/10/21 History lisinopriL [Zestril] 20 mg PO DAILY 10/23/16 07/10/21 History Escitalopram [Lexapro] 20 mg PO DAILY 05/31/17 07/10/21 History Atorvastatin [Lipitor] 40 mg PO HS 04/16/20 07/10/21 History Cholecalciferol (Vitamin D3) 125 mcg PO DAILY 01/05/21 07/10/21 History [Vitamin D3 (5000 Iu)] amLODIPine [Norvasc] 2.5 mg PO DAILY 01/05/21 07/10/21 History Apixaban [Eliquis] 5 mg PO BID #60 tab 01/09/21 07/10/21 Rx Metoprolol Succinate (ER) [Toprol 12.5 mg PO DAILY 60 Days #30 01/10/21 07/10/21 Rx XL] tab.er.24h Omeprazole 40 mg PO DAILY 05/20/21 07/10/21 History Ticagrelor [Brilinta] 90 mg PO BID #60 tab 05/22/21 07/10/21 Rx Furosemide [Lasix] 40 mg PO BID 07/10/21 07/10/21 History Allergies Allergy/AdvReac Type Severity Reaction Status Date / Time erythromycin base AdvReac Nausea & Verified 07/10/21 15:56 Vomiting ibuprofen AdvReac Hx of GI Verified 07/10/21 15:56 Bleed steroids AdvReac Hx of GI Uncoded 05/20/21 10:46 Bleed Physical Exam Vitals: Vital Signs Temp Pulse Resp BP Pulse Ox 07/10/21 14:29 97.7 F 72 19 109/75 96 Intake and Output 07/10/21 07/10/21 07/10/21 06:59 14:59 22:59 Other: Weight 102.512 kg Results CBC & Chem 7: 07/10/21 15:22 07/10/21 15:22 Labs: Abnormal Lab Results - Last 24 Hours (Table) 07/10/21 Range/Units 15:22 Glucose 102 H (74-99) mg/dL
[2021-07-10] MEDS: SODIUM CHLORIDE 0.9% 1,000 ML IV SCH (18:23)
[2021-07-10] MEDS ORDERED: ATORVASTATIN 40 MG TAB PO SCH (21:00)
[2021-07-10] MEDS: FUROSEMIDE 40 MG TAB PO SCH (21:50)
[2021-07-10] MEDS: TICAGRELOR 90 MG TAB PO SCH (21:50)
[2021-07-10] MEDS: APIXABAN 5 MG TAB PO SCH (21:50)
[2021-07-11] MEDS: SODIUM CHLORIDE 0.9% 1,000 ML IV SCH (06:50)
[2021-07-11 08:12] VITALS: BP 113/83; PULSE 73; RESP 18; TEMP 98.1
[2021-07-11] MEDS: FUROSEMIDE 40 MG TAB PO SCH (08:16)
[2021-07-11] MEDS: APIXABAN 5 MG TAB PO SCH (08:16)
[2021-07-11] MEDS: TICAGRELOR 90 MG TAB PO SCH (08:17)
[2021-07-11] MEDS ORDERED: allopurinoL 100 MG TAB PO SCH (09:00)
[2021-07-11] MEDS ORDERED: ESCITALOPRAM 20 MG TAB PO SCH (09:00)
[2021-07-11] MEDS ORDERED: lisinopriL 20 MG TAB PO SCH (09:00)
[2021-07-11] MEDS ORDERED: PANTOPRAZOLE 40 MG TABLET PO SCH (09:00)
[2021-07-11] MEDS ORDERED: amLODIPine 2.5 MG TAB PO SCH (09:00)
[2021-07-11] MEDS ORDERED: METOPROLOL SUCCINATE (ER) 25 MG TAB.ER.24H PO SCH (09:00)
[2021-07-11 10:21] LABS: Basophils % (A) 1 %; Eosinophils # (A) 0.2 k/uL (0-0.7); Eosinophils % (A) 2 %; HCT 47.6 % (39.0-53.0); HGB 15.7 gm/dL (13.0-17.5); Lymphocytes # (A) 0.9 k/uL (1.0-4.8); Lymphocytes % (A) 14 %; MCH 29.8 pg (25.0-35.0); MCHC 32.9 g/dL (31.0-37.0); MCV 90.6 fL (80.0-100.0); Mean Platelet Volume 6.9; Monocytes # (A) 0.5 k/uL (0-1.0); Monocytes % (A) 7 %; Neutrophils % (A) 75 %; Platelet Count 180 k/uL (150-450); RBC 5.26 m/uL (4.30-5.90); RDW 14.3 % (11.5-15.5); WBC 6.6 k/uL (3.8-10.6)
[2021-07-11 10:34] LABS: ALT 14 U/L (4-49); AST 19 U/L (17-59); African American GFR (CKD) 76 (>60 ml/min/1.73 sqM); Albumin 3.4 g/dL (3.5-5.0); Alkaline Phosphatase 109 U/L (38-126); Anion Gap 4 mmol/L; Blood Urea Nitrogen 12 mg/dL (9-20); Calcium 8.6 mg/dL (8.4-10.2); Carbon Dioxide 31 mmol/L (22-30); Chloride 102 mmol/L (98-107); Glucose 89 mg/dL (74-99); Non-African American GFR(CKD) 65 (>60 ml/min/1.73 sqM); Potassium 3.8 mmol/L (3.5-5.1); Sodium 137 mmol/L (137-145); Total Protein 6.1 g/dL (6.3-8.2)
--- NOTE | 2021-07-11 11:30 | MR ---
EXAMINATION TYPE: MR brain wo con DATE OF EXAM: 07/11/2021 COMPARISON: 04/24/2020, CT brain 07/10/2021 HISTORY: TIA TECHNIQUE: T1-weighted sagittal, T2, FLAIR, and diffusion axial, and T2 coronal coronal views of the brain are submitted. FINDINGS: There is no evidence of acute ischemia. Moderate generalized degenerative change with diffuse and foc al areas of abnormal signal seen within the white matter which are nonspecific. Most typical remote w mukesh matter ischemia. Focal area of abnormal signal on FLAIR with suggest remote ischemic change.. T here is no mass effect. Craniocervical junction maintained. Sella turcica has a normal appearance. No cerebellopontine angle mass. Orbits are symmetric. Changes of mild chronic sinusitis. Nasal septal deviation noted. Small areas of abnormal signal involving the basal ganglia could be on the basis of prominent [place] spaces or remote lacunar infarct, correlate clinically IMPRESSION: 1. No acute intracranial process. Degenerative and nonspecific white matter changes most typical alfonzo te ischemia. 2. Focal area of abnormal signal involving the rosa maria on the right suggestive of a small area of remote ischemia.
--- NOTE | 2021-07-11 12:18 | P.DS ---
Providers Date of admission: 07/10/21 17:20 Expected date of discharge: 07/11/21 Attending physician: Cira Rossi MD Consults: 07/10/21 17:21 Consult Physician Routine Consulting Provider: Angelique Wade Consult Reason/Comments: Left-sided numbness history of TIA Do you want consulting provider notified?: Already Contacted Primary care physician: Richie [facility] Course: This 71-year-old admitted to the hospital with question about TIA the patient has been having similar symptoms on and off for the decreased the last 2 years Symptoms completely resolved MRI of the brain did not show any acute CVA Constitutional: No acute distress, conversant, pleasant Eyes: Anicteric sclerae, moist conjunctiva, no lid-lag PERRLA ENMT: NC/AT Oropharynx clear, no erythema, exudates Neck: Supple, FROM, no masses, or JVD No carotid bruits No thyromegaly Lungs: Clear to auscultation Clear to percussion Normal respiratory effort, no accessory muscle use Cardiovascular: Heart regular in rate and rhythm, No murmurs, gallops, or rubs No peripheral edema Abdominal: Soft Nontender, no guarding, rebound or rigidity Abdomen moving with respiration Normoactive bowel sounds No hepatomegaly, No splenomegaly No palpable mass No abdominal wall hernia noted Skin: Normal temperature, tone, texture, turgor No induration No subcutaneous nodules No rash, lesions No ulcers Extremities: No digital cyanosis No clubbing Pedal pulses intact and symmetrical Radial pulses intact and symmetrical Normal gait and station No calf tenderness Psychiatric:Alert and oriented to person, place and time Appropriate affect Intact judgement Neuro: Muscles Strength 5/5 in all 4 extremities Sensation to light touch grossly present throughout Cranial nerves II-XII grossly intact No focal sensory deficits Discharge plan Question about TIA less likely patient to follow-up with neurology as an outpatient MRI no acute event Hypertension Resume home medications Plan - Discharge Summary Discharge Rx Participant: Yes New Discharge Prescriptions: Continue allopurinoL [Zyloprim] 100 mg PO DAILY lisinopriL [Zestril] 20 mg PO DAILY Escitalopram [Lexapro] 20 mg PO DAILY Atorvastatin [Lipitor] 40 mg PO HS amLODIPine [Norvasc] 2.5 mg PO DAILY Cholecalciferol (Vitamin D3) [Vitamin D3 (5000 Iu)] 125 mcg PO DAILY Omeprazole 40 mg PO DAILY Ticagrelor [Brilinta] 90 mg PO BID #60 tab Furosemide [Lasix] 40 mg PO BID Apixaban [Eliquis] 5 mg PO BID #60 tab Metoprolol Succinate (ER) [Toprol XL] 12.5 mg PO DAILY 60 Days #30 tab.er.24h Discharge Medication List allopurinoL [Zyloprim] 100 mg PO DAILY 03/06/16 [History] lisinopriL [Zestril] 20 mg PO DAILY 10/23/16 [History] Escitalopram [Lexapro] 20 mg PO DAILY 05/31/17 [History] Atorvastatin [Lipitor] 40 mg PO HS 04/16/20 [History] Cholecalciferol (Vitamin D3) [Vitamin D3 (5000 Iu)] 125 mcg PO DAILY 01/05/21 [History] amLODIPine [Norvasc] 2.5 mg PO DAILY 01/05/21 [History] Apixaban [Eliquis] 5 mg PO BID #60 tab 01/09/21 [Rx] Metoprolol Succinate (ER) [Toprol XL] 12.5 mg PO DAILY 60 Days #30 tab.er.24h 01/10/21 [Rx] Omeprazole 40 mg PO DAILY 05/20/21 [History] Ticagrelor [Brilinta] 90 mg PO BID #60 tab 05/22/21 [Rx] Furosemide [Lasix] 40 mg PO BID 07/10/21 [History] Follow up Appointment(s)/Referral(s): Richie Villalobos [Primary Care Provider] - 1-2 days Discharge Disposition: HOME SELF-CARE
[2021-07-11] MEDS ORDERED: PYRIDOXINE 50 MG TAB PO SCH (13:00)
[2021-07-11] MEDS ORDERED: FOLIC ACID 1 MG TAB PO SCH (13:00)
[2021-07-11] MEDS ORDERED: CYANOCOBALAMIN 1,000 MCG/ML 1 ML VIAL IM ONE (13:00)
--- NOTE | 2021-07-11 13:05 | CDI ---
Documentation Clarification Form Date: 07/11/2021 12:55:56 PM From: Sujata Mesa CCS, CCDS Admit Date: 07/10/2021 05:20:00 PM Patient Name: Ahsan Rosado Visit Number: [id number] Discharge Date: ATTENTION: The Clinical Documentation Specialists (CDI) and [facility] Coding Staff appreciate your assistance in clarifying documentation. Please respond to the clarification below the line at the bottom and electronically sign. The CDI & [facility] Coding staff will review the response and follow-up if needed. Please note: Queries are made part of the Legal Health Record. If you have any questions, please contact the author of this message via ITS. Dr. Cira Rossi: Atrial Fibrillation is documented in the 07/10 ED Note and the 07/10 History & Physical without further specificity. Additional clarification regarding the Type of Atrial Fibrillation is requested. History/Risk Factors per the 07/10 H/P: Atrial Fibrillation, Prostate Cancer status post radiation, Skin Cancer, CHF nos, TIA, GI Bleed, Hypertension, Pneumonia, Gout, Small Bowel Obstruction, Anemia and Depression Clinical Indicators: Presented to the ED on 07/10 with Headache, Numbness to the left side of his face & head, Left arm & leg pain with numbness and tingling. Previous stroke workup negative in April. Admit with TIA, Paresthesia. 07/10 VS: T 97.7, P 72, R 19, BP 109/75, PO 96 RA, BMI: 37.6 07/10 LAB: Glucose 102 07/10: COVID negative 07/10 RAD: CXR: Some nodular areas over the lower thoracic spine: thoracic spondylosis. CT Brain: No acute intracranial abnormality. 07/10 EKG: R 71 nsr Treatment: Neuro checks, Swallow screen, I Na Cl 500 mls @ 999 mls/hr q31M, IV Dilaudid x1, po meds: Lasix 40 mg BID, Eliquis 5 mg BID, Lipitor 40 mg, Brillinta 90 mg BID, Zyloprim 100 mg daily, Norvasc 2.5 mg Daily, Lexapro 20 mg Daily, Zestril 20 mg Daily, Toprol 12.5 mg Daily Cardiology was not consulted. Please clarify the type of atrial fibrillation, if known: [ ] Chronic [ ] Permanent [ ] Paroxysmal [ ] Persistent [ ] Other, please specify [ ] Unable to determine (Template Last Revised: October 2020) Paroxysmal MTDD
--- NOTE | 2021-07-11 13:12 | CDI ---
Documentation Clarification Form Date: 07/11/2021 01:06:00 PM From: Sujata Mesa CCS, CCDS Admit Date: 07/10/2021 05:20:00 PM Patient Name: Ahsan Rosado Visit Number: [id number] Discharge Date: ATTENTION: The Clinical Documentation Specialists (CDI) and [facility] Coding Staff appreciate your assistance in clarifying documentation. Please respond to the clarification below the line at the bottom and electronically sign. The CDI & [facility] Coding staff will review the response and follow-up if needed. Please note: Queries are made part of the Legal Health Record. If you have any questions, please contact the author of this message via ITS. Dr. Cira Rossi: Heart Failure is documented in the patient's Medical History without further specificity. Additional information regarding the Type & Acuity of CHF is requested. History/Risk Factors per the 07/10 H/P: Atrial Fibrillation, Prostate Cancer status post radiation, Skin Cancer, CHF nos, TIA, GI Bleed, Hypertension, Pneumonia, Gout, Small Bowel Obstruction, Anemia and Depression Clinical Indicators: Presented to the ED on 07/10 with Headache, Numbness to the left side of his face & head, Left arm & leg pain with numbness and tingling. Previous stroke workup negative in April. Admit with TIA, Paresthesia. 07/10 VS: T 97.7, P 72, R 19, BP 109/75, PO 96 RA, BMI: 37.6 07/10 LAB: Glucose 102 07/10: COVID negative 07/10 RAD: CXR: Some nodular areas over the lower thoracic spine: thoracic spondylosis. CT Brain: No acute intracranial abnormality. 07/10 EKG: R 71 nsr Most recent ECHO 05/21/2021: Left ventricular systolic function is normal with EF 55-60%, Mild aortic valve sclerosis, Mild AR, Mild MR, Mild TR, no pericardial effusion. Treatment: Neuro checks, Swallow screen, I Na Cl 500 mls @ 999 mls/hr q31M, IV Dilaudid x1, po meds: Lasix 40 mg BID, Eliquis 5 mg BID, Lipitor 40 mg, Brillinta 90 mg BID, Zyloprim 100 mg daily, Norvasc 2.5 mg Daily, Lexapro 20 mg Daily, Zestril 20 mg Daily, Toprol 12.5 mg Daily Cardiology was not consulted. In your professional opinion, can you please clarify the Acuity and Type of CHF if known? [ ] Chronic Diastolic Heart Failure [ ] Other type of Heart Failure, please specify: [ ] Other, please specify [ ] Unable to determine (Template Last Revised: July 2020) Chronic Diastolic Heart Failure MTDD
[2021-07-11 15:16] LABS: Chol/HDL Ratio 2.59 Ratio; LDL Cholesterol,Calculated 40.5 mg/dL (0.0-131.0); VLDL Calculation 11.72 mg/dL (5.00-40.00)
--- NOTE | 2021-07-11 15:23 | P.CNNES ---
History of Present Illness Consult date: 07/11/21 Requesting physician: Gasper Leigh Reason for Consult: Left-sided numbness history of TIA History of Present Illness: Patient is a 71-year-old male, well known to neurology service from multiple admissions in the past, also follows up with Dr. Gunner herrera, who has history of recurrent paresthesias concerning for TIA, paroxysmal atrial fibrillation on anticoagulation, hypertension, CHF, prostate cancer status post radiation, history of B12 deficiency came to the hospital yesterday at 2:13 PM for recurrent paresthesias. Patient states that he was admitted to the hospital on the week of for similar symptoms. He was seen by Dr. Rogelio Colindres, and his Plavix was switched to Brilinta. Patient is also on Eliquis for stroke prevention related to atrial fibrillation. Patient states that since then he has been having symptoms every day. Some days are worse than others. Yesterday his symptoms were worse therefore he came to the hospital. The symptoms had not let up. He went to his neurologist, but patient was recommended to go to the ER. He feels pressure in tingling sensation involving the top of the head. It often involves the left side, sometimes bilateral. Also was involving left side of the face, left arm and leg. It mainly involves the whole head, except the right lower cheek (maxillary and mandibular region) Vital signs on arrival blood pressure 109/75, pulse is 72, temperature 97.7. Blood test shows normal CBC PT/PTT, Chem-20. Troponin negative. Camacho virus PCR negative. CT head showed no acute intracranial abnormality. I personally reviewed computed tomography scan of the head, negative with the findings. No acute process. No remote ischemia evident. EKG shows normal sinus rhythm, with left axis deviation. Chest x-ray showed hypoventilatory changes without definite acute process. There are some nodular areas that project over the lower thoracic spine on the lateral view favored to represent thoracic spondylosis. Nonemergent CT chest recommended to further evaluate the lung parenchyma and exclude underlying nodules. Patient's home medications includes allopurinol, lisinopril 20 mg, Lexapro 20 mg, Lipitor 40 mg, vitamin D, Eliquis 5 mg twice a day, omeprazole 40 mg, metoprolol, Brilinta 90 mg twice a day and Lasix. MRI of the brain from 05/21/2021 revealed no acute intracranial abnormality. Mild white matter change around the lateral ventricles are nonspecific and are likely age-related. Patient had 4 other brain MRIs from 2015 to 2019, all of them showed no acute ischemia. MRI of the cervical spine shows mild spondylotic changes in the cervical spine. No significant spinal stenosis or fracture. CTA of head and neck from 05/20/2021 showed no significant stenosis in the internal carotid arteries bilaterally. No significant stenosis or aneurysm at the level of [place]. No significant change from most recent CTA. 2-D echo from 05/21/2021 shows normal left ventricular size. Mild concentric LVH. EF is between 55-60%. Aortic valve is trileaflet and mildly thickened. Mild aortic valve sclerosis. Mild aortic regurgitation. Hemoglobin A1c 5.3 on 08/11/2014. Lipid panel from 05/20/2021 shows cholesterol 100, LDL 44.9, HDL 38 and triglycerides 82.5. B12 239 on 04/25/2020, vitamin B6 5, folic acid not checked. Methylmalonic acid 0.30. Patient had a normal 2.5 hour EEG on 07/03/2021 which shows no electrographic or clinical seizure. No epileptiform activity was seen. Patient also had a normal EEG on 04/24/2020. Review of Systems As above in detail. All other 14 point review of systems reviewed and noncontributory to the present illness. Denies any double vision, loss of vision, hoarseness, sore throat, dysphagia. No chest pain or abdominal pain nausea vomiting diarrhea. No fever or chills. Past Medical History Past Medical History: Atrial Fibrillation, Cancer, Heart Failure, CVA/TIA, GI Bleed, Hypertension, Pneumonia, Prostate Disorder Additional Past Medical History / Comment(s): hx prostate ca 2009/radiation tx ,TIA 2014, SLIGHTLY ENLARGED HEART", GOUT, Small bowel obstruction in February 2016, hx anemia, [place] with use of a hearing aid, skin cancer s/p removal History of Any Multi-Drug Resistant Organisms: None Reported Past Surgical History: Ablation Additional Past Surgical History / Comment(s): omphalocele repair as , 2 BOWEL RESECTIONS for bleeding, polyp removed from left ear, Cardiac ablation Feb 2021 Past Anesthesia/Blood Transfusion Reactions: No Reported Reaction Additional Past Anesthesia/Blood Transfusion Reaction / Comment(s): . Past Psychological History: Depression Additional Psychological History / Comment(s): Pt had a suicide attempt in 2004. He states he has no suicidal thoughts.well maintained on medications Smoking Status: Never smoker Past Alcohol Use History: Occasional Additional Past Alcohol Use History / Comment(s): less than 14 drinks weekly pt states as of last week he has cut back on alcohol intake. Past Drug Use History: None Reported - Past Family History Father Family Medical History: Cancer Additional Family Medical History / Comment(s): oral CA.. Mother Family Medical History: Cancer Additional Family Medical History / Comment(s): breast CA. Medications and Allergies Home Medications Medication Instructions Recorded Confirmed Type allopurinoL [Zyloprim] 100 mg PO DAILY 03/06/16 07/10/21 History lisinopriL [Zestril] 20 mg PO DAILY 10/23/16 07/10/21 History Escitalopram [Lexapro] 20 mg PO DAILY 05/31/17 07/10/21 History Atorvastatin [Lipitor] 40 mg PO HS 04/16/20 07/10/21 History Cholecalciferol (Vitamin D3) 125 mcg PO DAILY 01/05/21 07/10/21 History [Vitamin D3 (5000 Iu)] amLODIPine [Norvasc] 2.5 mg PO DAILY 01/05/21 07/10/21 History Apixaban [Eliquis] 5 mg PO BID #60 tab 01/09/21 07/10/21 Rx Metoprolol Succinate (ER) [Toprol 12.5 mg PO DAILY 60 Days #30 01/10/21 07/10/21 Rx XL] tab.er.24h Omeprazole 40 mg PO DAILY 05/20/21 07/10/21 History Ticagrelor [Brilinta] 90 mg PO BID #60 tab 05/22/21 07/10/21 Rx Furosemide [Lasix] 40 mg PO BID 07/10/21 07/10/21 History Folic Acid 1 mg PO DAILY #30 tab 07/11/21 Rx Pyridoxine [Vitamin B-6] 50 mg PO DAILY 30 Days #30 tab 07/11/21 Rx Allergies Allergy/AdvReac Type Severity Reaction Status Date / Time erythromycin base AdvReac Nausea & Verified 07/10/21 15:56 Vomiting ibuprofen AdvReac Hx of GI Verified 07/10/21 15:56 Bleed steroids AdvReac Hx of GI Uncoded 05/20/21 10:46 Bleed Physical Examination - Vital Signs Vital Signs: Vital Signs Temp Pulse Pulse Resp BP BP Pulse Ox 07/11/21 08:00 98.1 F 73 18 113/83 95 07/11/21 03:57 60 16 96/64 99 07/11/21 00:00 64 18 135/89 96 07/10/21 20:00 98.4 F 76 18 101/79 100 07/10/21 18:47 98.6 F 67 19 113/90 97 07/10/21 14:29 97.7 F 72 19 109/75 96 Intake and Output 07/10/21 07/11/21 07/11/21 22:59 06:59 14:59 Output Total 250 600 Balance -250 -600 Output: Urine 250 600 Other: # Voids 1 Weight 102.512 kg Patient is an elderly male, in no acute distress. Patient is alert awake oriented to time place and person. Speech and language functions are normal. Attention, concentration and fund of knowledge is adequate. No aphasia or dysarthria. On cranial examination, pupils are equal, round and reacting to light, visual [place] are full on confrontation, with no neglect on double simultaneous sti mulation. extraocular muscles are intact with no nystagmus. Face is symmetric, tongue protrudes to the midline. Palatal elevation and sensation normal, hearing and shoulder shrug normal, facial sensation normal. Shoulder shrug normal. On muscle strength testing, there is no pronator drift and the strength is normal in arms and legs distally and proximally. Deep tendon reflexes are 1-1+, symmetric bilaterally and plantars downgoing. Sensory to touch is equal with no neglect on double simultaneous stimulation. Cerebellar function showed no ataxia for [id number] testing. No dysdiadoc hokinesia. Tone and bulk of muscles normal. Gait deferred. On general examination, there is no carotid bruit or murmur, S1-S2 audible. Abdomen is soft nontender. Chest is clear. Peripheral pulses are present. No edema. Results - Laboratory Findings CBC and BMP: 07/11/21 09:27 07/11/21 09:27 Abnormal Lab Findings: Abnormal Labs 07/10/21 15:22 Glucose 102 H Assessment and Plan Assessment: * Recurrent paresthesias of unclear etiology. Patient has these paresthesias off and on since 1990, but has got worse since last Thanksgiving after his last hospitalization. Sometimes it involves the upper half of the head bilaterally, sometimes involve the left facial region, or left side of the head, sometimes involve the whole left side of the body. Patient has numerous MRI of the brain performed in the past which were all normal. No acute stroke ever identified. TIA appears very unlikely, as patient is having symptoms on a daily basis. Differential diagnosis includes seizures but patient's EEG has been normal. Migraines also in the differential, but he never has any history of migraines. Patient does have a history of B12 and B6 deficiency. Rule out paresthesias related to vitamin deficiency. * History of paroxysmal atrial fibrillation, status post cardiac ablation, currently on Eliquis * CHF * History of prostate cancer, status post radiation Plan: * Patient underwent MRI of the brain today, which again was normal. No acute stroke. Some small vessel ischemic change. Focal area of abnormal signal involving the [place] on the right suggestive of small area of remote ischemia. I personally reviewed the MRI, and this pontine lesion mentioned by the radiologist appears artifactual to me, as this signal was not seen in any other sequences like T2-weighted images, or DWI. * Patient is already taking Eliquis and Brilinta, and there is no indication to add any other antiplatelet agent. Otherwise the risk of hemorrhage will go very high. * Patient does have history of B12 deficiency, takes vitamin B12 injections once every other month. We will repeat B12, and folic acid. His vitamin B6 level was low previously. Patient was given B12 injection. He will start vitamin B12 2500 g sublingually daily. Patient will be discharged also on folic acid 1 mg daily, vitamin B6 50 mg daily. We will check hemoglobin A1c. I will call patient next week regarding the results of B12, folate, and A1c. * Patient should follow-up with his neurologist. Neurologically clear. Discussed with primary physician. * Thank you for the consult. Addendum 07/13/2020: Patient's vitamin B12 is 415, folic acid is very borderline 5.2. Hemoglobin A1c is normal 5.6. Tried to call patient's home as well as patient's daughter to inform the results and to follow-up on his condition.
[2021-07-12 09:51] LABS: Folate, Serum 5.2 ng/mL (4.40-31.00)
== END 2021-07-11 14:02 | disposition home or self-care (01) | DRG 69 ==
LOC: EC 14:13 → 3SCARD 17:20
PROVIDERS: ADMIT Internal Medicine; ATTEND Internal Medicine
DX: G45.9 Transient cerebral ischemic attack, unspecified (principal); I50.32 Chronic diastolic (congestive) heart failure; I11.0 Hypertensive heart disease with heart failure; I48.0 Paroxysmal atrial fibrillation; Z20.822 Contact with and (suspected) exposure to COVID-19; E55.9 Vitamin D deficiency, unspecified; M47.814 Spondylosis without myelopathy or radiculopathy, thoracic region; F32.A Depression, unspecified; D64.9 Anemia, unspecified; I35.1 Nonrheumatic aortic (valve) insufficiency; M10.9 Gout, unspecified; Z90.49 Acquired absence of other specified parts of digestive tract; Z88.1 Allergy status to other antibiotic agents; Z88.8 Allergy status to other drugs, medicaments and biological substances; Z79.899 Other long term (current) drug therapy; Z79.01 Long term (current) use of anticoagulants; Z79.02 Long term (current) use of antithrombotics/antiplatelets; Z86.73 Personal history of transient ischemic attack (TIA), and cerebral infarction without residual deficits; Z85.828 Personal history of other malignant neoplasm of skin; Z85.46 Personal history of malignant neoplasm of prostate; Z92.3 Personal history of irradiation; Z80.3 Family history of malignant neoplasm of breast; Z80.8 Family history of malignant neoplasm of other organs or systems
CPT/HCPCS: 36415; 70450; 70551; 71046; 80053; 80061; 82607; 82746; 83036; 84484; 85025; 85610; 85730; 87635; 93005; 96361; 96374; 99285

== ENCOUNTER 2021-11-17 10:57 | Observation (INO) | payer MEDICARE ==
[2021-11-17] MEDS ORDERED: NITROGLYCERIN OINT 1 INCH/GM PACKET TOPICAL STA (11:55)
[2021-11-17] MEDS ORDERED: ASPIRIN 81 MG PO STA (11:55)
--- NOTE | 2021-11-17 11:58 | ED ---
General Adult HPI - General Chief complaint: ENT Stated complaint: Chest pain/pressure/hiccups for week Time Seen by Provider: 11/17/21 11:36 Source: patient, family, RN notes reviewed Mode of arrival: wheelchair Limitations: no limitations - History of Present Illness Initial comments: Patient is a pleasant 71-year-old male presenting to the emergency Department with complaints of chest discomfort. Onset was 3 days ago. Patient has had multiple intermittent episodes lasting up to 10 minutes. Discomfort feels like pressure. There is some radiation towards the neck. Patient has been having some hiccups for the past one week. Patient has some mild nausea. No diaphoresis. No dyspnea. - Related Data Home Medications Medication Instructions Recorded Confirmed allopurinoL [Zyloprim] 100 mg PO DAILY 03/06/16 11/17/21 lisinopriL [Zestril] 20 mg PO DAILY 10/23/16 11/17/21 Escitalopram [Lexapro] 20 mg PO DAILY 05/31/17 11/17/21 Atorvastatin [Lipitor] 40 mg PO HS 04/16/20 11/17/21 Furosemide [Lasix] 40 mg PO DAILY 07/10/21 11/17/21 Clopidogrel [Plavix] 75 mg PO DAILY 11/17/21 11/17/21 amLODIPine [Norvasc] 2.5 mg PO DAILY 11/17/21 11/17/21 Previous Rx's Medication Instructions Recorded Apixaban [Eliquis] 5 mg PO BID #60 tab 01/09/21 Metoprolol Succinate (ER) [Toprol 12.5 mg PO DAILY 60 Days #30 01/10/21 XL] tab.er.24h Allergies Allergy/AdvReac Type Severity Reaction Status Date / Time erythromycin base AdvReac Nausea & Verified 11/17/21 13:04 Vomiting ibuprofen AdvReac Hx of GI Verified 11/17/21 13:04 Bleed steroids AdvReac Hx of GI Uncoded 11/17/21 11:05 Bleed Review of Systems ROS Statement: Those systems with pertinent positive or pertinent negative responses have been documented in the HPI. ROS Other: All systems not noted in ROS Statement are negative. Constitutional: Denies: fever Eyes: Denies: eye pain ENT: Denies: ear pain Respiratory: Denies: cough Cardiovascular: Reports: as per HPI, chest pain Endocrine: Denies: fatigue Gastrointestinal: Reports: nausea. Denies: abdominal pain, vomiting Genitourinary: Denies: dysuria Musculoskeletal: Denies: back pain Skin: Denies: rash Neurological: Denies: weakness Past Medical History Past Medical History: Atrial Fibrillation, Cancer, Heart Failure, CVA/TIA, GI Bleed, Hypertension, Pneumonia, Prostate Disorder Additional Past Medical History / Comment(s): hx prostate ca 2009/radiation tx ,TIA 2014, SLIGHTLY ENLARGED HEART", GOUT, Small bowel obstruction in February 2016, hx anemia, [place] with use of a hearing aid, skin cancer s/p removal History of Any Multi-Drug Resistant Organisms: None Reported Past Surgical History: Ablation Additional Past Surgical History / Comment(s): omphalocele repair as , 2 BOWEL RESECTIONS for bleeding, polyp removed from left ear, Cardiac ablation Feb 2021 Past Anesthesia/Blood Transfusion Reactions: No Reported Reaction Additional Past Anesthesia/Blood Transfusion Reaction / Comment(s): . Past Psychological History: Depression Smoking Status: Never smoker Past Alcohol Use History: Occasional Past Drug Use History: None Reported - Past Family History Father Family Medical History: Cancer Additional Family Medical History / Comment(s): oral CA.. Mother Family Medical History: Cancer Additional Family Medical History / Comment(s): breast CA. General Exam Limitations: no limitations General appearance: alert, in no apparent distress Head exam: Present: normocephalic Eye exam: Present: normal appearance Neck exam: Present: normal inspection Respiratory exam: Present: normal lung sounds bilaterally. Absent: chest wall tenderness Cardiovascular Exam: Present: regular rate, normal rhythm Expanded Peripheral pulses: 2+: Radial (R), Radial (L), Posterior Tibialis (R), Posterior Tibialis (L) GI/Abdominal exam: Present: soft. Absent: tenderness Extremities exam: Present: normal inspection. Absent: pedal edema, calf tenderness Neurological exam: Present: alert Psychiatric exam: Present: normal affect, normal mood Skin exam: Present: normal color Course Vital Signs 11/17/21 11/17/21 10:59 12:28 Temperature 98.1 F Pulse Rate 68 Pulse Rate [ 66 Exhibits Curator ] Respiratory 18 Rate Blood Pressure 121/77 O2 Sat by Pulse 97 Oximetry EKG Findings - EKG Comments: EKG Findings:: Sinus rhythm with rate of 60. [place] 173. QRS 87. QT 433. QTC 449. Left axis. Poor R-wave progression. No acute ST change. Medical Decision Making - Medical Decision Making Patient reevaluated and resting comfortably in bed. Patient and family updated on results and plan. Case discussed with Dr. skinny siu, who will admit covering Dr. Rivers. - Lab Data Result diagrams: 11/17/21 12:21 11/17/21 12:21 Lab Results 11/17/21 11/17/21 11/17/21 Range/Units 12:21 12:21 12:21 WBC 7.3 (3.8-10.6) k/uL RBC 5.82 (4.30-5.90) m/uL Hgb 16.8 (13.0-17.5) gm/dL Hct 49.9 (39.0-53.0) % MCV 85.9 (80.0-100.0) fL MCH 28.9 (25.0-35.0) pg MCHC 33.7 (31.0-37.0) g/dL RDW 14.4 (11.5-15.5) % Plt Count 187 (150-450) k/uL MPV 6.6 Neutrophils % 75 % Lymphocytes % 17 % Monocytes % 5 % Eosinophils % 2 % Basophils % 1 % Neutrophils # 5.4 (1.3-7.7) k/uL Lymphocytes # 1.2 (1.0-4.8) k/uL Monocytes # 0.4 (0-1.0) k/uL Eosinophils # 0.1 (0-0.7) k/uL Basophils # 0.1 (0-0.2) k/uL PT 11.4 (9.0-12.0) sec INR 1.1 (<1.2) APTT 25.8 (22.0-30.0) sec D-Dimer <0.17 (<0.60) mg/L FEU Sodium 137 (137-145) mmol/L Potassium 3.8 (3.5-5.1) mmol/L Chloride 105 (98-107) mmol/L Carbon Dioxide 25 (22-30) mmol/L Anion Gap 7 mmol/L BUN 11 (9-20) mg/dL Creatinine 1.05 (0.66-1.25) mg/dL Est GFR (CKD-EPI)AfAm 83 (>60 ml/min/1.73 sqM) Est GFR (CKD-EPI)NonAf 72 (>60 ml/min/1.73 sqM) Glucose 93 (74-99) mg/dL Calcium 8.3 L (8.4-10.2) mg/dL Magnesium 1.9 (1.6-2.3) mg/dL Total Bilirubin 1.3 (0.2-1.3) mg/dL AST 23 (17-59) U/L ALT 13 (4-49) U/L Alkaline Phosphatase 89 (38-126) U/L Troponin I (0.000-0.034) ng/mL Total Protein 6.6 (6.3-8.2) g/dL Albumin 3.7 (3.5-5.0) g/dL Amylase 64 (30-110) U/L Lipase 48 (23-300) U/L / Range/Units 12:21 WBC (3.8-10.6) k/uL RBC (4.30-5.90) m/uL Hgb (13.0-17.5) gm/dL Hct (39.0-53.0) % MCV (80.0-100.0) fL MCH (25.0-35.0) pg MCHC (31.0-37.0) g/dL RDW (11.5-15.5) % Plt Count (150-450) k/uL MPV Neutrophils % % Lymphocytes % % Monocytes % % Eosinophils % % Basophils % % Neutrophils # (1.3-7.7) k/uL Lymphocytes # (1.0-4.8) k/uL Monocytes # (0-1.0) k/uL Eosinophils # (0-0.7) k/uL Basophils # (0-0.2) k/uL PT (9.0-12.0) sec INR (<1.2) APTT (22.0-30.0) sec D-Dimer (<0.60) mg/L FEU Sodium (137-145) mmol/L Potassium (3.5-5.1) mmol/L Chloride (98-107) mmol/L Carbon Dioxide (22-30) mmol/L Anion Gap mmol/L BUN (9-20) mg/dL Creatinine (0.66-1.25) mg/dL Est GFR (CKD-EPI)AfAm (>60 ml/min/1.73 sqM) Est GFR (CKD-EPI)NonAf (>60 ml/min/1.73 sqM) Glucose (74-99) mg/dL Calcium (8.4-10.2) mg/dL Magnesium (1.6-2.3) mg/dL Total Bilirubin (0.2-1.3) mg/dL AST (17-59) U/L ALT (4-49) U/L Alkaline Phosphatase (38-126) U/L Troponin I <0.012 (0.000-0.034) ng/mL Total Protein (6.3-8.2) g/dL Albumin (3.5-5.0) g/dL Amylase (30-110) U/L Lipase (23-300) U/L Disposition Clinical Impression: Chest pain Disposition: ADMITTED IP TO THIS [facility] Is patient prescribed a controlled substance at d/c from ED?: No Referrals: Richie Villalobos [Primary Care Provider] - 1-2 days Time of Disposition: 14:28
[2021-11-17 12:42] LABS: Albumin 3.7 g/dL (3.5-5.0); Calcium 8.3 mg/dL (8.4-10.2); Magnesium 1.9 mg/dL (1.6-2.3); Potassium 3.8 mmol/L (3.5-5.1); Total Bilirubin 1.3 mg/dL (0.2-1.3); Total Protein 6.6 g/dL (6.3-8.2)
--- NOTE | 2021-11-17 12:42 | XR ---
EXAMINATION TYPE: XR chest 2V DATE OF EXAM: 11/17/2021 COMPARISON: Chest x-ray July 10, 2021 HISTORY: Chest pain for 3 days. TECHNIQUE: Frontal and lateral views of the chest are obtained. FINDINGS: Somewhat low lung volumes redemonstrated. There is no suspicious new focal air space opacit y, pleural effusion, or pneumothorax seen. The cardiac silhouette size is stable and mildly enlarged . Degenerative spurring in thoracic spine is redemonstrated. IMPRESSION: Mild cardiomegaly without acute pulmonary process. No significant change from prior.
[2021-11-17 12:45] LABS: INR 1.1 (<1.2); Partial Thromboplastin Time 25.8 sec (22.0-30.0); Prothrombin Time 11.4 sec (9.0-12.0)
[2021-11-17 12:53] LABS: Basophils # (A) 0.1 k/uL (0-0.2); Basophils % (A) 1 %; Eosinophils # (A) 0.1 k/uL (0-0.7); Eosinophils % (A) 2 %; HCT 49.9 % (39.0-53.0); HGB 16.8 gm/dL (13.0-17.5); Lymphocytes # (A) 1.2 k/uL (1.0-4.8); Lymphocytes % (A) 17 %; MCH 28.9 pg (25.0-35.0); MCHC 33.7 g/dL (31.0-37.0); MCV 85.9 fL (80.0-100.0); Mean Platelet Volume 6.6; Monocytes # (A) 0.4 k/uL (0-1.0); Monocytes % (A) 5 %; Neutrophils # (A) 5.4 k/uL (1.3-7.7); Neutrophils % (A) 75 %; Platelet Count 187 k/uL (150-450); RBC 5.82 m/uL (4.30-5.90); RDW 14.4 % (11.5-15.5); WBC 7.3 k/uL (3.8-10.6)
[2021-11-17] MEDS ORDERED: NITROGLYCERIN SL TABS 0.4 MG TAB SUBLINGUAL PRN (14:28)
--- NOTE | 2021-11-17 15:31 | P.HPIM ---
History of Present Illness H&P Date: 11/17/21 Chief Complaint: chest pain Patient is a 71-year-old male with a past medical history of TIA, hypertension, gout, atrial fibrillation who presents to the ED with complaints of chest discomfort that has been ongoing for 3 days. Patient states that he has had multiple episodes of chest pressure. He states that it is not associated with exertion or rest. Patient states that the pain is in the middle of his chest and sometimes radiates to his neck. Patient states that his chest pain at its worst was a 5 out of 10. Patient currently has a nitro patch on. He states that he doesn't have any chest pain now. Patient also states that he has been having hiccups constantly for 3 weeks. In the ED patient's troponin was negative. EKG did not show any ischemic changes Patient was admitted for evaluation of his chest pain. Review of Systems 10 ROS reviewed and are negative except as noted in HPI Past Medical History Past Medical History: Atrial Fibrillation, Cancer, Heart Failure, CVA/TIA, GI Bleed, Hypertension, Pneumonia, Prostate Disorder Additional Past Medical History / Comment(s): hx prostate ca 2009/radiation tx ,TIA 2014, SLIGHTLY ENLARGED HEART", GOUT, Small bowel obstruction in February 2016, hx anemia, [place] with use of a hearing aid, skin cancer s/p removal History of Any Multi-Drug Resistant Organisms: None Reported Past Surgical History: Ablation Additional Past Surgical History / Comment(s): omphalocele repair as , 2 BOWEL RESECTIONS for bleeding, polyp removed from left ear, Cardiac ablation Feb 2021 Past Anesthesia/Blood Transfusion Reactions: No Reported Reaction Additional Past Anesthesia/Blood Transfusion Reaction / Comment(s): . Past Psychological History: Depression Smoking Status: Never smoker Past Alcohol Use History: Occasional Past Drug Use History: None Reported - Past Family History Father Family Medical History: Cancer Additional Family Medical History / Comment(s): oral CA.. Mother Family Medical History: Cancer Additional Family Medical History / Comment(s): breast CA. Medications and Allergies Home Medications Medication Instructions Recorded Confirmed Type allopurinoL [Zyloprim] 100 mg PO DAILY 03/06/16 11/17/21 History lisinopriL [Zestril] 20 mg PO DAILY 10/23/16 11/17/21 History Escitalopram [Lexapro] 20 mg PO DAILY 05/31/17 11/17/21 History Atorvastatin [Lipitor] 40 mg PO HS 04/16/20 11/17/21 History Apixaban [Eliquis] 5 mg PO BID #60 tab 01/09/21 11/17/21 Rx Metoprolol Succinate (ER) [Toprol 12.5 mg PO DAILY 60 Days #30 01/10/21 11/17/21 Rx XL] tab.er.24h Furosemide [Lasix] 40 mg PO DAILY 07/10/21 11/17/21 History Clopidogrel [Plavix] 75 mg PO DAILY 11/17/21 11/17/21 History amLODIPine [Norvasc] 2.5 mg PO DAILY 11/17/21 11/17/21 History Allergies Allergy/AdvReac Type Severity Reaction Status Date / Time erythromycin base AdvReac Nausea & Verified 11/17/21 13:04 Vomiting ibuprofen AdvReac Hx of GI Verified 11/17/21 13:04 Bleed steroids AdvReac Hx of GI Uncoded 11/17/21 11:05 Bleed Physical Exam Osteopathic Statement: *. No significant issues noted on an osteopathic structural exam other than those noted in the History and Physical/Consult. Vitals: Vital Signs Temp Pulse Pulse Resp BP Pulse Ox 11/17/21 12:28 66 11/17/21 10:59 98.1 F 68 18 121/77 97 Intake and Output 11/17/21 11/17/21 11/17/21 06:59 14:59 22:59 Other: Weight 104.326 kg General: [Alert and oriented, well nourished, no acute distress]. Eye: [PERRL, EOMI, normal conjunctiva]. HENT: [Normocephalic, clear tympanic membranes, normal hearing, moist oral mucosa, no scleral icterus, no sinus tenderness]. Neck: [Supple, non-tender, no carotid bruits, no JVD, no lymphadenopathy]. Lungs: [Clear to auscultation and percussion, non-labored respiration]. Heart: [Normal rate, regular rhythm, no murmur, gallop or edema]. Abdomen: [Soft, non-tender, non-distended, normal bowel sounds, no masses]. Musculoskeletal: [Normal range of motion and strength, no tenderness or swelling]. Skin: [Skin is warm, dry and pink, no rashes or lesions]. Neurologic: [Awake, alert, and oriented X3, CN II-XII intact]. Psychiatric: [Cooperative, appropriate mood and affect]. Results CBC & Chem 7: 11/17/21 12:21 11/17/21 12:21 Labs: Abnormal Lab Results - Last 24 Hours (Table) 11/17/21 Range/Units 12:21 Calcium 8.3 L (8.4-10.2) mg/dL Assessment and Plan Assessment: #Atypical chest pain -Trend troponins 2 more times -Consult cardiology -Nothing by mouth past midnight for possible stress test -Resume aspirin and Plavix -Resume Nitropaste #A. fib with RVR -Resume metoprolol and Eliquis -Patient is on dual antiplatelet therapy as well as anticoagulation. Will defer to cardiology if okay to discontinue aspirin or Plavix #Hypertension -Resume home BP meds #Anxiety and depression -Resume Lexapro #Gout -Resume allopurinol CODE STATUS:full code DVT prophylaxis: Eliquis Discussed with: Patient, ER, rn Anticipated length of stay < than [address]: home A total of 50 minutes was spent on the care of this complex patient more than 50 % of the time was spent in counseling and care coordination.
[2021-11-17] MEDS: NITROGLYCERIN OINT 1 INCH/GM PACKET TOPICAL SCH (18:04)
[2021-11-17] MEDS: APIXABAN 5 MG TAB PO SCH (20:01)
[2021-11-17] MEDS ORDERED: ATORVASTATIN 40 MG TAB PO SCH (21:00)
[2021-11-18] MEDS: NITROGLYCERIN OINT 1 INCH/GM PACKET TOPICAL SCH ×2 (00:39→05:28)
[2021-11-18] MEDS ORDERED: RX INFO: IV CONTRAST WAS GIVEN 1 EACH MISC MISCELLANE PRN (08:27)
[2021-11-18] MEDS: APIXABAN 5 MG TAB PO SCH (08:57)
[2021-11-18] MEDS ORDERED: lisinopriL 20 MG TAB PO SCH (09:00)
[2021-11-18] MEDS ORDERED: ASPIRIN 325 MG TAB PO SCH ×2 (09:00)
[2021-11-18] MEDS ORDERED: allopurinoL 100 MG TAB PO SCH (09:00)
[2021-11-18] MEDS ORDERED: CLOPIDOGREL 75 MG TAB PO SCH (09:00)
[2021-11-18] MEDS ORDERED: amLODIPine 2.5 MG TAB PO SCH (09:00)
[2021-11-18] MEDS ORDERED: METOPROLOL SUCCINATE (ER) 25 MG TAB.ER.24H PO SCH (09:00)
[2021-11-18] MEDS ORDERED: ESCITALOPRAM 20 MG TAB PO SCH (09:00)
[2021-11-18] MEDS ORDERED: FUROSEMIDE 40 MG TAB PO SCH (09:00)
[2021-11-18 09:33] LABS: Chol/HDL Ratio 2.54 Ratio; LDL Cholesterol,Calculated 33.8 mg/dL (0.0-131.0); VLDL Calculation 13.94 mg/dL (5.00-40.00)
[2021-11-18] MEDS ORDERED: chlorproMAZINE 25 MG/ML 2 ML AMP IM STA (09:38)
--- NOTE | 2021-11-18 09:43 | P.CRDCN ---
History of Present Illness History of present illness: HISTORY OF PRESENTING ILLNESS This is a pleasant 71-year-old male past medical history significant for paroxysmal atrial fibrillation previous ablation in 02/2021 on Eliquis, hypertension, dyslipidemia, mild nonobstructive coronary artery disease, aortic ascending aneurysm, TIA, obesity. He follows in the office with Dr. Quach. We have been asked to see in consultation for chest pain. Patient is seen and examined at bedside. patient presents with complaints of hiccups for about 3 weeks. As well as, intermittent pressure in his upper chest, with radiation to his jaw. He states these symptoms come and go. Sometimes occur with the hiccups, sometimes without. He states taking a deep breath helps alleviated the pressure. It only happens when he is sitting down or lying down. It is non-exertional. It lasts for about 3 minutes when it occurs. He denies any shortness of breath, palpitations, diaphoresis, nausea, lightheadedness or dizziness, syncope or near syncope. DIAGNOSTICS EKG reveals sinus rhythm, heart rate 68, nonspecific T-wave abnormality, no acute ischemia. Cardiac catheterization 12/2020 revealed mild nonobstructive CAD, low LVEDP Chest xray no acute cardiopulmonary process telemetry revealed sinus mechanism with heart rate in the 60s Laboratory reviewed, CBC unremarkable, d-dimer negative, troponin negative 3, sodium 137, potassium 3.8, BUN 11, serum creatinine 1.0, amylase and lipase within normal limits, triglycerides 69, cholesterol 79, LDL 33, HDL 31 Current home medications include lisinopril 20 mg daily, amlodipine 2.5 mg daily, metoprolol succinate 12.5 mg daily, Lasix 40 mg daily, Plavix 75 mg daily, atorvastatin 40 mg nightly, Eliquis 5 mg twice a day echocardiogram 04/2021 revealed an EF of 5560%, mild aortic regurgitation, mild mitral regurgitation, mild tricuspid regurgitation, aortic root size is normal REVIEW OF SYSTEMS At the time of my exam: CONSTITUTIONAL: Denies fever or chills. CARDIOVASCULAR: Denies chest pain, shortness of breath, orthopnea, PND or palpitations. RESPIRATORY: Denies cough. GASTROINTESTINAL: Denies abdominal pain, diarrhea, constipation, nausea or vomiting. MUSCULOSKELETAL: Denies myalgias. NEUROLOGIC: Denies numbness, tingling, headache or weakness. ENDOCRINE: Denies fatigue, weight change, polydipsia or polyurina. GENITOURINARY: Denies burning, hematuria or urgency with micturation. HEMATOLOGIC: Denies history of anemia or bleeding. PHYSICAL EXAMINATION Blood pressure 110/76, heart rate 61, afebrile, oxygen saturations 98% on room air CONSTITUTIONAL: No apparent distress. HEENT: Head is normocephalic. Pupils are equal, round. Sclerae anicteric. Mucous membranes of the mouth are moist. No JVD. No carotid bruit. CHEST EXAMINATION: Lungs are clear to auscultation. No chest wall tenderness is noted on palpation or with deep breathing. HEART EXAMINATION: Regular rate and rhythm. S1, S2 heard. No murmurs, gallops or rub. ABDOMEN: Soft, nontender. Positive bowel sounds. EXTREMITIES: 2+ peripheral pulses, no lower extremity edema and no calf tenderness. SKIN: warm, dry NEUROLOGIC EXAMINATION: Patient is awake, alert and oriented x3. ASSESSMENT Chest pressure, Jaw pressure, atypical, unclear etiology at this time, acute coronary syndrome has been ruled out Hiccups Paroxysmal atrial fibrillation previous ablation in 02/2021 on Eliquis Hypertension Dyslipidemia Mild nonobstructive coronary artery disease Aortic ascending aneurysm History of TIA Obesity PLAN An acute coronary event has been ruled out with no EKG evidence of ischemia and negative cardiac enzymes. Obtain CT Chest to assess for any mass and assess patient's aortic aneursym Stop Aspirin Continue Plavix and Eliquis Continue amlodipine, statin, lisinopril, lasix and metoprolol succinate Follow up with Dr. Main mcintosh on discharge Thank you kindly for this consultation. Nurse practitioner note has been reviewed by physician. Signing provider agrees with the documented findings, assessment, and plan of care. Past Medical History Past Medical History: Atrial Fibrillation, Cancer, Heart Failure, CVA/TIA, GI Bleed, Hypertension, Pneumonia, Prostate Disorder Additional Past Medical History / Comment(s): hx prostate ca 2009/radiation tx ,TIA 2014, SLIGHTLY ENLARGED HEART", GOUT, Small bowel obstruction in February 2016, hx anemia, [place] with use of a hearing aid, skin cancer s/p removal History of Any Multi-Drug Resistant Organisms: None Reported Past Surgical History: Ablation Additional Past Surgical History / Comment(s): omphalocele repair as , 2 BOWEL RESECTIONS for bleeding, polyp removed from left ear, Cardiac ablation Feb 2021 Past Anesthesia/Blood Transfusion Reactions: No Reported Reaction Additional Past Anesthesia/Blood Transfusion Reaction / Comment(s): . Past Psychological History: Depression Additional Psychological History / Comment(s): Pt had a suicide attempt in 2004. He states he has no suicidal thoughts.well maintained on medications Smoking Status: Never smoker Past Alcohol Use History: None Reported, Occasional Past Drug Use History: None Reported - Past Family History Father Family Medical History: Cancer Additional Family Medical History / Comment(s): oral CA.. Mother Family Medical History: Cancer Additional Family Medical History / Comment(s): breast CA. Medications and Allergies Home Medications Medication Instructions Recorded Confirmed Type allopurinoL [Zyloprim] 100 mg PO DAILY 03/06/16 11/17/21 History lisinopriL [Zestril] 20 mg PO DAILY 10/23/16 11/17/21 History Escitalopram [Lexapro] 20 mg PO DAILY 05/31/17 11/17/21 History Atorvastatin [Lipitor] 40 mg PO HS 04/16/20 11/17/21 History Apixaban [Eliquis] 5 mg PO BID #60 tab 01/09/21 11/17/21 Rx Metoprolol Succinate (ER) [Toprol 12.5 mg PO DAILY 60 Days #30 01/10/21 11/17/21 Rx XL] tab.er.24h Furosemide [Lasix] 40 mg PO DAILY 07/10/21 11/17/21 History Clopidogrel [Plavix] 75 mg PO DAILY 11/17/21 11/17/21 History amLODIPine [Norvasc] 2.5 mg PO DAILY 11/17/21 11/17/21 History Allergies Allergy/AdvReac Type Severity Reaction Status Date / Time erythromycin base AdvReac Nausea & Verified 11/17/21 13:04 Vomiting ibuprofen AdvReac Hx of GI Verified 11/17/21 13:04 Bleed steroids AdvReac Hx of GI Uncoded 11/17/21 11:05 Bleed Physical Exam Vitals: Vital Signs Temp Pulse Pulse Pulse Resp BP BP 11/18/21 01:00 97.7 F 72 16 102/61 11/17/21 19:20 97.7 F 60 16 106/68 11/17/21 12:28 66 11/17/21 10:59 98.1 F 68 18 121/77 Pulse Ox 11/18/21 01:00 95 11/17/21 19:20 95 11/17/21 12:28 11/17/21 10:59 97 Intake and Output 11/17/21 11/18/21 11/18/21 22:59 06:59 14:59 Other: # Voids 1 1 Weight 104.326 kg Results 11/17/21 12:21 11/17/21 12:21 Cardiac Enzymes 11/17/21 11/17/21 11/17/21 Range/Units 12:21 12:21 15:21 AST 23 (17-59) U/L Troponin I <0.012 <0.012 (0.000-0.034) ng/mL 11/17/21 Range/Units 19:30 AST (17-59) U/L Troponin I <0.012 (0.000-0.034) ng/mL Coagulation 11/17/21 Range/Units 12:21 PT 11.4 (9.0-12.0) sec APTT 25.8 (22.0-30.0) sec CBC 11/17/21 Range/Units 12:21 WBC 7.3 (3.8-10.6) k/uL RBC 5.82 (4.30-5.90) m/uL Hgb 16.8 (13.0-17.5) gm/dL Hct 49.9 (39.0-53.0) % Plt Count 187 (150-450) k/uL Comprehensive Metabolic Panel 11/17/21 Range/Units 12:21 Sodium 137 (137-145) mmol/L Potassium 3.8 (3.5-5.1) mmol/L Chloride 105 (98-107) mmol/L Carbon Dioxide 25 (22-30) mmol/L BUN 11 (9-20) mg/dL Creatinine 1.05 (0.66-1.25) mg/dL Glucose 93 (74-99) mg/dL Calcium 8.3 L (8.4-10.2) mg/dL AST 23 (17-59) U/L ALT 13 (4-49) U/L Alkaline Phosphatase 89 (38-126) U/L Total Protein 6.6 (6.3-8.2) g/dL Albumin 3.7 (3.5-5.0) g/dL Current Medications Generic Name Dose Route Start Last Admin Trade Name Kristen PRN Reason Stop Dose Admin Allopurinol 100 mg 11/18/21 09:00 Allopurinol 100 Mg Tab PO DAILY [facility] Amlodipine Besylate 2.5 mg 11/18/21 09:00 Amlodipine 2.5 Mg Tab PO DAILY [facility] Apixaban 5 mg 11/17/21 21:00 11/17/21 20:01 Apixaban 5 Mg Tab PO 5 mg BID [facility] Administration Protocol Aspirin 325 mg 11/18/21 09:00 Aspirin 325 Mg Tab PO DAILY [facility] Atorvastatin Calcium 40 mg 11/17/21 21:00 11/17/21 20:01 Atorvastatin 40 Mg Tab PO 40 mg HS [facility] Administration Clopidogrel Bisulfate 75 mg 11/18/21 09:00 Clopidogrel 75 Mg Tab PO DAILY [facility] Escitalopram Oxalate 20 mg 11/18/21 09:00 Escitalopram 20 Mg Tab PO DAILY [facility] Furosemide 40 mg 11/18/21 09:00 Furosemide 40 Mg Tab PO DAILY [facility] Lisinopril 20 mg 11/18/21 09:00 Lisinopril 20 Mg Tab PO DAILY [facility] Metoprolol Succinate 12.5 mg 11/18/21 09:00 Metoprolol Succinate (Er) 25 Mg Tab.Er.24h PO DAILY [facility] Nitroglycerin 0.4 mg 11/17/21 14:28 Nitroglycerin Sl Tabs 0.4 Mg Tab SUBLINGUAL Q5M PRN Chest Pain Nitroglycerin 1 inch 11/17/21 18:00 11/18/21 05:28 Nitroglycerin Oint 1 Inch/Gm Packet TOPICAL 1 inch Q6HR [facility] Administration Sodium Chloride 10 ml 11/17/21 21:00 11/17/21 20:02 Sodium Chloride 0.9% Flush 10 Ml Syringe IV 10 ml BID [facility] Administration Intake and Output 11/17/21 11/18/21 11/18/21 22:59 06:59 14:59 Other: # Voids 1 1 Weight 104.326 kg 11/17/21 12:21 11/17/21 12:21
--- NOTE | 2021-11-18 12:24 | CT ---
EXAMINATION TYPE: CT chest w con DATE OF EXAM: 11/18/2021 COMPARISON: No previous chest CT scan is available for comparison HISTORY: chest discomfort/pressure CT DLP: 756 mGycm Automated exposure control for dose reduction was used. TECHNIQUE: CT scan of the chest is performed with IV Contrast, patient injected with 100 mL of Isovue 370. FINDINGS: LUNGS: Minimal right posterior basal pulmonary atelectasis. Unremarkable lungs otherwise. Patent trac hea and main bronchi. No pleural effusion. MEDIASTINUM: Slightly increased cardiac size, please correlate with echocardiographic results. Ascend ing aortic aneurysm measuring up to 4.8 cm. Scattered arterial atherosclerotic calcifications with mi ld coronary arterial calcifications. The pulmonary trunk measures 3.2 cm. No pericardial effusion. No pathologically enlarged lymph nodes in the chest. OTHER: Previous cholecystectomy. Small sliding hiatal hernia. Degenerative changes of the lower thor acic spine. IMPRESSION: No suspicious lung lesion. Ascending aortic aneurysm measuring up to 4.8 cm. Other findings as descri bed above.
--- NOTE | 2021-11-18 13:34 | P.DS ---
Providers Date of admission: 11/17/21 14:29 Expected date of discharge: 11/18/21 Attending physician: Constance Pryor DO Consults: 11/17/21 14:28 Consult Physician Urgent Consulting Provider: Michael Garcia Consult Reason/Comments: chest pain Do you want consulting provider notified?: Yes Primary care physician: [facility] Course: Discharge Diagnosis: Chest pain, acute coronary event ruled out, patient to follow up outpatient with cardiology as discussed Ascending aortic aneurysm 4.8 cm, patient to follow up outpatient with cardiothoracic surgery as scheduled on 12/05/21 GERD, patient discharged home on Protonix 40 mg daily along with Reglan Persistent Hiccups, recommend Reglan 10 mg by mouth every 8 hours as needed Hypertension, monitor vital signs and continue daily medication regimen with lisinopril, metoprolol, and amlodipine. Hyperlipidemia, continue daily medication regimen with atorvastatin 40 mg ni ghtly. Atrial fibrillation, continue anticoagulation with Eliquis History of TIA, continue Plavix 75 mg daily Hospital Course: Patient is a very pleasant 71-year-old male with a past medical history of hypertension, hyperlipidemia, atrial fibrillation on anticoagulation with Eliquis, TIA, gout, and anxiety. He presented to the emergency department on 11/17/21 with a chief complaint of chest pain accompanied by persistent hiccups 3 weeks. He underwent full evaluation in the emergency department. CBC, coags, and CMP were unremarkable. D-dimer negative at less than 0.17. Troponin negative at less than 0.012. Amylase and lipase negative. EKG showing normal sinus rhythm with occasional PACs. Chest x-ray revealing mild cardiomegaly negative for acute cardiopulmonary process. Patient was admitted under our services with consultation to cardiology. Troponins trended 3 all negative at less than 0.012. Lipid profile unremarkable with the exception of low HDL of 31.00. Patient was given Thorazine for hiccups which provided short-term relief, however they returned. Patient being discharged home on Reglan every 8 hours as needed for hiccups. Patient underwent full evaluation by cardiology ruling out an acute coronary event. CT chest was completed to assess previously known aortic aneurysm and cardiology recommending outpatient follow-up in their office. CT chest was completed which revealed an ascending aortic aneurysm 4.8 cm, this was discussed with cardiothoracic surgery and an outpatient appointment was scheduled in the office on 12/05/[address] Dang. Patient medically stable at this time in stable for discharge home. Patient to follow up outpatient with PCP in 1-2 days, cardiology in 1 week, and cardiothoracic surgery in 2 weeks as scheduled. Physical examination: Patient seen and examined at bedside. Vital signs reviewed and stable. General: Nontoxic, no distress and appears stated age. Derm: Skin warm and dry, normal coloration for ethnicity. Head: Atraumatic, normocephalic and symmetric. Eyes: EOMs intact, no lid lag, and anicteric sclera Mouth: no lip lesions, mucus membranes moist Cardiovascular: regular rate and rhythm with normal S1S2, no murmur, positive posterior tibial pulses bilaterally, and cap refill < 2 seconds. Lungs: Respirations even, regular, and unlabored on room air. Lungs CTA bilaterally, no rhonchi, no rales, no wheezing, and no accessory muscle usage. Abdominal: soft, nontender to palpation, no guarding, no appreciable organomegaly Ext: ROM intact. No gross muscle atrophy, no edema, no contractures Neuro: Speech clear, face symmetrical and CN II-XII grossly intact with no noted focal neuro deficits Psych: Alert and oriented to person, place, time, and situation. Appropriate and pleasant affect. A total of 33 minutes of time were spent preparing this complex discharge summary. Pt was discharged on 11/18/21 at 1:33 PM Sherwin Garcia NP rendered care for this patient independently, reviewed the findings and plan as documented in the note above. I did not physically speak with or examine the patient on this date. Patient Condition at Discharge: Stable Plan - Discharge Summary Discharge Rx Participant: No New Discharge Prescriptions: New Metoclopramide HCl [Reglan] 10 mg PO Q8H PRN #30 tablet PRN Reason: Gi Upset Pantoprazole [Protonix] 40 mg PO DAILY 30 Days #30 tab Continue allopurinoL [Zyloprim] 100 mg PO DAILY lisinopriL [Zestril] 20 mg PO DAILY Escitalopram [Lexapro] 20 mg PO DAILY Atorvastatin [Lipitor] 40 mg PO HS Furosemide [Lasix] 40 mg PO DAILY Apixaban [Eliquis] 5 mg PO BID #60 tab Metoprolol Succinate (ER) [Toprol XL] 12.5 mg PO DAILY 60 Days #30 tab.er.24h amLODIPine [Norvasc] 2.5 mg PO DAILY Clopidogrel [Plavix] 75 mg PO DAILY Discharge Medication List allopurinoL [Zyloprim] 100 mg PO DAILY 03/06/16 [History] lisinopriL [Zestril] 20 mg PO DAILY 10/23/16 [History] Escitalopram [Lexapro] 20 mg PO DAILY 05/31/17 [History] Atorvastatin [Lipitor] 40 mg PO HS 04/16/20 [History] Apixaban [Eliquis] 5 mg PO BID #60 tab 01/09/21 [Rx] Metoprolol Succinate (ER) [Toprol XL] 12.5 mg PO DAILY 60 Days #30 tab.er.24h 01/10/21 [Rx] Furosemide [Lasix] 40 mg PO DAILY 07/10/21 [History] Clopidogrel [Plavix] 75 mg PO DAILY 11/17/21 [History] amLODIPine [Norvasc] 2.5 mg PO DAILY 11/17/21 [History] Metoclopramide HCl [Reglan] 10 mg PO Q8H PRN #30 tablet 11/18/21 [Rx] Pantoprazole [Protonix] 40 mg PO DAILY 30 Days #30 tab 11/18/21 [Rx] Follow up Appointment(s)/Referral(s): Hunter Quach MD [Family Provider] - 11/27/21 9:15 am Lucie Dang MD [STAFF PHYSICIAN] - 2 Weeks (12/05/21 @11:30 a.m.) Richie Villalobos [Primary Care Provider] - 1-2 days Patient Instructions/Handouts: Chest Pain (GEN), Hiccups (DC) Activity/Diet/Wound Care/Special Instructions: Activity: As tolerated. Take breaks as needed. Diet: Heart healthy and carb consistent diet. Avoid salts, or foods with hidden salts such as canned or boxed foods and frozen dinners. Extra salt makes your heart work harder and traps the fluid in your body for longer. Special Instructions: Take all of your medications as directed and remember to keep all of your doctor's appointments and follow-up as needed. As we discussed, your CT revealed a 4.8 cm ascending aortic aneurysm, this was previously documented by your carton making machine operator as a previously known finding, it is important to keep blood pressures under control as we discussed, take her medications on a daily basis as prescribed, and follow up outpatient with cardiothoracic surgery for a intermission coordinator monitoring. Thank you for allowing us to participate in your care, it was truly a pleasure having you for our patient!!! Discharge Disposition: HOME SELF-CARE
[2021-11-18] MEDS ORDERED: MAG HYDROX/AL HYDROX/SIMETH 30 ML, HYOSCYAMINE ELIXIR 10 ML, LIDOCAINE VISCOUS 2% 10 ML PO ONE ×3 (14:00)
[2021-11-18 15:12] VITALS: BP 99/66; PULSE 64; RESP 15; TEMP 97.7
== END 2021-11-18 15:54 | disposition home or self-care (01) ==
LOC: EC 10:57 → 6NMEDSUR 14:29
PROVIDERS: ADMIT Internal Medicine; ATTEND Internal Medicine
DX: R07.89 Other chest pain (principal); I71.2 Thoracic aortic aneurysm, without rupture; I48.0 Paroxysmal atrial fibrillation; I11.0 Hypertensive heart disease with heart failure; I50.9 Heart failure, unspecified; E78.5 Hyperlipidemia, unspecified; I25.10 Atherosclerotic heart disease of native coronary artery without angina pectoris; I08.3 Combined rheumatic disorders of mitral, aortic and tricuspid valves; R06.6 Hiccough; R11.0 Nausea; M10.9 Gout, unspecified; D64.9 Anemia, unspecified; F41.9 Anxiety disorder, unspecified; F32.A Depression, unspecified; E66.9 Obesity, unspecified; Z68.38 Body mass index [BMI] 38.0-38.9, adult; Z79.02 Long term (current) use of antithrombotics/antiplatelets; Z79.899 Other long term (current) drug therapy; Z79.01 Long term (current) use of anticoagulants; Z88.1 Allergy status to other antibiotic agents; Z88.6 Allergy status to analgesic agent; Z88.8 Allergy status to other drugs, medicaments and biological substances; Z86.73 Personal history of transient ischemic attack (TIA), and cerebral infarction without residual deficits; Z85.828 Personal history of other malignant neoplasm of skin; Z85.46 Personal history of malignant neoplasm of prostate; Z97.4 Presence of external hearing-aid; Z87.01 Personal history of pneumonia (recurrent); Z87.19 Personal history of other diseases of the digestive system; Z92.3 Personal history of irradiation; Z98.890 Other specified postprocedural states; Z80.8 Family history of malignant neoplasm of other organs or systems; Z80.3 Family history of malignant neoplasm of breast
CPT/HCPCS: 96372; 99285; 36415; 93005; 85379; 80061; 80053; 82150; 83690; 83735; 84484; 85025; 85610; 85730; 71046; 71260; G0378 ×2; J3230; Q9967

== ENCOUNTER 2022-02-23 12:17 | Emergency (ER) | payer MEDICARE ==
[2022-02-23 12:23] VITALS: BP 115/77; PULSE 68; RESP 18; TEMP 97.8
[2022-02-23] MEDS ORDERED: GELATIN SPONGE,ABSORB (LARGE) 1 EACH SPONGE TOPICAL STA (12:28)
--- NOTE | 2022-02-23 12:42 | ED ---
General Adult HPI - General Chief complaint: Skin/Abscess/Foreign Body Stated complaint: L arm laceration Time Seen by Provider: 02/23/22 12:27 Source: patient Mode of arrival: ambulatory Limitations: no limitations - History of Present Illness Initial comments: Dictation was produced using [email or web address] dictation software. please excuse any grammatical, word or spelling errors. Chief Complaint: 71-year-old male presents to the emergency department for forearm abrasion History of Present Illness: 71-year-old male presents emergency department for forearm abrasion. Yesterday he rubs his forearm up against a screen door screw causing little abrasion to his left forearm. Patient states that he's been trying to control the bleeding with gauze however still continues to bleed. Patient takes and evaluation medications for atrial fibrillation. he reports his tetanus was updated 1 year ago The ROS documented in this emergency department record has been reviewed and confirmed by me. Those systems with pertinent positive or negative responses have been documented in the HPI. All other systems are other negative and/or noncontributory. PHYSICAL EXAM: General Impression: Alert and oriented x3, not in acute distress HEENT: Normocephalic atraumatic, extra-ocular movements intact, pupils equal and reactive to light bilaterally, mucous membranes moist. Cardiovascular: Heart regular rate and rhythm Chest: Able to complete full sentences, no retractions, no tachypnea Musculoskeletal: Pulses present and equal in all extremities, no peripheral edema Motor: no focal deficits noted Neurological: CN II-XII grossly intact, no focal motor or sensory deficits noted Skin: Very superficial abrasion measuring 3 x 3 mm over the left medial posterior forearm. Psych: Normal affect and mood ED course: 71-year-old male presents to the emergency department for bleeding abrasion to the left forearm. Bleeding is minimal and the site is very minimal. Patient's vitals are stable. Tetanus is updated. Sling gauze dressing was placed with Coban. Patient told to leave the dressing in place for 48 hours. Advised follow up primary doctor - Related Data Home Medications Medication Instructions Recorded Confirmed allopurinoL [Zyloprim] 100 mg PO DAILY 03/06/16 11/17/21 lisinopriL [Zestril] 20 mg PO DAILY 10/23/16 11/17/21 Escitalopram [Lexapro] 20 mg PO DAILY 05/31/17 11/17/21 Atorvastatin [Lipitor] 40 mg PO HS 04/16/20 11/17/21 Furosemide [Lasix] 40 mg PO DAILY 07/10/21 11/17/21 Clopidogrel [Plavix] 75 mg PO DAILY 11/17/21 11/17/21 amLODIPine [Norvasc] 2.5 mg PO DAILY 11/17/21 11/17/21 Previous Rx's Medication Instructions Recorded Apixaban [Eliquis] 5 mg PO BID #60 tab 01/09/21 Metoprolol Succinate (ER) [Toprol 12.5 mg PO DAILY 60 Days #30 01/10/21 XL] tab.er.24h Metoclopramide HCl [Reglan] 10 mg PO Q8H PRN #30 tablet 11/18/21 Pantoprazole [Protonix] 40 mg PO DAILY 30 Days #30 tab 11/18/21 Allergies Allergy/AdvReac Type Severity Reaction Status Date / Time erythromycin base AdvReac Nausea & Verified 02/23/22 12:23 Vomiting ibuprofen AdvReac Hx of GI Verified 02/23/22 12:23 Bleed steroids AdvReac Hx of GI Uncoded 02/23/22 12:23 Bleed Review of Systems ROS Statement: Those systems with pertinent positive or pertinent negative responses have been documented in the HPI. ROS Other: All systems not noted in ROS Statement are negative. Past Medical History Past Medical History: Atrial Fibrillation, Cancer, Heart Failure, CVA/TIA, GI Bl eed, Hypertension, Pneumonia, Prostate Disorder Additional Past Medical History / Comment(s): hx prostate ca 2009/radiation tx ,TIA 2014, SLIGHTLY ENLARGED HEART", GOUT, Small bowel obstruction in February 2016, hx anemia, [place] with use of a hearing aid, skin cancer s/p removal History of Any Multi-Drug Resistant Organisms: None Reported Past Surgical History: Ablation Additional Past Surgical History / Comment(s): omphalocele repair as , 2 BOWEL RESECTIONS for bleeding, polyp removed from left ear, Cardiac ablation Feb 2021 Past Anesthesia/Blood Transfusion Reactions: No Reported Reaction Additional Past Anesthesia/Blood Transfusion Reaction / Comment(s): . Past Psychological History: Depression Smoking Status: Never smoker Past Alcohol Use History: None Reported, Occasional Past Drug Use History: None Reported - Past Family History Father Family Medical History: Cancer Additional Family Medical History / Comment(s): oral CA.. Mother Family Medical History: Cancer Additional Family Medical History / Comment(s): breast CA. General Exam Limitations: no limitations Course Vital Signs 02/23/22 12:21 Temperature 97.8 F Pulse Rate 68 Respiratory 18 Rate Blood Pressure 115/77 O2 Sat by Pulse 95 Oximetry Disposition Clinical Impression: Abrasion Disposition: HOME SELF-CARE Condition: Good Instructions (If sedation given, give patient instructions): Abrasion (ED) Is patient prescribed a controlled substance at d/c from ED?: No Referrals: Richie Villalobos [Primary Care Provider] - 1-2 days Time of Disposition: 12:42
== END 2022-02-23 13:00 | disposition home or self-care (01) ==
LOC: EC 12:17
DX: S50.812A Abrasion of left forearm, initial encounter (principal); I10 Essential (primary) hypertension; I48.91 Unspecified atrial fibrillation; C80.1 Malignant (primary) neoplasm, unspecified; I50.9 Heart failure, unspecified; F32.A Depression, unspecified; Z86.73 Personal history of transient ischemic attack (TIA), and cerebral infarction without residual deficits; Z79.01 Long term (current) use of anticoagulants; Z79.899 Other long term (current) drug therapy; Z79.02 Long term (current) use of antithrombotics/antiplatelets; Z88.1 Allergy status to other antibiotic agents; Z88.6 Allergy status to analgesic agent; Z88.8 Allergy status to other drugs, medicaments and biological substances; W22.8XXA Striking against or struck by other objects, initial encounter
CPT/HCPCS: 99283

== ENCOUNTER 2022-03-10 10:58 | Emergency (ER) | payer MEDICARE ==
[2022-03-10 11:23] VITALS: BP 143/85; PULSE 58; RESP 20; TEMP 98.6
[2022-03-10 12:17] LABS: Basophils # (A) 0.1 k/uL (0-0.2); Basophils % (A) 1 %; Eosinophils # (A) 0.1 k/uL (0-0.7); Eosinophils % (A) 1 %; HCT 54.3 % (39.0-53.0); Lymphocytes % (A) 12 %; MCH 28.6 pg (25.0-35.0); MCHC 33.1 g/dL (31.0-37.0); MCV 86.2 fL (80.0-100.0); Mean Platelet Volume 8.2; Monocytes # (A) 0.4 k/uL (0-1.0); Monocytes % (A) 4 %; Neutrophils # (A) 6.9 k/uL (1.3-7.7); Neutrophils % (A) 82 %; Platelet Count 141 k/uL (150-450); RBC 6.29 m/uL (4.30-5.90); RDW 14.3 % (11.5-15.5); WBC 8.4 k/uL (3.8-10.6)
[2022-03-10 12:32] LABS: INR 1.1 (<1.2); Partial Thromboplastin Time 26.3 sec (22.0-30.0); Prothrombin Time 11.4 sec (9.0-12.0)
== END 2022-03-10 14:47 | disposition left against medical advice (07) ==
LOC: EC 10:58
DX: Z53.21 Procedure and treatment not carried out due to patient leaving prior to being seen by health care provider (principal)
CPT/HCPCS: 36415; 85025; 85610; 85730; 99499

== ENCOUNTER → 2022-03-27 | Outpatient (CLI) | payer MEDICARE ==
[2022-03-27 16:08] LABS: African American GFR (CKD) 72.3 (60.0-200.0); Anion Gap 8.5 mmol/L (10.00-18.00); BUN/Creat Ratio 5.92 Ratio (12.00-20.00); Blood Urea Nitrogen 6.9 mg/dL (9.0-27.0); Calcium 8.3 mg/dL (8.7-10.3); Non-African American GFR(CKD) 62.4 (60.0-200.0); Potassium 3.5 mmol/L (3.5-5.5)
== END | disposition home or self-care (01) ==
LOC: LABWHC1 08:42
PROVIDERS: ATTEND Internal Medicine
DX: I50.9 Heart failure, unspecified (principal)
CPT/HCPCS: 36415; 80048; 83735

== ENCOUNTER → 2022-04-06 | Outpatient (CLI) | payer MEDICARE ==
[2022-04-06 17:55] LABS: Ionized Calcium 4.8 mg/dL (4.5-5.3)
[2022-04-07 00:05] LABS: African American GFR (CKD) 69.4 (60.0-200.0); BUN/Creat Ratio 7.61 Ratio (12.00-20.00); Blood Urea Nitrogen 9.2 mg/dL (9.0-27.0); Calcium 8.8 mg/dL (8.7-10.3); Non-African American GFR(CKD) 59.9 (60.0-200.0); Potassium 4.3 mmol/L (3.5-5.5)
== END | disposition home or self-care (01) ==
LOC: LABWHC1 15:49
PROVIDERS: ATTEND Internal Medicine
DX: I50.9 Heart failure, unspecified (principal)
CPT/HCPCS: 36415; 80048; 82040; 82330

== ENCOUNTER → 2022-10-21 | Outpatient (CLI) | payer MEDICARE | END | disposition home or self-care (01) | LOC: LABWHC1 07:34 | PROVIDERS: ATTEND Internal Medicine | DX: R73.9 Hyperglycemia, unspecified (principal) | CPT/HCPCS: 36415; 83036 ==

== ENCOUNTER 2023-10-21 11:08 | Emergency (ER) | payer MEDICARE ==
[2023-10-21 11:43] VITALS: RESP 18; TEMP 97.5
--- NOTE | 2023-10-21 11:55 | ED ---
General Adult HPI - General Chief complaint: Neuro Symptoms/Deficit Stated complaint: Facial numbness,Neck pain Time Seen by Provider: 10/21/23 11:27 Source: patient Mode of arrival: ambulatory Limitations: no limitations - History of Present Illness Initial comments: Dictation was produced using [employer] dictation software. please excuse any grammatical, word or spelling errors. Chief Complaint: 73-year-old male presents to the emergency department left neck pain with associated left upper extremity weakness and facial paresthesias History of Present Illness: Patient 73-year-old male he states that he has extensive history of mini strokes. States that at around 8 AM today started to notice pain in his left neck. He woke up with the pain. Shortly after he had several minutes of paresthesias to his bilateral forehead, left lower face. Shortly after he started to feel little paresthesia and weakness in his left proximal upper extremity. Patient is concerned he is having a stroke. He was told that he has an aneurysm but not quite sure where it is. at the bedside states that patient does not appear to be confused or having word salad. The ROS documented in this emergency department record has been reviewed and confirmed by me. Those systems with pertinent positive or negative responses have been documented in the HPI. All other systems are other negative and/or noncontributory. - Related Data Home Medications Medication Instructions Recorded Confirmed allopurinoL [Zyloprim] 100 mg PO DAILY 03/06/16 10/21/23 lisinopriL [Zestril] 20 mg PO DAILY 10/23/16 10/21/23 Escitalopram [Lexapro] 20 mg PO DAILY 05/31/17 10/21/23 Atorvastatin [Lipitor] 40 mg PO HS 04/16/20 10/21/23 Furosemide [Lasix] 40 mg PO DAILY 07/10/21 10/21/23 Clopidogrel [Plavix] 75 mg PO DAILY 11/17/21 10/21/23 amLODIPine [Norvasc] 2.5 mg PO DAILY 11/17/21 10/21/23 Previous Rx's Medication Instructions Recorded Apixaban [Eliquis] 5 mg PO BID #60 tab 01/09/21 Metoprolol Succinate (ER) [Toprol 12.5 mg PO DAILY 60 Days #30 01/10/21 XL] tab.er.24h Allergies Allergy/AdvReac Type Severity Reaction Status Date / Time erythromycin base AdvReac Nausea & Verified 10/21/23 13:05 Vomiting ibuprofen AdvReac Hx of GI Verified 10/21/23 13:05 Bleed steroids AdvReac Hx of GI Uncoded 03/10/22 11:23 Bleed Review of Systems ROS Statement: Those systems with pertinent positive or pertinent negative responses have been documented in the HPI. ROS Other: All systems not noted in ROS Statement are negative. Past Medical History Past Medical History: Atrial Fibrillation, Cancer, Heart Failure, CVA/TIA, GI Bleed, Hypertension, Pneumonia, Prostate Disorder Additional Past Medical History / Comment(s): hx prostate ca 2009/radiation tx ,TIA 2014, SLIGHTLY ENLARGED HEART", GOUT, Small bowel obstruction in February 2016, hx anemia, [place] with use of a hearing aid, skin cancer s/p removal History of Any Multi-Drug Resistant Organisms: None Reported Past Surgical History: Ablation Additional Past Surgical History / Comment(s): omphalocele repair as infant, 2 BOWEL RESECTIONS for bleeding, polyp removed from left ear, Cardiac ablation Feb 2021 Past Anesthesia/Blood Transfusion Reactions: No Reported Reaction Additional Past Anesthesia/Blood Transfusion Reaction / Comment(s): . Past Psychological History: Depression Smoking Status: Never smoker Past Alcohol Use History: None Reported, Occasional Past Drug Use History: None Reported - Past Family History Father Family Medical History: Cancer Additional Family Medical History / Comment(s): oral CA.. Mother Family Medical History: Cancer Additional Family Medical History / Comment(s): breast CA. General Exam - General Exam Comments Initial Comments: PHYSICAL EXAM: General Impression: Alert and oriented x3, not in acute distress HEENT: Normocephalic atraumatic, extra-ocular movements intact, pupils equal and reactive to light bilaterally, mucous membranes moist. Cardiovascular: Heart regular rate and rhythm Chest: Able to complete full sentences, no retractions, no tachypnea Abdomen: abdomen soft, non-tender, non-distended, no organomegaly Musculoskeletal: Pulses present and equal in all extremities, no peripheral edema Motor: no focal deficits noted Neurological: CN II-XII grossly intact, no focal motor or sensory deficits noted, NIH of 12 Skin: Intact with no visualized rashes Psych: Normal affect and mood Limitations: no limitations Course Vital Signs 10/21/23 11:15 Temperature 97.5 F L Pulse Rate 60 Respiratory 18 Rate Blood Pressure 127/78 O2 Sat by Pulse 97 Oximetry EKG Findings - EKG Comments: EKG Findings:: My EKG interpretation: Ventricular rate 57, normal sinus rhythm,. #186, cures 101, QTc 445. No SD prolongation, no QTC prolongation, no ST or T- wave changes noted. Overall, this EKG is unremarkable Medical Decision Making - Medical Decision Making Was pt. sent in by a medical professional or institution (, MARIAM, TELEVISION SCHEDULE COORDINATOR, urgent ca re, hospital, or snf...) When possible be specific @ -No Did you speak to anyone other than the patient for history (EMS, parent, family, police, friend...)? What history was obtained from this source @ -No Did you review nursing and triage notes (agree or disagree)? Why? @ -I reviewed and agree with nursing and triage notes Were old charts reviewed (outside hosp., previous admission, EMS record, old EKG, old radiological studies, urgent care reports/EKG's, snf records)? Report findings @ -No old charts were reviewed Differential Diagnosis (chest pain, altered mental status, abdominal pain women, abdominal pain men, vaginal bleeding, musculoskeletal, weakness, fever, dyspnea, syncope, headache, dizziness, GI bleed, back pain, seizure, CVA, palpatations, mental health)? @ - Differential CVA: Ischemic stroke, hemorrhagic stroke, brain tumor, atypical migraine, Wernicke's encephalopathy, seizure, multiple sclerosis, meningitis, encephalitis, hypoglycemia, Guillain-Marie, electrolytes disturbance, myasthenia gravis.... This is not meant to be an all-inclusive list EKG interpreted by me (3pts min.). @ -See above X-rays interpreted by me (1pt min.). @ -None done CT interpreted by me (1pt min.). @ -CT brain shows no acute processes. CT angiography shows no acute processes. U/S interpreted by me (1pt. min.). @ -None done What testing was considered but not performed or refused? (CT, X-rays, U/S, labs)? Why? @ -None What meds were considered but not given or refused? Why? @ -None Did you discuss the management of the patient with other professionals (professionals i.e. , MARIAM, TELEVISION SCHEDULE COORDINATOR, lab, RT, psych nurse, social service worker, director of field sales, teacher, agricultural loan officer, rifle case repairer)? Give summary @ -No Was smoking cessation discussed for >3mins.? @ -No Was critical care preformed (if so, how long)? @ -No Were there social determinants of health that impacted care today? How? (Homelessness, low income, unemployed, alcoholism, drug addiction, transportatio n, low edu. Level, literacy, decrease access to med. care, fci, rehab)? @ -No Was there de-escalation of care discussed even if they declined (Discuss DNR or withdrawal of care, Hospice)? DNR status @ -No What co-morbidities impacted this encounter? (DM, HTN, Smoking, COPD, CAD, Cancer, CVA, ARF, Chemo, Hep., AIDS, mental health diagnosis, sleep apnea, morbid obesity)? @ -None Was patient admitted / discharged? Hospital course, mention meds given and route, prescriptions, significant lab abnormalities, going to OR and other pertinent info. @ -73-year-old male presents to the emergency department and reported focal neurologic symptoms. Vital signs upon arrival are within acceptable limits. Patient not a candidate for alteplase or thrombectomy due to low NIH score and risk outweigh the benefits. Laboratory evaluation is unremarkable. CT brain and CT angiography of the head and neck shows no acute processes. Discussed with patient that recommend admitting him to the hospital with neurology consultation given that he has acute focal neurologic deficits. Patient states that he does not want to be admitted to the hospital and would rather be discharged. He states that his symptoms have been ongoing for several years and that he follows up with a neurologist who has never been able to figure out why he has the symptoms often. Patient has no appreciable deficits at the bedside. Patient given aspirin. He understands that symptoms may reflect underlying acute neurologic issue. He is denies and states that this is likely nothing and that he will follow-up closely with his neurologist. Undiagnosed new problem with uncertain prognosis? @ -No Drug Therapy requiring intensive monitoring for toxicity (Heparin, Nitro, Insulin, Cardizem)? @ -No Were any procedures done? @ -No Diagnosis/symptom? Acute, or Chronic, or Acute on Chronic? Uncomplicated (without systemic symptoms) or Complicated (systemic symptoms)? @ -Left-sided paresthesias Side effects of treatment? @ -No Exacerbation, Progression, or Severe Exacerbation? @ -No Poses a threat to life or bodily function? How? (Chest pain, [place], [place], pneumonia, PE, COPD, DKA, ARF, appy, cholecystitis, CVA, Diverticulitis, Homicidal, Suicidal, threat to staff... and all critical care pts) @ -yes - Lab Data Result diagrams: 10/21/23 11:49 10/21/23 13:07 Lab Results 10/21/23 10/21/23 10/21/23 Range/Units 11:49 11:49 13:07 WBC 8.4 (3.8-10.6) k/uL RBC 5.97 H (4.30-5.90) m/uL Hgb 17.9 H (13.0-17.5) gm/dL Hct 53.3 H (39.0-53.0) % MCV 89.3 (80.0-100.0) fL MCH 30.0 (25.0-35.0) pg MCHC 33.5 (31.0-37.0) g/dL RDW 13.7 (11.5-15.5) % Plt Count 192 (150-450) k/uL MPV 7.0 Neutrophils % 77 % Lymphocytes % 14 % Monocytes % 5 % Eosinophils % 2 % Basophils % 1 % Neutrophils # 6.5 (1.3-7.7) k/uL Lymphocytes # 1.2 (1.0-4.8) k/uL Monocytes # 0.4 (0-1.0) k/uL Eosinophils # 0.2 (0-0.7) k/uL Basophils # 0.1 (0-0.2) k/uL PT 11.5 (10.0-12.5) sec INR 1.1 (<1.2) APTT 26.8 (22.0-30.0) sec Sodium 138 (137-145) mmol/L Potassium 4.0 (3.5-5.1) mmol/L Chloride 102 (98-107) mmol/L Carbon Dioxide 30 (22-30) mmol/L Anion Gap 6 mmol/L BUN 11 (9-20) mg/dL Creatinine 0.99 (0.66-1.25) mg/dL Est GFR (CKD-EPI)AfAm 87 (>60 ml/min/1.73 sqM) Est GFR (CKD-EPI)NonAf 75 (>60 ml/min/1.73 sqM) Glucose 90 (74-99) mg/dL Calcium 8.3 L (8.4-10.2) mg/dL Disposition Clinical Impression: Facial paresthesia Disposition: HOME SELF-CARE Condition: Fair Instructions (If sedation given, give patient instructions): Paresthesia (ED) Is patient prescribed a controlled substance at d/c from ED?: No Referrals: Sabino Velásquez DO [Primary Care Provider] - 1-2 days Time of Disposition: 15:55
[2023-10-21 11:59] LABS: Basophils # (A) 0.1 k/uL (0-0.2); Basophils % (A) 1 %; Eosinophils # (A) 0.2 k/uL (0-0.7); Eosinophils % (A) 2 %; HCT 53.3 % (39.0-53.0); HGB 17.9 gm/dL (13.0-17.5); Lymphocytes # (A) 1.2 k/uL (1.0-4.8); Lymphocytes % (A) 14 %; MCHC 33.5 g/dL (31.0-37.0); MCV 89.3 fL (80.0-100.0); Monocytes # (A) 0.4 k/uL (0-1.0); Monocytes % (A) 5 %; Neutrophils # (A) 6.5 k/uL (1.3-7.7); Neutrophils % (A) 77 %; Platelet Count 192 k/uL (150-450); RBC 5.97 m/uL (4.30-5.90); RDW 13.7 % (11.5-15.5); WBC 8.4 k/uL (3.8-10.6)
[2023-10-21 12:06] LABS: INR 1.1 (<1.2); Partial Thromboplastin Time 26.8 sec (22.0-30.0); Prothrombin Time 11.5 sec (10.0-12.5)
[2023-10-21 13:29] LABS: African American GFR (CKD) 87 (>60 ml/min/1.73 sqM); Anion Gap 6 mmol/L; Blood Urea Nitrogen 11 mg/dL (9-20); Calcium 8.3 mg/dL (8.4-10.2); Carbon Dioxide 30 mmol/L (22-30); Chloride 102 mmol/L (98-107); Glucose 90 mg/dL (74-99); Non-African American GFR(CKD) 75 (>60 ml/min/1.73 sqM); Sodium 138 mmol/L (137-145)
--- NOTE | 2023-10-21 14:09 | CT ---
EXAMINATION TYPE: CT brain wo con CT DLP: 1264 mGycm, Automated exposure control for dose reduction was used. DATE OF EXAM: 10/21/2023 1:58 PM COMPARISON: . CLINICAL INDICATION:Male, 73 years old with history of neurological deficit, neurological deficit. .. TECHNIQUE: Brain: Axial CT images of the brain were obtained with coronal and sagittal reformats created and rev iewed. Contrast used: None. Oral contrast used: None. FINDINGS: Brain: Extra-axial spaces: No abnormal extra-axial fluid collections. Ventricular system: Within normal limits Cerebral parenchyma: No acute intraparenchymal hemorrhage or mass effect. The savage-white junction is well differentiated. Cerebellum: Unremarkable. Mass effect: No evidence of midline shift. Intracranial vasculature: unremarkable Soft tissues: Normal. Calvarium/osseous structures: No depressed skull fracture. Paranasal sinuses and mastoid air cells: Mild scattered paranasal sinus disease. Visualized orbits: Orbital contents are intact. IMPRESSION: No acute intracranial process.
--- NOTE | 2023-10-21 15:05 | CT ---
EXAMINATION TYPE: CT angio head neck CT DLP: 803.5 mGycm, Automated exposure control for dose reduction was used. DATE OF EXAM: 10/21/2023 2:10 PM COMPARISON: CT angiogram head and neck 05/10/2020 and 05/20/2021. CLINICAL INDICATION:Male, 73 years old with history of neurologic deficit; PHH, . Neurological defici t. TECHNIQUE: Axially acquired helical CT angiogram of the head and neck was obtained with contrast. Axi al images are supplemented with 3D reconstructions and MIP images which were post-processed at an in dependent workstation. NASCET criteria used. Contrast used:65ml mL of Isovue 370 with IV Contrast, Oral contrast used: None. FINDINGS: CTA HEAD: No evidence of acute intracranial hemorrhage, mass effect, or midline shift. The ventricles, sulci, a nd cisterns are unremarkable. The visualized portions of the internal carotid arteries, middle cerebral arteries, anterior cerebral arteries, and posterior cerebral arteries are patent. The basilar and vertebral arteries are patent. CTA NECK: Carotid/Vascular Structures: Ascending aorta measures 4 cm. The innominate, left and right common car otid, left and right subclavian arteries are patent. Atheromatous ossifications are present at the ca rotid bulb levels. Internal and extra carotid arteries are patent. No evident stenosis by NASCET crit eria. Internal carotid arteries are tortuous and redundant. Vertebral arteries are patent without evidence hemodynamically significant stenosis. The left vertebr al is dominant. There is a three-vessel aortic arch. The origins of the great vessels are patent. No evidence of hemo dynamically significant stenosis. Upper thorax: IMPRESSION: 1. No evidence of dissection of the cervical internal carotid arteries or vertebral arteries or any e vidence of significant stenosis at the carotid bifurcations, although atheromatous calcifications are present at the carotid bifurcations. 2. No evidence of intracranial high-grade stenosis or intracranial aneurysm.
[2023-10-21] MEDS: ASPIRIN 81 MG PO STA (16:06)
[2023-10-21 16:12] VITALS: BP 133/77; PULSE 54
== END 2023-10-21 16:10 | disposition home or self-care (01) ==
LOC: EC 11:08
DX: R20.2 Paresthesia of skin (principal); Z88.1 Allergy status to other antibiotic agents; Z88.6 Allergy status to analgesic agent; Z86.73 Personal history of transient ischemic attack (TIA), and cerebral infarction without residual deficits
CPT/HCPCS: 36415; 93005; 80048; 85025; 85610; 85730; 70496; 70450; 70498; 99284; Q9967

== ENCOUNTER 2023-10-26 07:27 | Emergency (ER) | payer MEDICARE ==
--- NOTE | 2023-10-26 08:18 | ED ---
General Adult HPI - General Chief complaint: Neuro Symptoms/Deficit Stated complaint: headache Time Seen by Provider: 10/26/23 07:32 Source: patient Mode of arrival: ambulatory Limitations: no limitations - History of Present Illness Initial comments: Dictation was produced using [employer] dictation software. please excuse any grammatical, word or spelling errors. Chief Complaint: 73-year-old male with headache History of Present Illness: Patient 73-year-old male he presents emergency department with a headache. Patient was here 5 days ago for similar issues. Patient states that last night he started to have a headache. States that the headache is bifrontal. Denies any numbness in his face. The numbness that he did have 5 days ago had resolved. Patient states that the headache made it difficult for him to get any sleep. He only had 2 hours of sleep last night. Patient states that the pain is a 3 out of 10. States that he has had headaches for a long time he is also seen a neurologist in the past for it there was no apparent cause for it. Patient has not seen a neurologist in several months. Patient denies any history of GI bleed. He does take anticoagulation medications. Denies any vision loss or extremity deficits. No runny nose. The ROS documented in this emergency department record has been reviewed and confirmed by me. Those systems with pertinent positive or negative responses have been documented in the HPI. All other systems are other negative and/or noncontributory. - Related Data Home Medications Medication Instructions Recorded Confirmed allopurinoL [Zyloprim] 100 mg PO DAILY 03/06/16 10/21/23 lisinopriL [Zestril] 20 mg PO DAILY 10/23/16 10/21/23 Escitalopram [Lexapro] 20 mg PO DAILY 05/31/17 10/21/23 Atorvastatin [Lipitor] 40 mg PO HS 04/16/20 10/21/23 Furosemide [Lasix] 40 mg PO DAILY 07/10/21 10/21/23 Clopidogrel [Plavix] 75 mg PO DAILY 11/17/21 10/21/23 amLODIPine [Norvasc] 2.5 mg PO DAILY 11/17/21 10/21/23 Previous Rx's Medication Instructions Recorded Apixaban [Eliquis] 5 mg PO BID #60 tab 01/09/21 Metoprolol Succinate (ER) [Toprol 12.5 mg PO DAILY 60 Days #30 01/10/21 XL] tab.er.24h Allergies Allergy/AdvReac Type Severity Reaction Status Date / Time erythromycin base AdvReac Nausea & Verified 10/26/23 07:34 Vomiting ibuprofen AdvReac Hx of GI Verified 10/26/23 07:34 Bleed steroids AdvReac Hx of GI Uncoded 10/26/23 07:34 Bleed Review of Systems ROS Statement: Those systems with pertinent positive or pertinent negative responses have been documented in the HPI. ROS Other: All systems not noted in ROS Statement are negative. Past Medical History Past Medical History: Atrial Fibrillation, Cancer, Heart Failure, CVA/TIA, GI Bleed, Hypertension, Pneumonia, Prostate Disorder Additional Past Medical History / Comment(s): hx prostate ca 2009/radiation tx ,TIA 2014, SLIGHTLY ENLARGED HEART", GOUT, Small bowel obstruction in February 2016, hx anemia, [place] with use of a hearing aid, skin cancer s/p removal History of Any Multi-Drug Resistant Organisms: None Reported Past Surgical History: Ablation Additional Past Surgical History / Comment(s): omphalocele repair as infant, 2 BOWEL RESECTIONS for bleeding, polyp removed from left ear, Cardiac ablation Feb 2021 Past Anesthesia/Blood Transfusion Reactions: No Reported Reaction Additional Past Anesthesia/Blood Transfusion Reaction / Comment(s): . Past Psychological History: Depression Smoking Status: Never smoker Past Alcohol Use History: None Reported, Occasional Past Drug Use History: None Reported - Past Family History Father Family Medical History: Cancer Additional Family Medical History / Comment(s): oral CA.. Mother Family Medical History: Cancer Additional Family Medical History / Comment(s): breast CA. General Exam - General Exam Comments Initial Comments: PHYSICAL EXAM: General Impression: Alert and oriented x3, not in acute distress HEENT: Normocephalic atraumatic, extra-ocular movements intact, pupils equal and reactive to light bilaterally, mucous membranes moist. Cardiovascular: Heart regular rate and rhythm Chest: Able to complete full sentences, no retractions, no tachypnea Abdomen: abdomen soft, non-tender, non-distended, no organomegaly Musculoskeletal: Pulses present and equal in all extremities, no peripheral edema Motor: no focal deficits noted Neurological: CN II-XII grossly intact, no focal motor or sensory deficits noted Skin: Intact with no visualized rashes Psych: Normal affect and mood Limitations: no limitations Course Vital Signs 10/26/23 07:29 Temperature 97.9 F Pulse Rate 78 Respiratory 20 Rate Blood Pressure 128/89 O2 Sat by Pulse 95 Oximetry Medical Decision Making - Medical Decision Making Was pt. sent in by a medical professional or institution (, PA, LANDSCAPING SUPERVISOR, urgent care, hospital, or detention...) When possible be specific @ -No Did you speak to anyone other than the patient for history (EMS, parent, family, police, friend...)? What history was obtained from this source @ -No Did you review nursing and triage notes (agree or disagree)? Why? @ -I reviewed and agree with nursing and triage notes Were old charts reviewed (outside hosp., previous admission, EMS record, old EKG, old radiological studies, urgent care reports/EKG's, detention records)? Report findings @ -No old charts were reviewed Differential Diagnosis (chest pain, altered mental status, abdominal pain women, abdominal pain men, vaginal bleeding, musculoskeletal, weakness, fever, dyspnea, syncope, headache, dizziness, GI bleed, back pain, seizure, CVA, palpatations, mental health)? @ -Differential Headache: Migraine, tension, cluster, carbon monoxide, central venous thrombosis, pension karma temporal arteritis, acute closure glaucoma, intercranial hemorrhage, mastoiditis, sinusitis, head injury, this is not meant to be an all-inclusive list. EKG interpreted by me (3pts min.). @ -None done X-rays interpreted by me (1pt min.). @ -None done CT interpreted by me (1pt min.). @ -CT brain shows no acute processes U/S interpreted by me (1pt. min.). @ -None done What testing was considered but not performed or refused? (CT, X-rays, U/S, labs)? Why? @ -None What meds were considered but not given or refused? Why? @ -None Did you discuss the management of the patient with other professionals (professionals i.e. , MARIAM, LANDSCAPING SUPERVISOR, lab, RT, psych nurse, licensed master social worker, head knitting machine fixer, teacher, parachute officer, registered nurse hh case manager)? Give summary @ -No Was smoking cessation discussed for >3mins.? @ -No Was critical care preformed (if so, how long)? @ -No Were there social determinants of health that impacted care today? How? (Homelessness, low income, unemployed, alcoholism, drug addiction, transpor tation, low edu. Level, literacy, decrease access to med. care, [facility], rehab)? @ -No Was there de-escalation of care discussed even if they declined (Discuss DNR or withdrawal of care, Hospice)? DNR status @ -No What co-morbidities impacted this encounter? (DM, HTN, Smoking, COPD, CAD, Cancer, CVA, ARF, Chemo, Hep., AIDS, mental health diagnosis, sleep apnea, morbid obesity)? @ -None Was patient admitted / discharged? Hospital course, mention meds given and route, prescriptions, significant lab abnormalities, going to OR and other pertinent info. @ -73-year-old male presents to the emergency department for headache. Patient states that this headache feels like her usual headaches. Vital signs upon arrival are within acceptable limits. Laboratory evaluation is obtained. Patient at baseline polycythemic. His hemoglobin is 17.7. Patient has had high levels in the past. Patient given headache cocktail. CT brain is negative. Patient reevaluated at bedside at 10:30 AM after headache cocktail. Disposition options were discussed. Patient states that he would like to be discharged follow-up with his primary care doctor. He is told to follow-up with his primary care doctor and address his elevated hemoglobin levels. Patient given return precautions. Patient discharged Undiagnosed new problem with uncertain prognosis? @ -No Drug Therapy requiring intensive monitoring for toxicity (Heparin, Nitro, Insulin, Cardizem)? @ -No Were any procedures done? @ -No Diagnosis/symptom? Acute, or Chronic, or Acute on Chronic? Uncomplicated (without systemic symptoms) or Complicated (systemic symptoms)? @ -Headache Side effects of treatment? @ -No Exacerbation, Progression, or Severe Exacerbation? @ -No Poses a threat to life or bodily function? How? (Chest pain, [place], [place], pneumonia, PE, COPD, DKA, ARF, appy, cholecystitis, CVA, Diverticulitis, Homicidal, Suicidal, threat to staff... and all critical care pts) @ -No - Lab Data Result diagrams: 10/26/23 08:30 10/26/23 08:30 Lab Results 10/26/23 10/26/23 10/26/23 Range/Units 08:30 08:30 08:30 WBC 6.2 (3.8-10.6) k/uL RBC 6.01 H (4.30-5.90) m/uL Hgb 17.7 H (13.0-17.5) gm/dL Hct 53.2 H (39.0-53.0) % MCV 88.5 (80.0-100.0) fL MCH 29.5 (25.0-35.0) pg MCHC 33.3 (31.0-37.0) g/dL RDW 13.7 (11.5-15.5) % Plt Count 149 L (150-450) k/uL MPV 7.0 Neutrophils % 83 % Lymphocytes % 8 % Monocytes % 7 % Eosinophils % 1 % Basophils % 1 % Neutrophils # 5.1 (1.3-7.7) k/uL Lymphocytes # 0.5 L (1.0-4.8) k/uL Monocytes # 0.5 (0-1.0) k/uL Eosinophils # 0.1 (0-0.7) k/uL Basophils # 0.0 (0-0.2) k/uL PT 12.2 (10.0-12.5) sec INR 1.1 (<1.2) APTT 27.6 (22.0-30.0) sec Sodium 137 (137-145) mmol/L Potassium 4.1 (3.5-5.1) mmol/L Chloride 102 (98-107) mmol/L Carbon Dioxide 26 (22-30) mmol/L Anion Gap 9 mmol/L BUN 7 L (9-20) mg/dL Creatinine 1.12 (0.66-1.25) mg/dL Est GFR (CKD-EPI)AfAm 75 (>60 ml/min/1.73 sqM) Est GFR (CKD-EPI)NonAf 65 (>60 ml/min/1.73 sqM) Glucose 106 H (74-99) mg/dL Calcium 8.3 L (8.4-10.2) mg/dL Disposition Clinical Impression: Headache Disposition: HOME SELF-CARE Condition: Good Instructions (If sedation given, give patient instructions): Acute Headache (ED) Is patient prescribed a controlled substance at d/c from ED?: No Referrals: Sabino Velásquez DO [Primary Care Provider] - 1-2 days Time of Disposition: 10:30
[2023-10-26] MEDS: SODIUM CHLORIDE 0.9% 1,000 ML IV STA (08:31)
[2023-10-26] MEDS: KETOROLAC 15 MG/ML 1 ML VIAL IVP STA (08:32)
[2023-10-26] MEDS: ONDANSETRON 4 MG/2 ML VIAL IVP STA (08:36)
[2023-10-26] MEDS: diphenhydrAMINE 50 MG/ML 1 ML VIAL IVP STA (08:37)
[2023-10-26 08:49] LABS: Basophils % (A) 1 %; Eosinophils # (A) 0.1 k/uL (0-0.7); Eosinophils % (A) 1 %; HCT 53.2 % (39.0-53.0); HGB 17.7 gm/dL (13.0-17.5); Lymphocytes # (A) 0.5 k/uL (1.0-4.8); Lymphocytes % (A) 8 %; MCH 29.5 pg (25.0-35.0); MCHC 33.3 g/dL (31.0-37.0); MCV 88.5 fL (80.0-100.0); Monocytes # (A) 0.5 k/uL (0-1.0); Monocytes % (A) 7 %; Neutrophils # (A) 5.1 k/uL (1.3-7.7); Neutrophils % (A) 83 %; Platelet Count 149 k/uL (150-450); RBC 6.01 m/uL (4.30-5.90); RDW 13.7 % (11.5-15.5); WBC 6.2 k/uL (3.8-10.6)
[2023-10-26 08:55] LABS: African American GFR (CKD) 75 (>60 ml/min/1.73 sqM); Anion Gap 9 mmol/L; Blood Urea Nitrogen 7 mg/dL (9-20); Calcium 8.3 mg/dL (8.4-10.2); Carbon Dioxide 26 mmol/L (22-30); Chloride 102 mmol/L (98-107); Glucose 106 mg/dL (74-99); Non-African American GFR(CKD) 65 (>60 ml/min/1.73 sqM); Sodium 137 mmol/L (137-145)
[2023-10-26 08:57] LABS: INR 1.1 (<1.2); Partial Thromboplastin Time 27.6 sec (22.0-30.0); Prothrombin Time 12.2 sec (10.0-12.5)
[2023-10-26 09:09] LABS: Potassium 4.1 mmol/L (3.5-5.1)
--- NOTE | 2023-10-26 09:40 | CT ---
EXAMINATION TYPE: CT brain wo con CT DLP: 1201.2 mGycm, Automated exposure control for dose reduction was used. DATE OF EXAM: 10/26/2023 9:29 AM COMPARISON: 10/21/2023. CLINICAL INDICATION:Male, 73 years old with history of headache, Headache, hx TIA TECHNIQUE: Brain: Axial CT images of the brain were obtained with coronal and sagittal reformats created and rev iewed. Contrast used: None. Oral contrast used: None. FINDINGS: Brain: Extra-axial spaces: No abnormal extra-axial fluid collections. Ventricular system: Dilatation in proportion to cerebral atrophy. Cerebral parenchyma: Cerebral atrophy. No acute intraparenchymal hemorrhage or mass effect. The savage -white junction is well differentiated. Scattered hypoattenuating areas are seen within the white mat ter. Cerebellum: Unremarkable. Mass effect: No evidence of midline shift. Intracranial vasculature: Atherosclerotic calcifications of the intracranial vessels. Soft tissues: Normal. Calvarium/osseous structures: No depressed skull fracture. Paranasal sinuses and mastoid air cells: Mild scattered paranasal sinus disease. Visualized orbits: Bilateral aphakia IMPRESSION: No acute intracranial process.
[2023-10-26 11:07] VITALS: BP 102/71; PULSE 71; RESP 18; TEMP 98.1
== END 2023-10-26 10:44 | disposition home or self-care (01) ==
LOC: EC 07:27
DX: R51.9 Headache, unspecified (principal); Z86.73 Personal history of transient ischemic attack (TIA), and cerebral infarction without residual deficits; Z88.1 Allergy status to other antibiotic agents; Z88.6 Allergy status to analgesic agent; Z88.8 Allergy status to other drugs, medicaments and biological substances
CPT/HCPCS: 36415; 80048; 85025; 85610; 85730; 70450; 99284; 96374; 96375 ×2; 96361; J1200; J2405; J1885

== ENCOUNTER → 2023-11-05 | Outpatient (CLI) | payer MEDICARE ==
[2023-11-05 11:27] LABS: ALT 14 U/L (10-49); AST 14 U/L (14-35); Albumin 3.8 g/dL (3.8-4.9); Albumin/Globulin Ratio 1.52 Ratio (1.60-3.17); Alkaline Phosphatase 100 U/L (41-126); Blood Urea Nitrogen 8.8 mg/dL (9.0-27.0); Calcium 8.7 mg/dL (8.7-10.3); Carbon Dioxide 28.3 mmol/L (21.6-31.8); Chloride 103 mmol/L (96-109); Globulin 2.5 g/dL (1.6-3.3); Glucose 106 mg/dL (70-110); LDL Cholesterol,Calculated 41.1 mg/dL (0.0-131.0); Potassium 4.1 mmol/L (3.5-5.5); Sodium 142 mmol/L (135-145); Total Protein 6.3 g/dL (6.2-8.2); Uric Acid 5.5 mg/dL (3.7-8.7); VLDL Calculation 16.82 mg/dL (5.00-40.00)
[2023-11-05 11:31] LABS: PSA Annual Screen <0.014 ng/mL (0.000-4.000)
== END | disposition home or self-care (01) ==
LOC: LABWHC1 07:22
PROVIDERS: ATTEND Internal Medicine
DX: Z12.5 Encounter for screening for malignant neoplasm of prostate (principal); I10 Essential (primary) hypertension; E55.9 Vitamin D deficiency, unspecified; Z85.46 Personal history of malignant neoplasm of prostate; R73.9 Hyperglycemia, unspecified
CPT/HCPCS: 80061; 80053; 84443; 83735; 84550; 82306; 83036; 36415; G0103

== ENCOUNTER → 2023-11-12 | Outpatient (CLI) | payer MEDICARE ==
--- NOTE | 2023-11-13 02:14 | MR ---
EXAMINATION TYPE: MR brain wo/w con DATE OF EXAM: 11/12/2023 COMPARISON: Prior MRI brain July 11, 2021 HISTORY: TIA. numbness left arm, pressure in forehead. TECHNIQUE: Multiplanar, multisequence images of the brain and brainstem is performed without and with IV contras t, utilizing 10 mL intravenous Gadavist . FINDINGS: Diffusion weighted images demonstrate no evidence of a recent infarct or other diffusion ab normality. Mild to moderate ventricular and sulcal prominence is redemonstrated. Scattered tiny foci of T2 hyperintensity throughout the white matter are redemonstrated bilaterally most prominent perive ntricular levels is again seen. Midline structures demonstrate normal morphology. The craniocervical junction appears within normal limits. Post contrast images demonstrate no abnormal enhancement. The dural venous sinuses appear pa tent. Bilateral aphakia remains present. The paranasal sinuses remain clear.. IMPRESSION: Mild to moderate diffuse cerebral atrophy and mild chronic small vessel ischemic changes are redemonstrated. No abnormal enhancement is seen. No significant change from most recent MRI.
== END | disposition home or self-care (01) ==
LOC: RADMRIMAIN 21:30
PROVIDERS: ATTEND Internal Medicine
DX: G31.9 Degenerative disease of nervous system, unspecified (principal); I67.82 Cerebral ischemia; G45.9 Transient cerebral ischemic attack, unspecified; R20.0 Anesthesia of skin
CPT/HCPCS: 70553; A9585

== ENCOUNTER → 2024-06-07 | Day surgery (SDC) | payer MEDICARE ==
[2024-06-05 12:16] VITALS: BMI 36.6
[2024-06-07] MEDS: IV FLUID CONTINUATION 1,000 ML IV ONE (11:28)
[2024-06-07] MEDS: SODIUM CHLORIDE 0.9% 500 ML 500 ML IV SCH (11:28)
[2024-06-07 11:40] VITALS: TEMP 97.9
[2024-06-07] MEDS: BENZOCAINE SPRAY 1 EACH MM ONE (11:58)
[2024-06-07] MEDS: MIDAZOLAM 2 MG/2 ML VIAL IVP ONE (12:02)
[2024-06-07] MEDS: fentaNYL (PF) 50 MCG/ML 2 ML AMP IVP ONE (12:02)
[2024-06-07 16:47] VITALS: BP 114/74; PULSE 62; RESP 16
--- NOTE | 2024-06-08 13:07 | P.TEE ---
Date of Procedure: 06/08/24 Description of Procedure(s): Procedure performed: 1. Transesophageal Echocardiogram with color flow doppler, pulsed wave doppler and continuous wave doppler, (CPT 37651, +[id number], +[id number]) 2. Moderate conscious sedation. Sedation time 19 mins. (CPT 63026) 3. Bubble Study Indications: TIA/CVA Consent: I have discussed the risks, benefits and alternative therapies for the above-mentioned procedure. The patient has indicated understanding and acceptance of the risks of the procedure. Signed consent was obtained and was placed in the paper chart. Procedural Steps: Timeout was performed in usual fashion. Patient's heart rate, blood pressure, oxygen saturation and ECG were monitored. Benzocaine was sprayed liberally in the back of the throat. Bite block was placed between the jaw. 2 mg of Versed and 50 mcg of Fentanyl were administered intravenously. After achieving appropriate moderate conscious sedation, REBECCA probe was advanced without difficulty and without any immediate complications to the esophagus. REBECCA study was performed with color flow doppler, pulsed wave doppler and continuous wave doppler. The probe was then removed. Patient tolerated the procedure well. Patient was transferred to the post procedure area in stable and satisfactory condition. Throughout the procedure patient's heart rate, blood pressure, oxygen saturation and ECG were monitored. Total sedation time 19 mins. Complications: none FINDINGS Left Atrium: Moderate left atrial dilatation, no evidence of mass or thrombus seen. Left Atrial Appendage: Small left atrial appendage, no evidence of thrombus or mass seen in NEGRO Inter atrial septum: Intact interatrial septum with no evidence of ASD or PFO. No evidence of [id number] intracardiac shunting on bubble study. Left Ventricle: Normal global LV size and systolic function Right Atrium: Normal overall RA size Right Ventricle: Normal global RV size and systolic function Aortic Valve: Trileaflet, sclerotic aortic valve. Mild restricted right coronary cusp. Mild central aortic regurgitation. Mitral Valve: Struturally normal. No evidence of prolapse. No evidence of stenosis or regurgitation on doppler assessment Pulmonic Valve: Trace pulmonic regurgitation Tricuspid Valve: Structurally normal, mild tricuspid regurgitation. Ascending aorta, Aortic root and Aortic arch: Ascending aorta 4.6 cm. Aortic root 3.7 cm, ST junction 3.2 cm. Descending aorta: 2 to 3 mm calcific atheroma noted in descending aorta and aortic arch. CONCLUSION: 1. REBECCA is nonrevealing for cardiogenic etiology of TIA/CVA 2. No evidence of [id number] intracardiac shunting on bubble study. No evidence of ASD or PFO, intact interatrial septum 3. Moderate left atrial dilatation. No evidence of thrombus in left atrium or left atrial appendage 4. Mildly sclerotic trileaflet aortic valve with mild central regurgitation 5. Ascending aorta 4.6 cm, aortic root 3.7 cm. Mild ascending aortic aneurysm. 6. Mild calcific atheroma noted in descending aorta and aortic arch Gerardo Larios MD, RPVI, FACC Thank you for allowing [facility] to participate in this patient's care. Feel free to reach out in case of any followup questions.
== END ==
LOC: CATHCVL 10:40
PROVIDERS: ATTEND Student in an Organized Health Care Education/Training Program
DX: I51.7 Cardiomegaly (principal); G45.9 Transient cerebral ischemic attack, unspecified; I48.0 Paroxysmal atrial fibrillation; I70.0 Atherosclerosis of aorta; I71.21 Aneurysm of the ascending aorta, without rupture; I10 Essential (primary) hypertension; Z86.73 Personal history of transient ischemic attack (TIA), and cerebral infarction without residual deficits; Z88.8 Allergy status to other drugs, medicaments and biological substances; Z88.1 Allergy status to other antibiotic agents; Z88.6 Allergy status to analgesic agent; Z79.02 Long term (current) use of antithrombotics/antiplatelets; Z79.899 Other long term (current) drug therapy
CPT/HCPCS: 93312; 93320; 93325; J2250; J3010

== ENCOUNTER → 2024-09-06 | Outpatient (CLI) | payer MEDICARE ==
[2024-09-06 10:14] LABS: Basophils # (A) 0.05 X 10*3/uL (0.00-0.10); Basophils % (A) 0.7 %; Eosinophils # (A) 0.29 X 10*3/uL (0.04-0.35); Eosinophils % (A) 4.2 %; HCT 50.8 % (39.6-50.0); HGB 16.3 g/dL (13.0-17.0); Lymphocytes # (A) 1.78 X 10*3/uL (0.90-5.00); Lymphocytes % (A) 25.5 %; MCH 29.3 pg (27.0-32.0); MCHC 32.1 g/dL (32.0-37.0); MCV 91.2 FL (80.0-97.0); Mean Platelet Volume 9.8 FL (9.5-12.2); Monocytes # (A) 0.49 X 10*3/uL (0.20-1.00); NRBC Per 100 WBC 0 X 10*3/uL (0.00-0.01); Neutrophils # (A) 4.33 X 10*3/uL (1.80-7.70); Neutrophils % (A) 62.2 %; Platelet Count 166 X 10*3/uL (140-440); RBC 5.57 X 10*6/uL (4.40-5.60); RDW 14.3 % (11.5-14.5); WBC 6.97 X 10*3/uL (4.50-10.00)
[2024-09-06 10:47] LABS: % Iron Saturation 28.21 (15.00-50.00); ALT 15 U/L (10-49); AST 18 U/L (14-35); Albumin 3.7 g/dL (3.8-4.9); Albumin/Globulin Ratio 1.54 Ratio (1.60-3.17); Alkaline Phosphatase 96 U/L (41-126); BUN/Creat Ratio 7.67 Ratio (12.00-20.00); Blood Urea Nitrogen 9.2 mg/dL (9.0-27.0); Calcium 8.8 mg/dL (8.7-10.3); Carbon Dioxide 29.4 mmol/L (21.6-31.8); Chloride 102 mmol/L (96-109); Chol/HDL Ratio 2.43 Ratio; Ferritin 99.7 ng/mL (22.0-322.0); Globulin 2.4 g/dL (1.6-3.3); Glucose 111 mg/dL (70-110); Iron 88 UG/DL (65-175); LDL Cholesterol,Calculated 42.9 mg/dL (0.0-131.0); Magnesium 1.9 mg/dL (1.5-2.4); Potassium 3.8 mmol/L (3.5-5.5); Sodium 141 mmol/L (135-145); Total Bilirubin 1.2 mg/dL (0.3-1.2); Total Iron Binding Capacity 312 UG/DL (228-460); Total Protein 6.1 g/dL (6.2-8.2); Uric Acid 4.9 mg/dL (3.7-8.7); VLDL Calculation 12.42 mg/dL (5.00-40.00)
[2024-09-06 10:49] LABS: PSA Annual Screen <0.014 ng/mL (0.000-4.000)
== END | disposition home or self-care (01) ==
LOC: LABWHC1 07:04
PROVIDERS: ATTEND Internal Medicine
DX: Z12.5 Encounter for screening for malignant neoplasm of prostate (principal); I10 Essential (primary) hypertension; E78.5 Hyperlipidemia, unspecified; E53.8 Deficiency of other specified B group vitamins; E55.9 Vitamin D deficiency, unspecified; M10.9 Gout, unspecified; R73.9 Hyperglycemia, unspecified; Z85.46 Personal history of malignant neoplasm of prostate
CPT/HCPCS: 80061; 80053; 84443; 82607; 82728; 82746; 83540; 83550; 83735; 84550; 85025; 82306; 83036; 36415; G0103